=== PATIENT | female | born 1995 | race Caucasian/White ===

== ENCOUNTER 2016-06-08 14:18 | Emergency (ER) | payer OTHER ==
[~2016-06-08] VITALS: Ht 185.4 cm; Wt 78.7 kg
[~2016-06-08 14:18] MED LIST: TOPI50TA16 PO
[2016-06-08 14:22] VITALS: TEMP 36.6; Ht 185.4 cm; Wt 78.7 kg
[2016-06-08] MEDS ORDERED: ONDANSETRON INJ 2 MG/ML 2 ML VIAL IV STA (14:58)
[2016-06-08] MEDS ORDERED: KETOROLAC TROMETHAMINE 30 MG/ML VIAL IV STA (14:58)
[2016-06-08] MEDS ORDERED: MoRPHine SULFATE 4 MG/ML 1 ML CARP\\VIAL IV STA (14:58)
[2016-06-08] MEDS ORDERED: IBUP-1050 PO (15:26)
[2016-06-08 15:58] LABS: MEAN CORPUSCULAR HGB CONC 34.5 g/dl (32-36)
[2016-06-08 16:00] LABS: URINE APPEARANCE CLOUDY (CLEAR); URINE BILIRUBIN NEG (NEG); URINE COLOR YELLOW; URINE EPITHELIAL CELL AUTO >30 /lpf (0-5); URINE NITRITE NEG (NEG); URINE SPECIFIC GRAVITY 1.021 (1.000-1.030); UROBILINOGEN NEG (NEG)
[2016-06-08 16:05] LABS: MANUAL MICROSCOPIC REQUIRED? NO; REVIEW REQ? NO
[2016-06-08 16:07] LABS: HEMATOCRIT 36.8 % (37-47); RED BLOOD COUNT 4.23 M/uL (4.2-5.4); WHITE BLOOD COUNT 4.16 K/uL (4.8-10.8)
[2016-06-08 16:08] LABS: PREG INTERNAL NEGATIVE QC NEG CLEAR BACKGROUND; PREG INTERNAL POSITIVE QC POS CONTROL LINE
[2016-06-08 16:18] LABS: MEAN PLATELET VOLUME 12.3 fL (7.4-10.4); PLATELET COUNT 134 K/uL (130-400); PLT ESTIMATE DECREASED
[2016-06-08 16:23] LABS: BUN/CREATININE RATIO 14.8 (10-20); CALCIUM 8.3 mg/dl (8.5-10.1); CREATININE 0.75 mg/dl (0.60-1.20); POTASSIUM 4.3 mmol/L (3.5-5.1)
--- NOTE | 2016-06-08 16:30 | DIAGNOSTIC IMAGING REPORT ---
EXAMINATION: PELVIC ULTRASOUND CLINICAL HISTORY: Severe cramping. History of IUD. Possible ovarian cyst. COMPARISON STUDY: 08/21/2015 FINDINGS: The uterus measured 6.8 x 4.7 x 3.2 cm.. The endometrial stripe measured 8 mm. An IUD is visualized within the endometrial cavity.. The right ovary measured 40 x 17 x 24 mm.. The left ovary measured 18 x 18 x 38 mm. No pathologic ovarian masses are visualized.. There is no ultrasonographic evidence of ovarian torsion. It should be noted that ovarian torsion can be present with normal Doppler ultrasonographic findings. There was no evidence of pathologic free pelvic fluid. IMPRESSION: Unremarkable pelvic ultrasound. No pathologic adnexal masses. The patient's IUD is located within the endometrial cavity. Electronically signed by: Jose Alfredo Sanabria M.D. 06/08/2016 4:28 PM Dictated Date/Time: 06/08/2016 4:27 PM
[2016-06-08] MEDS ORDERED: OXYC1TAB3 PO (16:58)
[2016-06-08] MEDS ORDERED: IBUP-1428 PO (16:58)
--- NOTE | 2016-06-08 17:26 | EMERGENCY ROOM VISIT NOTE ---
History Report prepared by Jose: Jairo Barry Under the Supervision of: Dr. Carlos Gunn M.D. First contact with patient: 14:54 Chief Complaint: ABDOMINAL PAIN Stated Complaint: SEVERE CRAMPING Nursing Triage Summary: C/o abd cramping, had an IUD placed on Sunday, cramping worse today. Placed at [facility] History of Present Illness The patient is a 20 year old female who presents to the Emergency Room with complaints of waxing & waning abdominal cramping today. The pain fluctuates between 6 to 8/10 in severity. The pain is slightly relieved by Ibuprofen. The patient had an IUD placed two days ago with [facility]. The patient had pain after the procedure, which intensified today. She has also noticed some vaginal spotting, which was expected after the procedure. The patient vomited after the procedure, but has not vomited today. She has noticed increased urinary frequency. The patient denies any fevers. The patient had the IUD placed for menstrual bleeding that continued for over two months. She cannot recall who the [employer] Prescription Clerk was that performed the procedure. The patient has never been . She cannot recall ever being diagnosed with an ovarian cyst. Source of History: patient Onset: today Position: abdomen Symptom Intensity: 6 to 8/10 Quality: cramping Timing: waxes/wanes Modifying Factors (Relieving): ibuprofen Associated Symptoms: + urinary symptoms, + vomiting, No fevers Review of Systems See HPI for pertinent positives & negatives. A total of 10 systems reviewed and were otherwise negative. Past Medical & Surgical Medical Problems: (1) Anxiety (2) Hepatitis C (3) Migraines Family History Cancer Diabetes mellitus FH: migraines Heart disease Hypertension Kidney disease Kidney stones Lung disease Social History Smoking Status: Current Every Day Smoker Alcohol Use: none Drug Use: none Marital Status: single Housing Status: lives with significant other Occupation Status: employed Current/Historical Medications Scheduled PRN Ibuprofen (Advil), 800 MG PO Q6 PRN for Pain Ibuprofen (Motrin), 800 MG PO Q8H PRN for Pain Oxycodone Ir (Roxicodone Ir), 1 TAB PO Q4H PRN for Pain Allergies Coded Allergies: Azithromycin (Unverified Allergy, Unknown, SWELLING, 06/08/16) Penicillins (Verified Allergy, Unknown, 06/08/16) Physical Exam Vital Signs Date Time Temp Pulse Resp B/P Pulse Ox O2 Delivery O2 Flow Rate FiO2 06/08/16 17:31 63 15 100/61 96 06/08/16 16:25 68 14 112/68 06/08/16 14:22 36.6 88 16 119/62 99 Room Air Physical Exam GENERAL: Patient is in mild distress secondary to pain. HEENT: No acute trauma, normocephalic atraumatic, mucous membranes moist, no nasal congestion, no scleral icterus. NECK: No stridor, no adenopathy, no meningismus, trachea is midline. LUNGS: Clear to auscultation bilaterally, no wheeze, no rhonchi, breath sounds equal. HEART: Without murmurs gallops or rubs, regular rate and rhythm. ABDOMEN: Soft, tender to both lower quadrants and both sides of the pelvis, bowel sounds positive, no hernias, no peritonitis. EXTREMITIES: No cyanosis or edema, full range of motion of all the joints without pain or difficulty, no signs for acute trauma. NEUROLOGIC: Oriented x 3, no acute motor or sensory deficits, no focal weakness. SKIN: No rash, no jaundice, no diaphoresis. Medical Decision & Procedures ER Provider Diagnostic Interpretation: US results as stated below per my review and radiologist interpretation: EXAMINATION: PELVIC ULTRASOUND CLINICAL HISTORY: Severe cramping. History of IUD. Possible ovarian cyst. COMPARISON STUDY: 08/21/2015 FINDINGS: The uterus measured 6.8 x 4.7 x 3.2 cm.. The endometrial stripe measured 8 mm. An IUD is visualized within the endometrial cavity.. The right ovary measured 40 x 17 x 24 mm.. The left ovary measured 18 x 18 x 38 mm. No pathologic ovarian masses are visualized.. There is no ultrasonographic evidence of ovarian torsion. It should be noted that ovarian torsion can be present with normal Doppler ultrasonographic findings. There was no evidence of pathologic free pelvic fluid. IMPRESSION: Unremarkable pelvic ultrasound. No pathologic adnexal masses. The patient's IUD is located within the endometrial cavity. Electronically signed by: Jose Alfredo Sanabria M.D. 06/08/2016 4:28 PM Dictated Date/Time: 06/08/2016 4:27 PM Laboratory Results 06/08/16 15:20 06/08/16 15:20 Test 06/08/16 15:20 Red Blood Count 4.23 M/uL (4.2-5.4) Mean Corpuscular Volume 87.0 fL (80-100) Mean Corpuscular Hemoglobin 30.0 pg (25-34) Mean Corpuscular Hemoglobin Concent 34.5 g/dl (32-36) RDW Standard Deviation 49.4 fL (36.4-46.3) RDW Coefficient of Variation 15.5 % (11.5-14.5) Mean Platelet Volume 12.3 fL (7.4-10.4) Platelet Estimate DECREASED Urine Color YELLOW Urine Appearance CLOUDY (CLEAR) Urine pH 8.0 (4.5-7.5) Urine Specific [place] 1.021 (1.000-1.030) Urine Protein NEG (NEG) Urine Glucose (UA) NEG (NEG) Urine Ketones NEG (NEG) Urine Occult Blood NEG (NEG) Urine Nitrite NEG (NEG) Urine Bilirubin NEG (NEG) Urine Urobilinogen NEG (NEG) Urine Leukocyte Esterase NEG (NEG) Urine WBC (Auto) 1-5 /hpf (0-5) Urine RBC (Auto) 0-4 /hpf (0-4) Urine Hyaline Casts (Auto) 1-5 /lpf (0-5) Urine Epithelial Cells (Auto) >30 /lpf (0-5) Urine Bacteria (Auto) NEG (NEG) Anion Gap 6.0 mmol/L (3-11) Est Creatinine Clear Calc Drug Dose 141.2 ml/min Estimated GFR () 132.1 Estimated GFR (Non- 113.9 BUN/Creatinine Ratio 14.8 (10-20) Calcium Level 8.3 mg/dl (8.5-10.1) Human Chorionic Gonadotropin, Qual NEG (NEG) Laboratory results reviewed by me. Medications Administered Medications (Trade) Dose Ordered Sig/Ashly Route Start Time Stop Time Status Last Admin Dose Admin Ketorolac Tromethamine (Toradol Inj) 30 mg NOW STAT IV 06/08/16 14:58 06/08/16 15:03 DC 06/08/16 15:33 30 MG Morphine Sulfate (MoRPHine SULFATE INJ) 4 mg NOW STAT IV 06/08/16 14:58 06/08/16 15:03 DC 06/08/16 15:33 4 MG Ondansetron HCl (Zofran Inj) 4 mg NOW STAT IV 06/08/16 14:58 06/08/16 15:03 DC 06/08/16 15:32 4 MG ED Course 1457: The patient was evaluated in room B8. A complete history and physical exam was performed. 1458: Zofran 4 mg IV, Morphine Sulfate 4 mg IV, Toradol 30 mg IV. 1645: Discussed the case with Dr. Kauffman, [employer] Prescription Clerk. He recommended symptoms control for the next couple of days. 1650: Reassessed the patient. She was doing well. I discussed the findings with her. She verbalized understanding and agreement of the treatment plan. The patient is ready for discharge. 1700: The prescription drug monitoring program was evaluated for this patient. Medical Decision Differential diagnosis includes misplaced IUD, uterine spasm, UTI, bladder spasm , electrolyte imbalance, , ovarian cyst. There is no leukocytosis or worrisome anemia. No significant electrolyte abnormality, no kidney failure. testing is negative. Urinalysis does not show evidence for infection. Pelvic ultrasound shows the IUD to be in the proper position. No large ovarian cyst. On exam, the patient was not toxic or febrile. Patient received IV Toradol, IV Zofran and IV morphine, she feels markedly improved. I discussed the case with the on-call OB doctor. The patient is being discharged with outpatient follow-up. She was given prescriptions for Motrin and a few oxycodone. She was told to return here for uncontrolled pain, fever or worsening symptoms. At this point, it appears that she is having some uterine spasm, likely from the IUD itself. Her symptoms should improve with more time. [place] Drug Monitoring Program Search Results: patient reviewed within database, no issues identified Consults Time Called: 1640 Consulting Physician: Dr. Kauffman, [employer] Prescription Clerk Returned Call: [phone]: Discussed the case with Dr. Kauffman, [employer] Prescription Clerk. He recommended symptoms control for the next couple of days. Impression Primary Impression: Pelvic cramping Scribe Attestation The scribe's documentation has been prepared under my direction and personally reviewed by me in its entirety. I confirm that the note above accurately reflects all work, treatment, procedures, and medical decision making performed by me. Departure Information Dispostion Home / Self-Care Prescriptions Oxycodone Ir (Roxicodone Ir) 5 Mg Tab 1 TAB PO Q4H Y for Pain, #5 TAB Prov: Carlos Gunn M.D. 06/08/16 Ibuprofen (Motrin) 800 Mg Tab 800 MG PO Q8H Y for Pain for 5 Days, #15 TAB Prov: Carlos Gunn M.D. 06/08/16 Referrals No Doctor, Assigned (PCP) Forms HOME CARE DOCUMENTATION FORM, IMPORTANT VISIT INFORMATION, Work Instructions Patient Instructions My [facility] Additional Instructions motrin 800 mg 3x per day for pain oxy ir 1 every 4 hours for severe pain call ob tomorrow to update them on your symptoms return for fever or uncontrolled pain lab testing today was ok ultrasound showed the IUD to be in proper position
[2016-06-08 17:31] VITALS: BP 100/61; PULSE 63; O2SAT 96
[2016-08-11] MEDS ORDERED: HYDR-5688 PO ×2 (19:11→19:14)
[2016-08-11] MEDS ORDERED: CIPR-255 PO (19:11)
== END 2016-06-08 15:31 | disposition home or self-care (01) ==
LOC: C.EDB 14:19
DX: R10.9 Unspecified abdominal pain (principal); F41.9 Anxiety disorder, unspecified; Z83.3 Family history of diabetes mellitus; Z82.49 Family history of ischemic heart disease and other diseases of the circulatory system; F17.210 Nicotine dependence, cigarettes, uncomplicated

== ENCOUNTER 2016-08-11 12:33 | Inpatient (IN) | payer OTHER ==
[~2016-08-11] VITALS: Ht 185.4 cm; Wt 76.4 kg
[~2016-08-11 12:33] MED LIST changes: +IBUP-1050 PO; +OXYC1TAB3 PO; -TOPI50TA16 PO
[2016-08-11 12:37] VITALS: TEMP 37.1; Ht 185.4 cm; Wt 76.4 kg
[2016-08-11] MEDS ORDERED: KETOROLAC TROMETHAMINE 30 MG/ML VIAL IV STA (12:52)
[2016-08-11] MEDS ORDERED: ONDANSETRON INJ 2 MG/ML 2 ML VIAL IV STA (12:52)
[2016-08-11] MEDS ORDERED: SODIUM CHLORIDE 0.9% 1000ML 1,000 ML IV STA ×2 (12:52→14:53)
[2016-08-11] MEDS ORDERED: GABA-112 PO (13:02)
[2016-08-11] MEDS ORDERED: FLUO20CA34 PO (13:02)
[2016-08-11] MEDS ORDERED: CLON0.5T3 PO (13:03)
--- NOTE | 2016-08-11 13:04 | EMERGENCY ROOM VISIT NOTE ---
History Report prepared by Jose: Niesha Thomas Under the Supervision of: Dr. Adry Garza M.D. First contact with patient: 12:43 Chief Complaint: ILLNESS Stated Complaint: BACK PAIN, HEADACHE,LACK OF BALANCE, OVERLY TIRED, History of Present Illness The patient is a 20 year old female who presents to the Emergency Room with complaints of worsening back pain that began about a week ago. She initially thought she pulled a muscle, until the pain continued to get worse and started to radiate through her right rib cage and right lower quadrant. Her pain worsens significantly with movement. She has difficulty getting out of bed in the morning due to her pain and has to take Advil before she is able to get up. Since her symptoms began, she has had temporary migraines in the mornings, "my head feels like an egg shell." The headache resolves as the day progresses. She reports occasional ear pain when her headache is at its worst. The patient also complains of a cough, fever (max temperature 101), sweating, and chills when her Advil wears off. She feels as if she is dehydrated, although she is trying to keep up with fluids. The patient was seen at Urgent Care 2 days ago for her symptoms and was referred to the ED. She did not have any testing at Urgent Care. The patient decided that she did not want to come to the ED at that time because she wanted to go home and sleep. Per patient's father, the patient has not had an appetite. Denies sore throat or other complaints. Source of History: patient, parent Onset: a week ago Position: back Timing: worsening Modifying Factors (Worsening): movement Modifying Factors (Relieving): ibuprofen Associated Symptoms: + chills, + cough, + fevers, + headache, No sorethroat Note: Other symptoms: sweating, decreased appetite, ear pain Review of Systems See HPI for pertinent positives & negatives. A total of 10 systems reviewed and were otherwise negative. Past Medical & Surgical Medical Problems: (1) Acute renal failure (2) Anxiety (3) H/O intravenous drug use in remission (4) Hepatitis C (5) Pyelonephritis (6) Tobacco abuse Surgical Problems: (1) Hx of tonsillectomy Family History Cancer Diabetes mellitus FH: migraines Heart disease Hypertension Kidney disease Kidney stones Lung disease Social History Smoking Status: Current Every Day Smoker Alcohol Use: none Drug Use: none Marital Status: single Housing Status: lives with significant other Occupation Status: employed Current/Historical Medications Scheduled Ciprofloxacin Hcl (Cipro), 500 MG PO BID Fluoxetine Hcl (Prozac), 1 CAP PO DAILY Gabapentin (Neurontin), 1 CAP PO TID Scheduled PRN Clonazepam (Klonopin), 0.5 MG PO TID PRN for Anxiety Hydrocodone/Acetaminophen 5MG/325MG (Crockett 5MG/325MG), 1 TABLET PO Q6H PRN for Pain Allergies Coded Allergies: Azithromycin (Unverified Allergy, Unknown, SWELLING, 06/08/16) Penicillins (Verified Allergy, Unknown, 06/08/16) Physical Exam Vital Signs Date Time Temp Pulse Resp B/P Pulse Ox O2 Delivery O2 Flow Rate FiO2 08/11/16 14:13 78 85/36 97 Room Air 92/39 08/11/16 12:37 37.1 116 18 151/82 96 Room Air Physical Exam Vital signs reviewed. General: Well-appearing 20 year old female, in no significant distress. HEENT: No scleral icterus, PERRLA, neck supple. Atraumatic. Cardiovascular: Regular rate and rhythm, no extra sounds. Pulmonary: Clear to auscultation bilaterally, normal work of breathing. Abdomen: Soft, some tenderness to the right mid abdomen, nondistended, positive bowel sounds. Musculoskeletal: Atraumatic, no peripheral edema. Some right CVA tenderness. Neurologic: Patient awake alert and oriented x 3, full strength in all 4 extremities. Cranial nerves 2 through 12 grossly intact. No meningeal signs. Skin: Warm, dry, no rash Medical Decision & Procedures ER Provider Diagnostic Interpretation: Radiology results as stated below per my review and radiologist interpretation: CT HEAD WITHOUT CONTRAST (CT) CLINICAL HISTORY: Severe persistent headache COMPARISON STUDY: 10/25/2015 TECHNIQUE: Axial CT of the brain is performed from the vertex to the skull base. IV contrast was not administered for this examination. CT DOSE: 537.48 mGy.cm FINDINGS: No intra or extra-axial mass lesions are visualized. There is no CT evidence of acute cortical infarction. There is no evidence of midline shift. There is no acute hemorrhage. No calvarial fractures are visualized. There is no evidence of pathologic ventricular dilatation. There is a stable small left sphenoid sinus air-fluid level. IMPRESSION: Chronic left sphenoid sinus air-fluid level. No acute intracranial abnormalities Electronically signed by: Jose Alfredo Sanabria M.D. 08/11/2016 2:39 PM Dictated Date/Time: 08/11/2016 2:38 PM ABDOMEN AND PELVIS CT WITHOUT CONTRAST CT DOSE: 778.47 mGy.cm HISTORY: Flank pain elevated creatinine, R pain, pyelo TECHNIQUE: Multiaxial CT images of the abdomen and pelvis were performed without the use of intravenous and oral contrast according to the standard department stone protocol. COMPARISON STUDY: None. FINDINGS: Lung bases are clear. Liver spleen and pancreas appear generally unremarkable within limitations of lack of contrast. Right kidney appears edematous as compared to the left. There are findings of mild to moderate infiltrative change of the right renal perinephric space. Secondary indication of a right-sided palate findings. There is no evidence for hydronephrosis. There is no obstructing urinary tract calculus. No evidence for drainable abscess or collection within limitations of an unenhanced scan. Bowel pattern appears nonobstructive. Intrauterine device is present. IMPRESSION: Findings highly suggestive of generalized right renal pyelonephritis.. 2. Moderate perinephric infiltrative change, although an abscess or collection is not appreciated within limitations of an unenhanced scan. 3. Mild reactive mesenteric adenitis 4. If the patient's symptoms do not improve, a fully enhanced scan including intravenous and oral contrast would be required to exclude a developing collection. Electronically signed by: Nito Quintana M.D. 08/11/2016 2:53 PM Dictated Date/Time: 08/11/2016 2:48 PM Laboratory Results 08/11/16 13:15 Red Blood Count 3.95, Mean Corpuscular Volume 84.1, Mean Corpuscular Hemoglobin 30.1, Mean Corpuscular Hemoglobin Concent 35.8, Mean Platelet Volume 12.2, Neutrophils (%) (Auto) 70.7, Lymphocytes (%) (Auto) 6.0, Monocytes (%) (Auto) 22.5, Eosinophils (%) (Auto) 0.4, Basophils (%) (Auto) 0.1, Neutrophils # (Auto ) 6.61, Lymphocytes # (Auto) 0.56, Monocytes # (Auto) 2.10, Eosinophils # (Auto ) 0.04, Basophils # (Auto) 0.01 4/7/17 13:15 Test 08/11/16 13:00 08/11/16 13:07 08/11/16 13:15 Urine Color YELLOW Urine Appearance CLOUDY (CLEAR) Urine pH 5.0 (4.5-7.5) Urine Specific [place] 1.011 (1.000-1.030) Urine Protein 1+ (NEG) Urine Glucose (UA) NEG (NEG) Urine Ketones NEG (NEG) Urine Occult Blood 1+ (NEG) Urine Nitrite NEG (NEG) Urine Bilirubin NEG (NEG) Urine Urobilinogen NEG (NEG) Urine Leukocyte Esterase LARGE (NEG) Urine WBC (Auto) >30 /hpf (0-5) Urine RBC (Auto) 0-4 /hpf (0-4) Urine Hyaline Casts (Auto) 1-5 /lpf (0-5) Urine Epithelial Cells (Auto) 0-5 /lpf (0-5) Urine Bacteria (Auto) 3+ (NEG) Urine Test NEG (NEG) Influenza Type A (RT-PCR) Neg for Influ A (NEG) Influenza Type A Antigen Neg for Influ A (NEG) Influenza Type B Antigen Neg for Influ B (NEG) Influenza Type B (RT-PCR) Neg for Influ B (NEG) White Blood Count 9.35 K/uL (4.8-10.8) Red Blood Count 3.95 M/uL (4.2-5.4) Hemoglobin 11.9 g/dL (12.0-16.0) Hematocrit 33.2 % (37-47) Mean Corpuscular Volume 84.1 fL (80-100) Mean Corpuscular Hemoglobin 30.1 pg (25-34) Mean Corpuscular Hemoglobin Concent 35.8 g/dl (32-36) Platelet Count 114 K/uL (130-400) Mean Platelet Volume 12.2 fL (7.4-10.4) Neutrophils (%) (Auto) 70.7 % Lymphocytes (%) (Auto) 6.0 % Monocytes (%) (Auto) 22.5 % Eosinophils (%) (Auto) 0.4 % Basophils (%) (Auto) 0.1 % Neutrophils # (Auto) 6.61 K/uL (1.4-6.5) Lymphocytes # (Auto) 0.56 K/uL (1.2-3.4) Monocytes # (Auto) 2.10 K/uL (0.11-0.59) Eosinophils # (Auto) 0.04 K/uL (0-0.5) Basophils # (Auto) 0.01 K/uL (0-0.2) RDW Standard Deviation 45.4 fL (36.4-46.3) RDW Coefficient of Variation 14.6 % (11.5-14.5) Immature Granulocyte % (Auto) 0.3 % Immature Granulocyte # (Auto) 0.03 K/uL (0.00-0.02) Toxic Granulation 1+ Platelet Estimate DECREASED Echinocytes 1+ Anion Gap 5.0 mmol/L (3-11) Est Creatinine Clear Calc Drug Dose 55.7 ml/min Estimated GFR () 42.9 Estimated GFR (Non- 37.0 BUN/Creatinine Ratio 18.5 (10-20) Calcium Level 8.4 mg/dl (8.5-10.1) Magnesium Level 2.3 mg/dl (1.8-2.4) Total Bilirubin 0.8 mg/dl (0.2-1) Direct Bilirubin 0.4 mg/dl (0-0.2) Aspartate Amino Transf (AST/SGOT) 18 U/L (15-37) Alanine Aminotransferase (ALT/SGPT) 24 U/L (12-78) Alkaline Phosphatase 92 U/L (45-117) Total Protein 6.2 gm/dl (6.4-8.2) Albumin 2.7 gm/dl (3.4-5.0) Lipase 79 U/L (73-393) Thyroid Stimulating Hormone (TSH) 0.409 uIu/ml (0.300-4.500) Laboratory results per my review. Medications Administered Medications (Trade) Dose Ordered Sig/Ashly Route Start Time Stop Time Status Last Admin Dose Admin Sodium Chloride (Nss 1000ml) 1,000 ml @ 999 mls/hr Q1H1M STAT IV 08/11/16 12:52 08/11/16 13:52 DC 08/11/16 13:20 999 MLS/HR Ketorolac Tromethamine (Toradol Inj) 30 mg NOW STAT IV 08/11/16 12:52 08/11/16 12:55 DC 08/11/16 13:21 30 MG Ondansetron HCl 4 mg 4 mg NOW STAT IV 08/11/16 12:52 08/11/16 12:55 DC 08/11/16 13:21 4 MG Sodium Chloride (Nss 1000ml) 1,000 ml @ 999 mls/hr Q1H1M STAT IV 08/11/16 14:53 08/11/16 15:53 DC 08/11/16 14:53 999 MLS/HR Ciprofloxacin/ Dextrose (Cipro / D5w) 400 mg NOW STAT IV 08/11/16 15:22 08/11/16 15:23 DC 08/11/16 15:41 400 MG ED Course 1250: The patient was evaluated in room A2. A complete history and physical examination was performed. 1252: Ordered Zofran Inj 4 mg IV, Toradol Inj 30 mg IV, NSS 1000 ml @ 999 mls/ hr IV. 1453: Ordered NSS 1000 ml @ 999 mls/hr IV. 1522: Ordered Cipro/D5w 400 mg IV. 1535: Upon reevaluation, the patient is resting comfortably. I discussed laboratory and radiographic results with the patient. She verbalized agreement of the treatment plan. 1540: I discussed the case with [facility]. The patient will be evaluated for further management. Medical Decision Differential diagnosis: Etiologies such as renal colic, appendicitis, diverticulitis, mesenteric ischemia, aortic pathology, infections, inflammatory bowel disease, PUD, biliary pathology, UTI, as well as others were entertained. This patient was evaluated and appeared to be in no significant distress. IV access was obtained and laboratory work was drawn. The patient was placed on the general repairer and found to be in a normal sinus rhythm. Patient was hydrated with normal saline solution. She was given IV Toradol and IV Zofran. Laboratory work reveals a creatinine of 1.9. Patient's UA is significant for infection. CT scan of the abdomen and pelvis was performed and is consistent with a pyelonephritis. Patient was medicated with IV Cipro due to her penicillin allergy. IV hydration was continued in the case was discussed with the hospitalist service. Patient and her father are aware of the plan for admission and agree. Consults Time Called: 1535 Consulting Physician: [facility] Returned Call: 1540 I discussed the case with her. The patient will be evaluated for further management. Impression Primary Impression: Pyelonephritis Additional Impression: Acute renal failure Scribe Attestation The scribe's documentation has been prepared under my direction and personally reviewed by me in its entirety. I confirm that the note above accurately reflects all work, treatment, procedures, and medical decision making performed by me. Departure Information Dispostion Being Evaluated By Hospitalist Prescriptions Hydrocodone/Acetaminophen 5MG/325MG (Crockett 5MG/325MG) Tab 1 TABLET PO Q6H Y for Pain for 3 Days, #10 TAB Take one every six hours only as needed for severe pain. Prov: Pallavi Maldonado DO 08/11/16 Ciprofloxacin Hcl (CIPRO) 500 Mg Tab 500 MG PO BID for 7 Days, #14 TAB Prov: Pallavi Maldonado DO 08/11/16 Referrals No Doctor, Assigned (PCP) Patient Instructions My [facility] Problem Qualifiers Additional Impression: Acute renal failure Acute renal failure type: unspecified Qualified Codes: N17.9 - Acute kidney failure, unspecified
[2016-08-11 13:20] LABS: URINE APPEARANCE CLOUDY (CLEAR); URINE BILIRUBIN NEG (NEG); URINE COLOR YELLOW; URINE NITRITE NEG (NEG); URINE SPECIFIC GRAVITY 1.011 (1.000-1.030); UROBILINOGEN NEG (NEG); ZZUR CULT IF INDIC CLEAN CATCH YES
[2016-08-11 13:33] LABS: MANUAL MICROSCOPIC REQUIRED? NO; REVIEW REQ? YES
[2016-08-11 13:45] LABS: BUN/CREATININE RATIO 18.5 (10-20); CALCIUM 8.4 mg/dl (8.5-10.1); CREATININE 1.9 mg/dl (0.60-1.20); MAGNESIUM 2.3 mg/dl (1.8-2.4); POTASSIUM 3.5 mmol/L (3.5-5.1)
[2016-08-11 13:46] LABS: URINE EPITHELIAL CELL AUTO 0-5 /lpf (0-5)
[2016-08-11 14:01] LABS: THYROID STIMULATING HORMONE 0.409 uIu/ml (0.300-4.500)
[2016-08-11 14:19] LABS: BASO % 0.1 %; BASO ABS # 0.01 K/uL (0-0.2); COMPLETE YES; ECHINOCYTES 1+; EOS % 0.4 %; HEMATOCRIT 33.2 % (37-47); IG% 0.3 %; LYMPH ABS # 0.56 K/uL (1.2-3.4); MEAN CELL VOLUME 84.1 fL (80-100); MEAN CORPUSCULAR HEMOGLOBIN 30.1 pg (25-34); MEAN CORPUSCULAR HGB CONC 35.8 g/dl (32-36); MEAN PLATELET VOLUME 12.2 fL (7.4-10.4); MONO % 22.5 %; NEUT % 70.7 %; PLATELET COUNT 114 K/uL (130-400); PLT ESTIMATE DECREASED; RED BLOOD COUNT 3.95 M/uL (4.2-5.4); TOXIC GRANULATION 1+; WHITE BLOOD COUNT 9.35 K/uL (4.8-10.8)
--- NOTE | 2016-08-11 14:41 | DIAGNOSTIC IMAGING REPORT ---
CT HEAD WITHOUT CONTRAST (CT) CLINICAL HISTORY: Severe persistent headache COMPARISON STUDY: 10/25/2015 TECHNIQUE: Axial CT of the brain is performed from the vertex to the skull base. IV contrast was not administered for this examination. CT DOSE: 537.48 mGy.cm FINDINGS: No intra or extra-axial mass lesions are visualized. There is no CT evidence of acute cortical infarction. There is no evidence of midline shift. There is no acute hemorrhage. No calvarial fractures are visualized. There is no evidence of pathologic ventricular dilatation. There is a stable small left sphenoid sinus air-fluid level. IMPRESSION: Chronic left sphenoid sinus air-fluid level. No acute intracranial abnormalities Electronically signed by: Jose Alfredo Sanabria M.D. 08/11/2016 2:39 PM Dictated Date/Time: 08/11/2016 2:38 PM
--- NOTE | 2016-08-11 14:56 | DIAGNOSTIC IMAGING REPORT ---
ABDOMEN AND PELVIS CT WITHOUT CONTRAST CT DOSE: 778.47 mGy.cm HISTORY: Flank pain elevated creatinine, R pain, pyelo TECHNIQUE: Multiaxial CT images of the abdomen and pelvis were performed without the use of intravenous and oral contrast according to the standard department stone protocol. COMPARISON STUDY: None. FINDINGS: Lung bases are clear. Liver spleen and pancreas appear generally unremarkable within limitations of lack of contrast. Right kidney appears edematous as compared to the left. There are findings of mild to moderate infiltrative change of the right renal perinephric space. Secondary indication of a right-sided palate findings. There is no evidence for hydronephrosis. There is no obstructing urinary tract calculus. No evidence for drainable abscess or collection within limitations of an unenhanced scan. Bowel pattern appears nonobstructive. Intrauterine device is present. IMPRESSION: Findings highly suggestive of generalized right renal pyelonephritis.. 2. Moderate perinephric infiltrative change, although an abscess or collection is not appreciated within limitations of an unenhanced scan. 3. Mild reactive mesenteric adenitis 4. If the patient's symptoms do not improve, a fully enhanced scan including intravenous and oral contrast would be required to exclude a developing collection. Electronically signed by: Nito Quintana M.D. 08/11/2016 2:53 PM Dictated Date/Time: 08/11/2016 2:48 PM
[2016-08-11 15:18] LABS: INFLUENZA A PCR Neg for Influ A (NEG); INFLUENZA B PCR Neg for Influ B (NEG)
[2016-08-11] MEDS ORDERED: CIPROFLOXACIN 400MG / 200ML D5W IV STA (15:22)
[2016-08-11] MEDS ORDERED: ONDANSETRON INJ 2 MG/ML 2 ML VIAL IV PRN (16:30)
[2016-08-11] MEDS ORDERED: CLONAZEPAM 0.5 MG TAB PO PRN (16:30)
[2016-08-11] MEDS ORDERED: ACETAMINOPHEN 325 MG TAB PO PRN (16:30)
--- NOTE | 2016-08-11 17:03 | History and Physical ---
History & Physical Date & Time of Service: Aug 11, 2016 at 16:37 Chief Complaint: Back Pain, Headache,Lack Of Balance, [place] Tired, Primary Care Physician: Rufus Box III, M.D. History of Present Illness Source: patient, family, clinic records, hospital records Patient seen and examined. 20 year old female with PMHx of Anxiety, tobacco abuse, h/o IV drug use, h/o hepatitis C presents to the ED complaining of right flank pain x 1 week. Patient reports she thought she pulled a muscle in her right side but the pain has continued to worsen. She reports she has malaise/ myalgias, feels tired and "feels dehydrated." She went to urgent care earlier this week who referred her to the ED but she did not come. She states she has had subjective fevers and a severe headache described as "eggshells on my head. " She also reports dysuria. She states she has been taking a lot of Advil to help with her symptoms. She has been taking 10+ Advil at a time. She denies URI symptoms, chest pain, SOB, nausea, vomiting, diarrhea, calf pain and edema. In the ED VS are stable, CT head is negative, CT a/p is consistent with pyelonephritis. UA is infected. She was empirically started on Cipro. She will be admitted for further workup and treatment. 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 (3) Hepatitis C Status: Chronic (4) Tobacco abuse Status: Chronic Surgical Problems: (1) Hx of tonsillectomy Status: Chronic Family History Cancer Diabetes mellitus FH: migraines Heart disease Hypertension Kidney disease Kidney stones Lung disease Social History Smoking Status: Current Every Day Smoker Alcohol Use: occasionally Drug Use: none Marital Status: single Occupational Status: employed Multi-Drug Resistant Organisms History of MDRO: No Allergies Coded Allergies: Azithromycin (Unverified Allergy, Unknown, SWELLING, 06/08/16) Penicillins (Verified Allergy, Unknown, 06/08/16) Home Medications Scheduled Ciprofloxacin Hcl (Cipro), 500 MG PO BID Fluoxetine Hcl (Prozac), 1 CAP PO DAILY Gabapentin (Neurontin), 1 CAP PO TID Scheduled PRN Clonazepam (Klonopin), 0.5 MG PO TID PRN for Anxiety Hydrocodone/Acetaminophen 5MG/325MG ([place] 5MG/325MG), 1 TABLET PO Q6H PRN for Pain Review of Systems See above for pertinent positives & negatives. A total of 10 systems reviewed and were otherwise negative. Physical Exam Vital Signs Date Time Temp Pulse Resp B/P Pulse Ox O2 Delivery O2 Flow Rate FiO2 08/11/16 14:13 78 85/36 97 Room Air 92/39 08/11/16 12:37 37.1 116 18 151/82 96 Room Air General Appearance: + pertinent finding (WD/WN 20 year old female lying in bed in NAD with family at bedside ) Head: normocephalic, atraumatic Eyes: PERRL, EOMI, sclerae normal ENT: hearing grossly normal, pharynx normal Neck: supple, no JVD Respiratory/Chest: chest non-tender, lungs clear, normal breath sounds, no respiratory distress, no accessory muscle use Cardiovascular: regular rate, rhythm, no edema, no gallop, no JVD, no murmur, normal peripheral pulses Abdomen/GI: normal bowel sounds, soft, + tenderness (right flank, mild ) Back: normal inspection, no muscle spasm, + right CVA tenderness Extremities/Musculoskelatal: normal inspection, no calf tenderness, normal capillary refill, no pedal edema, normal range of motion Neurologic/Psych: alert, oriented x 3, + pertinent finding (nonfocal ) Skin: normal color, warm/dry, no rash Lymphatic: no adenopathy Diagnostics Laboratory Results Results Past 24 Hours Test 08/11/16 13:00 08/11/16 13:07 08/11/16 13:15 Range/Units Urine Color YELLOW Urine Appearance CLOUDY CLEAR Urine pH 5.0 4.5-7.5 Urine Specific [place] 1.011 1.000-1.030 Urine Protein 1+ NEG Urine Glucose (UA) NEG NEG Urine Ketones NEG NEG Urine Occult Blood 1+ NEG Urine Nitrite NEG NEG Urine Bilirubin NEG NEG Urine Urobilinogen NEG NEG Urine Leukocyte Esterase LARGE NEG Urine WBC (Auto) >30 0-5 /hpf Urine RBC (Auto) 0-4 0-4 /hpf Urine Hyaline Casts (Auto) 1-5 0-5 /lpf Urine Epithelial Cells (Auto) 0-5 0-5 /lpf Urine Bacteria (Auto) 3+ NEG Urine Test NEG NEG Influenza Type A (RT-PCR) Neg for Influ A NEG Influenza Type A Antigen Neg for Influ A NEG Influenza Type B Antigen Neg for Influ B NEG Influenza Type B (RT-PCR) Neg for Influ B NEG White Blood Count 9.35 4.8-10.8 K/uL Red Blood Count 3.95 4.2-5.4 M/uL Hemoglobin 11.9 12.0-16.0 g/dL Hematocrit 33.2 37-47 % Mean Corpuscular Volume 84.1 80-100 fL Mean Corpuscular Hemoglobin 30.1 25-34 pg Mean Corpuscular Hemoglobin Concent 35.8 32-36 g/dl Platelet Count 114 130-400 K/uL Mean Platelet Volume 12.2 7.4-10.4 fL Neutrophils (%) (Auto) 70.7 % Lymphocytes (%) (Auto) 6.0 % Monocytes (%) (Auto) 22.5 % Eosinophils (%) (Auto) 0.4 % Basophils (%) (Auto) 0.1 % Neutrophils # (Auto) 6.61 1.4-6.5 K/uL Lymphocytes # (Auto) 0.56 1.2-3.4 K/uL Monocytes # (Auto) 2.10 0.11-0.59 K/uL Eosinophils # (Auto) 0.04 0-0.5 K/uL Basophils # (Auto) 0.01 0-0.2 K/uL RDW Standard Deviation 45.4 36.4-46.3 fL RDW Coefficient of Variation 14.6 11.5-14.5 % Immature Granulocyte % (Auto) 0.3 % Immature Granulocyte # (Auto) 0.03 0.00-0.02 K/uL Toxic Granulation 1+ Platelet Estimate DECREASED Echinocytes 1+ Sodium Level 136 136-145 mmol/L Potassium Level 3.5 3.5-5.1 mmol/L Chloride Level 104 98-107 mmol/L Carbon Dioxide Level 27 21-32 mmol/L Anion Gap 5.0 3-11 mmol/L Blood Urea Nitrogen 35 7-18 mg/dl Creatinine 1.90 0.60-1.20 mg/dl Est Creatinine Clear Calc Drug Dose 55.7 ml/min Estimated GFR () 42.9 Estimated GFR (Non- 37.0 BUN/Creatinine Ratio 18.5 10-20 Random Glucose 91 70-99 mg/dl Calcium Level 8.4 8.5-10.1 mg/dl Magnesium Level 2.3 1.8-2.4 mg/dl Total Bilirubin 0.8 0.2-1 mg/dl Direct Bilirubin 0.4 0-0.2 mg/dl Aspartate Amino Transf (AST/SGOT) 18 15-37 U/L Alanine Aminotransferase (ALT/SGPT) 24 12-78 U/L Alkaline Phosphatase 92 45-117 U/L Total Protein 6.2 6.4-8.2 gm/dl Albumin 2.7 3.4-5.0 gm/dl Lipase 79 73-393 U/L Thyroid Stimulating Hormone (TSH) 0.409 0.300-4.500 uIu/ml Microbiology Results 08/11/16 Group A Streptococcus Screen - Final, Resulted SPECIMEN NEGATIVE FOR GROUP A BETA ST... 08/11/16 Group A Streptococcus Screen ([facility]), Resulted Pending 08/11/16 Urine Culture, Received Pending Diagnostic Radiology CT A/P Per radiologist read: IMPRESSION: Findings highly suggestive of generalized right renal pyelonephritis.. 2. Moderate perinephric infiltrative change, although an abscess or collection is not appreciated within limitations of an unenhanced scan. 3. Mild reactive mesenteric adenitis 4. If the patient's symptoms do not improve, a fully enhanced scan including intravenous and oral contrast would be required to exclude a developing collection. CT HEAD Per radiologist read: IMPRESSION: Chronic left sphenoid sinus air-fluid level. No acute intracranial abnormalities Impression Assessment and Plan 20 year old female presents to the ED complaining of generalized pain worse in the right flank, headache PYELONEPHRITIS -Admit to med/surg -VS stable, BP on my examination 110/70 -no leukocytosis, afebrile -Was empirically started on cipro d/t penicillin allergy - last culture grew E.coli sensitive to fluoroquinolones -IVFs -repeat culture pending -CBC, PRP, Mg in AM -Scheduled tramadol, Tylenol for pain ACUTE RENAL FAILURE -Crea 1.9 baseline 0.75 -Likely secondary to excessive NSAID use, possible dehydration in setting of poor po intake -avoid nephrotoxic agents -IVFs -repeat PRP in AM TOBACCO ABUSE -Cessation counseling given -Nicotine patch ordered ANXIETY -continue home meds H/O HEPATITIS C -per record H/O IV DRUG ABUSE -sober 1.5 years per patient DVT PROPHYLAXIS: SCDs CODE STATUS: FULL CODE DISPO:In my clinical judgment this beneficiary meets acute admission criteria, established by [facility], that includes being hospitalized through two midnights. Patient seen in collaboration with Dr. Maldonado i have seen the patient. when I walked into the room she was cyring and was very upset, in hysterics, because she doesn't want to be in the hospital. She is upset that she spent 6 hours in the ER, and that she is not allowed to go out side to smoke. From what I can gather she just wants to go home.She was educated on the risks of leaving, but chose to leave AMA anyway. Palalvi Maldonado , dO Level of Care Med/Surg Resuscitation Status FULL RESUSCITATION VTE Prophylaxis VTE Risk Assessment Done? Y/N: Yes Risk Level: Low Given or contraindicated: Treatment not indicated Social Service Consult None Apply
[2016-08-11 18:29] VITALS: BP 110/55; PULSE 73; O2SAT 92
[2016-08-11] MEDS ORDERED: CIPR-255 PO (19:11)
[2016-08-11] MEDS ORDERED: HYDR-5688 PO ×2 (19:11→19:14)
--- NOTE | 2016-08-11 19:18 | Discharge Instructions ---
Discharge Instructions Date of Service Aug 11, 2016. Admission Reason for Admission: Back Pain, Headache,Lack Of Balance, [place] Tired, Discharge Discharge Diagnosis / Problem: JON, acute pyelonephritis Discharge Goals Goal(s): Therapeutic intervention Activity Recommendations Activity Limitations: per Instructions/Follow-up section . Instructions / Follow-Up Instructions / Follow-Up Please take all medications as prescribed. Please AVOID all NSAIDs (Non-steroidal Anti-inflammatory Drugs) such as Ibuprofen, Naproxen, Aleve, Motrin, Advil, etc. Your kidneys are in acute failure and you will need close follow-up with your primary physician within a couple of days. Using these medications will make this worse. Please continue to hydrate by drinking water frequently. Please return to the ER or seek immediate medical attention if you continue to have fevers, chills, worsening pain, or any other symptom that is concerning to you. Someone will contact you within the next few days to ensure a follow-up appointment has been arranged. It was a pleasure taking care of you! Call if you have any questions or problems. You can reach a [facility] hospitalist on duty at [facility] 24 hours a day by calling [phone]. Take care of yourself. Pallavi Maldonado, [facility] Hospitalist Current Hospital Diet Patient's current hospital diet: Regular Diet Discharge Diet Recommended Diet: Regular Diet Pending Studies Studies pending at discharge: yes List of pending studies: Urine culture Medical Emergencies . Who to Call and When: Medical Emergencies: If at any time you feel your situation is an emergency, please call 911 immediately. . Non-Emergent Contact Non-Emergency issues call your: Primary Care Provider . . "Provider Documentation" section prepared by Pallavi Maldonado. VTE Core Measure Inpt VTE Proph given/why not?: SCD's
[2016-08-11] MEDS ORDERED: SODIUM CHLORIDE 0.9% 1000ML 1,000 ML IV SCH (20:00)
[2016-08-11] MEDS ORDERED: GABAPENTIN 100 MG CAP PO SCH (21:00)
[2016-08-11] MEDS ORDERED: CIPROFLOXACIN / D5W 400 MG in PREMIXED IN D5W 200 ML IV SCH (21:00)
[2016-08-11] MEDS ORDERED: NICOTINE 14 MG/24 HR TDSY TD SCH (21:00)
[2016-08-11] MEDS ORDERED: ACETAMINOPHEN 500 MG TAB PO SCH (22:00)
[2016-08-11] MEDS ORDERED: TRAMADOL HCL 50 MG TAB PO SCH (22:00)
[2016-08-12] MEDS ORDERED: FLUOXETINE HCL 20 MG CAP PO SCH (09:00)
--- NOTE | 2016-08-12 11:32 | Discharge Summary ---
Discharge Summary Date of Service Aug 12, 2016. Discharge Summary Admission Date: Aug 11, 2016 at 16:20 Discharge Date: Aug 11, 2016 Discharge Disposition: Home Principal Diagnosis: JON Acute pyelonephritis Procedures: None. Vaccinations: None. Consultations: None. Pending Studies/Follow-Up: Per instructions below. Medication Reconciliation New Medications: Ciprofloxacin Hcl (Cipro) 500 Mg Tab 500 MG PO BID for 7 Days, #14 TAB Hydrocodone/Acetaminophen 5MG/325MG ([place] 5MG/325MG) Tab 1 TABLET PO Q6H PRN for Pain for 3 Days, #10 TAB Take one every six hours only as needed for severe pain. Continued Medications: Clonazepam (Klonopin) 0.5 Mg Tab 0.5 MG PO TID PRN for Anxiety, #90 Fluoxetine Hcl (Prozac) 20 Mg Cap 1 CAP PO DAILY, CAP Gabapentin (Neurontin) 100 Mg Cap 1 CAP PO TID, CAP Admission Information HPI (per Admitting provider): Patient seen and examined. 20 year old female with PMHx of Anxiety, tobacco abuse, h/o IV drug use, h/o hepatitis C presents to the ED complaining of right flank pain x 1 week. Patient reports she thought she pulled a muscle in her right side but the pain has continued to worsen. She reports she has malaise/ myalgias, feels tired and "feels dehydrated." She went to urgent care earlier this week who referred her to the ED but she did not come. She states she has had subjective fevers and a severe headache described as "eggshells on my head. " She also reports dysuria. She states she has been taking a lot of Advil to help with her symptoms. She has been taking 10+ Advil at a time. She denies URI symptoms, chest pain, SOB, nausea, vomiting, diarrhea, calf pain and edema. In the ED VS are stable, CT head is negative, CT a/p is consistent with pyelonephritis. UA is infected. She was empirically started on Cipro. She will be admitted for further workup and treatment. Physical Exam (per Admitting): General Appearance: + pertinent finding (WD/WN 20 year old female lying in bed in NAD with family at bedside ) Head: normocephalic, atraumatic Eyes: PERRL, EOMI, sclerae normal ENT: hearing grossly normal, pharynx normal Neck: supple, no JVD Respiratory/Chest: chest non-tender, lungs clear, normal breath sounds, no respiratory distress, no accessory muscle use Cardiovascular: regular rate, rhythm, no edema, no gallop, no JVD, no murmur , normal peripheral pulses Abdomen/GI: normal bowel sounds, soft, + tenderness (right flank, mild ) Back: normal inspection, no muscle spasm, + right CVA tenderness Extremities/Musculoskelatal: normal inspection, no calf tenderness, normal capillary refill, no pedal edema, normal range of motion Neurologic/Psych: alert, oriented x 3, + pertinent finding (nonfocal ) Skin: normal color, warm/dry, no rash Lymphatic: no adenopathy Hospital Course 20 yo F with acute pyelonephritis and UTI symptoms with flank pain and fevers for the past week. She was seen at an urgent care facility who recommended that she go to the ER, but she did not go. For the pain and dysuria she reported taking 10+Advils at a time. As the pain got worse, she decided to come to the ER where she was found to have JON with a creat 1.9 (normal at baseline), and clinical pyelonephritis. She was afebrile and hemodynamically stable. CT scan revealed changes consistent with acute pyelonephritis on the R (moderate infiltrative change of the right renal perinephric space with no abscess seen on unenhanced scan), UA was dirty with urine culture pending, and CT head (for severe headache) was normal. WBC count was 9K. Zofran, Toradol 30mg IV, IVF and started on Cipro IV in the ER. Of note, IV narcotics were not used in a cautious attempt to avoid dependence in this prior IV drug user with a history of dependence. She was noted to have had a urine culture positive for E coli in 2014 that was sensitive to fluoroquinolones, and with PCN allergy , Rocephin was considered but thought to be a poor choice empirically. She arrived onto the floor and was hysterical with emotion, using expletives at the staff and her family as they tried to explain why she was in the hospital after indicating that she wanted to leave. The nurse states that she had asked to go smoke, and became upset after she was told she would not be allowed to do that. She specifically reported feeling as though she could receive the same care at home, and she was upset because of how long she stayed in the ER earlier in the day. She signed out against medical advice and was given 7 days of PO Cipro to take at home along with [place] for severe pain as needed. She agreed to stay hydrated with water, and to avoid any NSAIDs (it was explained in detail what medications were NSAIDs) until seen by Dr. Box, her PCP next week. She agreed to follow-up with him and to seek immediate medical attention if her symptoms were to worsen in any way. Her father was present for all instructions and interactions with the patient. Total time spent on discharge = 60 minutes This includes examination of the patient, discharge planning, medication reconciliation, and communication with other providers. Discharge Instructions Discharge Instructions Date of Service Aug 11, 2016. Admission Reason for Admission: Back Pain, Headache,Lack Of Balance, [place] Tired, Discharge Discharge Diagnosis / Problem: JON, acute pyelonephritis Discharge Goals Goal(s): Therapeutic intervention Activity Recommendations Activity Limitations: per Instructions/Follow-up section . Instructions / Follow-Up Instructions / Follow-Up Please take all medications as prescribed. Please AVOID all NSAIDs (Non-steroidal Anti-inflammatory Drugs) such as Ibuprofen, Naproxen, Aleve, Motrin, Advil, etc. Your kidneys are in acute failure and you will need close follow-up with your primary physician within a couple of days. Using these medications will make this worse. Please continue to hydrate by drinking water frequently. Please return to the ER or seek immediate medical attention if you continue to have fevers, chills, worsening pain, or any other symptom that is concerning to you. Someone will contact you within the next few days to ensure a follow-up appointment has been arranged. It was a pleasure taking care of you! Call if you have any questions or problems. You can reach a [facility] hospitalist on duty at [facility] 24 hours a day by calling [phone]. Take care of yourself. Pallavi Maldonado DO [facility] Hospitalist Current Hospital Diet Patient's current hospital diet: Regular Diet Discharge Diet Recommended Diet: Regular Diet Pending Studies Studies pending at discharge: yes List of pending studies: Urine culture Medical Emergencies . Who to Call and When: Medical Emergencies: If at any time you feel your situation is an emergency, please call 911 immediately. . Non-Emergent Contact Non-Emergency issues call your: Primary Care Provider . . "Provider Documentation" section prepared by Pallavi Maldonado. VTE Core Measure Inpt VTE Proph given/why not?: SCD's <Electronically signed by Pallavi Maldonado DO> Signed: 08/11/16 1919 Signed: The status of this report is Signed * If report status is Draft, the document has not been finalized by the responsible provider. Additional Copies To Rufus Box III, M.D.
--- NOTE | 2016-08-16 14:45 | Progress Note ---
Progress Note Date of Service Aug 16, 2016. (Swathi Green PA-C) Progress Note Attempted to call patient regarding urine culture results resistance to Cipro. No answer, left patient message that prescription for Bactrim was called into preferred pharmacy by Dr. Maldonado. Left call back number if patient has any questions. Swathi Green PA-C (Swathi Green, JAYLAN)
== END 2016-08-11 19:15 | disposition left against medical advice (07) | DRG 684 ==
LOC: ENRESERVDT → ENRESERVTM → C.EDB 12:35 → C.MS2W 16:20
PROVIDERS: ADMIT Hospitalist; ATTEND Internal Medicine
DX: N17.9 Acute kidney failure, unspecified (principal); N10 Acute pyelonephritis; B96.20 Unspecified Escherichia coli [E. coli] as the cause of diseases classified elsewhere; R51 Headache; Z53.21 Procedure and treatment not carried out due to patient leaving prior to being seen by health care provider; B19.20 Unspecified viral hepatitis C without hepatic coma; F41.9 Anxiety disorder, unspecified; F17.200 Nicotine dependence, unspecified, uncomplicated; Z79.899 Other long term (current) drug therapy; T39.391A Poisoning by other nonsteroidal anti-inflammatory drugs [NSAID], accidental (unintentional), initial encounter; Z87.898 Personal history of other specified conditions

== ENCOUNTER 2016-08-12 12:24 | Emergency (ER) | payer OTHER ==
[~2016-08-12] VITALS: Ht 185.4 cm; Wt 77.9 kg
[~2016-08-12 12:24] MED LIST changes: +CIPR-255 PO; +CLON0.5T3 PO; +FLUO20CA34 PO; +GABA-112 PO; +HYDR-5688 PO; -IBUP-1050 PO; -OXYC1TAB3 PO
[2016-08-12 12:33] VITALS: TEMP 37.1; Ht 185.4 cm; Wt 77.9 kg
--- NOTE | 2016-08-12 13:40 | EMERGENCY ROOM VISIT NOTE ---
History Report prepared by Jose: Nomi Norman Under the Supervision of: Dr. Lemuel Cali M.D. First contact with patient: 13:23 Chief Complaint: OTHER COMPLAINT Stated Complaint: LEFT AMA LAST NIGHT, KIDNEY FAILURE INFECTION History of Present Illness The patient is a 20 year old female who presents to the Emergency Room with complaints of a persistent kidney infection that was diagnosed yesterday. The patient was diagnosed here yesterday, and left against medical advice last night around 2100. She has been having right flank pain, back pain, leg pain, and she says her skin hurts everywhere. The patient says she is not feeling too badly currently, but she is having the same amount of pain as before. Per the patient's father, the patient had past experiences that scared her and made her want to leave the hospital yesterday, but after discussions between the patient and her father, the patient decided to come back. The patient says she is able to drink fluids a bit. Her father noted that the patient ate for the first time today in a while. The patient bought the prescribed antibiotic today, but did not take it yet because she knew she was coming here. She states that since April 01, she has had vaginal bleeding. The patient has been seen here for that, and the medication she was given actually made it worse, she notes. The patient says estrogen helped but she never got the prescription refilled. She started taking Gabapentin and Clonazepam less than a month ago, which she says have been helping her feel better. The patient denies any current suicidal ideations or current nausea. Source of History: patient, parent Onset: Diagnosed yesterday Position: other (kidney - infection) Timing: other (persistent) Associated Symptoms: + back pain, No nausea Note: Associated symptoms: Right flank pain, leg pain, skin hurts everywhere. Vaginal bleeding since March. Denies current suicidal ideations. Review of Systems All systems have been listed, reviewed, and are negative other than those previously mentioned. Please see Additional Medical History Sheet. Past Medical & Surgical Medical Problems: (1) Acute renal failure (2) Anxiety (3) H/O intravenous drug use in remission (4) Hepatitis C (5) Pyelonephritis (6) Tobacco abuse Surgical Problems: (1) Hx of tonsillectomy Family History Cancer Diabetes mellitus FH: migraines Heart disease Hypertension Kidney disease Kidney stones Lung disease Social History Smoking Status: Current Every Day Smoker Alcohol Use: occasionally Drug Use: none Marital Status: single Housing Status: lives alone Occupation Status: employed Current/Historical Medications Scheduled Ciprofloxacin Hcl (Cipro), 500 MG PO BID Fluoxetine Hcl (Prozac), 1 CAP PO DAILY Gabapentin (Neurontin), 1 CAP PO TID Scheduled PRN Clonazepam (Klonopin), 0.5 MG PO TID PRN for Anxiety Hydrocodone/Acetaminophen 5MG/325MG ([place] 5MG/325MG), 1 TABLET PO Q6H PRN for Pain Allergies Coded Allergies: Azithromycin (Unverified Allergy, Unknown, SWELLING, 06/08/16) Penicillins (Verified Allergy, Unknown, 06/08/16) Physical Exam Vital Signs Date Time Temp Pulse Resp B/P Pulse Ox O2 Delivery O2 Flow Rate FiO2 08/12/16 15:32 86 22 100/60 100 08/12/16 14:03 75 18 94/40 08/12/16 12:33 37.1 152 17 108/68 96 Room Air Physical Exam GENERAL: Patient awake, alert, oriented x 3. Patient follows commands. Patient does not appear toxic. Patient is adequately hydrated and well- nourished. SKIN: No erythema, pallor, cyanosis or rash HEENT: Normal head, pupils equal, reactive to light and accommodation. LUNGS: Clear to auscultation. No wheezes, no rales, no rhonchi. HEART: No murmurs. No gallops. No rubs ABDOMEN: No masses, no rebound, no hepatomegaly or splenomegaly. Right CVA tenderness. EXTREMITIES: Patient had some vague generalized tenderness to both lower extremities without signs of infection. NEUROLOGIC: Cranial nerves II-XII within normal limits. No gross motor sensory function deficits. Medical Decision & Procedures Laboratory Results 08/12/16 13:50 Red Blood Count 3.91, Mean Corpuscular Volume 85.9, Mean Corpuscular Hemoglobin 30.9, Mean Corpuscular Hemoglobin Concent 36.0, Mean Platelet Volume 11.7, Neutrophils (%) (Auto) 69.1, Lymphocytes (%) (Auto) 10.8, Monocytes (%) (Auto) 19.4, Eosinophils (%) (Auto) 0.3, Basophils (%) (Auto) 0.1, Neutrophils # (Auto ) 5.21, Lymphocytes # (Auto) 0.81, Monocytes # (Auto) 1.46, Eosinophils # (Auto ) 0.02, Basophils # (Auto) 0.01 08/12/16 13:50 Test 08/12/16 13:50 08/12/16 13:55 White Blood Count 7.53 K/uL (4.8-10.8) Red Blood Count 3.91 M/uL (4.2-5.4) Hemoglobin 12.1 g/dL (12.0-16.0) Hematocrit 33.6 % (37-47) Mean Corpuscular Volume 85.9 fL (80-100) Mean Corpuscular Hemoglobin 30.9 pg (25-34) Mean Corpuscular Hemoglobin Concent 36.0 g/dl (32-36) Platelet Count 126 K/uL (130-400) Mean Platelet Volume 11.7 fL (7.4-10.4) Neutrophils (%) (Auto) 69.1 % Lymphocytes (%) (Auto) 10.8 % Monocytes (%) (Auto) 19.4 % Eosinophils (%) (Auto) 0.3 % Basophils (%) (Auto) 0.1 % Neutrophils # (Auto) 5.21 K/uL (1.4-6.5) Lymphocytes # (Auto) 0.81 K/uL (1.2-3.4) Monocytes # (Auto) 1.46 K/uL (0.11-0.59) Eosinophils # (Auto) 0.02 K/uL (0-0.5) Basophils # (Auto) 0.01 K/uL (0-0.2) RDW Standard Deviation 48.9 fL (36.4-46.3) RDW Coefficient of Variation 15.3 % (11.5-14.5) Immature Granulocyte % (Auto) 0.3 % Immature Granulocyte # (Auto) 0.02 K/uL (0.00-0.02) Anion Gap 5.0 mmol/L (3-11) Est Creatinine Clear Calc Drug Dose 75.6 ml/min Estimated GFR () 62.1 Estimated GFR (Non- 53.6 BUN/Creatinine Ratio 17.6 (10-20) Calcium Level 8.0 mg/dl (8.5-10.1) Urine Color YELLOW Urine Appearance CLEAR (CLEAR) Urine pH 5.0 (4.5-7.5) Urine Specific Wallace 1.015 (1.000-1.030) Urine Protein 2+ (NEG) Urine Glucose (UA) NEG (NEG) Urine Ketones NEG (NEG) Urine Occult Blood 1+ (NEG) Urine Nitrite NEG (NEG) Urine Bilirubin NEG (NEG) Urine Urobilinogen NEG (NEG) Urine Leukocyte Esterase SMALL (NEG) Urine WBC (Auto) 10-30 /hpf (0-5) Urine RBC (Auto) 0-4 /hpf (0-4) Urine Hyaline Casts (Auto) 1-5 /lpf (0-5) Urine Epithelial Cells (Auto) 20-30 /lpf (0-5) Urine Bacteria (Auto) 1+ (NEG) Urine Test NEG (NEG) Laboratory results as stated above per my review. Medications Administered Medications (Trade) Dose Ordered Sig/Ashly Route Start Time Stop Time Status Last Admin Dose Admin Sodium Chloride (Nss 1000ml) 2,000 ml @ 1,000 mls/hr Q2H ONCE IV 08/12/16 13:45 08/12/16 15:44 08/12/16 13:45 1,000 MLS/HR ED Course 1323: Past medical records reviewed. The patient was evaluated in room C1B. A complete history and physical examination was performed. 1345: Ordered NSS 2000 ml @ 1000 mls/hr IV. 1435: The patient took one of her own 500 mg Cipro. 1500: Upon reevaluation, the patient appeared to have improvement of her symptoms. I discussed today's findings with her. She verbalized agreement of the treatment plan. She was discharged home. Medical Decision Nurses notes reviewed. Medical history sheet reviewed. Differential diagnosis includes but is not limited to: pyelonephritis, renal insufficiency, dehydration , metabolic disorder. The patient left the hospital yesterday AMA. She returns today I have concern about renal failure. Multiple labs and urinalysis were repeated today. The patient's creatinine BUN have come down considerably. She was given additional IV fluids. The patient felt significantly better and was able to take oral fluids. The patient took 500 mg of oral Cipro. I believe the patient can safely return home. She was encouraged to continue pushing fluids and taking Cipro as prescribed. The patient will require follow-up by her family physician. Impression Primary Impression: Pyelonephritis Additional Impression: Dehydration Scribe Attestation The scribe's documentation has been prepared under my direction and personally reviewed by me in its entirety. I confirm that the note above accurately reflects all work, treatment, procedures, and medical decision making performed by me. Departure Information Dispostion Home / Self-Care Referrals Rufus Box III, M.D. (PCP) Forms HOME CARE DOCUMENTATION FORM, IMPORTANT VISIT INFORMATION, WORK / SCHOOL INSTRUCTIONS Patient Instructions Ciprofloxacin Hydrochloride Oral tablet, ED UTI Pyelonephritis Female, My [facility] Additional Instructions Drink at least 4 quarts of liquid over the next 24 hours. Continue Cipro twice a day. Follow-up with your family physician within the next 7-10 days. Problem Qualifiers
[2016-08-12] MEDS ORDERED: SODIUM CHLORIDE 0.9% 1000ML 2,000 ML IV ONE (13:45)
[2016-08-12 14:01] LABS: BASO % 0.1 %; BASO ABS # 0.01 K/uL (0-0.2); COMPLETE YES; EOS % 0.3 %; HEMATOCRIT 33.6 % (37-47); IG% 0.3 %; LYMPH % 10.8 %; LYMPH ABS # 0.81 K/uL (1.2-3.4); MEAN CELL VOLUME 85.9 fL (80-100); MEAN CORPUSCULAR HEMOGLOBIN 30.9 pg (25-34); MEAN PLATELET VOLUME 11.7 fL (7.4-10.4); MONO % 19.4 %; NEUT % 69.1 %; PLATELET COUNT 126 K/uL (130-400); RED BLOOD COUNT 3.91 M/uL (4.2-5.4); WHITE BLOOD COUNT 7.53 K/uL (4.8-10.8)
[2016-08-12 14:18] LABS: URINE APPEARANCE CLEAR (CLEAR); URINE BILIRUBIN NEG (NEG); URINE COLOR YELLOW; URINE EPITHELIAL CELL AUTO 20-30 /lpf (0-5); URINE NITRITE NEG (NEG); URINE SPECIFIC GRAVITY 1.015 (1.000-1.030); UROBILINOGEN NEG (NEG); ZZUR CULT IF INDIC CLEAN CATCH YES
[2016-08-12 14:21] LABS: BUN/CREATININE RATIO 17.6 (10-20); CREATININE 1.4 mg/dl (0.60-1.20); POTASSIUM 3.6 mmol/L (3.5-5.1)
[2016-08-12 14:23] LABS: MANUAL MICROSCOPIC REQUIRED? NO; REVIEW REQ? YES
[2016-08-12 15:32] VITALS: BP 100/60; PULSE 86; O2SAT 100
== END 2016-08-12 15:33 | disposition home or self-care (01) ==
LOC: C.EDB 12:26 → C.EDC 15:33
DX: N12 Tubulo-interstitial nephritis, not specified as acute or chronic (principal); E86.0 Dehydration; N17.9 Acute kidney failure, unspecified; F41.9 Anxiety disorder, unspecified; Z86.19 Personal history of other infectious and parasitic diseases; F17.210 Nicotine dependence, cigarettes, uncomplicated; Z80.9 Family history of malignant neoplasm, unspecified; Z83.3 Family history of diabetes mellitus; Z82.49 Family history of ischemic heart disease and other diseases of the circulatory system; Z84.1 Family history of disorders of kidney and ureter; Z83.6 Family history of other diseases of the respiratory system; Z79.899 Other long term (current) drug therapy

== ENCOUNTER 2016-09-20 18:11 | Emergency (ER) | payer OTHER ==
[~2016-09-20] VITALS: Ht 185.4 cm; Wt 70.8 kg
[~2016-09-20 18:11] MED LIST changes: -HYDR-5688 PO
[2016-09-20 18:16] VITALS: BP 123/84; PULSE 72; TEMP 36.4; O2SAT 98; Ht 185.4 cm; Wt 70.8 kg
[2016-09-20] MEDS ORDERED: PRED20TA PO (19:18)
[2016-09-20] MEDS ORDERED: CEPH500C PO (19:18)
--- NOTE | 2016-09-20 19:19 | EMERGENCY ROOM VISIT NOTE ---
ED Visit Note First contact with patient: 18:37 CHIEF COMPLAINT: Skin rash 2 days HISTORY OF PRESENT ILLNESS: Patient is a 20-year-old white female who presents to emergency department for evaluation of a skin rash. She has had symptoms for 2 days. She states her symptoms started on the right arm primarily and she noticed a few spots on her left arm and on her right cheek. She notes small, red, raised, slightly tender, fluid-filled bumps. She states that there is clear fluid that drains when she squeezes it. She notes that they're more sore , then itchy, but she has been scratching them and she has scratched some of them open. She has tried applying calamine lotion to the area. She states that she was outside in the [place] a few days prior to the onset of her symptoms. She thought that it could be related to poison sis. Denies new exposure to any potential allergens such as new medications, clothes, detergents , cosmetic products, or foods. She is never had symptoms similar to this previously. REVIEW OF SYSTEMS: Review of systems as per HPI. All other systems reviewed were negative. At least 6 systems reviewed. PMH: Electronic medical records are reviewed and summarized as above/below. See Problem List. She is employed. Positive tobacco use. PHYSICAL EXAM: Vital Signs: See nurses' notes. CONSTITUTIONAL: Patient is a well-appearing 20-year-old white female who is awake and alert and in no acute distress. INTEGUMENTARY: Examination of the right arm show multiple erythematous, blanchable, red, raised vesicles. She has a few lesions noted on her right cheek, and a few on her left arm which are excoriated open. There is one lesion on the right forearm that has a faint erythematous streak. There are no overt cellulitic changes noted. Right upper extremity is neurovascularly intact. ED course: The patient was seen and evaluated as above. Her rash presents more like a contact dermatitis, could be related to a rhus dermatitis. She will be placed on a short course of oral prednisone. She does not have any overt findings consistent with a superimposed bacterial infection, but was provided a prescription for Keflex should she notice any worsening redness or streaking. She was encouraged to use Benadryl and ranitidine as needed for soreness or itching. She was advised to follow-up with her primary care provider for recheck later this week. Problem List Medical Problems: (1) Acute renal failure Status: Resolved (2) Anxiety Status: Chronic (3) CHI (closed head injury) Status: Resolved (4) Dehydration Status: Resolved (5) Fall Status: Resolved (6) H/O intravenous drug use in remission Status: Chronic (7) Hepatitis C Status: Chronic (8) Pelvic cramping Status: Resolved (9) Pelvic pain Status: Resolved (10) Pyelonephritis Status: Resolved (11) Tobacco abuse Status: Chronic Surgical Problems: (1) Hx of tonsillectomy Status: Resolved Current/Historical Medications Scheduled Control Pills ( Control Pills), 1 TAB PO DAILY Fluoxetine HCl (Fluoxetine HCl), 20 MG PO DAILY Gabapentin (Gabapentin), 300 MG PO QID Scheduled PRN Clonazepam (Clonazepam), 1 MG PO BID PRN for Anxiety Allergies Coded Allergies: Azithromycin (Unverified Allergy, Unknown, SWELLING, 06/08/16) Penicillins (Verified Allergy, Unknown, 06/08/16) Vital Signs Date Time Temp Pulse Resp B/P Pulse Ox O2 Delivery O2 Flow Rate FiO2 09/20/16 18:16 36.4 72 16 123/84 98 Room Air Departure Information Impression Primary Impression: Skin rash Referrals No Doctor, Assigned (PCP) Patient Instructions My [facility] Additional Instructions Prednisone 20 mg: Once daily as instructed until the prescription is finished. It is best to take this earlier in the day as some patients note occasional difficulty falling asleep when taken in the late evening. Diphenhydramine(Benadryl) 25mg: use 25 to 50 mg as needed every six hours for swelling, itching, or hives. This medication is sedating and will cause drowsiness. Avoid alcohol, operating machinery or dangerous equipment, working on ladders or roofs, DRIVING, or situations where being under the influence may be dangerous. Zantac 75: Take two pills twice a day along with Benadryl as needed for swelling , itching, or hives. Most people know this for its affect on the stomach, but it also acts similar to, but less potent than Benadryl for allergic reactions. Both the Benadryl and the Zantac are available [id number]. Read all the package inserts or medication information paperwork provided. If you have any questions or concerns call your primary provider, pharmacist or the ER for assistance. Continue current medications. Return to the emergency department for worsening of your rash, swelling of your face, lips, tongue, or throat, difficulty breathing, vomiting, or as needed. Follow-up with your primary care physician in 2-3 days for a recheck of your current condition. If your symptoms are not improving in 2-3 days after being on the steroids, fill and take Keflex as prescribed. Cephalexin(Keflex) 500mg: Take one pill 3 times daily for 7 days for your skin infection. All antibiotics can cause diarrhea. If this occurs and you feel worse or it does not resolve in 1-2 days follow up with your doctor or return to the Emergency Department as this could be signs of serious underlying problems. Any medication can cause an allergic reaction, stop the pills immediately and return to the ER for rash, hives, breathing difficulties, or swelling.
[2016-09-20] MEDS ORDERED: GABA1CAP4 PO (19:21)
[2016-09-20] MEDS ORDERED: BCPILLS PO (19:21)
[2016-09-20] MEDS ORDERED: FLUO20CA36 PO (19:21)
[2016-09-20] MEDS ORDERED: KLN1X PO (19:21)
== END 2016-09-20 19:26 | disposition home or self-care (01) ==
LOC: C.EDB 18:12 → C.EDD 19:26
DX: R21 Rash and other nonspecific skin eruption (principal); F17.200 Nicotine dependence, unspecified, uncomplicated; F41.9 Anxiety disorder, unspecified; F19.21 Other psychoactive substance dependence, in remission; B19.20 Unspecified viral hepatitis C without hepatic coma; Z79.3 Long term (current) use of hormonal contraceptives

== ENCOUNTER 2016-11-23 03:38 | Emergency (ER) | payer OTHER ==
[~2016-11-23] VITALS: Ht 185.4 cm; Wt 73.0 kg
[~2016-11-23 03:38] MED LIST changes: +BCPILLS PO; -CIPR-255 PO; -CLON0.5T3 PO; -FLUO20CA34 PO; +FLUO20CA36 PO; -GABA-112 PO; +GABA1CAP4 PO; +KLN1X PO
[2016-11-23 03:47] VITALS: TEMP 36.4; Ht 185.4 cm; Wt 73.0 kg
[2016-11-23] MEDS ORDERED: PROCHLORPERAZINE 5 MG/ML 2 ML VIAL IV STA (03:50)
[2016-11-23] MEDS ORDERED: KETOROLAC TROMETHAMINE 30 MG/ML VIAL IV STA (03:50)
[2016-11-23] MEDS ORDERED: DiphenhydrAMINE HCL 50 MG/ML VIAL IV STA (03:50)
[2016-11-23] MEDS ORDERED: SODIUM CHLORIDE 0.9% 1000ML 1,000 ML IV ONE (04:00)
[2016-11-23] MEDS ORDERED: MoRPHine SULFATE 4 MG/ML 1 ML CARP\\VIAL IV ONE (04:00)
[2016-11-23 04:29] LABS: HEMATOCRIT 42.6 % (37-47); MEAN CELL VOLUME 88.9 fL (80-100); MEAN CORPUSCULAR HEMOGLOBIN 29.2 pg (25-34); MEAN CORPUSCULAR HGB CONC 32.9 g/dl (32-36); MEAN PLATELET VOLUME 12.5 fL (7.4-10.4); PLATELET COUNT 132 K/uL (130-400); RED BLOOD COUNT 4.79 M/uL (4.2-5.4); WHITE BLOOD COUNT 5.88 K/uL (4.8-10.8)
[2016-11-23 04:47] LABS: BUN/CREATININE RATIO 14.5 (10-20); CALCIUM 9.1 mg/dl (8.5-10.1); CREATININE 0.75 mg/dl (0.60-1.20); POTASSIUM 3.9 mmol/L (3.5-5.1)
[2016-11-23 04:49] LABS: ALB/GLOB RATIO 1.1 (0.9-2)
[2016-11-23 05:15] LABS: BASO % 0.3 %; BASO ABS # 0.02 K/uL (0-0.2); COMPLETE YES; EOS % 1.9 %; LYMPH % 59.2 %; LYMPH ABS # 3.48 K/uL (1.2-3.4); MONO % 9.5 %; NEUT % 29.1 %
[2016-11-23 05:27] VITALS: BP 128/70; PULSE 78; O2SAT 98
--- NOTE | 2016-11-23 05:33 | EMERGENCY ROOM VISIT NOTE ---
History First contact with patient: 03:46 Chief Complaint: HEADACHE Stated Complaint: HEADACHE, VOMITTING History of Present Illness The patient is a 21 year old female who presents to the Emergency Room with complaints of slowly worsening headache over the past 8 hours. The patient has a history of migraine headaches and states this feels similar to previous episodes. She did not attempt any medication [id number] as she has had vomiting with this migraine. She does have photophobia. No recent head injury. She does not report fever, chills, neck pain, chest pain, chest tightness, shortness of breath, numbness, or paresthesias. The patient follows with her primary care physician for her migraines and her last CT scan of the head was 3 months ago, and this was normal. The patient denies chance of and rates her current discomfort a 9/10. Review of Systems More than 10 systems were reviewed and otherwise negative with the exception of history of present illness. Past Medical/Surgical History Medical Problems: (1) Acute renal failure (2) Anxiety (3) CHI (closed head injury) (4) Dehydration (5) Fall (6) H/O intravenous drug use in remission (7) Hepatitis C (8) Pelvic cramping (9) Pelvic pain (10) Pyelonephritis (11) Tobacco abuse Surgical Problems: (1) Hx of tonsillectomy Family History Cancer Diabetes mellitus FH: migraines Heart disease Hypertension Kidney disease Kidney stones Lung disease Social History Smoking Status: Never Smoker Alcohol Use: occasionally Drug Use: none Marital Status: single Housing Status: lives alone Occupation Status: employed Current/Historical Medications Scheduled Control Pills ( Control Pills), 1 TAB PO DAILY Fluoxetine HCl (Fluoxetine HCl), 20 MG PO DAILY Gabapentin (Gabapentin), 300 MG PO QID Scheduled PRN Clonazepam (Clonazepam), 1 MG PO BID PRN for Anxiety Physical Exam Vital Signs Date Time Temp Pulse Resp B/P (MAP) Pulse Ox O2 Delivery O2 Flow Rate FiO2 11/23/16 05:27 78 20 128/70 98 11/23/16 03:47 36.4 55 24 119/72 99 Room Air Pain Rating (0-10): 2.0 Physical Exam VITALS: Vitals are noted on the nurse's note and reviewed by myself. Vital signs stable. GENERAL: Well-developed, well-nourished, white female who is actively vomiting upon my presentation to her room. HEAD: Normocephalic atraumatic. MOUTH: Mucous membranes moist. Tonsils are not enlarged. Pharynx without erythema, blood, or exudate. Uvula midline. Airway patent. NECK: Supple without nuchal rigidity. No lymphadenopathy. No thyromegaly. Cervical spine is nontender. No meningismus. HEART: Regular rate and rhythm without murmurs gallops or rubs. LUNGS: Clear to auscultation bilaterally without wheezes, rales or rhonchi. No retractions or accessory muscle use. ABDOMEN: Positive normal bowel sounds x 4. Soft, nontender, without masses or organomegaly. No guarding or rebound tenderness. MUSCULOSKELETAL: No muscle atrophy, erythema, or edema noted. Full range of motion without joint tenderness in all extremities. NEURO: Patient was alert and oriented to person place and time. CN II through XII grossly intact. Medical Decision & Procedures Laboratory Results 11/23/16 04:20 Red Blood Count 4.79, Mean Corpuscular Volume 88.9, Mean Corpuscular Hemoglobin 29.2, Mean Corpuscular Hemoglobin Concent 32.9, Mean Platelet Volume 12.5, Neutrophils (%) (Auto) 29.1, Lymphocytes (%) (Auto) 59.2, Monocytes (%) (Auto) 9.5, Eosinophils (%) (Auto) 1.9, Basophils (%) (Auto) 0.3, Neutrophils # (Auto) 1.71, Lymphocytes # (Auto) 3.48, Monocytes # (Auto) 0.56, Eosinophils # (Auto) 0.11, Basophils # (Auto) 0.02 11/23/16 04:20 Test 11/23/16 04:20 White Blood Count 5.88 K/uL (4.8-10.8) Red Blood Count 4.79 M/uL (4.2-5.4) Hemoglobin 14.0 g/dL (12.0-16.0) Hematocrit 42.6 % (37-47) Mean Corpuscular Volume 88.9 fL (80-100) Mean Corpuscular Hemoglobin 29.2 pg (25-34) Mean Corpuscular Hemoglobin Concent 32.9 g/dl (32-36) Platelet Count 132 K/uL (130-400) Mean Platelet Volume 12.5 fL (7.4-10.4) Neutrophils (%) (Auto) 29.1 % Lymphocytes (%) (Auto) 59.2 % Monocytes (%) (Auto) 9.5 % Eosinophils (%) (Auto) 1.9 % Basophils (%) (Auto) 0.3 % Neutrophils # (Auto) 1.71 K/uL (1.4-6.5) Lymphocytes # (Auto) 3.48 K/uL (1.2-3.4) Monocytes # (Auto) 0.56 K/uL (0.11-0.59) Eosinophils # (Auto) 0.11 K/uL (0-0.5) Basophils # (Auto) 0.02 K/uL (0-0.2) RDW Standard Deviation 45.1 fL (36.4-46.3) RDW Coefficient of Variation 13.7 % (11.5-14.5) Immature Granulocyte % (Auto) 0.0 % Immature Granulocyte # (Auto) 0.00 K/uL (0.00-0.02) Anion Gap 5.0 mmol/L (3-11) Est Creatinine Clear Calc Drug Dose 135.6 ml/min Estimated GFR () 131.1 Estimated GFR (Non- 113.1 BUN/Creatinine Ratio 14.5 (10-20) Calcium Level 9.1 mg/dl (8.5-10.1) Total Bilirubin 0.3 mg/dl (0.2-1) Aspartate Amino Transf (AST/SGOT) 27 U/L (15-37) Alanine Aminotransferase (ALT/SGPT) 28 U/L (12-78) Alkaline Phosphatase 62 U/L (45-117) Total Protein 7.6 gm/dl (6.4-8.2) Albumin 3.9 gm/dl (3.4-5.0) Globulin 3.7 gm/dl (2.5-4.0) Albumin/Globulin Ratio 1.1 (0.9-2) Medications Administered Medications (Trade) Dose Ordered Sig/Ashly Route Start Time Stop Time Status Last Admin Dose Admin Diphenhydramine HCl (Benadryl Inj) 25 mg NOW STAT IV 11/23/16 03:50 11/23/16 03:51 DC 11/23/16 04:20 25 MG Prochlorperazine Edisylate (Compazine Inj) 5 mg NOW STAT IV 11/23/16 03:50 11/23/16 03:51 DC 11/23/16 04:19 5 MG Morphine Sulfate (MoRPHine SULFATE INJ) 4 mg NOW ONCE IV 11/23/16 04:00 11/23/16 04:01 DC 11/23/16 04:19 4 MG Sodium Chloride 1,000 ml @ 999 mls/hr Q1H1M ONCE IV 11/23/16 04:00 11/23/16 05:00 DC 11/23/16 04:19 999 MLS/HR Ketorolac Tromethamine (Toradol Inj) 30 mg NOW STAT IV 11/23/16 03:50 11/23/16 03:51 DC 11/23/16 04:20 30 MG ED Course Physical exam and history were performed. Nursing notes, EMR, and Medication List were personally reviewed. Patient appears to have a headache with nausea and vomiting. She does not appear toxic on examination. She does not have signs of meningitis or encephalitis. IV access was established and labs were obtained. The patient was hydrated with normal saline. She was medicated with IV morphine, IV Compazine, IV Benadryl, and IV Toradol. The patient was reevaluated multiple times throughout the course of her stay. She was able to rest and sleep after analgesics. Her emesis stopped, and she felt much better. She does not have a significantly elevated white blood cell count, gross anemia, bandemia, or significant electrolyte imbalance. Overall the patient appears stable for discharge home. I suspect her symptoms are related to a normal headache or migraine variant. I recommended that she follow with her primary care physician for further care and management. She was discharged under the care of her father who is acting as the mechanic driver today. The chart was completed utilizing [employer] Voice Recognition Software. Grammatical errors, random word insertions, pronoun errors, and incomplete sentences are an occasional consequence of this system due to software limitations, ambient noise, and hardware issues. Any formal questions or concerns about the content, text, or information contained within the body of this dictation should be directly addressed to the provider for clarification. . Medical Decision The differential diagnosis includes, but is not limited to: acute intracranial bleed, meningitis, encephalitis, mass or mass effect, sinusitis, infection, tumor, headache, temporal arteritis and carbon monoxide exposure, and migraine. Head Trauma GCS Score: 15 Impression Primary Impression: Headache Departure Information Dispostion Home / Self-Care Condition GOOD Referrals No Doctor, Assigned (PCP) Forms HOME CARE DOCUMENTATION FORM, IMPORTANT VISIT INFORMATION Patient Instructions My [facility] Additional Instructions You were seen and evaluated today on an emergency basis only. This is not a substitute for, or an effort to provide, complete comprehensive medical care. It is not possible to recognize and treat all injuries or illnesses in a single emergency department visit. For this reason it is recommended that you followup with your primary care physician or neurologist this week for ongoing care and evaluation. DO NOT drive, drink alcohol, operate machinery, or perform dangerous activities today. You were given medications in the ER that can affect your ability to safely function or operate a vehicle. Rest today in a quiet, peaceful, dark environment and get a full 8-10 hrs of sleep tonight. Avoid loud noises, smoke/smoking, alcohol, bright lights, stress, or physical exertion today to minimize the chance the headache may return. Continue current medications. Ibuprofen(Motrin, Advil) may be used for fever or pain. Use 600mg every six hours as needed. Take with food. Avoid using more than 2400mg in a 24 hour period. Do not use 2400mg per day for more than three consecutive days without physician direction. Prolonged inappropriate use can lead to stomach upset or ulcers. (AND/OR) Acetaminophen(Tylenol) may be used for fever or pain. Use 1000mg every six hours as needed. Avoid using more than 4000mg in a 24 hour period. Return to the ER for passing out, worsening headache, vision problems, neck stiffness/pain, fevers, vomiting, worsening of your condition, or as needed. Problem Qualifiers Primary Impression: Headache Headache type: unspecified Headache chronicity pattern: acute headache Intractability: not intractable Qualified Codes: R51 - Headache
== END 2016-11-23 05:28 | disposition home or self-care (01) ==
LOC: C.EDB 03:39
DX: R51 Headache (principal); R11.10 Vomiting, unspecified; Z79.3 Long term (current) use of hormonal contraceptives; Z83.3 Family history of diabetes mellitus; Z82.49 Family history of ischemic heart disease and other diseases of the circulatory system

== ENCOUNTER 2017-01-11 10:55 | Emergency (ER) | payer OTHER ==
[~2017-01-11] VITALS: Ht 185.4 cm; Wt 72.0 kg
[2017-01-11 10:58] VITALS: TEMP 36.6; Ht 185.4 cm; Wt 72.0 kg
--- NOTE | 2017-01-11 11:05 | EMERGENCY ROOM VISIT NOTE ---
History First contact with patient: 11:01 Chief Complaint: FLANK PAIN Stated Complaint: PAIN IN SIDE, KIDNEY COLLAPSED SIX MONTHS AGO History of Present Illness The patient is a 21 year old female who presents to the Emergency Room with complaints of right flank pain for the past week that has been getting progressively worse. She has had associated nausea and vomiting with the pain. She states the pain starts in her right side and radiates into her right back and down towards her hip. She also has been having symptoms of dysuria and cloudy foul-smelling urine for the past several weeks that she has not had treated. Patient does report that about 6 months ago she was evaluated for a UTI that had spread to her kidneys and she states "they told me that my kidneys collapsed and I was supposed to be admitted, but I didn't want to stay so I signed out AMA." She states that she had been treated with antibiotics at that time and her symptoms resolved. She does note for the past month she has been having increased fatigue, lack of energy, and occasional night sweats. She denies fevers or chills, chest pain, shortness of breath, hemoptysis, dizziness or syncope, diarrhea or constipation, blood in the stool, abnormal vaginal discharge, or rash. Review of Systems A complete 10 point review of systems was reviewed with the patient with pertinent positives and negatives as per history of present illness. All else were negative. Past Medical/Surgical History Medical Problems: (1) Acute renal failure (2) Anxiety (3) CHI (closed head injury) (4) Dehydration (5) Fall (6) H/O intravenous drug use in remission (7) Hepatitis C (8) Pelvic cramping (9) Pelvic pain (10) Pyelonephritis (11) Tobacco abuse Surgical Problems: (1) Hx of tonsillectomy Family History Cancer Diabetes mellitus FH: migraines Heart disease Hypertension Kidney disease Kidney stones Lung disease Social History Smoking Status: Current Some Day Smoker Alcohol Use: occasionally Drug Use: none Marital Status: single Housing Status: lives alone Occupation Status: employed Current/Historical Medications Scheduled Control Pills ( Control Pills), 1 TAB PO DAILY Ciprofloxacin Hcl (Cipro), 500 MG PO BID Gabapentin (Gabapentin), 300 MG PO QID Scheduled PRN Clonazepam (Clonazepam), 1 MG PO BID PRN for Anxiety Promethazine Hcl (Phenergan), 25 MG PO Q6H PRN for Nausea Physical Exam Vital Signs Date Time Temp Pulse Resp B/P (MAP) Pulse Ox O2 Delivery O2 Flow Rate FiO2 01/11/17 17:00 67 20 120/78 99 01/11/17 15:55 56 24 100 Room Air 01/11/17 15:25 59 23 01/11/17 15:05 61 20 127/67 100 Room Air 01/11/17 15:02 61 20 120/66 100 Room Air 01/11/17 15:01 120/66 01/11/17 14:55 58 18 01/11/17 14:25 61 17 01/11/17 13:55 55 11 01/11/17 13:25 58 17 01/11/17 12:58 127/70 01/11/17 12:57 76 20 127/70 99 Room Air 01/11/17 12:25 65 19 01/11/17 12:04 64 01/11/17 12:01 137/74 01/11/17 12:00 70 20 99 Room Air 01/11/17 10:58 36.6 71 16 131/81 100 Room Air Physical Exam CONSTITUTIONAL: No acute distress. Well hydrated, well appearing and well nourished. Alert and oriented X 4 with normal affect. HEENT: Normocephalic, atraumatic. Pupils equal, round and reactive to light, EOMI. TMs normal. Pharynx normal. Moist mucous membranes. NECK: Supple, full active range of motion without discomfort. RESPIRATORY: Clear to auscultation bilaterally with no wheezing, crackles, rhonchi or stridor. Equal expansion bilaterally. CARDIOVASCULAR: Regular rate and rhythm with no murmurs, rubs or gallops. Normal peripheral perfusion. No edema. GASTROINTESTINAL: Diffuse tenderness of the right flank with palpation. Positive CVA tenderness on on the right. Soft, nondistended. Bowel sounds present in all quadrants. MUSCULOSKELETAL: Full range of motion of all joints without discomfort. INTEGUMENTARY: No rash or other significant dermatologic conditions noted. NEUROLOGIC: Cranial nerves II-XII grossly intact. No focal neurologic deficits noted. Medical Decision & Procedures ER Provider Diagnostic Interpretation: CT SCAN OF THE ABDOMEN AND PELVIS WITHOUT IV CONTRAST CLINICAL HISTORY: Right flank pain. COMPARISON STUDY: Abdominal CT dated 08/11/2016. TECHNIQUE: CT scan of the abdomen and pelvis is performed from the lung bases to the proximal femora. Images are reviewed in the axial, sagittal, and coronal planes. IV contrast was not administered for this examination. A dose lowering technique was utilized adhering to the principles of ALARA. CT DOSE: 746.05 mGycm FINDINGS: Lung bases: The heart is normal in size and without pericardial effusion. The lung bases are clear. Liver: The unenhanced liver is normal in size, contour, and attenuation. There is no intrahepatic biliary ductal dilatation. Gallbladder: Gallstones are identified. There is no CT evidence of acute cholecystitis.. Spleen: Normal in size and attenuation. Pancreas: The unenhanced pancreas is grossly unremarkable. Adrenal glands: Unremarkable. Kidneys: The unenhanced kidneys are normal in size and without hydronephrosis. There is nonspecific right-sided perinephric stranding. A punctate nonobstructing left calculus is seen. No right renal calculi are Identified. There is no evidence of contour deforming renal mass lesion. Abdominal vasculature: The abdominal aorta is normal in course and caliber. Bowel: The small bowel and colon are normal in course and caliber. The appendix is well-visualized and normal. Peritoneum: There is no intraperitoneal free air or abdominal ascites. Lymphadenopathy: None. Pelvic viscera: The bladder and uterus are normal as visualized. There is a 2.9 cm follicle in the right ovary with a hyperdense fluid/fluid level seen on image #37. This likely represents a hemorrhagic follicle. There is a small volume of free fluid in the cul-de-sac. Skeletal structures: No lytic or blastic lesions are seen. IMPRESSION: 1. There is nonspecific right-sided perinephric stranding. There is no right-sided hydronephrosis, and no right renal calculi are identified. No right renal calculi were seen by CT on 08/11/2016 and this likely represents pyelonephritis. Correlation with clinical findings and urinalysis will be required. 2. There is a punctate nonobstructing left renal calculus. 3. Suspect a hemorrhagic right ovarian follicle. This could be further assessed with pelvic ultrasound if clinically warranted. 4. There is a small volume of free fluid in the cul-de-sac, likely within physiologic limits. 5. Cholelithiasis. Laboratory Results 01/11/17 11:13 Red Blood Count 5.05, Mean Corpuscular Volume 87.1, Mean Corpuscular Hemoglobin 30.1, Mean Corpuscular Hemoglobin Concent 34.5, Mean Platelet Volume 12.9, Neutrophils (%) (Auto) 53.3, Lymphocytes (%) (Auto) 36.7, Monocytes (%) (Auto) 8.3, Eosinophils (%) (Auto) 1.1, Basophils (%) (Auto) 0.4, Neutrophils # (Auto) 2.94, Lymphocytes # (Auto) 2.02, Monocytes # (Auto) 0.46, Eosinophils # (Auto) 0.06, Basophils # (Auto) 0.02 01/11/17 11:13 Test 01/11/17 11:10 01/11/17 11:13 Urine Color YELLOW Urine Appearance CLOUDY (CLEAR) Urine pH 8.5 (4.5-7.5) Urine Specific [place] 1.019 (1.000-1.030) Urine Protein NEG (NEG) Urine Glucose (UA) NEG (NEG) Urine Ketones NEG (NEG) Urine Occult Blood NEG (NEG) Urine Nitrite POS (NEG) Urine Bilirubin NEG (NEG) Urine Urobilinogen NEG (NEG) Urine Leukocyte Esterase TRACE (NEG) Urine WBC (Auto) 10-30 /hpf (0-5) Urine RBC (Auto) 0-4 /hpf (0-4) Urine Hyaline Casts (Auto) 1-5 /lpf (0-5) Urine Epithelial Cells (Auto) >30 /lpf (0-5) Urine Bacteria (Auto) 2+ (NEG) White Blood Count 5.51 K/uL (4.8-10.8) Red Blood Count 5.05 M/uL (4.2-5.4) Hemoglobin 15.2 g/dL (12.0-16.0) Hematocrit 44.0 % (37-47) Mean Corpuscular Volume 87.1 fL (80-100) Mean Corpuscular Hemoglobin 30.1 pg (25-34) Mean Corpuscular Hemoglobin Concent 34.5 g/dl (32-36) Platelet Count 171 K/uL (130-400) Mean Platelet Volume 12.9 fL (7.4-10.4) Neutrophils (%) (Auto) 53.3 % Lymphocytes (%) (Auto) 36.7 % Monocytes (%) (Auto) 8.3 % Eosinophils (%) (Auto) 1.1 % Basophils (%) (Auto) 0.4 % Neutrophils # (Auto) 2.94 K/uL (1.4-6.5) Lymphocytes # (Auto) 2.02 K/uL (1.2-3.4) Monocytes # (Auto) 0.46 K/uL (0.11-0.59) Eosinophils # (Auto) 0.06 K/uL (0-0.5) Basophils # (Auto) 0.02 K/uL (0-0.2) RDW Standard Deviation 44.6 fL (36.4-46.3) RDW Coefficient of Variation 14.1 % (11.5-14.5) Immature Granulocyte % (Auto) 0.2 % Immature Granulocyte # (Auto) 0.01 K/uL (0.00-0.02) Anion Gap 6.0 mmol/L (3-11) Est Creatinine Clear Calc Drug Dose 133.7 ml/min Estimated GFR () 131.1 Estimated GFR (Non- 113.1 BUN/Creatinine Ratio 14.8 (10-20) Calcium Level 9.4 mg/dl (8.5-10.1) Total Bilirubin 0.4 mg/dl (0.2-1) Direct Bilirubin 0.1 mg/dl (0-0.2) Aspartate Amino Transf (AST/SGOT) 18 U/L (15-37) Alanine Aminotransferase (ALT/SGPT) 18 U/L (12-78) Alkaline Phosphatase 67 U/L (45-117) Total Protein 8.2 gm/dl (6.4-8.2) Albumin 4.2 gm/dl (3.4-5.0) Lipase 170 U/L (73-393) Medications Administered Medications (Trade) Dose Ordered Sig/Ashly Route Start Time Stop Time Status Last Admin Dose Admin Sodium Chloride 1,000 ml @ 999 mls/hr Q1H1M STAT IV 01/11/17 11:19 01/11/17 12:19 DC 01/11/17 11:19 999 MLS/HR Acetaminophen 100 ml @ 400 mls/hr NOW STAT IV 01/11/17 11:19 01/11/17 11:33 DC 01/11/17 11:59 400 MLS/HR Ciprofloxacin/ Dextrose (Cipro / D5W) 400 mg NOW STAT IV 01/11/17 12:27 01/11/17 12:29 DC 01/11/17 12:45 400 MG Morphine Sulfate (MoRPHine SULFATE INJ) 4 mg NOW STAT IV 01/11/17 12:46 01/11/17 12:48 DC 01/11/17 12:52 4 MG Ondansetron HCl (Zofran Inj) 4 mg NOW STAT IV 01/11/17 12:46 01/11/17 12:48 DC 01/11/17 12:53 4 MG Ketorolac Tromethamine (Toradol Inj) 15 mg NOW STAT IV 01/11/17 14:07 01/11/17 14:09 DC 01/11/17 14:25 15 MG Sodium Chloride 1,000 ml @ 999 mls/hr Q1H1M STAT IV 01/11/17 14:30 01/11/17 15:30 DC 01/11/17 15:04 999 MLS/HR Promethazine HCl 12.5 mg/Sodium Chloride 50.5 ml @ 204 mls/hr NOW STAT IV 01/11/17 15:50 01/11/17 16:04 DC 01/11/17 16:03 204 MLS/HR Medical Decision CC: Patient presenting with complaint of right flank pain Interpretation of Labs: No leukocytosis, no anemia, no significant electrolyte abnormalities, renal function normal, normal liver function and lipase. UA appears grossly infected, urine culture pending. Urine negative. Differential Diagnosis: Includes, but not limited to UTI, pyelonephritis, ureteral stone, infected stone, dehydration, among others. Medication Reconciliation: I attest that I have personally reviewed the patient' s current medication list. Vital signs review: I reviewed the patient's vital signs and interpret them as follows: T: Afebrile; BP: Normotensive; HR: Within normal limits; RR: Within normal limits; Pulse Ox: Within normal limits on room air. Blood pressure screening: The patient was found to have normal blood pressure on screening and does not require follow-up for repeat blood pressure check. Summary: Patient was evaluated at bedside, history of physical exam performed. Patient is alert and in no acute distress, resting calmly in the stretcher. Patient claims of right flank pain and is tender to palpation. Positive CVA tenderness. Urine dip results reviewed at bedside, confirming UTI. She is not . Orders were placed at bedside for labs, UA and culture, IV fluids for hydration , CT abdomen and pelvis without contrast to evaluate for kidney stone and pyelonephritis. IV ciprofloxacin to cover for suspected pyelonephritis. Patient discussed with Dr. Walker, who agrees with my assessment and plan. Labs reviewed as above, no significant abnormalities. CT imaging is negative for any kidney stones or hydronephrosis, but does show stranding around the right kidney significant for probable pyelonephritis. Patient reassessed multiple times throughout ED stay, with persistent complaints of nausea and pain. Patient was treated with 2 L of IV fluids, IV Zofran and Phenergan, IV morphine , Tylenol, and Toradol. She did have eventual good improvement of her symptoms and felt comfortable with discharge. She was provided with prescription for ciprofloxacin and Phenergan for her nausea. She was instructed to follow closely with her PCP, and to return to the ER for worsening symptoms, she verbalized understanding. Patient was discharged home in stable condition and ambulatory. Impression Primary Impression: Pyelonephritis Additional Impression: Right flank pain Departure Information Dispostion Home / Self-Care Condition GOOD Prescriptions Promethazine Hcl (Phenergan) 25 Mg Tab 25 MG PO Q6H Y for Nausea, #10 TAB Prov: Jaelyn Greenfield CRNP 01/11/17 Ciprofloxacin Hcl (CIPRO) 500 Mg Tab 500 MG PO BID for 10 Days, #20 TAB Prov: Jaelyn Greenfield CRNP 01/11/17 Referrals No Doctor, Assigned (PCP) Patient Instructions ED Kidney Infec Female, My [facility] Additional Instructions You have been treated in the Emergency Department for a Urinary Tract Infection (UTI) and pyelonephritis (kidney infection). You have been prescribed ciprofloxacin to be taken twice a day for 10 days. This is an antibiotic. All antibiotics have the potential to cause diarrhea. Stop this medication and contact a medical provider if you were to develop any significant adverse side effects including: wheezing, shortness of breath, passing out, vomiting, or a diffuse rash. Always take antibiotics as directed and COMPLETE the ENTIRE course regardless of the improvement of your symptoms. You have also been prescribed Phenergan to be taken as needed for severe nausea/ vomiting. This medicine may make you drowsy, use caution while taking it. For pain, you may take the following [id number] medications: - Tylenol extra strength 500 mg tablets 1-2 tablets every 6-8 hours, do not take more than 3000 mg in 24 hours. - Ibuprofen 200 mg tablets 1-2 tablets every 4-6 hours, do not take more than 2400 mg in 24 hours. - You may alternate between Tylenol and ibuprofen every 3-4 hours to help control your pain. May also try a heating pad to your side to help with pain. Drink plenty of fluids and stay well hydrated and flush the kidneys. You should follow-up with your Primary Care Provider in the next few days from today's visit. Call to schedule an appointment. Return to the emergency department if your symptoms persist despite treatment plan outlined above or if the following symptoms occur: Severe worsening pain, fevers/chills, worsening low back pain, intractable nausea/vomiting, large amounts of blood in your urine, or any other concerns. Problem Qualifiers
[2017-01-11] MEDS ORDERED: ACETAMINOPHEN IV 100 ML IV STA (11:19)
[2017-01-11] MEDS ORDERED: SODIUM CHLORIDE 0.9% 1000ML 1,000 ML IV STA ×2 (11:19→14:30)
[2017-01-11 12:02] LABS: URINE APPEARANCE CLOUDY (CLEAR); URINE BILIRUBIN NEG (NEG); URINE COLOR YELLOW; URINE EPITHELIAL CELL AUTO >30 /lpf (0-5); URINE NITRITE POS (NEG); URINE PH 8.5 (4.5-7.5); URINE SPECIFIC GRAVITY 1.019 (1.000-1.030); UROBILINOGEN NEG (NEG)
--- NOTE | 2017-01-11 12:06 | DIAGNOSTIC IMAGING REPORT ---
CT SCAN OF THE ABDOMEN AND PELVIS WITHOUT IV CONTRAST CLINICAL HISTORY: Right flank pain. COMPARISON STUDY: Abdominal CT dated 08/11/2016. TECHNIQUE: CT scan of the abdomen and pelvis is performed from the lung bases to the proximal femora. Images are reviewed in the axial, sagittal, and coronal planes. IV contrast was not administered for this examination. A dose lowering technique was utilized adhering to the principles of ALARA. CT DOSE: 746.05 mGycm FINDINGS: Lung bases: The heart is normal in size and without pericardial effusion. The lung bases are clear. Liver: The unenhanced liver is normal in size, contour, and attenuation. There is no intrahepatic biliary ductal dilatation. Gallbladder: Gallstones are identified. There is no CT evidence of acute cholecystitis.. Spleen: Normal in size and attenuation. Pancreas: The unenhanced pancreas is grossly unremarkable. Adrenal glands: Unremarkable. Kidneys: The unenhanced kidneys are normal in size and without hydronephrosis. There is nonspecific right-sided perinephric stranding. A punctate nonobstructing left calculus is seen. No right renal calculi are Identified. There is no evidence of contour deforming renal mass lesion. Abdominal vasculature: The abdominal aorta is normal in course and caliber. Bowel: The small bowel and colon are normal in course and caliber. The appendix is well-visualized and normal. Peritoneum: There is no intraperitoneal free air or abdominal ascites. Lymphadenopathy: None. Pelvic viscera: The bladder and uterus are normal as visualized. There is a 2.9 cm follicle in the right ovary with a hyperdense fluid/fluid level seen on image #37. This likely represents a hemorrhagic follicle. There is a small volume of free fluid in the cul-de-sac. Skeletal structures: No lytic or blastic lesions are seen. IMPRESSION: 1. There is nonspecific right-sided perinephric stranding. There is no right-sided hydronephrosis, and no right renal calculi are identified. No right renal calculi were seen by CT on 08/11/2016 and this likely represents pyelonephritis. Correlation with clinical findings and urinalysis will be required. 2. There is a punctate nonobstructing left renal calculus. 3. Suspect a hemorrhagic right ovarian follicle. This could be further assessed with pelvic ultrasound if clinically warranted. 4. There is a small volume of free fluid in the cul-de-sac, likely within physiologic limits. 5. Cholelithiasis. Electronically signed by: Carlos Ann M.D. 01/11/2017 12:04 PM Dictated Date/Time: 01/11/2017 11:58 AM
[2017-01-11 12:10] LABS: MANUAL MICROSCOPIC REQUIRED? NO; REVIEW REQ? NO
[2017-01-11] MEDS ORDERED: CIPROFLOXACIN 400MG / 200ML D5W IV STA (12:27)
[2017-01-11 12:41] LABS: BASO % 0.4 %; BASO ABS # 0.02 K/uL (0-0.2); COMPLETE YES; EOS % 1.1 %; IG% 0.2 %; LYMPH % 36.7 %; LYMPH ABS # 2.02 K/uL (1.2-3.4); MEAN CELL VOLUME 87.1 fL (80-100); MEAN CORPUSCULAR HEMOGLOBIN 30.1 pg (25-34); MEAN CORPUSCULAR HGB CONC 34.5 g/dl (32-36); MEAN PLATELET VOLUME 12.9 fL (7.4-10.4); MONO % 8.3 %; NEUT % 53.3 %; PLATELET COUNT 171 K/uL (130-400); RED BLOOD COUNT 5.05 M/uL (4.2-5.4); WHITE BLOOD COUNT 5.51 K/uL (4.8-10.8)
[2017-01-11] MEDS ORDERED: ONDANSETRON INJ 2 MG/ML 2 ML VIAL IV STA (12:46)
[2017-01-11] MEDS ORDERED: MoRPHine SULFATE 4 MG/ML 1 ML CARP\\VIAL IV STA (12:46)
[2017-01-11 12:50] LABS: BUN/CREATININE RATIO 14.8 (10-20); CALCIUM 9.4 mg/dl (8.5-10.1); CREATININE 0.75 mg/dl (0.60-1.20); POTASSIUM 3.9 mmol/L (3.5-5.1)
[2017-01-11] MEDS ORDERED: KETOROLAC TROMETHAMINE 30 MG/ML VIAL IV STA (14:07)
[2017-01-11] MEDS ORDERED: PROMETHAZINE HCL INJ 12.5 MG in SODIUM CHLORIDE 0.9% 50ML 50 ML IV STA (15:50)
[2017-01-11] MEDS ORDERED: CIPR-255 PO (16:51)
[2017-01-11] MEDS ORDERED: PROM25TA9 PO (16:51)
[2017-01-11 17:00] VITALS: BP 120/78; PULSE 67; O2SAT 99
== END 2017-01-11 17:24 | disposition home or self-care (01) ==
LOC: C.EDB 10:57 → C.EDC 17:24
DX: N12 Tubulo-interstitial nephritis, not specified as acute or chronic (principal); F41.9 Anxiety disorder, unspecified; B19.20 Unspecified viral hepatitis C without hepatic coma; F17.210 Nicotine dependence, cigarettes, uncomplicated; Z80.9 Family history of malignant neoplasm, unspecified; Z83.3 Family history of diabetes mellitus; Z82.49 Family history of ischemic heart disease and other diseases of the circulatory system; Z84.1 Family history of disorders of kidney and ureter; Z79.3 Long term (current) use of hormonal contraceptives; Z79.899 Other long term (current) drug therapy

== ENCOUNTER 2017-04-26 08:03 | Emergency (ER) | payer OTHER ==
[~2017-04-26] VITALS: Ht 185.4 cm; Wt 81.0 kg
[~2017-04-26 08:03] MED LIST changes: +CIPR-255 PO; -FLUO20CA36 PO; +PROM25TA9 PO
[2017-04-26 08:11] VITALS: Ht 185.4 cm; Wt 81.0 kg
[2017-04-26] MEDS ORDERED: PROCHLORPERAZINE 5 MG/ML 2 ML VIAL IV STA (08:21)
[2017-04-26] MEDS ORDERED: DiphenhydrAMINE HCL 50 MG/ML VIAL IV STA (08:21)
[2017-04-26] MEDS ORDERED: KETOROLAC TROMETHAMINE 30 MG/ML VIAL IV STA (08:21)
[2017-04-26] MEDS ORDERED: ACETAMINOPHEN 500 MG TAB PO STA (08:21)
--- NOTE | 2017-04-26 08:47 | EMERGENCY ROOM VISIT NOTE ---
History Report prepared by Jose: Letha Feng Under the Supervision of: Dr. Antwan Bob M.D. First contact with patient: 08:15 Chief Complaint: HEADACHE Stated Complaint: MIGRAINE History of Present Illness The patient is a 21 year old white female with a past medical history of Hepatitis C, migraines acute renal failure, who presents to the ED with a cc of a persistent migraine headache beginning yesterday. Positive cough, fever, chills. Negative numbness. She currently rates her discomfort as a 5.5/10 in severity. The patient states that her last normal menstrual period was two weeks ago. She states that she tried taking four ibuprofen with slight relief of her symptoms. Source of History: patient Onset: yesterday Position: head Symptom Intensity: 5.5/10 Timing: other (persistent) Associated Symptoms: + fevers, + chills, + cough, No numbness Review of Systems See HPI for pertinent positives and negatives. A total of ten systems were reviewed and were otherwise negative. Past Medical & Surgical Medical Problems: (1) Acute renal failure (2) Anxiety (3) CHI (closed head injury) (4) Dehydration (5) Fall (6) H/O intravenous drug use in remission (7) Hepatitis C (8) Pelvic cramping (9) Pelvic pain (10) Pyelonephritis (11) Tobacco abuse Surgical Problems: (1) Hx of tonsillectomy Family History Cancer Diabetes mellitus FH: migraines Heart disease Hypertension Kidney disease Kidney stones Lung disease Social History Smoking Status: Current Every Day Smoker Alcohol Use: occasionally Drug Use: none Marital Status: single Housing Status: lives alone Occupation Status: employed Current/Historical Medications Scheduled Gabapentin (Gabapentin), 300 MG PO QID Allergies Coded Allergies: Azithromycin (Unverified Allergy, Unknown, SWELLING, 01/11/17) Penicillins (Verified Allergy, Unknown, 01/11/17) Physical Exam Vital Signs Date Time Temp Pulse Resp B/P (MAP) Pulse Ox O2 Delivery O2 Flow Rate FiO2 04/26/17 11:02 36.8 86 16 130/60 93 04/26/17 08:11 36.8 89 16 131/65 99 Room Air Physical Exam GENERAL: Awake, alert, well-appearing, NAD HENT: Normocephalic, atraumatic. EYES: Normal conjunctiva. Sclera non-icteric. Mild photophobia NECK: Supple. No nuchal rigidity. FROM. No signs of meningismus, no nuchal rigidity. RESPIRATORY: CTAB, no rhonchi, wheezing, crackles CARDIAC: RRR, no MRG ABDOMEN: Soft, NTND, BS+ MSK: No chest wall TTP, no LE edema NEURO: GCS 15, CN 2-12 intact, moves all 4s on command SKIN: No rash or jaundice noted. Medical Decision & Procedures Laboratory Results Test 04/26/17 09:30 Urine Color YELLOW Urine Appearance CLEAR (CLEAR) Urine pH 6.5 (4.5-7.5) Urine Specific [place] 1.020 (1.000-1.030) Urine Protein NEG (NEG) Urine Glucose (UA) NEG (NEG) Urine Ketones NEG (NEG) Urine Occult Blood NEG (NEG) Urine Nitrite NEG (NEG) Urine Bilirubin NEG (NEG) Urine Urobilinogen NEG (NEG) Urine Leukocyte Esterase NEG (NEG) Urine Test NEG (NEG) Laboratory results reviewed by me Medications Administered Medications (Trade) Dose Ordered Sig/Ashly Route Start Time Stop Time Status Last Admin Dose Admin Prochlorperazine Edisylate (Compazine Inj) 10 mg NOW STAT IV 04/26/17 08:21 04/26/17 08:23 DC 04/26/17 08:46 10 MG Ketorolac Tromethamine (Toradol Inj) 30 mg NOW STAT IV 04/26/17 08:21 04/26/17 08:23 DC 04/26/17 08:46 30 MG Acetaminophen (Tylenol Tab) 1,000 mg NOW STAT PO 04/26/17 08:21 04/26/17 08:23 DC 04/26/17 08:46 1,000 MG Diphenhydramine HCl (Benadryl Inj) 50 mg NOW STAT IV 04/26/17 08:21 04/26/17 08:24 DC 04/26/17 08:45 50 MG ED Course 0819: The patient was evaluated in room B11B. A complete history and physical exam was performed. 1005: I reevaluated the patient and she is feeling much better. I discussed the test results with her and I discussed the treatment plan. She verbalized complete understanding and agreement. She is ready to go home. Medical Decision Differential diagnosis: Etiologies such as migraine headache, meningitis, sinusitis, CO exposure, ICH, SAH, infection, tumor, headache, sinus thrombosis, arterial dissection, as well as others were entertained. The patient is a 21 year old white female with a past medical history of Hepatitis C, migraines acute renal failure, who presents to the ED with a cc of a persistent migraine headache beginning yesterday. Patient was seen and evaluated the bedside. Patient does have history of chronic migraine stated she is had migraine type headache for the last day. Patient has no signs of meningismus is afebrile with normal vital signs. Patient had tried some Motrin which had improved her pain. Patient did have a urinalysis completed along with a urine test. Patient was treated symptomatically for her pain. Patient had a normal neurologic exam. I did not believe that she required a CT scan of the head at this time. Upon reassessment the patient she was feeling much improved and was able tolerate by mouth. Patient had an urinalysis that was negative for infection. Urine test was also negative. Patient was informed of these findings. Patient was deemed suitable for outpatient follow-up and treatment. Patient was given strict follow-up, discharge, and return precautions. All questions were answered. Patient was deemed suitable for outpatient follow-up at this time. Patient agreed with the plan of care and was safely discharged home. Medication Reconcilliation Current Medication List: was personally reviewed by me Impression Primary Impression: Headache Additional Impression: Migraine Scribe Attestation The scribe's documentation has been prepared under my direction and personally reviewed by me in its entirety. I confirm that the note above accurately reflects all work, treatment, procedures, and medical decision making performed by me. Departure Information Dispostion Home / Self-Care Referrals No Doctor, Assigned (PCP) Forms HOME CARE DOCUMENTATION FORM, IMPORTANT VISIT INFORMATION Patient Instructions ED Headache Migraine, [facility] Additional Instructions Please return to the emergency department if you have worsening or recurrent symptoms not amenable to at-home treatment. Please call for a follow-up appointment with her primary care physician. Please take your medications as prescribed. If you have other concerns and/or complaints please feel free to also call your primary care physician's office or return the ED for further evaluation, management, and treatment. You may take 600 mg Ibuprofen every 6 hours as needed for pain with food for no more than 2 consecutive days. You may take tylenol 1000 mg every 6 hours as needed for pain. You may take motrin and tylenol separately or at the same time. Take your medications as prescribed. Avoid things like alcohol and tobacco. Please follow-up with your primary care physician. You have been examined and treated today on an emergency basis only. This is not a substitute for, or an effort to provide, complete comprehensive medical care. It is impossible to recognize and treat all injuries or illnesses in a single emergency department visit. It is therefore important that you follow up closely with [facility], your PCP, and/or your specialist(s). Call as soon as possible for an appointment. Thank you for your time and consideration. I look forward to speaking with you again soon. Please don't hesitate to call us if you have any questions. Problem Qualifiers Primary Impression: Headache Headache type: unspecified Headache chronicity pattern: acute headache Intractability: not intractable Qualified Codes: R51 - Headache Additional Impression: Migraine Migraine type: without aura Status migrainosus presence: without status migrainosus Intractability: not intractable Qualified Codes: G43.009 - Migraine without aura, not intractable, without status migrainosus
[2017-04-26 09:44] LABS: URINE APPEARANCE CLEAR (CLEAR); URINE BILIRUBIN NEG (NEG); URINE COLOR YELLOW; URINE NITRITE NEG (NEG); URINE PH 6.5 (4.5-7.5); UROBILINOGEN NEG (NEG)
[2017-04-26 09:46] LABS: MANUAL MICROSCOPIC REQUIRED? NO; REVIEW REQ? NO
[2017-04-26 11:02] VITALS: BP 130/60; PULSE 86; TEMP 36.8; O2SAT 93
== END 2017-04-26 11:03 | disposition home or self-care (01) ==
LOC: C.EDB 08:04
DX: R51 Headache (principal); G43.009 Migraine without aura, not intractable, without status migrainosus; F41.9 Anxiety disorder, unspecified; Z83.3 Family history of diabetes mellitus; Z82.49 Family history of ischemic heart disease and other diseases of the circulatory system; F17.200 Nicotine dependence, unspecified, uncomplicated

== ENCOUNTER 2019-06-07 21:48 | Observation (INO) ==
[2019-06-07] MEDS ORDERED: MoRPHine SULFATE 2 MG/ML CARP IV PRN (22:26)
[2019-06-07] MEDS ORDERED: LORazepam 0.25 MG/0.5 ML VIAL IV PRN (22:26)
[2019-06-07] MEDS ORDERED: PROMETHAZINE HCL 12.5 MG in SODIUM CHLORIDE 0.9% 50 ML IV PRN (22:26)
--- NOTE | 2019-06-07 22:26 | History & Physical Report ---
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) incidental finding on CT, hx ADD, currently off Adderall due to patient/partner plans to get hx HCV secondary to past history IVDU as per records, low viral load as per last outpatient GI note from 2016 ongoing tobacco abuse PCU Atenolol for hypertension and tachycardia Initiate methimazole Outpatient Endocrinology consultation for new diagnosis hyperthyroidism Cultures, check lactic acid IVF Ceftriaxone, Doxycycline Tamiflu course TTE for chest pain Inpatient CT surgery consult as per patient request RE mediastinal mass Judicious narcotic use given history IVDU as per records Outpatient follow-up with GI RE HCV Nicotine patch DVT phylaxis per Lovenox subcu Full code History of Present Illness Chief Complaint: Chest pain Primary Care Provider: Jaspal Trimble MD History obtained from patient, family, and records. Medical history significant for ADD (currently off Adderall), hx anorexia/PTSD as per records, hx HCV secondary to past history IVDU as per records, anxiety disorder, ongoing tobacco abuse, new diagnosis of hyperthyroidism. Recent confinement August 2016 for acute pyelonephritis. Last month patient noted intermittent achy substernal pain occasionally radiating to the left arm even at rest with spontaneous resolution. This morning patient had more severe chest pain with shortness of breath and diaphoreses. Junky cough symptoms, no chills, no aspiration. Patient seen at the ER this afternoon. CT chest report as follows: 1. There is no evidence of pulmonary embolus in the main, lobar, or proximal segmental pulmonary arteries. 2. There are faint tree-in-bud airspace opacities present throughout the right lung, likely representing a mild pneumonitis. Clinical correlation will be required. 3. The thyroid gland is enlarged and heterogeneous. Nonemergent correlation with serum thyroid function studies is recommended. 4. There is an approximately 6 x 2 cm lobulated soft tissue structure in the anterior mediastinum. This could represent thymic hyperplasia/rebound or possibly a thymoma. Other anterior mediastinal mass lesions are considered less likely. Nonemergent thoracic surgical consultation is advised. SBP noted to be 180s at the ER Sinus tachycardia noted on EKG. Concern for hyperthyroidism given abnormal thyroid function. Patient left the ER AGAINST MEDICAL ADVICE. Prescribed propanolol for blood pressure and heart rate, initial dose given at the ER. Doxycycline prescription given for pneumonitis. Patient regretted leaving hospital upon arriving home after talking to her partner. Arrangements made for direct hospital admission to floor after discussion with hospital providers. 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 Allergies Allergy/AdvReac Type Severity Reaction Status Date / Time Penicillins Allergy Unknown Rash Verified 05/25/19 15:07 azithromycin Allergy Unknown Verified 05/25/19 15:07 amoxicillin AdvReac Severe Vomiting Unverified 05/25/19 15:07 Home Medications Home Medications Medication Instructions Recorded Confirmed Type dextroamphetamine-amphetamine 20 mg PO QAM 01/21/18 06/07/19 History ibuprofen [Advil Liqui-Gel] 400 mg PO Q6H PRN 05/25/19 06/07/19 History doxycycline hyclate 100 mg PO BID 10 Days #20 tab 06/07/19 Rx gabapentin 100 mg PO TID PRN 06/07/19 06/07/19 History propranolol 10 mg PO BID #20 tab 06/07/19 Rx gabapentin 100 mg PO TID 7 Days #21 cap 06/08/19 Rx methimazole 20 mg PO Q12 10 Days #80 tab 06/08/19 Rx nicotine 7 mg TRANSDERMAL QAM 7 Days #7 ea 06/08/19 Rx oseltamivir [Tamiflu] 75 mg PO BID 10 Days #20 cap 06/08/19 Rx oxycodone 5 mg PO Q4H PRN 3 Days #10 tab 06/08/19 Rx propranolol 20 mg PO QID 7 Days #28 tab 06/08/19 Rx tramadol 25 - 50 mg PO Q4H PRN 3 Days #10 06/08/19 Rx tab Past Med/Surg History Social History Preferred Language: Slovak Communication Ability: Effective 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: No Beliefs That Will Affect Care: None Current Living Situation: Family Other Information That Helps Us Care for You: No Feels Safe at Home: Yes Safety Concerns: Feels Safe At This Time Smoking Status: Current every day smoker Tobacco Type: cigarettes ; Cigarettes Per Day: 8 smokes/day ; Do You Dip or Chew Tobacco: No ; Second Hand Exposure: No ; Tobacco Cessation Education Requested by Patient: No Hx Alcohol Use: No Hx Substance Use: No Review of Systems Review of Systems: As per HPI, all 10 systems reviewed, all other ROS negative Physical Exam Physical Exam: GENERAL: Slightly uncomfortable, anxious, obese, no respiratory distress SKIN: Normal color, warm HEENT: Bespectacled, pink palpebral conjunctivae, no ptosis, dry buccal mucosa NECK : Supple, palpable thyromegaly, no tenderness CHEST : Decreased breath sounds, no tenderness HEART : Tachycardic, no obvious murmurs ABDOMEN: Some distention, nontender EXTREMITIES : No LE swelling/tenderness, no other conspicuous deformities noted NEUROLOGIC : Coherent, no facial asymmetry, no tremors, no other gross focality Results & Data Laboratory Results 06/07/19 06/07/19 06/07/19 Range/Units 15:35 15:35 15:35 WBC 3.79 L (4.8-10.8) K/uL RBC 4.70 (4.2-5.4) M/uL Hgb 12.5 (12.0-16.0) g/dL Hct 37.6 (37-47) % MCV 80.0 (80-100) fL MCH 26.6 (25-34) pg MCHC 33.2 (32-36) g/dL RDW Std Deviation 42.0 (36.4-46.3) fL RDW Coeff of Neelima 14.4 (11.5-14.5) % Plt Count 174 (130-400) K/uL MPV 11.3 H (7.4-10.4) fL Immature Gran % (Auto) 0.3 % Neut % (Auto) 65.5 % Lymph % (Auto) 15.6 % Gordon % (Auto) 17.2 % Eos % (Auto) 1.1 % Baso % (Auto) 0.3 % Immature Gran # (Auto) 0.01 (0.00-0.02) K/uL Neut # (Auto) 2.49 (1.4-6.5) K/uL Lymph # (Auto) 0.59 L (1.2-3.4) K/uL Gordon # (Auto) 0.65 H (0.11-0.59) K/uL Eos # (Auto) 0.04 (0-0.5) K/uL Baso # (Auto) 0.01 (0-0.2) K/uL PT 10.9 (9.0-12.0) Seconds INR 1.1 (0.9-1.1) APTT 26.1 (21.0-31.0) Seconds PTT Ratio 1.0 D-Dimer (0-500) ug/L FEU Sodium 139 (136-145) mmol/L Potassium 3.8 (3.5-5.1) mmol/L Chloride 109 H (98-107) mmol/L Carbon Dioxide 24 (21-32) mmol/L Anion Gap 6.0 (3-11) BUN 14 (7-18) mg/dl Creatinine 0.52 L (0.6-1.2) mg/dl Est Cr Clr Drug Dosing 216.9 ml/min Est GFR ( Amer) > 150.0 Est GFR (Non-Af Amer) 133.7 BUN/Creatinine Ratio 26.2 H (10-20) Glucose 97 (70-99) mg/dl Calcium 8.8 (8.5-10.1) mg/dl Total Bilirubin 0.3 (0.2-1) mg/dl AST 28 (15-37) U/L ALT 53 (12-78) U/L Alkaline Phosphatase 254 H (45-117) U/L Troponin I < 0.015 (0-0.045) ng/ml Total Protein 7.3 (6.4-8.2) gm/dl Albumin 3.4 (3.4-5.0) gm/dl Globulin 3.9 (2.5-4.0) gm/dl Albumin/Globulin Ratio 0.9 (0.9-2) TSH < 0.005 L (0.300-4.500) uIu/ml Free T4 3.83 H (0.8-1.6) ng/dl HCG, Qual (Negative) 06/07/19 06/07/19 06/07/19 Range/Units 15:35 15:35 15:35 WBC (4.8-10.8) K/uL RBC (4.2-5.4) M/uL Hgb (12.0-16.0) g/dL Hct (37-47) % MCV (80-100) fL MCH (25-34) pg MCHC (32-36) g/dL RDW Std Deviation (36.4-46.3) fL RDW Coeff of Neelima (11.5-14.5) % Plt Count (130-400) K/uL MPV (7.4-10.4) fL Immature Gran % (Auto) % Neut % (Auto) % Lymph % (Auto) % Gordon % (Auto) % Eos % (Auto) % Baso % (Auto) % Immature Gran # (Auto) (0.00-0.02) K/uL Neut # (Auto) (1.4-6.5) K/uL Lymph # (Auto) (1.2-3.4) K/uL Gordon # (Auto) (0.11-0.59) K/uL Eos # (Auto) (0-0.5) K/uL Baso # (Auto) (0-0.2) K/uL PT (9.0-12.0) Seconds INR (0.9-1.1) APTT (21.0-31.0) Seconds PTT Ratio D-Dimer 510 H* (0-500) ug/L FEU Sodium (136-145) mmol/L Potassium (3.5-5.1) mmol/L Chloride (98-107) mmol/L Carbon Dioxide (21-32) mmol/L Anion Gap (3-11) BUN (7-18) mg/dl Creatinine (0.6-1.2) mg/dl Est Cr Clr Drug Dosing ml/min Est GFR ( Amer) Est GFR (Non-Af Amer) BUN/Creatinine Ratio (10-20) Glucose (70-99) mg/dl Calcium (8.5-10.1) mg/dl Total Bilirubin (0.2-1) mg/dl AST (15-37) U/L ALT (12-78) U/L Alkaline Phosphatase (45-117) U/L Troponin I (0-0.045) ng/ml Total Protein (6.4-8.2) gm/dl Albumin (3.4-5.0) gm/dl Globulin (2.5-4.0) gm/dl Albumin/Globulin Ratio (0.9-2) TSH Cancelled (0.300-4.500) uIu/ml Free T4 (0.8-1.6) ng/dl HCG, Qual Negative (Negative) Diagnostic Findings CT chest as per HPI EKG as per my interpretation: Rate 110, sinus tachycardia, normal axis, LAE, no ischemia Flu swab positive
[2019-06-07] MEDS ORDERED: MAGNESIUM SULFATE / D5W 1 GM/100 ML BAG IV ONE (22:55)
[2019-06-07] MEDS ORDERED: POTASSIUM CHLORIDE 20 MEQ TABCR PO STA (22:55)
[2019-06-07] MEDS ORDERED: LACTATED RINGER'S 1,000 ML IV ONE (23:07)
[2019-06-07] MEDS ORDERED: METOPROLOL TARTRATE 1 MG/ML VIAL IV STA (23:07)
[2019-06-07] MEDS: TRAMADOL HCL 50 MG TABLET PO PRN (23:46)
[2019-06-08] MEDS ORDERED: INFLUENZA ADMINISTRATION CHARGE ONE (00:17)
[2019-06-08] MEDS ORDERED: INFLUENZA VIRUS QUAD VACCINE 0.5 ML SYR IM ONE (00:17)
[2019-06-08] MEDS ORDERED: DOXYCYCLINE HYCLATE 100 MG in DEXTROSE 5% 100 ML IV STA (00:24)
[2019-06-08] MEDS: KETOROLAC TROMETHAMINE 15 MG/ML VIAL IV PRN ×2 (00:30→08:23)
[2019-06-08] MEDS ORDERED: OXYCODONE HCL IR 5 MG TAB (IMMEDIATE RELEASE) PO PRN (01:10)
[2019-06-08] MEDS: IBUPROFEN 200 MG TAB PO PRN ×3 (01:40→13:58)
[2019-06-08 02:00] LABS: Influenza B virus by PCR Neg for Influ B (Neg)
[2019-06-08] MEDS ORDERED: NICOTINE 7 MG/24 HR TDSY TD SCH (02:30)
[2019-06-08] MEDS: GABAPENTIN 100 MG CAP PO SCH ×3 (02:31→13:56)
[2019-06-08] MEDS: OSELTAMIVIR PHOSPHATE 75 MG CAP PO SCH ×2 (03:08→08:58)
[2019-06-08] MEDS: ACETAMINOPHEN 325 MG TAB PO PRN ×3 (03:39→13:58)
[2019-06-08 03:45] LABS: Appearance Urine Clear (Clear); Bacteria Urine Automated Negative (Negative); Bilirubin Urine Negative (Negative); Blood Urine Negative (Negative); Color Urine Dark Yellow; Epithelial Cell Urine Auto >30 /lpf (0-5); Glucose Urine UA Negative (Negative); Ketones Urine Negative (Negative); Leukocyte Esterase Urine Negative (Negative); Nitrite Urine Negative (Negative); Protein Urine 1+ (Negative); RBC Urine Automated 0-4 /hpf (0-4); Specific Gravity Urine 1.032 (1.000-1.030); Urobilinogen Urine Negative (Negative); pH Urine 5.5 (4.5-7.5)
[2019-06-08 04:02] LABS: Eosinophils # (auto) 0.02 K/uL (0-0.5); Eosinophils % (auto) 0.9 %; Hematocrit (blood only) 32.5 % (37-47); Hemoglobin 10.8 g/dL (12.0-16.0); Lymphocytes # (auto) 0.48 K/uL (1.2-3.4); Lymphocytes % (auto) 22.3 %; Mean Corpuscular Hemoglobin 26.7 pg (25-34); Mean Corpuscular Hgb Conc 33.2 g/dL (32-36); Mean Corpuscular Volume 80.2 fL (80-100); Mean Platelet Volume 11.8 fL (7.4-10.4); Monocytes # (auto) 0.55 K/uL (0.11-0.59); Monocytes % (auto) 25.6 %; Neutrophils % (auto) 51.2 %; Platelet Count 140 K/uL (130-400); RDW Coefficient of Variation 14.5 % (11.5-14.5); RDW Standard Deviation 42.7 fL (36.4-46.3); Red Blood Count 4.05 M/uL (4.2-5.4); White Blood Count 2.15 K/uL (4.8-10.8)
[2019-06-08 04:12] LABS: Partial Thromboplastin Time 27.1 Seconds (21.0-31.0)
[2019-06-08 04:21] LABS: Alanine Aminotransferase 45 U/L (12-78); Albumin Level 2.9 gm/dl (3.4-5.0); Aspartate Aminotransferase 29 U/L (15-37); BUN Creatinine Ratio 28.4 (10-20); Blood Urea Nitrogen 14 mg/dl (7-18); Calcium 8.3 mg/dl (8.5-10.1); Carbon Dioxide 22 mmol/L (21-32); Chloride 109 mmol/L (98-107); Creatinine Clr Calc Pharmacy 258.7 ml/min; Est GFR (African American) > 150.0; Est GFR (Non-African American) 137.3; Glucose 84 mg/dl (70-99); Magnesium 1.9 mg/dl (1.8-2.4); Potassium 4.1 mmol/L (3.5-5.1); Sodium 137 mmol/L (136-145)
[2019-06-08 04:32] LABS: Albumin Globulin Ratio 0.8 (0.9-2); Alkaline Phosphatase 238 U/L (45-117); Bilirubin,Total 0.4 mg/dl (0.2-1); Globulin 3.6 gm/dl (2.5-4.0); Thyroid Stimulating Hormone < 0.005 uIu/ml (0.300-4.500); Total Protein 6.5 gm/dl (6.4-8.2); Troponin I < 0.015 ng/ml (0-0.045)
[2019-06-08] MEDS ORDERED: SODIUM CHLORIDE 0.9% 500 ML IV ONE (05:52)
[2019-06-08] MEDS ORDERED: cefTRIAXone SODIUM 2,000 MG in DEXTROSE 5% 50 ML IV SCH (06:00)
[2019-06-08] MEDS ORDERED: ATENOLOL 25 MG TABLET PO SCH (06:00)
[2019-06-08] MEDS ORDERED: methIMAzole 5 MG TABLET PO SCH ×3 (06:30→21:00)
[2019-06-08 06:50] LABS: Amphetamines+Metham, Urine Neg (Neg); Barbiturates, Urine Neg (Neg); Benzodiazepine, Urine Neg (Neg); Cocaine, Urine Neg (Neg); MDMA (Ecstacy), Urine Neg (Neg); Methadone, Urine Neg (Neg); Opiate, Urine Pos (Neg); Phencyclidine, Urine Neg (Neg)
[2019-06-08] MEDS ORDERED: MoRPHine SULFATE 4 MG/ML 1 ML CARP\\VIAL IV STA (08:15)
[2019-06-08] MEDS ORDERED: LEVOFLOXACIN/D5W 750 MG/150 ML BAG IV SCH (09:00)
[2019-06-08] MEDS ORDERED: PROPRANOLOL HCL 10 MG TAB PO SCH (09:00)
[2019-06-08] MEDS ORDERED: KETOROLAC TROMETHAMINE 15 MG/ML VIAL IV ONE (09:25)
[2019-06-08] MEDS ORDERED: methIMAzole 5 MG TABLET PO STA (09:28)
[2019-06-08] MEDS: TRAMADOL HCL 50 MG TABLET PO PRN (09:36)
[2019-06-08] MEDS: PROPRANOLOL HCL 20 MG TAB PO SCH ×2 (09:52→16:35)
--- NOTE | 2019-06-08 10:50 | Hospitalist Progress Note ---
Date of Service June 08, 2019 Assessment & Plan (1) Chest pain: INFLUENZA A INFECTION, PNEUMONIA,POSSIBLE SEPSIS, IN THE SETTING OF NEWLY DIAGNOSED HYPERTHYROIDISM Blood pressure elevated 143/70, HR 128, T-max 38.6 Lactic acid normal Influenza PCR positive for influenza A infection CT chest tree-in-bud appearance suggestive of right-lung pneumonitis; no pulmonary embolism Blood cultures pending Sputum culture ordered Patient started on Tamiflu, change ceftriaxone to Levaquin Start IV NSS Patient's TSH is less than 0.005, free T4 3.8, free T3 pending CT chest: Enlarged thyroid heterogenous, thymic mass Discussed case with [facility] in [place], dobie man Dr. Ramos,As thyroid storm considered a possibility At this point does not feel patient is in thyroid storm, recommend methimazole 20 mg twice daily, and propranolol 20 mg every 6 hours with holding parameters --Advised by Dr. Robertson for patient to be transferred to [facility] for further evaluation and management, Tertiary level of care THYMIC MASS CT chest: 6 x 2 cm lobulated soft tissue structure in the anterior mediastinum Thoracic surgeon consulted Likely cause of chest pain-given PRN Toradol, tramadol, Roxicodone, acetaminophen HISTORY OF ADD Off Adderall as patient is attempting to conceive SMOKER Continue patch ordered HISTORY OF HEPATITIS C SECONDARY TO PAST IV DRUG USE as per records Patient does not report treatment Please obtain hepatitis panel Full code Case discussed with patient and her father in detail and at length All questions were answered They are agreeable, understanding, comfortable with the plan of care Patient to be transferred to [facility] Subjective Follow-up for influenza, pneumonia, hyperthyroidism, thymic massSeen sitting up in bed, not in distress but uncomfortable secondary to chest pain, Chest pain is located with one finger on the left anterior wall area, sharp/stabbing, severe, nonradiating Does report productive cough, fevers and chills, no shortness of breath on 2 L of nasal cannula Denies headache, dizziness, confusion, abdominal pain, diarrhea, problems with urination Denies other symptom Review of Systems Review of Systems: All systems reviewed & are unremarkable except as noted in HPI & below Physical Exam Physical Exam: General- oriented x 3, not in distress, speaks in sentences with no effort or accessory muscle use Head- atraumatic Eyes- PERRL, EOMI, anicteric ENT- oropharynx clear Neck- supple, no JVD, no adenopathy, no thyromegaly; carotids +2/2, no bruits appreciated Lungs- Mild rhonchi right lung mane, no wheezing, clear on the left side Heart- Tachycardic, regular rhythm; no murmur, no gallop, no rub appreciated Abdomen- normal bowel sounds, nondistended, soft, nontender, no masses or hepatosplenomegaly Extremities- Mild pretibial edema, no calf tenderness; peripheral pulses intact Neuro- alert, oriented x 3; CN 2-12 grossly intact; motor 5/5 bilaterally;sensation 100% on all extremities; no other gross focal neurologic deficits Skin- warm & dry Results & Data ([facility]) Vital Signs (Past 12 Hours) Vital Signs Temp Pulse Pulse Resp BP Pulse Ox 06/08/19 08:00 104 H 06/08/19 07:51 36.9 C 113 H 16 143/70 H 99 06/08/19 03:35 97 06/08/19 03:12 38.6 C H 128 H 20 121/59 L 88 L 06/07/19 23:56 37.5 C 122 H 18 130/83 97 06/07/19 23:54 124 H 06/07/19 23:25 36.6 C 119 H 20 125/66 95 Laboratory Results Laboratory Results - last 24 hr 06/07/19 06/08/19 06/08/19 15:35 00:55 03:20 WBC RBC Hgb Hct MCV MCH MCHC RDW Std Deviation RDW Coeff of Neelima Plt Count MPV Immature Gran % (Auto) Neut % (Auto) Lymph % (Auto) Hayes % (Auto) Eos % (Auto) Baso % (Auto) Immature Gran # (Auto) Neut # (Auto) Lymph # (Auto) Hayes # (Auto) Eos # (Auto) Baso # (Auto) ESR APTT PTT Ratio Sodium Potassium Chloride Carbon Dioxide Anion Gap BUN Creatinine Est Cr Clr Drug Dosing Est GFR ( Amer) Est GFR (Non-Af Amer) BUN/Creatinine Ratio Glucose Lactate Calcium Magnesium 2.0 Total Bilirubin AST ALT Alkaline Phosphatase Troponin I Total Protein Albumin Globulin Albumin/Globulin Ratio TSH Total T3 Thyroid Stim Immunoglob Urine Color Dark Yellow Urine Appearance Clear Urine pH 5.5 Ur Specific [place] 1.032 H Urine Protein 1+ H Urine Glucose (UA) Negative Urine Ketones Negative Urine Blood Negative Urine Nitrite Negative Urine Bilirubin Negative Urine Urobilinogen Negative Ur Leukocyte Esterase Negative Urine WBC (Auto) 1-5 Urine RBC (Auto) 0-4 U Hyaline Cast (Auto) 1-5 U Epithel Cells (Auto) >30 H Urine Bacteria (Auto) Negative Urine Opiates Screen U Codeine Confrm GC/MS Ur Morphine (GC/MS) Ur Hydrocodone (GC/MS) Ur Norhydrocodone Ur Noroxycodone Urine Oxycodone (GC/MS) U Oxymorphone GC/MS Ur Methadone, Qual Ur Hydromorphone (GC/MS) Urine Barbiturates Ur Phencyclidine (PCP) U Amphetamin/Meth Scrn MDMA (Ecstasy) Screen U Benzodiazepines Scrn Ur Cocaine Metabolite U Marijuana (THC) Screen Drug Screen Comment Thyroid Antimicrosomal Thyroglobulin Antibody Influenza Type A (PCR) Pos for Influ A A* Influenza Type B (PCR) Neg for Influ B 06/08/19 06/08/19 06/08/19 03:20 03:20 03:39 WBC 2.15 L RBC 4.05 L Hgb 10.8 L Hct 32.5 L MCV 80.2 MCH 26.7 MCHC 33.2 RDW Std Deviation 42.7 RDW Coeff of Neelima 14.5 Plt Count 140 MPV 11.8 H Immature Gran % (Auto) 0.0 Neut % (Auto) 51.2 Lymph % (Auto) 22.3 Hayes % (Auto) 25.6 Eos % (Auto) 0.9 Baso % (Auto) 0.0 Immature Gran # (Auto) 0.00 Neut # (Auto) 1.10 L Lymph # (Auto) 0.48 L Hayes # (Auto) 0.55 Eos # (Auto) 0.02 Baso # (Auto) 0.00 ESR APTT PTT Ratio Sodium Potassium Chloride Carbon Dioxide Anion Gap BUN Creatinine Est Cr Clr Drug Dosing Est GFR ( Amer) Est GFR (Non-Af Amer) BUN/Creatinine Ratio Glucose Lactate Calcium Magnesium Total Bilirubin AST ALT Alkaline Phosphatase Troponin I Total Protein Albumin Globulin Albumin/Globulin Ratio TSH Total T3 Thyroid Stim Immunoglob Urine Color Urine Appearance Urine pH Ur Specific [place] Urine Protein Urine Glucose (UA) Urine Ketones Urine Blood Urine Nitrite Urine Bilirubin Urine Urobilinogen Ur Leukocyte Esterase Urine WBC (Auto) Urine RBC (Auto) U Hyaline Cast (Auto) U Epithel Cells (Auto) Urine Bacteria (Auto) Urine Opiates Screen Pos H U Codeine Confrm GC/MS Pending Ur Morphine (GC/MS) Pending Ur Hydrocodone (GC/MS) Pending Ur Norhydrocodone Pending Ur Noroxycodone Pending Urine Oxycodone (GC/MS) Pending U Oxymorphone GC/MS Pending Ur Methadone, Qual Neg Ur Hydromorphone (GC/MS) Pending Urine Barbiturates Neg Ur Phencyclidine (PCP) Neg U Amphetamin/Meth Scrn Neg MDMA (Ecstasy) Screen Neg U Benzodiazepines Scrn Neg Ur Cocaine Metabolite Neg U Marijuana (THC) Screen Neg Drug Screen Comment Pending Thyroid Antimicrosomal Thyroglobulin Antibody Influenza Type A (PCR) Influenza Type B (PCR) 06/08/19 06/08/19 06/08/19 03:39 03:39 03:39 WBC RBC Hgb Hct MCV MCH MCHC RDW Std Deviation RDW Coeff of Neelima Plt Count MPV Immature Gran % (Auto) Neut % (Auto) Lymph % (Auto) Hayes % (Auto) Eos % (Auto) Baso % (Auto) Immature Gran # (Auto) Neut # (Auto) Lymph # (Auto) Hayes # (Auto) Eos # (Auto) Baso # (Auto) ESR 15 APTT PTT Ratio Sodium 137 Potassium 4.1 Chloride 109 H Carbon Dioxide 22 Anion Gap 6.0 BUN 14 Creatinine 0.48 L Est Cr Clr Drug Dosing 258.7 Est GFR ( Amer) > 150.0 Est GFR (Non-Af Amer) 137.3 BUN/Creatinine Ratio 28.4 H Glucose 84 Lactate Calcium 8.3 L Magnesium 1.9 Total Bilirubin 0.4 AST 29 ALT 45 Alkaline Phosphatase 238 H Troponin I < 0.015 Total Protein 6.5 Albumin 2.9 L Globulin 3.6 Albumin/Globulin Ratio 0.8 L TSH < 0.005 L Total T3 Pending Thyroid Stim Immunoglob Urine Color Urine Appearance Urine pH Ur Specific [place] Urine Protein Urine Glucose (UA) Urine Ketones Urine Blood Urine Nitrite Urine Bilirubin Urine Urobilinogen Ur Leukocyte Esterase Urine WBC (Auto) Urine RBC (Auto) U Hyaline Cast (Auto) U Epithel Cells (Auto) Urine Bacteria (Auto) Urine Opiates Screen U Codeine Confrm GC/MS Ur Morphine (GC/MS) Ur Hydrocodone (GC/MS) Ur Norhydrocodone Ur Noroxycodone Urine Oxycodone (GC/MS) U Oxymorphone GC/MS Ur Methadone, Qual Ur Hydromorphone (GC/MS) Urine Barbiturates Ur Phencyclidine (PCP) U Amphetamin/Meth Scrn MDMA (Ecstasy) Screen U Benzodiazepines Scrn Ur Cocaine Metabolite U Marijuana (THC) Screen Drug Screen Comment Thyroid Antimicrosomal Thyroglobulin Antibody Influenza Type A (PCR) Influenza Type B (PCR) 06/08/19 06/08/19 06/08/19 03:39 03:39 03:40 WBC RBC Hgb Hct MCV MCH MCHC RDW Std Deviation RDW Coeff of Neelima Plt Count MPV Immature Gran % (Auto) Neut % (Auto) Lymph % (Auto) Hayes % (Auto) Eos % (Auto) Baso % (Auto) Immature Gran # (Auto) Neut # (Auto) Lymph # (Auto) Hayes # (Auto) Eos # (Auto) Baso # (Auto) ESR APTT 27.1 PTT Ratio 1.0 Sodium Potassium Chloride Carbon Dioxide Anion Gap BUN Creatinine Est Cr Clr Drug Dosing Est GFR ( Amer) Est GFR (Non-Af Amer) BUN/Creatinine Ratio Glucose Lactate 0.6 Calcium Magnesium Total Bilirubin AST ALT Alkaline Phosphatase Troponin I Total Protein Albumin Globulin Albumin/Globulin Ratio TSH Total T3 Thyroid Stim Immunoglob Pending Urine Color Urine Appearance Urine pH Ur Specific [place] Urine Protein Urine Glucose (UA) Urine Ketones Urine Blood Urine Nitrite Urine Bilirubin Urine Urobilinogen Ur Leukocyte Esterase Urine WBC (Auto) Urine RBC (Auto) U Hyaline Cast (Auto) U Epithel Cells (Auto) Urine Bacteria (Auto) Urine Opiates Screen U Codeine Confrm GC/MS Ur Morphine (GC/MS) Ur Hydrocodone (GC/MS) Ur Norhydrocodone Ur Noroxycodone Urine Oxycodone (GC/MS) U Oxymorphone GC/MS Ur Methadone, Qual Ur Hydromorphone (GC/MS) Urine Barbiturates Ur Phencyclidine (PCP) U Amphetamin/Meth Scrn MDMA (Ecstasy) Screen U Benzodiazepines Scrn Ur Cocaine Metabolite U Marijuana (THC) Screen Drug Screen Comment Thyroid Antimicrosomal Pending Thyroglobulin Antibody Pending Influenza Type A (PCR) Influenza Type B (PCR)
--- NOTE | 2019-06-08 10:53 | Discharge Summary ---
Date of Service June 08, 2019 Admission HPI Per Admitting Provider History obtained from patient, family, and records. Medical history significant for ADD (currently off Adderall), hx HCV secondary to past history IVDU as per records, anxiety disorder, ongoing tobacco abuse, new diagnosis of hyperthyroidism. Recent confinement August 2016 for acute pyelonephritis. Last month patient noted intermittent achy substernal pain occasionally radiating to the left arm even at rest with spontaneous resolution. This morning patient had more severe chest pain with shortness of breath and diaphoreses. Junky cough symptoms, no chills, no aspiration. Patient seen at the ER this afternoon. CT chest report as follows: 1. There is no evidence of pulmonary embolus in the main, lobar, or proximal segmental pulmonary arteries. 2. There are faint tree-in-bud airspace opacities present throughout the right lung, likely representing a mild pneumonitis. Clinical correlation will be required. 3. The thyroid gland is enlarged and heterogeneous. Nonemergent correlation with serum thyroid function studies is recommended. 4. There is an approximately 6 x 2 cm lobulated soft tissue structure in the anterior mediastinum. This could represent thymic hyperplasia/rebound or possibly a thymoma. Other anterior mediastinal mass lesions are considered less likely. Nonemergent thoracic surgical consultation is advised. SBP noted to be 180s at the ER Sinus tachycardia noted on EKG. Concern for hyperthyroidism given abnormal thyroid function. Patient left the ER AGAINST MEDICAL ADVICE. Prescribed propanolol for blood pressure and heart rate, initial dose given at the ER. Doxycycline prescription given for pneumonitis. Patient regretted leaving hospital upon arriving home after talking to her partner. Arrangements made for direct hospital admission to floor after discussion with ospital providers. Medical History as above Surgical History : Family History : Personal/Social history : Principal Diagnosis Influenza A, pneumonia, possible sepsis, newly diagnosed hyperthyroidism, thymic mass Discharge Exam General- oriented x 3, not in distress, speaks in sentences with no effort or accessory muscle use Head- atraumatic Eyes- PERRL, EOMI, anicteric ENT- oropharynx clear Neck- supple, no JVD, no adenopathy, no thyromegaly; carotids +2/2, no bruits appreciated Lungs- Mild rhonchi right lung mane, no wheezing, clear on the left side Heart- Tachycardic, regular rhythm; no murmur, no gallop, no rub appreciated Abdomen- normal bowel sounds, nondistended, soft, nontender, no masses or hepatosplenomegaly Extremities- Mild pretibial edema, no calf tenderness; peripheral pulses intact Neuro- alert, oriented x 3; CN 2-12 grossly intact; motor 5/5 bilaterally;sensation 100% on all extremities; no other gross focal neurologic deficits Skin- warm & dry Discharge Data Allergies Allergy/AdvReac Type Severity Reaction Status Date / Time Penicillins Allergy Unknown Rash Verified 05/25/19 15:07 azithromycin Allergy Unknown Verified 05/25/19 15:07 amoxicillin AdvReac Severe Vomiting Unverified 05/25/19 15:07 Consultations 06/08/19 06:18 Consult Thoracic Surgery Routine Procedures Performed CT ANGIOGRAM OF THE CHEST CLINICAL HISTORY: Atypical chest pain. COMPARISON STUDY: No priors. TECHNIQUE: Following the IV administration of 101 cc of Optiray 320, CT angiogram of the chest was performed from the upper abdomen to the thoracic inlet utilizing the pulmonary embolus protocol. Images are reviewed in the axial, sagittal, and coronal planes. 3-D MIPS images are created and assessed. IV contrast was administered without complication. A dose lowering technique was utilized adhering to the principles of ALARA. CT DOSE: 554.51 mGy.cm FINDINGS: Thyroid: The thyroid gland is enlarged and heterogeneous in attenuation. Thoracic aorta: The thoracic aorta is normal in caliber and demonstrates standard 3-vessel arch anatomy. No dissection is seen. Pulmonary vasculature: The pulmonary trunk is normal in caliber. There are no filling defects identified in main, lobar, or proximal segmental pulmonary branches to suggest pulmonary embolus. Evaluation of the peripheral branches is degraded by suboptimal contrast opacification. Heart: The heart is normal in size and without pericardial effusion. Lungs and pleural spaces: Faint tree-in-bud airspace opacities are present in the right upper and right lower lobes. No lobar consolidation or pleural effusion is seen. The trachea and central airways are clear. Mediastinum: There is approximately 6 x 2 cm lobulated soft tissue structure in the anterior mediastinum seen on image #189. There is no mediastinal lymphadenopathy. Traci: Clear. Axillae: There is no axillary lymphadenopathy. Upper abdomen: Partially visualized upper abdominal viscera is within normal limits. Skeletal structures: There are minimal and age indeterminant superior endplate compression deformities of T2 and T5. No lytic or blastic bony lesions are seen. IMPRESSION: 1. There is no evidence of pulmonary embolus in the main, lobar, or proximal segmental pulmonary arteries. 2. There are faint tree-in-bud airspace opacities present throughout the right lung, likely representing a mild pneumonitis. Clinical correlation will be required. 3. The thyroid gland is enlarged and heterogeneous. Nonemergent correlation with serum thyroid function studies is recommended. 4. There is an approximately 6 x 2 cm lobulated soft tissue structure in the anterior mediastinum. This could represent thymic hyperplasia/rebound or possibly a thymoma. Other anterior mediastinal mass lesions are considered less likely. Nonemergent thoracic surgical consultation is advised. 5. Additional findings as above. Hospital Course (1) Chest pain: INFLUENZA A INFECTION, PNEUMONIA,POSSIBLE SEPSIS, IN THE SETTING OF NEWLY DIAGNOSED HYPERTHYROIDISM Blood pressure elevated 143/70, HR 128, T-max 38.6 Lactic acid normal Influenza PCR positive for influenza A infection CT chest tree-in-bud appearance suggestive of right-lung pneumonitis; no pulmonary embolism Blood cultures pending Sputum culture ordered Patient started on Tamiflu, change ceftriaxone to Levaquin Start IV NSS Patient's TSH is less than 0.005, free T4 3.8, free T3 pending CT chest: Enlarged thyroid heterogenous, thymic mass Discussed case with [facility] in [place], visual designer Dr. Ramos,As thyroid storm considered a possibility At this point does not feel patient is in thyroid storm, recommend methimazole 20 mg twice daily, and propranolol 20 mg every 6 hours with holding parameters --Advised by Dr. Robertson for patient to be transferred to [facility] for further evaluation and management, Tertiary level of care THYMIC MASS CT chest: 6 x 2 cm lobulated soft tissue structure in the anterior mediastinum Thoracic surgeon consulted Likely cause of chest pain-given PRN Toradol, tramadol, Roxicodone, acetaminophen PEDAL EDEMA in the setting of tachycardia, hyperthyroidism check echo HISTORY OF ADD Off Adderall as patient is attempting to conceive SMOKER Continue patch ordered HISTORY OF HEPATITIS C SECONDARY TO PAST IV DRUG USE as per records Patient does not report treatment Please obtain hepatitis panel Full code Case discussed with patient and her father in detail and at length All questions were answered They are agreeable, understanding, comfortable with the plan of care Patient to be transferred to [facility] Total Time Total Time Spent Total Time Spent (In Minutes): 120 minutes Discharge Plan Discharge Items Patient Disposition: Transfer Acute Care Hospital Reason For Visit: HYPOTENSIVE URGENCY Discharge Diagnosis: Influenza A Infection, Pneumonia; hyperthyroidism; thymic mass Activity: As commented below Activity Comment: Out of bed as tolerated Non-emergency contact: Primary Care Provider Call non-emergency contact if: you have any medication questions Follow-up/Referrals: Jaspal Trimble MD [Primary Care Provider] - Diet: Heart Healthy Addtl Attending Provider Instructions: Please refer to accompanying hospital discharge summary for further details. Pending Studies at Discharge: Yes Studies:: Please refer to accompanying hospital discharge summary for further details. Stand-Alone Forms: [facility] Skilled Items Patient informed of condition?: Yes DNR: No Discharge Level of Care: Other Communicable Disease: Yes Discharge Prognosis: Improving Lines: Peripheral IV Urinary Catheter: No Medications and DC Order Prescriptions: New oseltamivir [Tamiflu] 75 mg Capsule 75 mg PO BID 10 Days Qty: 20 RF: 0 propranolol 20 mg Tablet 20 mg PO QID 7 Days Qty: 28 RF: 0 nicotine 7 mg/24 hr Patch 24 Hour 7 mg transdermal QAM 7 Days Qty: 7 RF: 0 gabapentin 100 mg Capsule 100 mg PO TID 7 Days Qty: 21 RF: 0 oxycodone 5 mg Tablet 5 mg PO Q4H PRN (Reason: pain) 3 Days Qty: 10 RF: 0 tramadol 50 mg Tablet 25 - 50 mg PO Q4H PRN (Reason: pain) 3 Days Qty: 10 RF: 0 methimazole 5 mg Tablet 20 mg PO Q12 10 Days Qty: 80 RF: 0 Discontinued dextroamphetamine-amphetamine 20 mg capsule,extended release 24hr 20 mg PO QAM RF: 0 gabapentin 100 mg capsule 100 mg PO TID PRN (Reason: Pain) RF: 0 propranolol 10 mg tablet 10 mg PO BID Qty: 20 RF: 0 doxycycline hyclate 100 mg tablet 100 mg PO BID 10 Days Qty: 20 RF: 0 ibuprofen [Advil Liqui-Gel] 200 mg Capsule 400 mg PO Q6H PRN (Reason: Pain) RF: 0 Discharge Orders: Discharge Order (Routine); Ordered 06/08/19 Ordered By: Stanley Merlos Admission Data Admit Date/Time: 06/07/19 22:13 Attending Provider: Stanley Merlos Admit Provider: Juvencio Nicholas Primary Care Provider: Jaspal Trimble Other Providers: Juvencio Chandra ; Juvencio Nicholas
--- NOTE | 2019-06-08 14:41 | Consultation Report ---
DATE OF CONSULTATION: 06/08/2019 REASON FOR CONSULTATION: Thymic mass. HISTORY OF PRESENT ILLNESS: Sonal Laurent is a 23-year-old who has a very long psychiatric history. The patient suffers from anxiety and depression and has had eating disorders and has been anorexic in the past. The patient states that her weight went from 125-250 in the last year. She has weighed as little as 95 pounds. She underwent a CT scan to evaluate chest pain, which she has been having for a month, which has worsened. She developed worsening pain and presented to the ER. Her CT scan showed a thymic mass and also enlarged thyroid gland. She also had some very faint tree-in-bud abnormalities noted in the right lung. She states that she is not producing much sputum. I had a long talk with the patient and her significant other. The patient has been found to have a positive fluid titer for influenza A. She also is positive for opiates, although she has received none here apparently. I was asked to comment on this thymic mass. PAST MEDICAL HISTORY: 1. Eating disorder. 2. Anxiety. 3. Depression. 4. History of urinary tract infections. 5. Thyromegaly. 6. Attention deficit disorder. 7. History of IV drug use. 8. Hepatitis C serum positivity. 9. Cigarette smoking. PAST SURGICAL HISTORY: 1, para 1. MEDICATIONS: Please see chart. ALLERGIES: PENICILLIN. SOCIAL HISTORY: The patient is originally from [facility]. She now lives in [place]. 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 She does smoke cigarettes. History of IV drug use. Her 3-year-old daughter lives with her mother. REVIEW OF SYSTEMS: As stated in history of present illness. The patient presented with chest pain and had hypertension and tachycardia and was found to be hyperthyroidism. Her TSH is almost undetectable. It appears that she is also suffering from the flu. The chest pain is concerning; however, we did not see evidence of any other abnormalities such as aortic dissection or pulmonary embolism. The patient may be suffering from costochondritis. She has been eating a great deal. She states that this is the problem she has encountered in the past. PHYSICAL EXAMINATION: GENERAL: This is a 6 feet 1 inch, 255 pound female who wears glasses. She is awake, alert and oriented. HEENT: Extraocular movements are intact. She has multiple tattoos. Tongue is midline. Teeth in pretty good repair. NECK: Supple. She has a uniformly enlarged thyroid gland. She has no supraclavicular or cervical lymphadenopathy or axillary adenopathy. LUNGS: Clear. She currently has a heart rate of about 100. Her lungs are clear; however. She has some mild tenderness on the left upon palpation just to the left upper sternal midline in the area of her costosternal junctions. She has no erythema. She has no crepitus. ABDOMEN: Soft, nontender. She does have trace edema of both lower extremities, has excellent peripheral pulses. No joint effusions. NEUROLOGIC: She has no obvious focal deficits, is awake, alert and oriented. ASSESSMENT AND PLAN: Thyroid mass. This appears that it could be thymic hyperplasia versus a thymoma. The workup of this mass does not require any type of biopsy. The decision will be whether to watch it and repeat a CT scan or to do a minimally invasive thymectomy. The patient is apparently to be transferred to [facility] to be evaluated by their endocrine department about her hyperthyroidism. We will be glad to see her back in followup for this thymic mass, or they may take care of her at [facility]. KEERTHI
[2019-06-08] MEDS ORDERED: ACETAMINOPHEN 500 MG TAB PO SCH (15:00)
[2019-06-08] MEDS ORDERED: KETOROLAC 30 MG/ML VIAL IV PRN (15:00)
[2019-06-08] MEDS ORDERED: COUGH DROP (SUGAR FREE) LOZ 24 LOZ/1 BOX BUCCAL ONE (18:46)
--- NOTE | 2019-06-08 22:14 | Electrocardiogram Report ---
Test Reason : Blood Pressure : / mmHG Vent. Rate : 107 BPM Atrial Rate : 107 BPM P-R Int : 176 ms QRS Dur : 078 ms QT Int : 346 ms P-R-T Axes : 051 079 032 degrees QTc Int : 461 ms Sinus tachycardia When compared with ECG of 07-JUN-2019 15:24, T wave amplitude has decreased in Anterior leads Confirmed by Leonard Syed ([id number]) on 06/08/2019 10:14:04 PM Referred By: Juvencio Nicholas Confirmed By:Leonard Syed
[2019-06-11 08:35] LABS: Codeine Urine NEGATIVE ng/mL (<50); Hydrocodone Urine NEGATIVE ng/mL (<50); Hydromor Urine NEGATIVE ng/mL (<50); Morphine Urine 1160 ng/mL (<50); Norhydrocodone Conf Ur NEGATIVE ng/mL (<50); Noroxycodone Urine 741 ng/mL (<50); Oxycodone Urine 692 ng/mL (<50); Oxymorph Urine 271 ng/mL (<50)
== END 2019-06-08 20:34 | disposition short-term general hospital (02) ==
LOC: INTOOBSV 22:13 → 2S 22:13 → SUATTDRO 22:13

== ENCOUNTER 2023-10-22 18:34 | Inpatient (IN) ==
[2023-10-22] MEDS ORDERED: LORazepam 2 MG/1 ML VIAL IM STA (18:46)
[2023-10-22 19:06] LABS: Basophils # (auto) 0.03 K/uL (0.00-0.20); Basophils % (auto) 0.2 %; Eosinophils # (auto) 0.01 K/uL (0.00-0.50); Eosinophils % (auto) 0.1 %; Hematocrit (blood only) 48.1 % (37.0-47.0); Hemoglobin 16.5 g/dl (12.0-16.0); Immature Granulocytes # (auto) 0.07 K/uL (0.01-0.20); Immature Granulocytes % (auto) 0.6 %; Lymphocytes # (auto) 0.98 K/uL (1.20-3.40); Lymphocytes % (auto) 8.1 %; Mean Corpuscular Hemoglobin 28.9 pg (25.0-34.0); Mean Corpuscular Hgb Conc 34.3 g/dL (32.0-36.0); Mean Corpuscular Volume 84.2 fL (80.0-100.0); Mean Platelet Volume 13.5 fL (9.4-12.4); Monocytes # (auto) 0.63 K/uL (0.11-0.59); Monocytes % (auto) 5.2 %; Neutrophils # (auto) 10.36 K/uL (1.40-6.50); Neutrophils % (auto) 85.8 %; Platelet Count 179 K/uL (130-400); RDW Coefficient of Variation 12.9 % (11.5-14.5); RDW Standard Deviation 39.4 fL (36.4-46.3); Red Blood Count 5.71 M/uL (4.20-5.40); White Blood Count 12.08 K/ul (4.8-10.8)
[2023-10-22] MEDS: NALOXONE HCL 0.4 MG/1 ML VIAL/CARP ONE (19:08)
[2023-10-22] MEDS: SODIUM CHLORIDE 0.9% 1,000 ML IV SCH ×2 (19:08→21:25)
--- NOTE | 2023-10-22 19:08 | CT Scan Report ---
CT SCAN OF THE BRAIN WITHOUT IV CONTRAST CLINICAL HISTORY: Change in mental status. COMPARISON STUDY: CT of the brain dated 07/03/2020. TECHNIQUE: Unenhanced axial CT scan of the brain is performed from the vertex to the skull base. A d ose lowering technique was utilized adhering to the principles of ALARA. FINDINGS: Brain parenchyma: The brain parenchyma is normal in appearance. There is no hemorrhage, mass effect, or evidence of acute territorial ischemia by CT criteria. Lopez-white matter differentiation is preser ej. No extra-axial fluid collection is seen. Ventricles, sulci, cisterns: Normal in configuration. Intracranial vasculature: The visualized intracranial vasculature at the skull base is normal in appe arance. Calvarium: Unremarkable. Sinuses and mastoids: The paranasal sinuses are clear. The mastoid air cells are well pneumatized. Orbits: The bony orbits are grossly intact. IMPRESSION: No acute intracranial abnormality. ACT 112: Negative or not required by law. Electronically signed by: Carlos Ann M.D. 10/22/2023 7:05 PM
[2023-10-22] MEDS: LORazepam 1 MG/1 ML SYR ED Inj Use IM STA (19:10)
--- NOTE | 2023-10-22 19:12 | XRay Report ---
SINGLE VIEW CHEST CLINICAL HISTORY: Change in mental status. Found down. Overdose. FINDINGS: An AP, portable, upright chest radiograph is compared to study dated 08/02/2006 and correlat ed with chest CT dated 06/07/2019. The cardiomediastinal silhouette is unremarkable. Airspace consolida tion is seen throughout the right lung, greatest in right lung base. The left lung appears clear. No large pleural effusion or pneumothorax is seen. The bony thorax is grossly intact. IMPRESSION: Airspace consolidation is seen throughout the right lung. Correlate clinically for eviden ce of pneumonia/aspiration pneumonitis. Radiographic follow-up to resolution is recommended. ACT 112: Negative or not required by law. Electronically signed by: Carlos Ann M.D. 10/22/2023 7:11 PM
--- NOTE | 2023-10-22 19:12 | CT Scan Report ---
CT SCAN OF THE CERVICAL SPINE CLINICAL HISTORY: Change in mental status. Found down. COMPARISON STUDY: Cervical spine CT dated 10/25/2015. TECHNIQUE: CT scan of the cervical spine is performed from the skull base to the upper thoracic spine . Images are reviewed in the axial, sagittal, and coronal planes. IV contrast was not administered fo r this examination. A dose lowering technique was utilized adhering to the principles of ALARA. CT DOSE: 1676.22 mGy.cm FINDINGS: Skeletal structures: The skeletal structures are well mineralized. There is no evidence of fracture o r subluxation involving the cervical spine. Vertebral body height and alignment are maintained. The odontoid process and lateral masses are intact. The atlantoaxial articulation is preserved. The spino us processes appear intact. Intervertebral discs: The disc spaces are well maintained. Central canal: Widely patent. Soft tissues: The prevertebral and paraspinous soft tissues are within normal limits. The thyroid gla nd is atrophic versus surgically absent. Calvarium: The visualized calvarium at the skull base appears intact. Brain parenchyma: Partially visualized brain parenchyma at the skull base is within normal limits. Sinuses and mastoids: There is trace fluid in the left sphenoid sinus. The mastoid air cells are well pneumatized. Lung apices: There are patchy groundglass opacities at the right apex. IMPRESSION: 1. There is no evidence of cervical spine fracture or subluxation. 2. There are patchy groundglass opacities at the right apex, which may represent a pneumonitis. Corre late clinically. ACT 112: Negative or not required by law. Electronically signed by: Carlos Ann M.D. 10/22/2023 7:10 PM
[2023-10-22] MEDS: diphenhydrAMINE 50 MG/ML VIAL IM STA (19:19)
[2023-10-22] MEDS: HALOPERIDOL LACTATE 5 MG/ML 1 ML VIAL IM STA ×2 (19:20→20:40)
[2023-10-22 19:21] LABS: BUN Creatinine Ratio 21.5 (10-20); Calcium 10.7 mg/dl (8.6-10.3); Creatinine Clr Calc Pharmacy 95.5 ml/min; Est GFR (Non-African American) 60.4 ml/min; Potassium 3.7 mmol/L (3.5-5.1)
[2023-10-22 19:36] LABS: Thyroid Stimulating Hormone 13.049 uIu/ml (0.300-4.500)
[2023-10-22 19:41] LABS: Acetaminophen < 3 ug/ml (10-30); Salicylate < 3.0 mg/dl (3.0-30)
[2023-10-22 19:51] LABS: Albumin Globulin Ratio 1.1 (0.9-2); Albumin Level 4.7 gm/dl (3.4-5.0); Bilirubin,Total 1.1 mg/dl (0.2-1.0); Globulin 4.1 gm/dl (2.5-4.0); Total Protein 8.8 gm/dl (6.0-8.3)
[2023-10-22 20:05] LABS: Pregnancy Test, Serum Negative (Negative)
[2023-10-22 20:06] LABS: Appearance Urine Cloudy (Clear); Bacteria Urine Automated None Seen (None Seen); Bilirubin Urine 1+ (Negative); Blood Urine 2+ (Negative); Cast Urine Automated >20 /lpf (0-2); Color Urine Dark Yellow; Glucose Urine UA Negative (Negative); Ketones Urine Trace (Negative); Leukocyte Esterase Urine Trace (Negative); Mucus Urine Present (None Prsent); Nitrite Urine Negative (Negative); Protein Urine 3+ (Negative); RBC Urine Automated >20 /hpf (0-2); Urobilinogen Urine Negative (Negative); WBC Urine Automated 0-5 /hpf (0-5)
[2023-10-22 20:09] LABS: T4 Free Thyroxine 1.23 ng/dl (0.61-1.60)
[2023-10-22] MEDS: LORazepam 2 MG/1 ML VIAL IM STA (20:40)
[2023-10-22 20:43] LABS: Amphetamines+Metham, Urine Pos (Neg); Barbiturates, Urine Neg (Neg); Benzodiazepine, Urine Neg (Neg); Cocaine, Urine Neg (Neg); Fentanyl, Urine Neg (Neg); MDMA (Ecstacy), Urine Pos (Neg); Marijuana, Urine Pos (Neg); Methadone, Urine Neg (Neg); Opiate, Urine Neg (Neg); Phencyclidine, Urine Neg (Neg)
[2023-10-22 21:10] LABS: Base Excess VBG -2.1 mEq/L; HCO3 VBG 21 mmol/L; Oxygen Saturation VBG 90.8 %; PCO2 VBG 31 mmHg (38-50); PO2 VBG 59 mmHg; pH VBG 7.44 (7.36-7.41)
--- NOTE | 2023-10-22 21:14 | Emergency Department Note ---
History of Present Illness General Chief complaint: Overdose (Accidental) Stated complaint: OVERDOSE? ALTERED MENTAL STATUS Time Seen by Provider: 10/22/23 18:41 History of Present Illness Provider complaint: Altered mental status 28-year-old female presents emergency department with police and EMS for altered mental status. Police report they were called because the patient's stated that she woke up and started screaming uncontrollably. There is no reported trauma. No fevers. Patient does have a history of substance abuse problems however the police report that the patient's states that she has been substance free for many years. Home Medications Medication Instructions Recorded Confirmed Type gabapentin 100 mg capsule 100 mg PO TID 01/20/20 08/12/20 History duloxetine 60 mg capsule,delayed 60 mg PO QAM 07/03/20 08/12/20 History release prazosin 2 mg capsule 4 mg PO HS 07/03/20 08/12/20 History duloxetine 30 mg capsule,delayed 30 mg PO DAILY #30 caps 08/12/20 08/12/20 Rx release lisdexamfetamine 10 mg capsule 10 mg PO DAILY #30 caps 09/23/20 09/23/20 Rx (Vyvanse) levothyroxine 100 mcg tablet 100 mcg PO .COMPLEX #30 tabs 03/25/21 Rx levothyroxine 88 mcg tablet 88 mcg PO DAILY #30 tabs 03/25/21 Rx (Levo-T) topiramate 25 mg tablet 50 mg (2 x 25 mg) PO HS #60 tabs 05/17/21 Rx cholecalciferol (vitamin D3) 1,250 50,000 unit PO WK #12 caps 06/13/21 Rx mcg (50,000 unit) capsule oxycodone 5 mg tablet 5 mg PO Q6H PRN pain #10 tabs 06/26/23 Rx Allergies Allergy/AdvReac Type Severity Reaction Status Date / Time ketorolac [From Toradol] Allergy Mild itchy rash Verified 08/12/20 15:59 Penicillins Allergy Unknown Rash Verified 08/12/20 15:59 azithromycin Allergy Unknown Verified 08/12/20 15:59 amoxicillin AdvReac Severe Vomiting Unverified 08/12/20 15:59 tramadol AdvReac Mild itchy,rash Verified 08/12/20 15:59 methimazole AdvReac pancytopeni Verified 10/11/20 12:24 a Past Med/Surg History Problem List (Updated 10/22/23 @ 21:46 by Simeon Damon MD) Altered mental status (Acute) Rhabdomyolysis (Acute) Obesity (BMI 30-39.9) COVID-19 virus infection (Acute) Fatty infiltration of liver Migraine headache MICHAEL (obstructive sleep apnea) Binge eating disorder Dietary counseling and surveillance Depression with anxiety Cigarette nicotine dependence Vitamin D deficiency Post-surgical hypothyroidism History of Graves' disease Adrenal insufficiency due to corticosteroid withdrawal Polydipsia Weight gain Hypocalcemia Graves' ophthalmopathy H/O total thyroidectomy History of Graves' disease Chest pain Medical History Heart murmur Pyelonephritis Depressed Anxiety Surgical History S/P cholecystectomy 10/2020 No pertinent past surgical history Family History Other No pertinent family history Social History Smoking Status: Unknown if ever smoked Tobacco Type: Cigarettes Cigarettes Per Day: 8 smokes/day; Second Hand Exposure: No; Do You Dip or Chew Tobacco: No; Hx Alcohol Use: No Hx Substance Use: No Preferred Language: Setswana Communication Ability: Effective Wet Machine Tender Required: No Beliefs That Will Affect Care: None Current Living Situation: Family Feels Safe at Home: Yes Assistive Devices: None Physical Exam Vital Signs Vital Signs - 24 hr 10/22/23 18:49 10/22/23 18:51 10/22/23 18:51 Temperature Temperature Source Pulse Rate 77 80 Pulse Rate [Finger] Pulse Rate from SpO2 Sensor Respiratory Rate 18 Respiratory Effort / Characteristics Non-Labored Spontaneous Non-Labored Spontaneous Respiratory Depth Normal Respiratory Pattern Regular Regular Blood Pressure 121/83 Blood Pressure [Right Arm] Blood Pressure Mean 95 Blood Pressure Mean [Right Arm] Pulse Oximetry 94 Oxygen Delivery Method Room Air Oxygen Flow Rate Sepsis Recent Fever Within 48 Hours No Sepsis New/Unexplained Change in Mental Status Yes Sepsis Action Taken by Nursing No Action Required 10/22/23 18:51 10/22/23 19:35 10/22/23 19:36 Temperature Temperature Source Pulse Rate 59 L Pulse Rate [Finger] Pulse Rate from SpO2 Sensor 59 L Respiratory Rate 19 Respiratory Effort / Characteristics Respiratory Depth Respiratory Pattern Blood Pressure 125/73 Blood Pressure [Right Arm] Blood Pressure Mean 95 Blood Pressure Mean [Right Arm] Pulse Oximetry 94 96 Oxygen Delivery Method Room Air Oxygen Flow Rate 0 Sepsis Recent Fever Within 48 Hours Sepsis New/Unexplained Change in Mental Status Sepsis Action Taken by Nursing 10/22/23 20:30 10/22/23 21:19 Temperature 36.5 C Temperature Source Oral Pulse Rate Pulse Rate [Finger] 59 L Pulse Rate from SpO2 Sensor Respiratory Rate 22 Respiratory Effort / Characteristics Respiratory Depth Respiratory Pattern Blood Pressure Blood Pressure [Right Arm] 134/75 Blood Pressure Mean Blood Pressure Mean [Right Arm] 94 Pulse Oximetry 96 Oxygen Delivery Method Room Air Oxygen Flow Rate Sepsis Recent Fever Within 48 Hours Sepsis New/Unexplained Change in Mental Status Sepsis Action Taken by Nursing Physical Exam GENERAL: Patient is screaming obscenities trying to hit EMS personnel. HENT: Exam performed. -Head: Normocephalic and atraumatic. EYES: Pupils 3 mm and reactive bilaterally. CV: Normal rate, regular rhythm, normal heart sounds and intact distal pulses. There is no peripheral edema. Palpable radial pulses bue. PULM/CHEST: Effort normal and breath sounds normal. No respiratory distress. No stridor. She has no wheezes. She has no rales. ABD: The abdomen is soft. Course Course 1840: The patient was evaluated in room A8. A complete history and physical exam was performed Cardiac monitoring: An order was placed for continuous cardiac monitoring. The monitor shows a rate of 90 with sinus rhythm interpreted by me Patient be treated with Ativan 2 mg IM. 1914: Haldol and Ativan ordered for the patient as she was becoming increasingly belligerent again. 2014: CT of the head and C-spine negative. Haldol and Ativan reordered for the patient again as she is becoming increasingly agitated again. at bedside was able to briefly calm the patient down however then she became agitated again. again denies that the patient did any drugs. He reports no trauma for the patient. 2140: Vital signs stable. Patient is calmer after receiving multiple doses of Haldol and Ativan in the emergency department. Labs show white blood cell count 12.08 hemoglobin 16.5 platelet count 179 VBG within normal limits. Ammonia within normal limits. Patient's creatinine kinase 6513. 2 L normal saline will be ordered for the patient. TSH 13.049 Free T41.23. Urinalysis is not concerning for infection. Alcohol level negative. Salicylate and acetaminophen level negative. Patient tested positive for amphetamines and MDMA and marijuana. Patient will be admitted to the [facility] hospitalist team Dr. Smith notified. Administered Medications Sodium Chloride (Nss) 1,000 mls @ 999 mls/hr IV .Q1H1M PRIYA Stop: 10/22/23 23:15 Last Admin: 10/22/23 21:25 Dose: 999 mls/hr Documented By: MARCIA Discontinued Medications Diphenhydramine HCl (Diphenhydramine 50 Mg/Ml Vial) 50 mg IM NOW STA Stop: 10/22/23 19:17 Last Admin: 10/22/23 19:19 Dose: 50 mg Documented By: KENDRICK Haloperidol Lactate (Haloperidol Lactate 5 Mg/Ml 1 Ml Vial) 5 mg IM NOW STA Stop: 10/22/23 19:17 Last Admin: 10/22/23 19:20 Dose: 5 mg Documented By: KENDRICK Haloperidol Lactate (Haloperidol Lactate 5 Mg/Ml 1 Ml Vial) 5 mg IM NOW STA Stop: 10/22/23 20:15 Last Admin: 10/22/23 20:40 Dose: 5 mg Documented By: CLAIRE Sodium Chloride (Nss) 1,000 mls @ 999 mls/hr IV .Q1H1M PRIYA Stop: 10/22/23 19:45 Last Infusion: 10/22/23 20:14 Dose: Infused Documented By: Admin: 10/22/23 19:08 Dose: 999 mls/hr Documented By: JIGNESH Lorazepam (Lorazepam 1 Mg/1 Ml Syr Ed Inj Use) 2 mg IM NOW STA Stop: 10/22/23 18:53 Last Admin: 10/22/23 19:10 Dose: 2 mg Documented By: JIGNESH Lorazepam (Lorazepam 2 Mg/1 Ml Vial) 2 mg IM NOW STA Stop: 10/22/23 20:15 Last Admin: 10/22/23 20:40 Dose: 2 mg Documented By: CLAIRE Naloxone HCl (Naloxone Hcl 0.4 Mg/1 Ml Vial/Carp) Confirm Administered Dose 0.4 mg .ROUTE .STK-MED ONE Stop: 10/22/23 18:39 Last Admin: 10/22/23 19:08 Dose: 0.4 mg Documented By: JIGNESH Medical Decision Making Laboratory Data Attestation: I reviewed the patient's lab results. 10/22/23 18:42 10/22/23 18:45 Lab Results 10/22/23 10/22/23 10/22/23 Range/Units 18:41 18:42 18:45 WBC 12.08 H (4.8-10.8) K/ul RBC 5.71 H (4.20-5.40) M/uL Hgb 16.5 H (12.0-16.0) g/dl Hct 48.1 H (37.0-47.0) % MCV 84.2 (80.0-100.0) fL MCH 28.9 (25.0-34.0) pg MCHC 34.3 (32.0-36.0) g/dL RDW Std Deviation 39.4 (36.4-46.3) fL RDW Coeff of Neelima 12.9 (11.5-14.5) % Plt Count 179 (130-400) K/uL MPV 13.5 H (9.4-12.4) fL Immature Gran % (Auto) 0.6 % Neut % (Auto) 85.8 % Lymph % (Auto) 8.1 % [place] % (Auto) 5.2 % Eos % (Auto) 0.1 % Baso % (Auto) 0.2 % Neut # (Auto) 10.36 H (1.40-6.50) K/uL Lymph # (Auto) 0.98 L (1.20-3.40) K/uL [place] # (Auto) 0.63 H (0.11-0.59) K/uL Eos # (Auto) 0.01 (0.00-0.50) K/uL Baso # (Auto) 0.03 (0.00-0.20) K/uL Immature Gran # (Auto) 0.07 (0.01-0.20) K/uL VBG pH (7.36-7.41) VBG pCO2 (38-50) mmHg VBG pO2 mmHg VBG HCO3 mmol/L VBG O2 Saturation % VBG Base Excess mEq/L Sodium 140 (136-145) mmol/L Potassium 3.7 (3.5-5.1) mmol/L Chloride 106 (98-107) mmol/L Carbon Dioxide 23 (21-32) mmol/L Anion Gap 11 (3-11) BUN 26 H (6-23) mg/dl Creatinine 1.21 H (0.6-1.2) mg/dl Est Cr Clr Drug Dosing 95.5 ml/min Est GFR ( Amer) 70.0 ml/min Est GFR (Non-Af Amer) 60.4 ml/min BUN/Creatinine Ratio 21.5 H (10-20) Glucose 146 H (70-99(Fasting)) mg/dl POC Glucose 165 H (70-99) mg/dl Calcium 10.7 H (8.6-10.3) mg/dl Total Bilirubin 1.1 H (0.2-1.0) mg/dl AST 83 H (13-39) U/L ALT 46 (7-52) U/L Alkaline Phosphatase 108 H (34-104) U/L Ammonia (18-72) umol/L Total Creatine Kinase 6513 H (26-192) U/L Total Protein 8.8 H (6.0-8.3) gm/dl Albumin 4.7 (3.4-5.0) gm/dl Globulin 4.1 H (2.5-4.0) gm/dl Albumin/Globulin Ratio 1.1 (0.9-2) TSH 13.049 H (0.300-4.500) uIu/ml Free T4 1.23 (0.61-1.60) ng/dl HCG, Qual Negative (Negative) Urine Color Urine Appearance (Clear) Urine pH (4.5-7.5) Ur Specific [place] (1.000-1.030) Urine Protein (Negative) Urine Glucose (UA) (Negative) Urine Ketones (Negative) Urine Blood (Negative) Urine Nitrite (Negative) Urine Bilirubin (Negative) Urine Urobilinogen (Negative) Ur Leukocyte Esterase (Negative) Urine WBC (Auto) (0-5) /hpf Urine RBC (Auto) (0-2) /hpf U Hyaline Cast (Auto) (0-2) /lpf U Epithel Cells (Auto) (0-2) /hpf Urine Bacteria (Auto) (None Seen) Urine Mucus (None Prsent) Salicylates < 3.0 L (3.0-30) mg/dl Urine Opiates Screen (Neg) Ur Methadone, Qual (Neg) Urine Fentanyl Screen (Neg) Acetaminophen < 3 L (10-30) ug/ml Urine Barbiturates (Neg) Ur Phencyclidine (PCP) (Neg) U Amphetamin/Meth Scrn (Neg) MDMA (Ecstasy) Screen (Neg) U Benzodiazepines Scrn (Neg) Ur Cocaine Metabolite (Neg) U Marijuana (THC) Screen (Neg) SARS-CoV-2, RNA, NAAT (NEGATIVE) 10/22/23 10/22/23 Range/Units 19:38 20:50 WBC (4.8-10.8) K/ul RBC (4.20-5.40) M/uL Hgb (12.0-16.0) g/dl Hct (37.0-47.0) % MCV (80.0-100.0) fL MCH (25.0-34.0) pg MCHC (32.0-36.0) g/dL RDW Std Deviation (36.4-46.3) fL RDW Coeff of Neelima (11.5-14.5) % Plt Count (130-400) K/uL MPV (9.4-12.4) fL Immature Gran % (Auto) % Neut % (Auto) % Lymph % (Auto) % [place] % (Auto) % Eos % (Auto) % Baso % (Auto) % Neut # (Auto) (1.40-6.50) K/uL Lymph # (Auto) (1.20-3.40) K/uL [place] # (Auto) (0.11-0.59) K/uL Eos # (Auto) (0.00-0.50) K/uL Baso # (Auto) (0.00-0.20) K/uL Immature Gran # (Auto) (0.01-0.20) K/uL VBG pH 7.44 H (7.36-7.41) VBG pCO2 31 L (38-50) mmHg VBG pO2 59 mmHg VBG HCO3 21 mmol/L VBG O2 Saturation 90.8 % VBG Base Excess -2.1 mEq/L Sodium (136-145) mmol/L Potassium (3.5-5.1) mmol/L Chloride (98-107) mmol/L Carbon Dioxide (21-32) mmol/L Anion Gap (3-11) BUN (6-23) mg/dl Creatinine (0.6-1.2) mg/dl Est Cr Clr Drug Dosing ml/min Est GFR ( Amer) ml/min Est GFR (Non-Af Amer) ml/min BUN/Creatinine Ratio (10-20) Glucose (70-99(Fasting)) mg/dl POC Glucose (70-99) mg/dl Calcium (8.6-10.3) mg/dl Total Bilirubin (0.2-1.0) mg/dl AST (13-39) U/L ALT (7-52) U/L Alkaline Phosphatase (34-104) U/L Ammonia 28.0 (18-72) umol/L Total Creatine Kinase (26-192) U/L Total Protein (6.0-8.3) gm/dl Albumin (3.4-5.0) gm/dl Globulin (2.5-4.0) gm/dl Albumin/Globulin Ratio (0.9-2) TSH (0.300-4.500) uIu/ml Free T4 (0.61-1.60) ng/dl HCG, Qual (Negative) Urine Color Dark Yellow Urine Appearance Cloudy A (Clear) Urine pH 6.0 (4.5-7.5) Ur Specific [place] 1.030 (1.000-1.030) Urine Protein 3+ H (Negative) Urine Glucose (UA) Negative (Negative) Urine Ketones Trace H (Negative) Urine Blood 2+ H (Negative) Urine Nitrite Negative (Negative) Urine Bilirubin 1+ H (Negative) Urine Urobilinogen Negative (Negative) Ur Leukocyte Esterase Trace H (Negative) Urine WBC (Auto) 0-5 (0-5) /hpf Urine RBC (Auto) >20 H (0-2) /hpf U Hyaline Cast (Auto) >20 H (0-2) /lpf U Epithel Cells (Auto) 6-10 H (0-2) /hpf Urine Bacteria (Auto) None Seen (None Seen) Urine Mucus Present A (None Prsent) Salicylates (3.0-30) mg/dl Urine Opiates Screen Neg (Neg) Ur Methadone, Qual Neg (Neg) Urine Fentanyl Screen Neg (Neg) Acetaminophen (10-30) ug/ml Urine Barbiturates Neg (Neg) Ur Phencyclidine (PCP) Neg (Neg) U Amphetamin/Meth Scrn Pos H (Neg) MDMA (Ecstasy) Screen Pos H (Neg) U Benzodiazepines Scrn Neg (Neg) Ur Cocaine Metabolite Neg (Neg) U Marijuana (THC) Screen Pos H (Neg) SARS-CoV-2, RNA, NAAT NEGATIVE (NEGATIVE) Imaging Data Attestation: I personally reviewed and interpreted this imaging study as follows: My Impression: CT of the head: No ICH Radiologist's Impression: Head CT 10/22/23 18:41 CT SCAN OF THE BRAIN WITHOUT IV CONTRAST CLINICAL HISTORY: Change in mental status. COMPARISON STUDY: CT of the brain dated 07/03/2020. TECHNIQUE: Unenhanced axial CT scan of the brain is performed from the vertex to the skull base. A dose lowering technique was utilized adhering to the principles of ALARA. FINDINGS: Brain parenchyma: The brain parenchyma is normal in appearance. There is no hemorrhage, mass effect, or evidence of acute territorial ischemia by CT criteria. Lopez-white matter differentiation is preserved. No extra-axial fluid collection is seen. Ventricles, sulci, cisterns: Normal in configuration. Intracranial vasculature: The visualized intracranial vasculature at the skull base is normal in appearance. Calvarium: Unremarkable. Sinuses and mastoids: The paranasal sinuses are clear. The mastoid air cells are well pneumatized. Orbits: The bony orbits are grossly intact. IMPRESSION: No acute intracranial abnormality. ACT 112: Negative or not required by law. Electronically signed by: Carlos Ann M.D. 10/22/2023 7:[address] 10/22/23 18:43 CT SCAN OF THE CERVICAL SPINE CLINICAL HISTORY: Change in mental status. Found down. COMPARISON STUDY: Cervical spine CT dated 10/25/2015. TECHNIQUE: CT scan of the cervical spine is performed from the skull base to the upper thoracic spine. Images are reviewed in the axial, sagittal, and coronal planes. IV contrast was not administered for this examination. A dose lowering technique was utilized adhering to the principles of ALARA. CT DOSE: 1676.22 mGy.cm FINDINGS: Skeletal structures: The skeletal structures are well mineralized. There is no evidence of fracture or subluxation involving the cervical spine. Vertebral body height and alignment are maintained. The odontoid process and lateral masses are intact. The atlantoaxial articulation is preserved. The spinous processes appear intact. Intervertebral discs: The disc spaces are well maintained. Central canal: Widely patent. Soft tissues: The prevertebral and paraspinous soft tissues are within normal limits. The thyroid gland is atrophic versus surgically absent. Calvarium: The visualized calvarium at the skull base appears intact. Brain parenchyma: Partially visualized brain parenchyma at the skull base is within normal limits. Sinuses and mastoids: There is trace fluid in the left sphenoid sinus. The mastoid air cells are well pneumatized. Lung apices: There are patchy groundglass opacities at the right apex. IMPRESSION: 1. There is no evidence of cervical spine fracture or subluxation. 2. There are patchy groundglass opacities at the right apex, which may represent a pneumonitis. Correlate clinically. ACT 112: Negative or not required by law. Electronically signed by: Carlos Ann M.D. 10/22/2023 7:10 PM Chest X-Ray 10/22/23 18:43 SINGLE VIEW CHEST CLINICAL HISTORY: Change in mental status. Found down. Overdose. FINDINGS: An AP, portable, upright chest radiograph is compared to study dated 08/02/2006 and correlated with chest CT dated 06/07/2019. The cardiomediastinal silhouette is unremarkable. Airspace consolidation is seen throughout the right lung, greatest in right lung base. The left lung appears clear. No large pleural effusion or pneumothorax is seen. The bony thorax is grossly intact. IMPRESSION: Airspace consolidation is seen throughout the right lung. Correlate clinically for evidence of pneumonia/aspiration pneumonitis. Radiographic follow-up to resolution is recommended. ACT 112: Negative or not required by law. Electronically signed by: Carlos Ann M.D. 10/22/2023 7:11 PM ECG Data Attestation: I personally reviewed and interpreted this ECG as follows: Rate (beats per minute): 86 Rhythm: + normal sinus ECG Intervals/blocks: + Normal SC and + Normal QT-c ECG ST segments: + Normal ST segments Additional Comments: QRS 70 MDM Narrative 1841: The patient was evaluated in room A8. A complete history and physical exam was performed Cardiac monitoring: An order was placed for continuous cardiac monitoring. The monitor shows a rate of 90 with sinus rhythm interpreted by me Patient be treated with Ativan 2 mg IM. 5: Haldol and Ativan ordered for the patient as she was becoming increasingly belligerent again. 2015: CT of the head and C-spine negative. Haldol and Ativan reordered for the patient again as she is becoming increasingly agitated again. at bedside was able to briefly calm the patient down however then she became agitated again. again denies that the patient did any drugs. He reports no trauma for the patient. 2140: Vital signs stable. Patient is calmer after receiving multiple doses of Haldol and Ativan in the emergency department. Labs show white blood cell count 12.08 hemoglobin 16.5 platelet count 179 VBG within normal limits. Ammonia within normal limits. Patient's creatinine kinase 6513. 2 L normal saline will be ordered for the patient. TSH 13.049 Free T41.23. Urinalysis is not concerning for infection. Alcohol level negative. Salicylate and acetaminophen level negative. Patient tested positive for amphetamines and MDMA and marijuana. Patient will be admitted to the [facility] hospitalist team Dr. Smith notified. Impression & Plan Rhabdomyolysis, Altered mental status Discharge Plan Visit Data Chief Complaint: Overdose (Accidental) Stated Complaint: OVERDOSE? ALTERED MENTAL STATUS ED Provider: Simeon Damon Discharge Problem: Rhabdomyolysis, Altered mental status Patient Disposition: Admitted As Inpatient Forms Stand Alone Forms: [facility] [employer] Prescriptions Prescriptions: No Action levothyroxine 100 mcg tablet 100 mcg PO .COMPLEX Qty: 30 0RF Rx Instructions: 100 mcg PO six days per week; needs f/u before further refills approved levothyroxine [Levo-T] 88 mcg tablet 88 mcg PO DAILY Qty: 30 0RF Rx Instructions: needs f/u before further refills approved topiramate 25 mg tablet 50 mg PO HS Qty: 60 3RF cholecalciferol (vitamin D3) 1,250 mcg (50,000 unit) capsule 50,000 unit PO WK Qty: 12 0RF gabapentin 100 mg capsule 100 mg PO TID duloxetine 30 mg capsule,delayed release(DR/EC) 30 mg PO DAILY Qty: 30 2RF Vyvanse 10 mg capsule 10 mg PO DAILY Qty: 30 0RF prazosin 2 mg capsule 4 mg PO HS duloxetine 60 mg capsule,delayed release(DR/EC) 60 mg PO QAM oxycodone 5 mg tablet 5 mg PO Q6H PRN (Reason: pain) Qty: 10 0RF Referrals Referrals: Jaspal Trimble MD [Primary Care Provider] -
--- NOTE | 2023-10-22 22:06 | History & Physical Report ---
Date of Service October 22, 2023 Assessment & Plan (1) Encephalopathy: Plan: Secondary to substance abuse History anxiety/mood disorder. ARF, rhabdomyolysis secondary to substance abuse Graves' disease status post surgery postsurgical hypothyroidism, TSH elevated hx ADD, hx anorexia/PTSD as per records hx HCV secondary to past history IVDU as per records, low viral load as per last outpatient GI note from 2016 anorexia nervosa/binge eating disorder Medical telemetry Hold neuropsychotropic medications for now until patient more awake. Attempt to obtain additional history from patient once more coherent. Monitor creatinine, CPK response to IVF Nicotine patch as needed DVT prophylaxis Heparin subcu Full code Patient requesting updates providers. Mr. Alfonso Baeza, contact #[phone]. Text document was generated using [employer] voice recognition software. It may contain grammatical or spelling errors. Kindly contact undersigned for clarification of any documentation item in question. History of Present Illness Chief Complaint: Agitation, confusion as per records Primary Care Provider: Jaspal Trimble MD History obtained from patient and records. Unable to obtain history from patient secondary to obtunded state post administration of multiple sedatives at the ER. Medical history significant for Graves' disease status post surgery, postsurgical hypothyroidism, ADD, migraine, hx anorexia/PTSD as per records, hx HCV secondary to past history IVDU as per records, anxiety disorder/mood disorder, anorexia nervosa/binge eating disorder. Last confinement June 2019 for influenza A pneumonia and newly diagnosed hyperthyroidism secondary to Graves' disease. Patient eventually underwent thyroidectomy. Patient woke up from sleep today and started screaming uncontrollably. Patient markedly confused as per . unaware of unusual stress or self-harm intent. aware of substance abuse. No cough symptoms weakness. Multiple doses of various sedatives administered at the ER. 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 Allergies Allergy/AdvReac Type Severity Reaction Status Date / Time azithromycin Allergy Intermediate rash per Verified 10/22/23 22:03 [facility] ketorolac [From Toradol] Allergy Intermediate itchy Verified 10/22/23 22:03 rash/diarrhea Penicillins Allergy Intermediate SWELLING/RA Verified 10/22/23 22:03 SH amoxicillin AdvReac Severe RASH/NAUSEA Verified 10/22/23 22:03 /VOMITING methimazole AdvReac Intermediate pancytopeni Verified 10/22/23 22:03 a tramadol AdvReac Mild itchy,rash Verified 10/22/23 22:03 Home Medications Medication Instructions Recorded Confirmed Type duloxetine 60 mg capsule,delayed 60 mg PO QAM 07/03/20 10/22/23 History release bupropion HCl 100 mg tablet,12 hr 100 mg PO DAILY 10/22/23 10/22/23 History sustained-release cariprazine 3 mg capsule (Vraylar) 3 mg PO DAILY 10/22/23 10/22/23 History clonidine HCl 0.1 mg tablet 0.1 mg PO HS 10/22/23 10/22/23 History cyclobenzaprine 10 mg tablet 10 mg PO HS PRN MUSCLE SPASMS 10/22/23 10/22/23 History duloxetine 30 mg capsule,delayed 30 mg PO QAM 10/22/23 10/22/23 History release gabapentin 400 mg capsule 400 mg PO HS 10/22/23 10/22/23 History levothyroxine 125 mcg tablet 125 mcg PO DAILYBB 10/22/23 10/22/23 History lisdexamfetamine 60 mg capsule 60 mg PO QAM 10/22/23 10/22/23 History ropinirole 0.25 mg tablet 0.25 mg PO TID 10/22/23 10/22/23 History Past Med/Surg History Problem List (Updated 10/22/23 @ 23:29 by Juvencio Nicholas MD) Encephalopathy Altered mental status (Acute) Rhabdomyolysis (Acute) Obesity (BMI 30-39.9) COVID-19 virus infection (Acute) Fatty infiltration of liver Migraine headache MICHAEL (obstructive sleep apnea) Binge eating disorder Dietary counseling and surveillance Depression with anxiety Cigarette nicotine dependence Vitamin D deficiency Post-surgical hypothyroidism History of Graves' disease Adrenal insufficiency due to corticosteroid withdrawal Polydipsia Weight gain Hypocalcemia Graves' ophthalmopathy H/O total thyroidectomy History of Graves' disease Chest pain Medical History Heart murmur Pyelonephritis Depressed Anxiety Surgical History S/P cholecystectomy 10/2020 No pertinent past surgical history Family History Other No pertinent family history Social History Smoking Status: Unknown if ever smoked Tobacco Type: Cigarettes Cigarettes Per Day: 8 smokes/day; Second Hand Exposure: No; Do You Dip or Chew Tobacco: No; Hx Alcohol Use: No Hx Substance Use: No Preferred Language: Palestinian Communication Ability: Effective Book Shelver Required: No Beliefs That Will Affect Care: None Current Living Situation: Family Feels Safe at Home: Yes Assistive Devices: None Review of Systems Review of Systems: Could not be reliably obtained secondary to obtunded state Physical Exam Physical Exam: GENERAL: Obtunded, obese, no respiratory distress SKIN: Normal color, warm HEENT: Bespectacled, pink palpebral conjunctivae, no ptosis, dry buccal mucosa NECK : Supple, short neck, no tenderness CHEST : Decreased breath sounds, no tenderness HEART : RRR, no obvious murmurs ABDOMEN: Some distention, nontender EXTREMITIES : Minimal LE swelling, no LE tenderness, no other conspicuous deformities noted NEUROLOGIC : Obtunded, no facial asymmetry, no tremors, gait and stance not assessed Results & Data Results & Data Vital Signs (Past 12 Hours) Vital Signs Temp Pulse Pulse Resp BP BP Pulse Ox 10/22/23 21:19 36.5 C 10/22/23 20:30 59 L 22 134/75 96 10/22/23 19:36 59 L 19 96 10/22/23 19:35 125/73 10/22/23 18:51 94 10/22/23 18:51 80 18 121/83 94 10/22/23 18:49 77 O2 Del Method O2 Flow Rate 10/22/23 21:19 10/22/23 20:30 Room Air 10/22/23 19:36 10/22/23 19:35 10/22/23 18:51 Room Air 0 10/22/23 18:51 Room Air 10/22/23 18:49 Laboratory Results Laboratory Results WBC 12.08 K/ul (4.8-10.8) H 10/22/23 18:42 RBC 5.71 M/uL (4.20-5.40) H 10/22/23 18:42 Hgb 16.5 g/dl (12.0-16.0) H 10/22/23 18:42 Hct 48.1 % (37.0-47.0) H 10/22/23 18:42 MCV 84.2 fL (80.0-100.0) 10/22/23 18:42 MCH 28.9 pg (25.0-34.0) 10/22/23 18:42 MCHC 34.3 g/dL (32.0-36.0) 10/22/23 18:42 RDW Std Deviation 39.4 fL (36.4-46.3) 10/22/23 18:42 RDW Coeff of Neelima 12.9 % (11.5-14.5) 10/22/23 18:42 Plt Count 179 K/uL (130-400) 10/22/23 18:42 MPV 13.5 fL (9.4-12.4) H 10/22/23 18:42 Immature Gran % (Auto) 0.6 % 10/22/23 18:42 Neut % (Auto) 85.8 % 10/22/23 18:42 Lymph % (Auto) 8.1 % 10/22/23 18:42 [place] % (Auto) 5.2 % 10/22/23 18:42 Eos % (Auto) 0.1 % 10/22/23 18:42 Baso % (Auto) 0.2 % 10/22/23 18:42 Neut # (Auto) 10.36 K/uL (1.40-6.50) H 10/22/23 18:42 Lymph # (Auto) 0.98 K/uL (1.20-3.40) L 10/22/23 18:42 Larue # (Auto) 0.63 K/uL (0.11-0.59) H 10/22/23 18:42 Eos # (Auto) 0.01 K/uL (0.00-0.50) 10/22/23 18:42 Baso # (Auto) 0.03 K/uL (0.00-0.20) 10/22/23 18:42 Immature Gran # (Auto) 0.07 K/uL (0.01-0.20) 10/22/23 18:42 VBG pH 7.44 (7.36-7.41) H 10/22/23 20:50 VBG pCO2 31 mmHg (38-50) L 10/22/23 20:50 VBG pO2 59 mmHg 10/22/23 20:50 VBG HCO3 21 mmol/L 10/22/23 20:50 VBG O2 Saturation 90.8 % 10/22/23 20:50 VBG Base Excess -2.1 mEq/L 10/22/23 20:50 Sodium 140 mmol/L (136-145) 10/22/23 18:45 Potassium 3.7 mmol/L (3.5-5.1) 10/22/23 18:45 Chloride 106 mmol/L (98-107) 10/22/23 18:45 Carbon Dioxide 23 mmol/L (21-32) 10/22/23 18:45 Anion Gap 11 (3-11) 10/22/23 18:45 BUN 26 mg/dl (6-23) H 10/22/23 18:45 Creatinine 1.21 mg/dl (0.6-1.2) H 10/22/23 18:45 Est Cr Clr Drug Dosing 95.5 ml/min 10/22/23 18:45 Est GFR ( Amer) 70.0 ml/min 10/22/23 18:45 Est GFR (Non-Af Amer) 60.4 ml/min 10/22/23 18:45 BUN/Creatinine Ratio 21.5 (10-20) H 10/22/23 18:45 Glucose 146 mg/dl (70-99(Fasting)) H 10/22/23 18:45 POC Glucose 165 mg/dl (70-99) H 10/22/23 18:41 Calcium 10.7 mg/dl (8.6-10.3) H 10/22/23 18:45 Total Bilirubin 1.1 mg/dl (0.2-1.0) H 10/22/23 18:45 AST 83 U/L (13-39) H 10/22/23 18:45 ALT 46 U/L (7-52) 10/22/23 18:45 Alkaline Phosphatase 108 U/L (34-104) H 10/22/23 18:45 Ammonia 28.0 umol/L (18-72) 10/22/23 20:50 Total Creatine Kinase 6513 U/L (26-192) H 10/22/23 18:45 Total Protein 8.8 gm/dl (6.0-8.3) H 10/22/23 18:45 Albumin 4.7 gm/dl (3.4-5.0) 10/22/23 18:45 Globulin 4.1 gm/dl (2.5-4.0) H 10/22/23 18:45 Albumin/Globulin Ratio 1.1 (0.9-2) 10/22/23 18:45 TSH 13.049 uIu/ml (0.300-4.500) H 10/22/23 18:45 Free T4 1.23 ng/dl (0.61-1.60) 10/22/23 18:45 HCG, Qual Negative (Negative) 10/22/23 18:45 Urine Color Dark Yellow 10/22/23 19:38 Urine Appearance Cloudy (Clear) A 10/22/23 19:38 Urine pH 6.0 (4.5-7.5) 10/22/23 19:38 Ur Specific [place] 1.030 (1.000-1.030) 10/22/23 19:38 Urine Protein 3+ (Negative) H 10/22/23 19:38 Urine Glucose (UA) Negative (Negative) 10/22/23 19:38 Urine Ketones Trace (Negative) H 10/22/23 19:38 Urine Blood 2+ (Negative) H 10/22/23 19:38 Urine Nitrite Negative (Negative) 10/22/23 19:38 Urine Bilirubin 1+ (Negative) H 10/22/23 19:38 Urine Urobilinogen Negative (Negative) 10/22/23 19:38 Ur Leukocyte Esterase Trace (Negative) H 10/22/23 19:38 Urine WBC (Auto) 0-5 /hpf (0-5) 10/22/23 19:38 Urine RBC (Auto) >20 /hpf (0-2) H 10/22/23 19:38 U Hyaline Cast (Auto) >20 /lpf (0-2) H 10/22/23 19:38 U Epithel Cells (Auto) 6-10 /hpf (0-2) H 10/22/23 19:38 Urine Bacteria (Auto) None Seen (None Seen) 10/22/23 19:38 Urine Mucus Present (None Prsent) A 10/22/23 19:38 Salicylates < 3.0 mg/dl (3.0-30) L 10/22/23 18:45 Urine Opiates Screen Neg (Neg) 10/22/23 19:38 Ur Methadone, Qual Neg (Neg) 10/22/23 19:38 Urine Fentanyl Screen Neg (Neg) 10/22/23 19:38 Acetaminophen < 3 ug/ml (10-30) L 10/22/23 18:45 Urine Barbiturates Neg (Neg) 10/22/23 19:38 Ur Phencyclidine (PCP) Neg (Neg) 10/22/23 19:38 U Amphetamin/Meth Scrn Pos (Neg) H 10/22/23 19:38 MDMA (Ecstasy) Screen Pos (Neg) H 10/22/23 19:38 U Benzodiazepines Scrn Neg (Neg) 10/22/23 19:38 Ur Cocaine Metabolite Neg (Neg) 10/22/23 19:38 U Marijuana (THC) Screen Pos (Neg) H 10/22/23 19:38 Ethyl Alcohol mg/dL < 10.0 mg/dl (<10.0) 10/22/23 20:50 SARS-CoV-2, RNA, NAAT NEGATIVE (NEGATIVE) 10/22/23 19:[address] 10/22/23 18:41 CT SCAN OF THE BRAIN WITHOUT IV CONTRAST CLINICAL HISTORY: Change in mental status. COMPARISON STUDY: CT of the brain dated 07/03/2020. TECHNIQUE: Unenhanced axial CT scan of the brain is performed from the vertex to the skull base. A dose lowering technique was utilized adhering to the principles of ALARA. FINDINGS: Brain parenchyma: The brain parenchyma is normal in appearance. There is no hemorrhage, mass effect, or evidence of acute territorial ischemia by CT criteria. Lopez-white matter differentiation is preserved. No extra-axial fluid collection is seen. Ventricles, sulci, cisterns: Normal in configuration. Intracranial vasculature: The visualized intracranial vasculature at the skull base is normal in appearance. Calvarium: Unremarkable. Sinuses and mastoids: The paranasal sinuses are clear. The mastoid air cells are well pneumatized. Orbits: The bony orbits are grossly intact. IMPRESSION: No acute intracranial abnormality. ACT 112: Negative or not required by law. Electronically signed by: Carlos Ann M.D. 10/22/2023 7:[address] 10/22/23 18:43 CT SCAN OF THE CERVICAL SPINE CLINICAL HISTORY: Change in mental status. Found down. COMPARISON STUDY: Cervical spine CT dated 10/25/2015. TECHNIQUE: CT scan of the cervical spine is performed from the skull base to the upper thoracic spine. Images are reviewed in the axial, sagittal, and coronal planes. IV contrast was not administered for this examination. A dose lowering technique was utilized adhering to the principles of ALARA. CT DOSE: 1676.22 mGy.cm FINDINGS: Skeletal structures: The skeletal structures are well mineralized. There is no evidence of fracture or subluxation involving the cervical spine. Vertebral body height and alignment are maintained. The odontoid process and lateral masses are intact. The atlantoaxial articulation is preserved. The spinous processes appear intact. Intervertebral discs: The disc spaces are well maintained. Central canal: Widely patent. Soft tissues: The prevertebral and paraspinous soft tissues are within normal limits. The thyroid gland is atrophic versus surgically absent. Calvarium: The visualized calvarium at the skull base appears intact. Brain parenchyma: Partially visualized brain parenchyma at the skull base is within normal limits. Sinuses and mastoids: There is trace fluid in the left sphenoid sinus. The mastoid air cells are well pneumatized. Lung apices: There are patchy groundglass opacities at the right apex. IMPRESSION: 1. There is no evidence of cervical spine fracture or subluxation. 2. There are patchy groundglass opacities at the right apex, which may represent a pneumonitis. Correlate clinically. ACT 112: Negative or not required by law. Electronically signed by: Carlos Ann M.D. 10/22/2023 7:10 PM Chest X-Ray 10/22/23 18:43 SINGLE VIEW CHEST CLINICAL HISTORY: Change in mental status. Found down. Overdose. FINDINGS: An AP, portable, upright chest radiograph is compared to study dated 08/02/2006 and correlated with chest CT dated 06/07/2019. The cardiomediastinal silhouette is unremarkable. Airspace consolidation is seen throughout the right lung, greatest in right lung base. The left lung appears clear. No large pleural effusion or pneumothorax is seen. The bony thorax is grossly intact. IMPRESSION: Airspace consolidation is seen throughout the right lung. Correlate clinically for evidence of pneumonia/aspiration pneumonitis. Radiographic follow-up to resolution is recommended. ACT 112: Negative or not required by law. Electronically signed by: Carlos Ann M.D. 10/22/2023 7:11 PM Diagnostic Findings EKG as per my interpretation : Rate 90, NSR, normal axis, T wave inversions septal leads
[2023-10-22] MEDS ORDERED: ACETAMINOPHEN 325 MG TAB PO PRN (22:10)
[2023-10-22] MEDS: LACTATED RINGER'S 1,000 ML IV ONE (23:20)
--- OUTSIDE RECORDS SUMMARY | 2023-10-23 00:12 | External Medical Summary | Summary of Care ---
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 Name Role Phone Jaspal Trimble MD Primary Care Provider + Encounter Details Date Type Department Care Team (Late st Contact Info) Description 07/16/2023 Orders Only Outcomes Research Department [address] [place] [address] [place] [facility] MyCode Research Other*[id number] Allergies Active Allergy Reactions Criticality Noted Date Comments Amoxicillin Nausea/vomiting,Rash 10/13/2019 Ketorolac Rash Medium 06/09/2019 Nickel High 09/24/2020 rash Penicillins Edema Other,Rash 02/17/2015 Ketorolac Tromethamine Diarrhea,Rash 10/13/2019 Macrolides And Ketolides Rash 08/16/2006 documented as of this encounter (statuses as of 07/16/2023) Medications Medication Sig Dispensed Refills Start Date End Date Status Prazosin HCl 1 MG Oral Capsule (Minipress) Take 4 Capsules by mouth at bedtime. 30 Cap 0 09/08/2020 Active Topiramate 50 MG Oral Tablet (topAMAX) Take 1 Tablet by mouth at bedtime. 0 09/08/2020 Active Naproxen 250 MG Oral Tablet (Naprosyn) Take 1 Tablet by mouth as needed. 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 90 Tab 3 10/22/2020 Active Additional Information Patient not taking.Reported on 06/26/2022 DULoxetine HCl 60 MG Oral Capsule Delayed Release Particles (Cymbalta) Take 1 Capsule by mouth in the morning and 1 Capsule before bedtime. 10 Cap 0 11/09/2020 Active Selenium 100 MCG Oral Capsule Take by mouth 100 mcg 2 times a day . 60 Capsule 2 06/13/2021 Active Additional Information Patient not taking.Reported on 06/26/2022 Meclizine HCl 25 MG Oral Tablet (Antivert)Indication s:Benign paroxysmal positional vertigo, unspecified laterality Take by mouth 1 Tablet as needed in the morning AND 1 Tablet as needed at noon AND 1 Tablet as needed in the evening for Dizziness. 30 Tablet 0 09/08/2021 Active Nicotine 7 MG/24HR Transdermal Patch 24 Hour (Nicoderm CQ)Indications:Tobac co use 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 On upper body/outer arm, change once a day for two weeks.. 14 Patch 0 12/28/2021 Active Additional Information Patient not taking.Reported on 06/26/2022 Nicotine 14 MG/24HR Transdermal Patch 24 Hour (Nicoderm CQ)Indications:Tobac co use 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 On upper body/outer arm, change once a day for two weeks.. 14 Patch 0 12/28/2021 Active Additional Information Patient not taking.Reported on 06/26/2022 Nicotine 21 MG/24HR Transdermal Patch 24 Hour (Nicoderm CQ) Place topically on the skin 1 Patch in the morning. On upper body/upper arm, change once a day for 6 weeks.. 42 Patch 0 12/28/2021 Active Additional Information Patient not taking.Reported on 06/26/2022 Ibuprofen 800 MG Oral Tablet (Motrin)Indications: Chronic low back pain with left-sided sciatica, unspecified back pain laterality Take 1 Tablet (800 mg) by mouth in the morning and 1 Tablet (800 mg) at noon and 1 Tablet (800 mg) before bedtime. with food for pain. 30 Tablet 2 04/06/2022 Active Rexulti 2 MG Oral Tablet Take 1 Tablet by mouth in the morning. 0 06/02/2022 Active Propranolol HCl 10 MG Oral Tablet (Inderal) Take 1 Tablet by mouth 2 times a day as needed. 0 06/01/2022 Active Vyvanse 50 MG Oral Capsule Take 1 Capsule by mouth every evening. 0 06/01/2022 Active Gabapentin 400 MG Oral Capsule (Neurontin) Take 1 Capsule by mouth every evening. 0 06/01/2022 Active Ondansetron 4 MG Oral Tablet Disintegrating (Zofran)Indications: Nausea Place 1 Tablet on tongue every 8 hours as needed for Nausea. dissolve on tongue. 20 Tablet 1 06/26/2022 Active Additional Information Patient not taking.Reported on 12/19/2022 Proventil HFA 108 (90 Base) MCG/ACT Inhalation Aerosol SolutionIndications: SOB (shortness of breath),Wheezing Inhale 2 Puffs by mouth in the morning and 2 Puffs at noon and 2 Puffs in the evening and 2 Puffs before bedtime. 1 g 0 12/19/2022 Active Additional Information Patient not taking.Reported on 06/15/2023 rOPINIRole HCl 0.25 MG Oral Tablet (Requip)Indications: RLS (restless legs syndrome) TAKE BY MOUTH 1 TABLET IN THE MORNING AND 1 TABLET AT NOON AND 1 TABLET BEFORE BEDTIME. WITH FOOD.. 90 Tablet 11 01/09/2023 Active Levothyroxine Sodium 112 MCG Oral Tablet (Levoxyl)Indications :Postsurgical hypothyroidism Take 1 Tablet by mouth daily first thing in the morning. 30 Tablet 3 03/06/2023 Active documented as of this encounter (statuses as of 07/16/2023) Active Problems Problem Noted Date Diagnosed Date Weight gain 06/15/2023 Binge eating disorder 06/03/2020 Overview: 05/[email or web address] Well adult exam 01/23/2020 Overview: Needs pap. 05/28 EMG WNL leg 01/24 start [facility] endo Dr Posey. Psychiatry--Dr Murillo in past. History of total thyroidectomy 08/22/2019 Overview: 08/04/2019 [facility] due to hyperthyroid uncontrolled on meds. Iatrogenic hypothyroidism 08/22/2019 Proptosis due to thyroid disorder 08/22/2019 Graves' disease 08/22/2019 Abnormal LFTs 07/21/2019 Abdominal pain 07/21/2019 History of hepatitis C 06/11/2019 Overview: 06/26 negative VL PTSD (post-traumatic stress disorder) 06/09/2019 History of anorexia nervosa 06/09/2019 History of drug abuse 09/12/2013 Tobacco abuse disorder 07/31/2013 Social anxiety disorder 07/31/2013 documented as of this encounter (statuses as of 07/16/2023) Resolved Problems Problem Noted Date Diagnosed Date Resolved Date Food insecurity 12/13/2020 06/21/2023 Overview: Per [facility] Protocol Low serum cortisol level 06/11/2019 Thyrotoxicosis 06/09/2019 08/22/2019 Chronic hepatitis C without hepatic coma 11/25/2014 06/11/2019 documented as of this encounter (statuses as of 07/16/2023) Immunizations Name Administration Dates Next Due COVID-19 mRNA, LNP-s, No Pre serve, 2-Dose Series ([employer]) 09/09/2020,08/18/2020 Seasonal Influenza, Quadrivalent, No Preserve, I M 01/16/2017 documented as of this encounter Social History Tobacco Use Types Packs/Day Years Used Date Smoking Tobacco: Every Day Cigarettes 0.2 3 Smokeless Tobacco: Never Alcohol Use Standard Drinks/Week Comments Not Currently 0 (1 standard drink = 0.6 oz pur e alcohol) Hunger Vital Sign Answer Date Recorded Within the past 12 months, y ou worried that your food would run out before you got the money to buy more. Never true 06/14/19 24 Within the past 12 months, t he food you bought just didn't last and you didn't have money to get more. Never true 06/14/2023 Sex and Gender Information Value Date Recorded Sex Assigned at Female 06/14/2023 3:33 PM EST Gender Identity Female 06/14/2023 3:33 PM EST Sexual Orientation Lesbian 06/14/2023 3: 33 PM EST Job Start Date Occupation Industry Not on file Not on file Not on file documented as of this encounter Functional Status Functional Status Response Date of Assess ment Are you deaf or do you have serious difficulty h earing? No 07/21/2019 Are you blind or do you have serious difficulty seeing, even when wearing glasses? No 07/21/2019 Do you have serious difficul ty walking or climbing stairs? (5 years old or older) No 07/22/2019 Do you have difficulty dress ing or bathing? (5 years old or older) No 07/21/2019 Because of a physical, menta l, or emotional condition, do you have difficulty doing errands alone such as visiting a doctor s office or shopping? (15 years old or older) No 07/21/19 20 Cognitive Status Response Date of Assessm ent Because of a physical, menta l, or emotional condition, do you have serious difficulty concentrating, remembering, or making decisions? (5 years old or older) No 07/21/2019 documented as of this encounter Plan of Treatment Upcoming Encounters Date Type Department Care Team (Late st Contact Info) Description 07/30/2023 9:40 AM EDT Office Visit Family Practice [facility] [address] [id number] Jaspal Trimble MD [address] [place] [address] 12/07/2023 10:00 AM EDT Telemedicine Nutrition & Weight Management, [facility] [address] [address] Letha Choe PA-C [address] [place] [id number] Scheduled Orders Name Type Priority Associated Diagnoses Orde r Schedule MYCODE SUBSEQUENT ADULT Lab Routine MyCode Research Other*[id number] Every 6 Months for 2 Occurrences starting 07/16/2023 until 08/04/2024 Health Maintenance Due Date Last Done Comments Pneumococcal Vaccine: Pediatrics (0 to 5 Years) and At-Risk Patients (6 to 64 Years) (1 of 2 - PCV) 2000 DTaP,Tdap,and Td Vaccines (1 - Tdap) 2013 Hepatitis B (2 of 3 - 19+ 3-dose series) 04/18/2014 03/21/2014 Depression, Most Recent Score >= 10 (will fire each visit until score < 10) 02/18/2015 02/17/2015 Pap Smear 05/29/2019 05/29/2016 COVID-19 Vaccine (3 - 2022- season) 2023 09/09/2020, 08/18/2020 Influenza Vaccine (FLU shot) (#1) 2023 01/16/2017 TSH 06/21/2024 06/21/2023, 11/2022, 06/13/2021, Additional history exists GARDASIL-HPV IMMUNIZATION SERIES Aged Out No longer eligible based on patient's age to complete this topic MENINGOCOCCAL (MENACTRA/MENVEO) Aged Out No longer eligible based on patient's age to complete this topic documented as of this encounter Medical Devices Not on filedocumented as of this encounter Visit Diagnoses Diagnosis MyCode Research Other*[id number] documented in this encounter Advance Directives Latest Code Status on File Code Status Date Activated Date Inactivated Comments Full Code 08/04/2019 3:05 PM 08/04/2019 10:28 PM This order reflects the patients wishes and were consensually agreed upon. Question Answer Comments Discussion of Advance Directives occurred with: Not Discussed Code Status History Code Status Date Activated Date Inactivated Comments Full Code 07/21/2019 2:29 PM 07/23/2019 9:32 PM This order reflects the patients wishes and were consensually agreed upon. Question Answer Comments Discussion of Advance Directives occurred with: Patient Does the patient have a Living Will? No Does the patient have Health Care Power of Respite Worker? No Full Code 06/09/2019 1:51 AM 06/10/2019 2:05 PM This or denice reflects the patients wishes and were consensually agreed upon. Question Answer Comments Discussion of Advance Directives occurred with: Patient Does the patient have a Living Will? No Does the patient have Health Care Power of Respite Worker? No Care Teams Bedspread Cutter Relationship Specialty Start Date End Date Jaspal Trimble MD [address] [id number] PCP - General Family Medicine 06/07/18 documented as of this encounter
--- OUTSIDE RECORDS SUMMARY | 2023-10-23 00:12 | External Medical Summary | Summary of Care ---
Author Name Unknown Organization [facility] Address [address] [facility] [place] [address] Phone [phone] Care Team Providers Care Retail Planner Name Role Phone Jaspal Trimble MD Primary Care Provider + Reason for Visit * Reason Comments Follow Up Discuss lab results. Episodes of arm and legs spasms at night that are painful. She has had 3 episodes in the past 2 weeks. Encounter Details Date Type Department Care Team (Latest Contact Info) Description 07/30/2023 9:40 AM EDT [facility] [address] [place] [address] Jaspal Trimble MD [address] [place] [address] Iatrogenic hypothyroidism*; Lipid screening; Hyperlipidemia, unspecified hyperlipidemia type; Binge eating disorder; Abnormal LFTs; Muscle cramp Allergies Active Allergy Reactions Criticality Noted Date Comments Amoxicillin Nausea/vomiting,Rash 10/13/2019 Ketorolac Rash Medium 06/09/2019 Nickel High 09/24/2020 rash Penicillins Edema Other,Rash 02/17/2015 Ketorolac Tromethamine Diarrhea,Rash 10/13/2019 Macrolides And Ketolides Rash 08/16/2006 documented as of this encounter (statuses as of 07/30/2023) Medications Medication Sig Dispensed Refills Start Date End Date Status Prazosin HCl 1 MG Oral Capsule (Minipress) Take 4 Capsules by mouth at bedtime. 30 Cap 0 09/08/2020 Active Topiramate 50 MG Oral Tablet (topAMAX) Take 1 Tablet by mouth at bedtime. 0 09/08/2020 Active DULoxetine HCl 60 MG Oral Capsule Delayed Release Particles (Cymbalta) Take 1 Capsule by mouth in the morning and 1 Capsule before bedtime. 10 Cap 0 11/09/2020 Active Meclizine HCl 25 MG Oral Tablet (Antivert)Indicatio ns:Benign paroxysmal positional vertigo, unspecified laterality Take by mouth 1 Tablet as needed in the morning AND 1 Tablet as needed at noon AND 1 Tablet as needed in the evening for Dizziness. 30 Tablet 0 09/08/2021 Active Nicotine 7 MG/24HR Transdermal Patch 24 Hour (Nicoderm CQ)Indications:Toba charge account authorizer use 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 On upper body/outer arm, change once a day for two weeks.. 14 Patch 0 12/28/2021 Active Additional Information Patient not taking.Reported on 07/30/2023 Nicotine 14 MG/24HR Transdermal Patch 24 Hour (Nicoderm CQ)Indications:Toba charge account authorizer use 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 On upper body/outer arm, change once a day for two weeks.. 14 Patch 0 12/28/2021 Active Additional Information Patient not taking.Reported on 07/30/2023 Nicotine 21 MG/24HR Transdermal Patch 24 Hour (Nicoderm CQ) Place topically on the skin 1 Patch in the morning. On upper body/upper arm, change once a day for 6 weeks.. 42 Patch 0 12/28/2021 Active Additional Information Patient not taking.Reported on 07/30/2023 Ibuprofen 800 MG Oral Tablet (Motrin)Indications :Chronic low back pain with left-sided sciatica, unspecified back pain laterality Take 1 Tablet (800 mg) by mouth in the morning and 1 Tablet (800 mg) at noon and 1 Tablet (800 mg) before bedtime. with food for pain. 30 Tablet 2 04/06/2022 Active Propranolol HCl 10 MG Oral Tablet (Inderal) Take 1 Tablet by mouth 2 times a day as needed. 0 06/01/2022 Active Vyvanse 50 MG Oral Capsule Take 1 Capsule by mouth every evening. 0 06/01/2022 Active Gabapentin 400 MG Oral Capsule (Neurontin) Take 1 Capsule by mouth every evening. 0 06/01/2022 Active Ondansetron 4 MG Oral Tablet Disintegrating (Zofran)Indications :Nausea Place 1 Tablet on tongue every 8 hours as needed for Nausea. dissolve on tongue. 20 Tablet 1 06/26/2022 Active rOPINIRole HCl 0.25 MG Oral Tablet (Requip)Indications :RLS (restless legs syndrome) TAKE BY MOUTH 1 TABLET IN THE MORNING AND 1 TABLET AT NOON AND 1 TABLET BEFORE BEDTIME. WITH FOOD.. 90 Tablet 11 01/09/2023 Active Levothyroxine Sodium 125 MCG Oral Tablet (Levoxyl) Take 1 Tablet by mouth in the morning. (at least 30 min prior to breakfast or other meds). 30 Tablet 1 07/30/2023 Active Cyclobenzaprine HCl 10 MG Oral Tablet (Flexeril) Take 1 Tablet by mouth at bedtime as needed for Muscle spasms. 30 Tablet 0 07/30/2023 Active Naproxen 250 MG Oral Tablet (Naprosyn) Take 1 Tablet by mouth as needed. 0 4 Discontinu ed(Medicat ion List Clean Up) B-12 1000 MCG Oral TabletIndications:B 12 deficiency Take 1,000 mcg by mouth daily. 90 Tab 3 10/22/2020 4 Discontinu ed(Medicat ion List Clean Up) Selenium 100 MCG Oral Capsule Take by mouth 100 mcg 2 times a day . 60 Capsule 2 06/13/2021 4 Discontinu ed(Medicat ion List Clean Up) Rexulti 2 MG Oral Tablet Take 1 Tablet by mouth in the morning. 0 06/02/2022 4 Discontinu ed(Medicat ion List Clean Up) Proventil HFA 108 (90 Base) MCG/ACT Inhalation Aerosol SolutionIndications :SOB (shortness of breath),Wheezing Inhale 2 Puffs by mouth in the morning and 2 Puffs at noon and 2 Puffs in the evening and 2 Puffs before bedtime. 1 g 0 12/19/2022 4 Discontinu ed(Medicat ion List Clean Up) Levothyroxine Sodium 112 MCG Oral Tablet (Levoxyl)Indication s:Postsurgical hypothyroidism Take 1 Tablet by mouth daily first thing in the morning. 30 Tablet 3 03/06/2023 4 Discontinu ed(Medicat ion/Dose Changed) documented as of this encounter (statuses as of 07/30/2023) Active Problems Problem Noted Date Diagnosed Date Weight gain 06/15/2023 Binge eating disorder 06/03/2020 Overview: 05/[address] [email or web address] Well adult exam 01/23/2020 Overview: Needs pap. 05/28 [facility] WNL leg Psychiatry--Jaelyn Jacintoin @[email or web address] History of total thyroidectomy 08/22/2019 Overview: 08/04/2019 [facility] due to hyperthyroid uncontrolled on meds. Iatrogenic hypothyroidism 08/22/2019 Proptosis due to thyroid disorder 08/22/2019 Graves' disease 08/22/2019 Abnormal LFTs 07/21/2019 Abdominal pain 07/21/2019 History of hepatitis C 06/11/2019 Overview: 06/26 negative VL PTSD (post-traumatic stress disorder) 06/09/2019 History of anorexia nervosa 06/09/2019 Tobacco abuse disorder 07/31/2013 Social anxiety disorder 07/31/2013 documented as of this encounter (statuses as of 07/30/2023) Resolved Problems Problem Noted Date Diagnosed Date Resolved Date Food insecurity 12/13/2020 06/21/2023 Overview: Per [facility] Protocol Low serum cortisol level 06/11/2019 Thyrotoxicosis 06/09/2019 08/22/2019 Chronic hepatitis C without hepatic coma 11/25/2014 06/11/2019 History of drug abuse 09/12/20132023 documented as of this encounter (statuses as of 07/30/2023) Immunizations Name Administration Dates Next Due COVID-19 mRNA, LNP-s, No Pre serve, 2-Dose Series (Education Elements) 09/09/2020,08/18/2020 Seasonal Influenza, Quadrivalent, No Preserve, I [...] on file documented as of this encounter Last Filed Vital Signs Vital Sign Reading Time Taken Comments Blood Pressure 122/78 07/30/2023 9:35 AM EDT Pulse 92 07/30/2023 9:35 AM EDT Temperature 36.4 C (97.6 F) 07/30/2023 9:35 AM ED T Respiratory Rate - - Oxygen Saturation 99% 07/30/2023 9:35 AM EDT Inhaled Oxygen Concentration - - Weight 126.2 kg (278 lb 3.2 oz) 07/30/2023 9:35 AM EDT Height - - Body Mass Index 35.72 06/15/2023 2:31 PM EST documented in this encounter Functional Status Functional Status Response [...] No 07/21/2019 documented as of this encounter Progress Notes * Jaspal Trimble MD - 07/30/2023 10:18 AM EDT SUBJECTIVE: Sonal Baeza is a 27 year old female here for Follow Up (Discuss lab results. Episodes of arm andlegs spasms at night that are painful. She has had 3 episodes in the past 2 weeks.) . Here w/. Patient with multiple medical problems. Has been working with her psychiatry team at [facility] with herhistory of depression and binge eating disorder. Currently on Vyvanse 50 mg and duloxetine 120 mg total daily. She does get brain zaps if she is even 1 hour late for her duloxetine dose so she wants to try to taper off of that. She has a history of hypothyroidism since treatment for her Graves disease. She admits she has not been taking her medicine regularly. She sometimes prioritize is taking her duloxetine due to brain'sapps. She either misses it or as late least half of the days. She is seen Endocrinology in the past but wants to follow up for me with her thyroid. She is interested in getting further specialized care for her history of eating disorder. She bingeeats at least half the days. Typically at nighttime. She has a chronic history of muscle spasms at night and has had some workup for this. History of chronically slightly elevated LFTs. ROS: Negative except above. Past Medical History: Diagnosis Date Binge eating disorder 06/03/2020 History of anorexia nervosa History of hepatitis C 06/11/201906/26 negative VL History of total thyroidectomy 08/22/2019 08/04/2019 [facility] [place] due to hyperthyroid uncontrolled on meds. Iatrogenic hypothyroidism 08/22/2019 Low serum cortisol level 06/11/2019 Proptosis due to thyroid disorder 08/22/2019 PTSD (post-traumatic stress disorder) Social anxiety disorder 07/31/2013 Thyrotoxicosis 06/09/2019 Tobacco abuse disorder 07/31/2013 Past Surgical History: Procedure Laterality Date ANESTHESIA FOR CAT OR MRI SCAN 08/16/06 ANESTHESIA FOR NON-INVASIVE IMAGING (MRI OR CT) performed by [facility] at [facility] LEVONORGESTREL-RELEASING IUD, 52 MG, 5 YEAR 06/06/2016 REMOVAL OF LINGUAL TONSIL REMOVAL OF THYROID GLAND N/A 08/04/2019 THYROIDECTOMY COMPLETE performed by Brenna Saldana MD at [facility] Social History Socioeconomic History Marital status: Spouse name: Not on file Number of children: Not on file Years of education: Not on file Highest education level: Not on file Occupational History Occupation: unemployed Tobacco Use Smoking status: Every Day Current packs/day: 0.20 Average packs/day: 0.2 packs/day for 3.0 years (0.6 ttl pk-yrs) Types: Cigarettes Smokeless tobacco: Never Vaping Use Vaping Use: Never used Substance and Sexual Activity Alcohol use: Not Currently Drug use: No Comment: History of IV drug use Sexual activity: Yes Partners: Male control/protection: I.U.D. Comment: is FtoM transgender. mirena iud inserted 06/06/16 Other Topics Concern Service Not Asked Blood Transfusions Not Asked Caffeine Concern Not Asked Occupational Exposure Not Asked Hobby Hazards Not Asked Sleep Concern Yes Stress Concern Yes Weight Concern Not Asked Special Diet Not Asked Back Care Not Asked Exercise Not Asked Bike Helmet Not Asked Seat Belt Yes Self-Exams Not Asked Social History Narrative Looking for any job currently. Finished High School in [place]. Grew up here then moved to [place]. Return ed in 2012. Social Determinants of Health Financial Resource Strain: Not on file Food Insecurity: No Food Insecurity (06/14/2023) Hunger Vital Sign Worried About Running Out of Food in the Last Year: Never true Ran Out of Food in the Last Year: Never true Transportation Needs: Not on file Physical Activity: Not on file Stress: Not on file Social Connections: Not on file Intimate Partner Violence: Not on file Housing Stability: Not on file Family History Problem Relation Age of Onset Hypertension Mother 55 [place]- age 55, drug OD Heart attack Mother Thyroid Disorder Mother Drug abuse Mother Cancer Grandfather (Paternal) Lung, smokers Diabetes Grandfather (Paternal) Cancer Grandmother (Paternal) Lung, smokers Cancer Grandfather (Maternal) skin Heart Disorder Grandfather (Maternal) AAA, 65 Diabetes Other cousin Heart Disorder Grandmother (Maternal) 65 Stroke Grandmother (Maternal) Heart Disorder Uncle (Unspecified) [place] Heart Disorder Uncle (Unspecified) [place] Eye Problems No significant family history Denies family h/o AMD, RD, glaucoma, or blindness Current Outpatient Medications Medication Sig Dispense Refill Prazosin HCl 1 MG Oral Capsule (Minipress) Take 4 Capsules by mouth at bedtime. 30 Cap 0 Topiramate 50 MG Oral Tablet (topAMAX) Take 1 Tablet by mouth at bedtime. DULoxetine HCl 60 MG Oral Capsule Delayed Release Particles (Cymbalta) Take 1 Capsule by mouth in the morning and 1 Capsule before bedtime. 10 Cap 0 Ibuprofen 800 MG Oral Tablet (Motrin) Take 1 Tablet (800 mg) by mouth in the morning and 1 Tablet (800 mg) at noon and 1 Tablet (800 mg) before bedtime. with food for pain. 30 Tablet 2 Propranolol HCl 10 MG Oral Tablet (Inderal) Take 1 Tablet by mouth 2 times a day as needed. Vyvanse 50 MG Oral Capsule Take 1 Capsule by mouth every evening. Gabapentin 400 MG Oral Capsule (Neurontin) Take 1 Capsule by mouth every evening. Ondansetron 4 MG Oral Tablet Disintegrating (Zofran) Place 1 Tablet on tongue every 8 hours as needed for Nausea. dissolve on tongue. 20 Tablet 1 rOPINIRole HCl 0.25 MG Oral Tablet (Requip) TAKE BY MOUTH 1 TABLET IN THE MORNING AND 1 TABLET AT NOON AND 1 TABLET BEFORE BEDTIME. WITH FOOD.. 90 Tablet 11 Levothyroxine Sodium 125 MCG Oral Tablet (Levoxyl) Take 1 Tablet by mouth in the morning. (at least30 min prior to breakfast or other meds). 30 Tablet 1 Cyclobenzaprine HCl 10 MG Oral Tablet (Flexeril) Take 1 Tablet by mouth at bedtime as needed for Muscle spasms. 30 Tablet 0 Meclizine HCl 25 MG Oral Tablet (Antivert) Take by mouth 1 Tablet as needed in the morning AND 1 Tablet as needed at noon AND 1 Tablet as needed in the evening for Dizziness. 30 Tablet 0 Nicotine 7 MG/24HR Transdermal Patch 24 Hour (Nicoderm CQ) Place topically on the skin 1 Patch in the morning. On upper body/outer arm, change once a day for two weeks.. (Patient not taking: Reportedon 07/30/2023) 14 Patch 0 Nicotine 14 MG/24HR Transdermal Patch 24 Hour (Nicoderm CQ) Place topically on the skin 1 Patch in the morning. On upper body/outer arm, change once a day for two weeks.. (Patient not taking: Reported on 07/30/2023) 14 Patch 0 Nicotine 21 MG/24HR Transdermal Patch 24 Hour (Nicoderm CQ) Place topically on the skin 1 Patch in the morning. On upper body/upper arm, change once a day for 6 weeks.. (Patient not taking: Reported on 07/30/2023) 42 Patch 0 No current facility-administered medications for this visit. Physical: BP 122/78 (BP Site: Left Arm, BP Position: Sitting, BP Cuff Size: Regular) | Pulse 92 | Temp 36.4 C (97.6 F) (Tympanic) | Wt 126.2 kg (278 lb 3.2 oz) | SpO2 99% | BMI 35.72 kg/m | BSA 2.57 m General-No apparent Distress Head, Eyes, Ears, Nose, Throat--Normocephalic, atraumatic Neck-Supple Lymph-no lymphadenopathy Lungs-Clear to Auscultation bilaterally Cardiovascular--Regular rate & Rhythm, +s1, s2, no murmur Abdomen-soft, nontender, nondistended + bowel sounds Extremities--no edema Neuro-alert & oriented x3 (E03.2) Iatrogenic hypothyroidism (primary encounter diagnosis) Plan: TSH WITH FREE T4 IF INDICATED Discussed ok if takes w/her SNRI, is going to try to set alarm to take separately, but if forgets, better to get it in w/other meds, than not at all [place] 6 wk (Z13.220) Lipid screening Plan: (E78.5) Hyperlipidemia, unspecified hyperlipidemia type Plan: LIPID PANEL WITH DIRECT LDL IF TG IS HIGH, HEMOGLOBIN A1C, LIPOPROTEIN (A), FAMILIAL HYPERCHOLESTEROLEMIA PANEL, INVITAE May be 2ary hypothyroidism. R/o other causes (F50.81) Binge eating disorder Plan: f/u Dr Lewis for eval F/u [facility] as sched Likely would benefit from nutrition consult--she is open to this, will d/w Dr Lewis (R79.89) Abnormal LFTs Plan: borderline. F/u to review (R25.2) Muscle cramp Plan: trial flexeril. Labs reviewed. Cc: Dr Joshua Brandon--[facility] (This note was completed using the dictation program Fluency Direct. As such, there may be misspellings, word substitutions, or other variations that should not change the essence of the clinical content of this encounter note.If there is need for further clarification, please direct questions to the provider listed above.) Jaspal Trimble MD documented in this encounter Plan of Treatment Upcoming Encounters Date Type Department Care Team (Late st Contact Info) Description 08/22/2023 3:00 PM EDT Office Visit [facility] [address] [id number] Pamela Lewis MD [address] [place] [address] 09/11/2023 4:20 PM EDT Office Visit [facility] [address] [place] [address] Jaspal Trimble MD [address] [place] [address] 12/07/2023 10:00 AM EDT Telemedicine Nutrition & Weight Management, [facility] [address] [place] [address] Letha Choe PA-C [address] [place] [address] Scheduled Orders Name Type Priority Associated Diagnoses Orde r Schedule LIPID PANEL WITH DIRECT LDL IF TG IS HIGH Lab Routine Hyperlipidemia, unspecified hyperlipidemia type Expected: 09/17/2023 (Approximate), Expires: 07/29/2024 HEMOGLOBIN A1C Lab Routine Hyperlipidemia, unspecified hyperlipidemia type Expected: 09/17/2023 (Approximate), Expires: 07/29/2024 LIPOPROTEIN (A) Lab Routine Hyperlipidemia, unspecified hyperlipidemia type Expected: 09/17/2023 (Approximate), Expires: 07/29/2024 FAMILIAL HYPERCHOLESTEROLEMI A PANEL, INVITAE Lab Routine Hyperlipidemia, unspecified hyperlipidemia type Expected: 09/17/2023 (Approximate), Expires: 07/29/2024 TSH WITH FREE T4 IF INDICATED Lab Routine Iatrogenic hypothyroidism Expected: 09/17/2023 (Approximate), Expires: 07/29/2024 MAGNESIUM Lab Routine Muscle cramp Expected: 09/10/2023 (Approximate), Expires: 07/29/2024 Health Maintenance Due Date Last Done Comments [...] as of this encounter Visit Diagnoses Diagnosis Iatrogenic hypothyroidism- Primary Other iatrogenic hypothyroidism Lipid screening Screening for lipoid disorders Hyperlipidemia, unspecified hyperlipidemia type Binge eating disorder Abnormal LFTs Other abnormal blood chemistry Muscle cramp Cramp of limb documented in this encounter Advance Directives Latest [...] the patient have Health Care Power of Care Team Coordinator Scheduler? No Full Code 06/09/2019 1:51 AM 06/10/2019 2:05 PM This or denice reflects the patients wishes and were consensually agreed upon. Question Answer Comments Discussion of Advance Directives occurred with: Patient Does the patient have a Living Will? No Does the patient have Health Care Power of Care Team Coordinator Scheduler? No Care Teams Retail Planner Relationship Specialty Start Date End Date Jaspal Trimble MD [address] [place] [id number] PCP - General Family Medicine 06/07/18 documented as of this encounter"
--- OUTSIDE RECORDS SUMMARY | 2023-10-23 00:12 | External Medical Summary | Summary of Care ---
Author Name Unknown Organization [facility] Address [address] [facility] [place] [address] Phone [phone] Care Team Providers Care Operating Manager Name Role Phone Jaspal Trimble MD Primary Care Provider + Reason for Referral * Evaluate & Treat - Unlimited Visits (Within 30 days (routine)) - Pending Review Specialty Diagnoses / Procedures Referred By Chun peace Referred To Contact Dietitian / Nutrition Services Diagnoses Other disorder of eating Pamela Lewis MD [address] [place] [address] Referral ID Status Reason Start Date Expiration Date Visits Requested Visits Authorized [id number] Pending Review Specialty Services Required 08/22/[phone] Question Answer Referral Priority Within 30 days (routine) Where should this appointment be scheduled? [facility] What condition is the patient being seen for? Disordered Eating (Anorexia, Bulimia, etc) Comments Medical Nutrition Therapy. Sarah Munoz, Taty Parham or Kesha Ruffin only. Reason for Visit * Reason Comments NEW PATIENT ED Encounter Details Date Type Department Care Team (Late st Contact Info) Description 08/22/2023 3:00 PM EDT Office Visit [facility] [address] [place] [address] [address] Pamela Lewis MD [address] [place] [address] Other disorder of eating* Allergies Active Allergy Reactions Criticality Noted Date Comments Amoxicillin Nausea/vomiting,Rash 10/13/2019 Ketorolac Rash Medium 06/09/2019 Nickel High 09/24/2020 rash Penicillins Edema Other,Rash 02/17/2015 Ketorolac Tromethamine Diarrhea,Rash 10/13/2019 Macrolides And Ketolides Rash 08/16/2006 documented as of this encounter (statuses as of 08/22/2023) Medications Medication Sig Dispensed Refills Start Date End Date Status Topiramate 50 MG Oral Tablet (topAMAX) Take [...] MG/24HR Transdermal Patch 24 Hour (Nicoderm CQ)Indications: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 On upper body/outer arm, change once a day for two weeks.. 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 On upper body/outer arm, change once a day for two weeks.. 14 Patch 0 12/28/2021 Active Additional Information Patient not taking.Reported on 08/22/2023 Nicotine 21 MG/24HR Transdermal Patch 24 Hour (Nicoderm CQ) Place topically on the skin 1 Patch in the morning. On upper body/upper arm, change once a day for 6 weeks.. 42 Patch 0 12/28/2021 Active Additional Information Patient not taking.Reported on 08/22/2023 Ibuprofen 800 MG Oral Tablet (Motrin)Indications :Chronic low back pain with left-sided sciatica, unspecified back pain laterality Take 1 Tablet (800 mg) by mouth in the morning and 1 Tablet (800 mg) at noon and 1 Tablet (800 mg) before bedtime. with food for pain. 30 Tablet 2 04/06/2022 Active Vyvanse 50 MG Oral Capsule Take [...] Muscle spasms. 30 Tablet 0 07/30/2023 Active buPROPion HCl ER (SR) 100 MG Oral Tablet Extended Release 12 Hour (Wellbutrin SR) TAKE 1 TABLET BY MOUTH ONCE DAILY IN THE MORNING 0 07/28/2023 Active Vraylar 3 MG Oral Capsule Take 1 Capsule by mouth in the morning. 0 08/07/2023 Active cloNIDine HCl 0.1 MG Oral Tablet (Catapres) Take 1 Tablet by mouth at bedtime. 0 07/28/2023 Active DULoxetine HCl 30 MG Oral Capsule Delayed Release Particles (Cymbalta) TAKE 1 CAPSULE BY MOUTH IN THE MORNING ALONG WITH 60MG 0 07/28/2023 Active Prazosin HCl 1 MG Oral Capsule (Minipress) Take 4 Capsules by mouth at bedtime. 30 Cap 0 09/08/2020 4 Discontinue d(Medicatio n List Clean Up) Propranolol HCl 10 MG Oral Tablet (Inderal) Take 1 Tablet by mouth 2 times a day as needed. 0 06/01/2022 4 Discontinue d(Medicatio n List Clean Up) documented as of this encounter (statuses as of 08/22/2023) Active Problems Problem Noted Date Diagnosed Date Weight gain 06/15/2023 Binge eating disorder 06/03/2020 Overview: 05/[address] [email or web address] Well adult exam 01/23/2020 Overview: Needs pap. 05/28 EMG WNL leg Psychiatry--Jaelyn Brandon @[facility] History of total thyroidectomy 08/22/2019 Overview: 08/04/2019 [...] as of this encounter (statuses as of 08/22/2023) Resolved Problems Problem Noted Date Diagnosed Date Resolved Date Food insecurity 12/13/2020 06/21/2023 Overview: Per [facility] Protocol Low serum cortisol level 06/11/2019 Thyrotoxicosis 06/09/2019 08/22/2019 Chronic hepatitis C without hepatic coma 11/25/2014 06/11/2019 History of drug abuse 09/12/20132023 documented as of this encounter (statuses as of 08/22/2023) Immunizations Name Administration Dates Next Due COVID-19 mRNA, LNP-s, No Pre serve, 2-Dose Series ([employer]) 09/09/2020,08/18/2020 Seasonal Influenza, Quadrivalent, No Preserve, I [...] Sign Reading Time Taken Comments Blood Pressure 104/72 08/22/2023 3:10 PM EDT Pulse 85 08/22/2023 3:10 PM EDT Temperature 36.8 C (98.2 F) 08/22/2023 3:10 PM ED T Respiratory Rate - - Oxygen Saturation 98% 08/22/2023 3:10 PM EDT Inhaled Oxygen Concentration - - Weight 126.1 kg (278 lb) 08/22/2023 3:10 PM EDT Height 188 cm (6' 2") 08/22/2023 3:10 PM EDT Body Mass Index 35.69 08/22/2023 3:10 PM EDT documented in this encounter Functional Status Functional [...] No 07/21/2019 documented as of this encounter Patient Instructions * Patient Instructions* Pamela Lewis MD - 08/22/2023 4:11 PM EDT For therapy, Call this group first: [email or web address] If you strike out, let me know documented in this encounter Progress Notes * Pamela Lewis MD - 08/22/2023 3:29 PM EDT Images from the original note were not included. History of Present Illness Sonal Baeza is a 27 year old female that presents for NEW PATIENT (ED) Accompanied by Alfonso. Elementary school - couldn't control eating, excessive amounts of everything. Might have snack instead of meal. Memories of eating whole stick of butter, whole loaf of bread as young as 3rd grade. Whole childhood Dad would wake her from sleep to eat whatever concoction he'd made - usually fudge. Not sure how often, but thinks frequently. Dad made breakfast school resource officer, pancakes "the size of your head." Would make a lot, ate whatever you wanted, some pressure to keep eating, but not a "finish your plate club." Middle school - not skipping meals. Parents absent in house, left her to fend for herself with freezer foods, box food. Left to her own devices, "went hard on it." Even if nothing in house, will eat butter. Has eaten plain sugar with a spoon, dry oatmeal. 9th grade Dad less of a factor in her life. Lived with Mom. Age 13 - moved to [place]. Didn't want to be fat when saw her half-brother for first time in years.Started going to gym and restricting. Developed severe anorexia. Age 15 - adult height (6'2"), weighed 97lbs (BMI 12.5), restricting, vomiting even water. Went to hospital, couldn't get access for labs/IV. Got exhausted from IV attempts, so left AMA. Went home and started bingeing again. Family gave her cannabis to help her eat. Never got formal treatment. Weight went back to 180lbs. Moved back to [place] and turned into bingeing. Weight up to 230lbs Mom of overdose when Sonal was age 18. Started restricting again. Weight fell to 130lbs (BMI 16.7) Eventually started eating again. Weight stable 150-160lbs for a while. Then developed Grave's Disease and everything went out the door. Highest weight 330lbs. Struggles to take thyroid medication consistently. Working on tapering off Cymbalta because gets withdrawal sx very easily. Behaviors: Restrict - tries to not eat until supper to minimize time interval where eating. Self-sabotages when doesn't "see result" Binge - almost nightly. Wakes up in middle of night and binge, usually doesn't remember, just sees evidence in middle of night. This AM woke to two empty boxes of cereal that were full last night. Purge - never Laxatives - never Diet pills - tried OTC in teens Scale - once/month, just bought a scale. Wanted to not be shocked at doctor's office. Exercise - not compulsive since high school. Nicotine: 1/2-1 PPD Cannabis: 1-10x/day. Vapes. For anxiety. Daily use since age 15. Alcohol: none. No past problems. Mom gave heroin as a teenager. Used opioids regularly age 15 until age 22. Brief stimulants. History of legal issues related to cannabis. 9 misdemeanors. Limits job opportunities. Work: just quit job. 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 Looking for other work. No children. No need for contraception. Psych meds: [place] with Jaelyn Hewitt. Therapist: [place]ost[place] by therapist after three years, [facility]. Made it hard to go back. RD: never worked with therapist with eating disorder. Current medications and allergies reviewed. Past medical history and problem list reviewed. Physical Exam Vitals: 08/22/23 1510 Temp: 36.8 C (98.2 F) Pulse: 85 SpO2: 98% BP: 104/72 BMI: 35.68 BP Readings from Last 3 Encounters: 08/22/23 104/72 07/30/23 122/78 06/15/23 120/70 Wt Readings from Last 3 Encounters: 08/22/23 126.1 kg (278 lb) 07/30/23 126.2 kg (278 lb 3.2 oz) 06/15/23 128.3 kg (282 lb 14.4 oz) I have reviewed the following results: CMP, Lipid Panel, Hemoglobin A1C, TSH, and CBC Assessment and Plan Other disorder of eating Lifelong history of disordered eating, likely originating from genetics and environment of her childhood. Severe restrictive eating disorder starting in high school. Has been dangerously underweight at least twice in her life. She has never had normal eating patterns or been attuned to hunger and fullness. Explained that right now, her weight is not a problem. It will take time to re- establish normal eating habits which will be better for her in the long run. I have no idea what her weight trend will look like over the next several months (nicole given her thyroid) - and that's okay. In recovery from opioid use disorder - much praise! Relearning habits for eating uses similar partsof the brain. So next steps: -- take thyroid medication every day. If taking it first thing in the AM is just not feasible, okayto use another strategy (e.g. take at bedtime). Just need to separate from MVI, calcium, magnesium;and need to be consistent. She has a pillbox and reminders on her phone. If she does nothing else between now and next f/u visit but take thyroid hormone every day, that will be amazing! -- establish with RD who has eating disorder experience -- establish with therapist who has eating disorder experience. Suggested [email or web address] to start. If not successful will let me know. - NUTRITION-CLINICAL DIETITIAN REFERRAL OP Has an appointment with GI nutrition in December but is not interested in weight loss medications. Which is great, because they pose big risks for her given her history of extreme restriction. I will see her before then and we can discuss keeping/cancelling appt. Wrap-Up Follow Up: Return in about 3 months (around 11/21/2023) for Return with Joshua. | For: Return with Joshua Time: I spent a total of Greater than 55 mins (exact time 60 mins) on the date of service in preparation,delivery, and documentation of the care provided to Sonal Baeza excluding any time spent in the performance of separately billed services. documented in this encounter Plan of Treatment Upcoming Encounters Date Type Department Care Team (Late st Contact Info) Description 08/24/2023 2:00 PM EDT Telemedicine Nutrition Services, [facility] [address] [place] [address] Taty Parham, RDN [address] [place] [address] 09/11/2023 4:20 PM EDT Office Visit Family [facility] [address] [place] [address] Jaspal Trimble MD [address] [place] [address] 11/23/2023 10:20 AM EDT Office Visit [facility] [address] [place] [address] Pamela Lewis MD [address] [place] [address] 12/07/2023 10:00 AM EDT Telemedicine Nutrition & Weight Management, [facility] [address] [place] [address] Letha Choe, JAYLAN [address] [place] [address] Scheduled Referrals Name Type Priority Associated Diagnoses Orde r Schedule NUTRITION-CLINICAL DIETITIAN REFERRAL OP Referral Within 30 days (routine) Other disorder of eating Ordered: 08/22/2023 Health Maintenance Due Date Last Done Comments [...] 02/17/2015 Pap Smear 05/29/2019 05/29/2016 COVID-19 Vaccine ( season) 2023 09/09/2020, 08/18/2020 Influenza Vaccine (FLU shot) (Season Ended) 2024 01/16/2017 TSH 06/21/2024 06/21/2023, 11/2022, 06/13/2021, Additional history exists GARDASIL-HPV IMMUNIZATION SERIES Aged Out No longer eligible based on patient's age to complete this topic MENINGOCOCCAL (MENACTRA/MENVEO) Aged Out No longer eligible based on patient's age to complete this topic documented as of this encounter Medical Devices Not on filedocumented as of this encounter Visit Diagnoses Diagnosis Other disorder of eating- Primary documented in this encounter Advance Directives Latest [...] the patient have Health Care Power of Clean Room Operator? No Full Code 06/09/2019 1:51 AM 06/10/2019 2:05 PM This or denice reflects the patients wishes and were consensually agreed upon. Question Answer Comments Discussion of Advance Directives occurred with: Patient Does the patient have a Living Will? No Does the patient have Health Care Power of Clean Room Operator? No Care Teams Operating Manager Relationship Specialty Start Date End Date Jaspal Trimble MD [address] [place] [address] PCP - General Family Medicine 06/07/18 documented as of this encounter
--- OUTSIDE RECORDS SUMMARY | 2023-10-23 00:12 | External Medical Summary | Summary of Care ---
Author Name Unknown Organization [facility] Address [address] [facility] [address] Phone [phone] Care Team Providers Care Radiation Officer Name Role Phone Jaspal Trimble MD Primary Care Provider + Reason for Referral * Evaluate & Treat - Unlimited Visits (Within 10 days (routine)) - Pending Review Specialty Diagnoses / Procedures Referred By Chun peace Referred To Contact Psychiatry / Psychology Diagnoses ADHD Jaelyn Brandon PA-C [address] [place] [address] Referral ID Status Reason Start Date Expiration Date Visits Requested Visits Authorized [id number] Pending Review Specialty Services Required 09/17/[phone] Question Answer Referral Priority Within 10 days (routine) Where should this appointment be scheduled? [facility] Is this referral for medication management? No What condition is this patient being seen for? ADHD Specific Condition Not Diagnosed Neuropsychology will review to determine appropriateness of a testing slot. Factors for consideration include possibility of childhood-onset and the impact of symptoms on daily functioning. The patient will be informed of the outcome by Neuropsychology. Acknowledge Comments Neuropsychological evaluations are INTERACTIVE and use materials that require a patient to SEE, HEAR, and often WRITE. If a patient is unable to engage in this way, neurocognitive assessment may be abbreviated or deemed inappropriate. Please use caution in establishing expectations with your patient, and note any limitations in the comments section of the referral order. Encounter Details Date Type Department Care Team ([facility] st Contact Info) Description 09/17/2023 Orders Only [facility], [address] *DO NOT REMOVE THIS DEPARTMENT* [place] [address] Request, External Referral ADHD* Allergies Active Allergy Reactions Criticality Noted Date Comments Amoxicillin Nausea/vomiting,Rash 10/13/2019 Ketorolac Rash Medium 06/09/2019 Nickel High 09/24/2020 rash Penicillins Edema Other,Rash 02/17/2015 Ketorolac Tromethamine Diarrhea,Rash 10/13/2019 Macrolides And Ketolides Rash 08/16/2006 documented as of this encounter (statuses as of 09/17/2023) Medications Medication Sig Dispensed Refills Start Date End Date Status Topiramate 50 MG Oral Tablet (topAMAX) Take 1 Tablet by mouth at bedtime. 0 09/08/2020 Active DULoxetine HCl 60 MG Oral Capsule Delayed Release Particles (Cymbalta) Take 1 Capsule by mouth in the morning and 1 Capsule before bedtime. 10 Cap 0 11/09/2020 Active Meclizine HCl 25 MG Oral Tablet (Antivert)Indications :Benign paroxysmal positional vertigo, unspecified laterality Take by mouth 1 Tablet as needed in the morning AND 1 Tablet as needed at noon AND 1 Tablet as needed in the evening for Dizziness. 30 Tablet 0 09/08/2021 Active Nicotine 7 MG/24HR Transdermal Patch 24 Hour (Nicoderm CQ)Indications:Tobacc o use 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 On upper body/outer arm, change once a day for two weeks.. 14 Patch 0 12/28/2021 Active Additional Information Patient not taking.Reported on 08/22/2023 Nicotine 14 MG/24HR Transdermal Patch 24 Hour (Nicoderm CQ)Indications:Tobacc o use disorder Place topically on the skin [...] on 08/22/2023 Ibuprofen 800 MG Oral Tablet (Motrin)Indications:C hronic low back pain with left-sided sciatica, unspecified [...] Active Ondansetron 4 MG Oral Tablet Disintegrating (Zofran)Indications:N ausea Place 1 Tablet on tongue every 8 hours as needed for Nausea. dissolve on tongue. 20 Tablet 1 06/26/2022 Active rOPINIRole HCl 0.25 MG Oral Tablet (Requip)Indications:R LS (restless legs syndrome) TAKE BY MOUTH 1 [...] MORNING ALONG WITH 60MG 0 07/28/2023 Active documented as of this encounter (statuses as of 09/17/2023) Active Problems Problem Noted Date Diagnosed Date Weight gain 06/15/2023 Binge eating disorder 06/03/2020 Overview: 1/[address] [email or web address] Well adult exam 01/23/2020 Overview: Needs pap. 05/28 EMG WNL leg Psychiatry--Jaelyn Brandon @[facility] History of total thyroidectomy 08/22/2019 Overview: 08/04/2019 [...] as of this encounter (statuses as of 09/17/2023) Resolved Problems Problem Noted Date Diagnosed Date Resolved Date Food insecurity 12/13/2020 06/21/2023 Overview: Per [facility] Protocol Low serum cortisol level 06/11/2019 Thyrotoxicosis 06/09/2019 08/22/2019 Chronic hepatitis C without hepatic coma 11/25/2014 06/11/2019 History of drug abuse 09/12/20132023 documented as of this encounter (statuses as of 09/17/2023) Immunizations Name Administration Dates Next Due COVID-19 mRNA, LNP-s, No Pre serve, 2-Dose Series ([employer]) 09/09/2020,08/18/2020 Seasonal Influenza, Quadrivalent, No Preserve, I [...] Care Team (Late st Contact Info) Description 11/23/2023 10:20 AM EDT Office Visit Family Practice [facility] [address] [address] Pamela Lewis MD [address] [address] 12/07/2023 10:00 AM EDT Telemedicine Nutrition & Weight Management, [facility] [address] [address] Letha Choe PA-C [address] [address] Scheduled Referrals Name Type Priority Associated Diagnoses Order Schedule ADULT/PEDS NEUROPSYCHOLOGY REFERRAL OP Referral Within 10 days (routine) ADHD Ordered: 09/17/2023 Health Maintenance Due Date Last Done Comments [...] (Season Ended) 2024 01/16/2017 TSH 06/21/2024 06/21/2023, 0211/2022, 06/13/2021, Additional history exists GARDASIL-HPV IMMUNIZATION SERIES Aged Out No longer eligible based on patient's age to complete this topic MENINGOCOCCAL (MENACTRA/MENVEO) Aged Out No longer eligible based on patient's age to complete this topic documented as of this encounter Medical Devices Not on filedocumented as of this encounter Visit Diagnoses Diagnosis ADHD- Primary documented in this encounter Advance Directives [...] the patient have Health Care Power of Coldfusion? No Full Code 06/09/2019 1:51 AM 06/10/2019 2:05 PM This or denice reflects the patients wishes and were consensually agreed upon. Question Answer Comments Discussion of Advance Directives occurred with: Patient Does the patient have a Living Will? No Does the patient have Health Care Power of Coldfusion? No Care Teams Radiation Officer Relationship Specialty Start Date End Date Jaspal Trimble MD [address] [place] [id number] PCP - General Family Medicine 06/07/18 documented as of this encounter
--- OUTSIDE RECORDS SUMMARY | 2023-10-23 00:12 | External Medical Summary | Summary of Care ---
Author Name Unknown Organization [facility] Address [address] [facility] [place] [address] Phone [phone] Care Team Providers Care Lubricating Machine Tender Name Role Phone Jaspal Luz MD Primary Care Provider + Reason for Visit * Reason Comments eRx-Medication Refill Encounter Details Date Type Department Care Team (Late st Contact Info) Description 09/15/2023 Refill Family Practice [facility] [address] [place] [address] Jaspal Luz MD [address] [place] [address] Allergies Active Allergy Reactions Criticality Noted Date [...] 1 Tablet by mouth at bedtime. 0 1 Active DULoxetine HCl 60 MG Oral Capsule Delayed Release Particles (Cymbalta) Take 1 Capsule by mouth in the morning and 1 Capsule before bedtime. 10 Cap 0 1 Active Meclizine HCl 25 MG Oral Tablet (Antivert)Indicatio ns:Benign paroxysmal positional vertigo, unspecified laterality Take by mouth 1 Tablet as needed in the morning AND 1 Tablet as needed at noon AND 1 Tablet as needed in the evening for Dizziness. 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 On upper body/outer arm, change once a day for two weeks.. 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 On upper body/outer arm, change once a day for two weeks.. 14 Patch 0 2 Active Additional Information Patient not taking.Reported on 08/22/2023 Nicotine 21 MG/24HR Transdermal Patch 24 Hour (Nicoderm CQ) Place topically on the skin 1 Patch in the morning. On upper body/upper arm, change once a day for 6 weeks.. 42 Patch 0 2 Active Additional Information Patient not taking.Reported on 08/22/2023 Ibuprofen 800 MG Oral Tablet (Motrin)Indications :Chronic low back pain with left-sided sciatica, unspecified back pain laterality Take 1 Tablet (800 mg) by mouth in the morning and 1 Tablet (800 mg) at noon and 1 Tablet (800 mg) before bedtime. with food for pain. 30 Tablet 2 2 Active Vyvanse 50 MG Oral Capsule Take 1 Capsule by mouth every evening. 0 3 Active Gabapentin 400 MG Oral Capsule (Neurontin) Take 1 Capsule by mouth every evening. 0 3 Active Ondansetron 4 MG Oral Tablet Disintegrating (Zofran)Indications :Nausea Place 1 Tablet on tongue every 8 hours as needed for Nausea. dissolve on tongue. 20 Tablet 1 3 Active rOPINIRole HCl 0.25 MG Oral Tablet (Requip)Indications :RLS (restless legs syndrome) TAKE BY MOUTH 1 TABLET IN THE MORNING AND 1 TABLET AT NOON AND 1 TABLET BEFORE BEDTIME. WITH FOOD.. 90 Tablet 11 3 Active Cyclobenzaprine HCl 10 MG Oral Tablet (Flexeril) Take 1 Tablet by mouth at bedtime as needed for Muscle spasms. 30 Tablet 0 4 Active buPROPion HCl ER (SR) 100 MG Oral Tablet Extended Release 12 Hour (Wellbutrin SR) TAKE 1 TABLET BY MOUTH ONCE DAILY IN THE MORNING 0 4 Active Vraylar 3 MG Oral Capsule Take 1 Capsule by mouth in the morning. 0 4 Active cloNIDine HCl 0.1 MG Oral Tablet (Catapres) Take 1 Tablet by mouth at bedtime. 0 4 Active DULoxetine HCl 30 MG Oral Capsule Delayed Release Particles (Cymbalta) TAKE 1 CAPSULE BY MOUTH IN THE MORNING ALONG WITH 60MG 0 4 Active Levothyroxine Sodium 125 MCG Oral Tablet (Levoxyl) TAKE 1 TABLET BY MOUTH IN THE MORNING (AT LEAST 30 MINUTES PRIOR TO BREAKFAST OR OTHER MEDS) 30 Tablet 1 4 Active Levothyroxine Sodium 125 MCG Oral Tablet (Levoxyl) Take 1 Tablet by mouth in the morning. (at least 30 min prior to breakfast or other meds). 30 Tablet 1 4 09/17/19 24 Discontinued documented as of this encounter (statuses as of 09/17/2023) Active Problems Problem Noted Date Diagnosed Date Weight gain 06/15/2023 Binge eating disorder 06/03/2020 Overview: 05/[email or web address] Well adult exam 01/23/2020 Overview: Needs pap. 05/28 EMG WNL leg Psychiatry--Jaelyn Brandon @[facility] History of total thyroidectomy 08/22/2019 Overview: 08/04/2019 [facility] [place] due to hyperthyroid uncontrolled [...] Date Food insecurity 12/13/2020 06/21/2023 Overview: Per [facility] Protocol Low serum cortisol level 06/11/2019 Thyrotoxicosis 06/09/2019 08/22/2019 Chronic hepatitis C without hepatic coma 11/25/2014 06/11/2019 History of drug abuse 09/12/20132023 documented as of this encounter (statuses as of 09/17/2023) Immunizations Name Administration Dates Next Due COVID-19 mRNA, LNP-s, No Pre serve, 2-Dose Series (EqualEyes) 09/09/2020,08/18/2020 Seasonal Influenza, Quadrivalent, No Preserve, I [...] No 07/21/2019 documented as of this encounter Miscellaneous Notes * Telephone Encounter - Jaspal Luz MD - 09/17/2023 10:24 PM EDT Signed Prescriptions: Disp Refills Levothyroxine Sodium 125 MCG Oral Tablet (*30 Tab*1 Sig: TAKE 1 TABLET BY MOUTH IN THE MORNING (AT LEAST 30 MINUTES PRIOR TO BREAKFAST OR OTHER MEDS) Authorizing Provider: JASPAL LUZ * Telephone Encounter - Courtney Cespedes PHARM Tech - 09/17/2023 4:05 PM EDTPending Prescriptions: Disp Refills Levothyroxine Sodium 125 MCG Oral Tablet 30 Tab*0 Sig: TAKE 1 TABLET BY MOUTH IN THE MORNING (AT LEAST 30 MINUTES PRIOR TO BREAKFAST OR OTHER MEDS) * Telephone Encounter - Courtney Cespedes PHARM Tech - 09/17/2023 4:05 PM EDT Received message from [facility] regarding patient needing labs. Call Placed, Left message on voicemail advising of required labs Thank you, Courtney Cespedes [facility] 09/17/2023,4:05 PM * Telephone Encounter - Niesha Mccurdy [facility] - 09/17/2023 2:17 PM EDTPending Prescriptions: Disp Refills Levothyroxine Sodium 125 MCG Oral Tablet 30 Tab*0 Sig: TAKE 1 TABLET BY MOUTH IN THE MORNING (AT LEAST 30 MINUTES PRIOR TO BREAKFAST OR OTHER MEDS) * Telephone Encounter - Niesha Mccurdy [facility] - 09/17/2023 2:17 PM EDTPending Prescriptions: Disp Refills Levothyroxine Sodium 125 MCG Oral Tablet 30 Tab*0 Sig: TAKE 1 TABLET BY MOUTH IN THE MORNING (AT LEAST 30 MINUTES PRIOR TO BREAKFAST OR OTHER MEDS) * Telephone Encounter - Niesha Mccurdy [facility] - 09/17/2023 2:17 PM EDT Unable to authorize medication refills for pended medication(s) at this time. Per refill protocol patient should have repeat TSH on file within past 3 months. Reviewed AMP report, Care Gaps/Health Maintenance, medications list, and for any routine labs typically ordered for this patient. Lab ordersplaced. Please contact patient to advise of labs ordered for blood draw. Fasting is not required. Advise toobtain labs before requesting the next refill. After contacting patient, please forward request to Jaspal Luz MD. Thanks, Niesha Mccurdy Clinical Pharmacist [facility] [phone] 09/17/2023, 2:17 PM * Telephone Encounter - John Ramos PHARM Tech - 09/17/2023 10:49 AM EDT Did you pend patient's preferred pharmacy and medication before forwarding?yes Pharmacy: [facility] [address] [place] [address] Pending Prescriptions: Disp Refills Levothyroxine Sodium 125 MCG Oral Tablet *30 Tab*0 Sig: TAKE 1 TABLET BY MOUTH IN THE MORNING (AT LEAST 30 MINUTES PRIOR TO BREAKFAST OR OTHER MEDS) Last Visit: 08/22/2023 (in office), 12/15/2020 (telemedicine) Next Visit: 11/23/2023 If no future appointments scheduled, and last appointment is greater than a year ago, please schedule patient for a follow-up appointment Last date the medication was ordered: 07/30/2023 Is this request for a controlled substance?No Urine Drug Screen: Results for orders placed or performed in visit on 11/20/14 TOX SCREEN, URINE, W/O CONFIRMATION Result Value Amphetamine NEGATIVE Barbiturates NEGATIVE Benzodiazepines NEGATIVE Cannabinoids NEGATIVE Cocaine Metabolite NEGATIVE Morphine / Codeine NEGATIVE METHADONE METABOLITE NEGATIVE OXYCODONE POSITIVE (A) NOTE: THE ABOVE SCREENING RESULTS ARE PRESUMPTIVE AND CAN ONLY BE USED FOR MEDICAL PURPOSES. CONFIRMATORY TESTING IS AVAILABLE UPON REQUEST. Cutoff Concentration Patient Phone Numbers Labs: Lab Results Component Value Date/Time CREAT 0.9 06/21/2023 07:09 AM CREAT 0.92 06/26/2022 12:00 AM CREAT 0.7 02/26/2020 10:24 AM POTASSIUM 4.0 06/21/2023 07:09 AM POTASSIUM 4.3 06/26/2022 12:00 AM POTASSIUM 4.4 02/26/2020 10:24 AM TSH 58.50 (H) 06/21/2023 07:09 AM TSH 0.01 (L) 02/26/2020 10:24 AM LDLCALC 229 (H) 06/21/2023 07:09 AM ALT 78 (H) 06/21/2023 07:09 AM ALT 42 (H) 09/01/2019 10:11 AM HGBA1C 5.4 06/21/2023 07:09 AM documented in this encounter Plan of Treatment Upcoming Encounters Date Type Department Care Team (Late st Contact Info) Description 11/23/2023 10:20 AM EDT Office Visit Family Practice [facility] [address] [place] [address] Pamela Lewis MD [address] [place] [id number] 12/07/2023 10:00 AM EDT Telemedicine Nutrition & Weight Management, [facility] [address] [place] [address] Letha Choe PA-C [address] [place] [address] Health Maintenance Due Date Last Done Comments [...] Not on filedocumented as of this encounter Advance Directives Latest Code Status [...] the patient have Health Care Power of Successfactors Consultant? No Full Code 06/09/2019 1:51 AM 06/10/2019 2:05 PM This or denice reflects the patients wishes and were consensually agreed upon. Question Answer Comments Discussion of Advance Directives occurred with: Patient Does the patient have a Living Will? No Does the patient have Health Care Power of Successfactors Consultant? No Care Teams Lubricating Machine Tender Relationship Specialty Start Date End Date Jaspal Luz MD [address] [place] [address] PCP - General Family Medicine 06/07/18 documented as of this encounter
[2023-10-23] MEDS: OLANZapine 10 MG/2.1 ML SDV IM PRN (04:43)
[2023-10-23] MEDS: LORazepam 1 MG in SYRINGE 0.5 ML IV PRN ×2 (04:46→16:55)
--- NOTE | 2023-10-23 05:12 | Communication Note ---
Date of Service: October 23, 2023 Code rodriguez called. Patient with increased agitation requiring reinitiation of 4-point restraints again, 2 doses of IV Ativan and Zyprexa. PCU transfer recommended by clinical coordinator given increased need for sedative medications
[2023-10-23] MEDS: LORazepam 1 MG in SYRINGE 0.5 ML IV STA (06:11)
[2023-10-23] MEDS: HEPARIN SOD 5,000 UNIT/0.5 ML VIAL SQ SCH (06:11)
[2023-10-23 06:16] LABS: BUN Creatinine Ratio 31.7 (10-20); Creatinine Clr Calc Pharmacy 130.2 ml/min; Est GFR (African American) 112.1 ml/min; Est GFR (Non-African American) 96.7 ml/min; Potassium 3.5 mmol/L (3.5-5.1)
[2023-10-23 07:01] LABS: Albumin Globulin Ratio 1.1 (0.9-2); Albumin Level 3.6 gm/dl (3.4-5.0); Bilirubin,Total 0.7 mg/dl (0.2-1.0); Globulin 3.4 gm/dl (2.5-4.0)
[2023-10-23 07:14] LABS: Hematocrit (blood only) 38.6 % (37.0-47.0); Hemoglobin 13.3 g/dl (12.0-16.0); Mean Corpuscular Hemoglobin 29.3 pg (25.0-34.0); Mean Corpuscular Hgb Conc 34.5 g/dL (32.0-36.0); Mean Platelet Volume 13.4 fL (9.4-12.4); Platelet Count 147 K/uL (130-400); RDW Coefficient of Variation 13.1 % (11.5-14.5); RDW Standard Deviation 40.7 fL (36.4-46.3); Red Blood Count 4.54 M/uL (4.20-5.40); White Blood Count 9.48 K/ul (4.8-10.8)
[2023-10-23 07:15] LABS: Basophils # (auto) 0.03 K/uL (0.00-0.20); Basophils % (auto) 0.3 %; Eosinophils # (auto) 0.06 K/uL (0.00-0.50); Eosinophils % (auto) 0.6 %; Immature Granulocytes # (auto) 0.03 K/uL (0.01-0.20); Immature Granulocytes % (auto) 0.3 %; Monocytes # (auto) 0.69 K/uL (0.11-0.59); Monocytes % (auto) 7.3 %; Neutrophils # (auto) 6.77 K/uL (1.40-6.50); Neutrophils % (auto) 71.5 %
[2023-10-23] MEDS ORDERED: CEFEPIME 1,000 MG in SYRINGE 0 ML IV SCH (09:15)
--- NOTE | 2023-10-23 09:33 | Communication Note ---
Date of Service: October 23, 2023 Overhead code rodriguez page, patient combative fighting staff not redirectable, pulling/discontinuing equipment. Ordered 5 mg IV Haldol for control of acute ag itation, reviewed EKG from yesterday QTc 500, ordering repeat EKG, patient on telemetry. Care transitioned to primary team Coding Level of Care Code None
[2023-10-23] MEDS: LACTATED RINGER'S 1,000 ML IV SCH (09:44)
[2023-10-23] MEDS: HALOPERIDOL LACTATE 5 MG/ML 1 ML VIAL IV STA (09:45)
[2023-10-23] MEDS: HALOPERIDOL LACTATE 5 MG/ML 1 ML VIAL ONE (09:45)
[2023-10-23] MEDS: CEFEPIME 1,000 MG in SYRINGE 0 ML IV SCH (09:46)
--- NOTE | 2023-10-23 12:42 | Electrocardiogram Report ---
Test Reason : Blood Pressure : / mmHG Vent. Rate : 086 BPM Atrial Rate : 086 BPM P-R Int : 178 ms QRS Dur : 070 ms QT Int : 418 ms P-R-T Axes : 075 084 077 degrees QTc Int : 500 ms Normal sinus rhythm Nonspecific ST and T wave abnormality Prolonged QT Abnormal ECG When compared with ECG of 08-JUN-2019 07:17, Nonspecific T wave abnormality no longer evident in Inferior leads Nonspecific T wave abnormality no longer evident in Lateral leads Confirmed by Fabricio Adames ([id number]) on 10/23/2023 12:42:35 PM Referred By: REFERRED SELF Confirmed By:Fabricio Adames
--- NOTE | 2023-10-23 13:00 | Electrocardiogram Report ---
Test Reason : Blood Pressure : / mmHG Vent. Rate : 067 BPM Atrial Rate : 067 BPM P-R Int : 218 ms QRS Dur : 094 ms QT Int : 506 ms P-R-T Axes : 060 073 056 degrees QTc Int : 534 ms Sinus rhythm with 1st degree A-V block Prolonged QT Abnormal ECG When compared with ECG of 22-OCT-2023 19:21, (unconfirmed) [place] interval has increased T wave inversion no longer evident in Anterior leads Confirmed by Fabricio Adames ([id number]) on 10/23/2023 12:58:57 PM Referred By: REFERRED SELF Confirmed By:Fabricio Adames
--- NOTE | 2023-10-23 13:41 | Hospitalist Progress Note ---
Date of Service October 23, 2023 Assessment & Plan (1) Encephalopathy: Plan: Acute metabolic/toxic encephalopathy Likely secondary to medications/substance abuse/Infection/Rhabdo Possible UTI/Pneumonia --CT head:No acute intracranial abnormality. --CT Neck: There is no evidence of cervical spine fracture or subluxation. There are patchy groundglass opacities at the right apex, which may represent a pneumonitis. Correlate clinically. --CXR:Airspace consolidation is seen throughout the right lung. Correlate clinically for evidence of pneumonia/aspiration pneumonitis. Radiographic follow-up to resolution is recommended. -- Urine culture pending -No hypercarbia on VBG, normal ammonia levels --Toxicology screen positive for THC Check procalcitonin Will obtain history in detail once patient more oriented Empirically started on IV cefepime Hold home sedating medications Aspiration precautions Acute rhabdomyolysis Acute kidney injury CK levels improving Cr levels back to normal Continue IV fluids Avoid nephrotoxic agents as able Monitor LFTs, CK H/O Substance abuse H/O Anxiety/mood disorder. Resume home medications as able Psychiatric liaison following Graves' disease S/P surgery Postsurgical hypothyroidism TSH elevated, normal free T4 Continue levothyroxine Will repeat thyroid function tests Sinus bradycardia Prolonged QTc First-degree AV block Avoid AV irma blocking agents Monitor Other chronic conditions: H/O ADD, Anorexia/PTSD H/O HCV H/O Anorexia nervosa/binge eating disorder Tobacco use disorder DVT Px: Heparin SQ Code Status Full code Admission and Anticipated Discharge Date Admission Date: October 22, 2023 Subjective Patient is seen and examined at bedside Obtunded during my encounter Unable to obtain any history Patient has been confused and has been unsteady with ambulation Sinus bradycardia on monitor No distress on exam Review of Systems Review of Systems: All systems reviewed & are unremarkable except as noted in Subjective Physical Exam Physical Exam: Physical Exam: Vitals signs as noted above General Appearance:Obese, no apparent distress Head: normocephalic, Atraumatic Eyes: normal inspection, EOMI Neck: supple, Trachea midline Respiratory/Chest: Decreased breath sounds, CTA, No accessory muscle use Cardiovascular: S1, S2, No murmur, +Bradycardia Abdomen/GI:Soft, Non tender, Bowel sounds present Extremities/Musculoskeletal:normal inspection, no edema Neurologic/Psych:Obtunded, grossly no focal neurological deficits Skin: normal color, warm Results & Data Results & Data Vital Signs (Past 12 Hours) Vital Signs Temp Pulse Pulse Resp BP BP Pulse Ox 10/23/23 12:02 56 L 19 123/78 94 10/23/23 11:32 52 L 20 94 10/23/23 11:12 52 L 20 94 10/23/23 10:42 52 L 19 94 10/23/23 10:12 61 16 126/83 96 10/23/23 09:00 56 L 20 95 10/23/23 09:00 124/81 10/23/23 08:09 54 L 19 95 10/23/23 08:00 36.9 C 10/23/23 08:00 10/23/23 07:03 52 L 20 96 10/23/23 06:03 58 L 19 93 10/23/23 05:30 62 16 91 10/23/23 05:12 65 12 10/23/23 05:10 126/79 10/23/23 04:36 61 0 L 10/23/23 04:30 82 22 10/23/23 04:27 36.2 C L 51 L 20 117/77 95 10/23/23 04:00 49 L 0 L 97 10/23/23 03:33 51 L 0 L 97 10/23/23 03:12 47 L 0 L 96 10/23/23 02:30 47 L 0 L 97 10/23/23 02:27 46 L 0 L 97 10/23/23 01:56 52 L 10/23/23 01:45 49 L 0 L 96 O2 Del Method O2 Del Method 10/23/23 12:02 Room Air 10/23/23 11:32 10/23/23 11:12 10/23/23 10:42 10/23/23 10:12 Room Air 10/23/23 09:00 10/23/23 09:00 10/23/23 08:09 10/23/23 08:00 10/23/23 08:00 Room Air 10/23/23 07:03 10/23/23 06:03 10/23/23 05:30 10/23/23 05:12 10/23/23 05:10 10/23/23 04:36 10/23/23 04:30 10/23/23 04:27 Room Air 10/23/23 04:00 10/23/23 03:33 10/23/23 03:12 10/23/23 02:30 10/23/23 02:27 10/23/23 01:56 10/23/23 01:45 Laboratory Results Short CBC 10/22/23 10/23/23 Range/Units 18:42 05:29 WBC 12.08 H 9.48 (4.8-10.8) K/ul Hgb 16.5 H 13.3 D (12.0-16.0) g/dl Hct 48.1 H 38.6 (37.0-47.0) % Plt Count 179 147 (130-400) K/uL BMP 10/22/23 10/23/23 18:45 05:29 Sodium 140 140 Potassium 3.7 3.5 Chloride 106 113 H Carbon Dioxide 23 22 BUN 26 H 26 H Creatinine 1.21 H 0.82 D Glucose 146 H 113 H Calcium 10.7 H 9.0 Cardiac Enzymes 10/22/23 10/23/23 Range/Units 18:45 05:29 Total Creatine Kinase 6513 H 4231 H (26-192) U/L Liver Function 10/22/23 10/23/23 Range/Units 18:45 05:29 Total Bilirubin 1.1 H 0.7 (0.2-1.0) mg/dl AST 83 H 70 H (13-39) U/L ALT 46 37 (7-52) U/L Alkaline Phosphatase 108 H 79 (34-104) U/L Albumin 4.7 3.6 (3.4-5.0) gm/dl Urine 10/22/23 Range/Units 19:38 Urine Color Dark Yellow Urine Appearance Cloudy A (Clear) Urine pH 6.0 (4.5-7.5) Ur Specific [place] 1.030 (1.000-1.030) Urine Protein 3+ H (Negative) Urine Glucose (UA) Negative (Negative)
[2023-10-23] MEDS: PROMETHAZINE HCL 12.5 MG in SODIUM CHLORIDE 0.9% 50 ML IV PRN (16:55)
[2023-10-23] MEDS ORDERED: NALOXONE HCL 0.4 MG/1 ML VIAL/CARP IV STA (18:23)
[2023-10-23] MEDS ORDERED: LORazepam 2 MG in SYRINGE 0.5 ML IV PRN (21:48)
[2023-10-23] MEDS: ZIPRASIDONE 20 MG/ML SDV IM STA (22:01)
[2023-10-24] MEDS: LORazepam 2 MG in SYRINGE 1 ML IV PRN (00:33)
[2023-10-24 05:13] LABS: Hematocrit (blood only) 39.7 % (37.0-47.0); Hemoglobin 13.4 g/dl (12.0-16.0); Mean Corpuscular Hemoglobin 29.1 pg (25.0-34.0); Mean Corpuscular Hgb Conc 33.8 g/dL (32.0-36.0); Mean Corpuscular Volume 86.3 fL (80.0-100.0); Mean Platelet Volume 13.4 fL (9.4-12.4); Platelet Count 128 K/uL (130-400); RDW Coefficient of Variation 13.2 % (11.5-14.5); RDW Standard Deviation 41.4 fL (36.4-46.3); White Blood Count 6.94 K/ul (4.8-10.8)
[2023-10-24 05:17] LABS: BUN Creatinine Ratio 20.6 (10-20); Calcium 8.6 mg/dl (8.6-10.3); Creatinine Clr Calc Pharmacy 157.1 ml/min; Est GFR (Non-African American) 118.2 ml/min; Potassium 3.4 mmol/L (3.5-5.1)
[2023-10-24 05:32] LABS: Albumin Globulin Ratio 1.1 (0.9-2); Albumin Level 3.6 gm/dl (3.4-5.0); Bilirubin,Total 0.6 mg/dl (0.2-1.0); Globulin 3.3 gm/dl (2.5-4.0); Magnesium 1.9 mg/dl (1.7-2.4); Thyroid Stimulating Hormone 20.595 uIu/ml (0.300-4.500); Total Protein 6.9 gm/dl (6.0-8.3)
[2023-10-24 06:09] LABS: T4 Free Thyroxine 1.3 ng/dl (0.61-1.60)
[2023-10-24] MEDS: POTASSIUM CHLORIDE / WTR 10 MEQ/100 ML PLCT IV SCH (08:01)
[2023-10-24] MEDS: LEVOTHYROXINE SODIUM 75 MCG in SYRINGE 0 ML IV ONE (08:01)
[2023-10-24 15:36] LABS: Calcium 8.8 mg/dl (8.6-10.3); Potassium 3.7 mmol/L (3.5-5.1)
[2023-10-24 15:42] LABS: BUN Creatinine Ratio 15.3 (10-20); Creatinine Clr Calc Pharmacy 160.1 ml/min; Est GFR (African American) 131.2 ml/min; Est GFR (Non-African American) 113.2 ml/min
--- NOTE | 2023-10-24 16:02 | Psychiatric Consultation ---
Date of Consultation October 24, 2023 Impression / Recommendations Impression Ms. Baeza is a 28 year old woman h/o PTSD, obesity, hypothyridism, NAFLD, binge eating disorder who is admitted for acute encephalopathy of unclear etiology at this time. Psychiatry consulted for management recommendations. Recent medication changes include initiation of Bupropion 150mg QD one week ago. Pt is on multiple dopamine agonists: vvyanse, bupropion, ropinirole, cariprazine (partial agonist). No history of recent trauma or drug ingestion. Collateral reveals recent inc in body temperature with no c/o rigidity.. Pt presented with sudden AMS and agitated behaviors. Presented with elevated CK, reactive leukocytosis. Concern for mild autonomic instability. Our differential from a psychiatric perspective is dopamine toxicity (recent addition of Bupropion to multiple pro dopamine drugs, concern for seizure and would need to be ruled out, CK elevated due to agitated behaviors or seizure activity), neuroleptic malignant syndrome (does not meet all criteria, however pt received multiple antipsychotics for behaviors and could result in an abrupt drop in dopamine), serotonin syndrome (less suspicion). Overall, I spent a total of 60 minutes with this case including review of chart records, nursing report, review of lab work, direct evaluation of the patient at bedside, gathering collateral, discussion of the patient with the hospitalist provider, discussion with the psychiatric liason during clinical rounds, and documentation in the electronic health record. (1) Adverse effect of dopamine receptor agonist: (2) Acute hyperactive delirium due to another medical condition: (3) Altered mental status: Plan We recommenced to discontinue home psychotropics, continue benzodiazapines for agitation, and provide supportive care. Consider EEG, LP, MRI to r/o other causes. Consult neurology. If benzodiazepines worsen behavior, could consider low potency antipsychotic such as Quetiapine 50-100mg or low dose Olanzapine 2.5mg PO/IM for agitation. Psych History Identifying Data Ms. Baeza is a 28 year old woman h/o PTSD, obesity, hypothyridism, NAFLD, binge eating disorder who is admitted for acute encephalopathy of unclear etiology at this time. Psychiatry consulted for management recommendations. Chief Complaint AMS History of Present Illness Chart review: Elevated BP, Inc RR, Elevated AST, CK 6513 on presentation and trending down. Reactive leukocytosis. Elevated TSH 2/2 synthroid, h/o graves s/p surgery. H/o anorexia with binge eating. Medical MJ use. Home psych meds: Duloxetine 90mg QAM, Gabapentin 400mg HS, Bupropion 150mg QD, Vyvanse 60 QD, Cariprazine 3mg QD, Clonidine 0.1mg HS, Ropinirole 0.25mg TID On interview, pt AO to self only. Nonsensical statements made. Able to follow commands. Unable to engage in interview. Collateral from pt partner ([facility] [phone]): Has been with the patient. No known recent recreational drug use or trauma. In the past few months, only medication change was initiation of Bupropion one week ago. Since then pt has been more diaphoretic and c/o inc body temp, denies changes in behavior or inc in rigidity. Night of admission pt was confused, agitated, sweating and 911 called. Allergies Allergy/AdvReac Type Severity Reaction Status Date / Time azithromycin Allergy Intermediate rash per Verified 10/22/23 22:03 [facility] ketorolac [From Toradol] Allergy Intermediate itchy Verified 10/22/23 22:03 rash/diarrhea Penicillins Allergy Intermediate SWELLING/RA Verified 10/22/23 22:03 SH amoxicillin AdvReac Severe RASH/NAUSEA Verified 10/22/23 22:03 /VOMITING methimazole AdvReac Intermediate pancytopeni Verified 10/22/23 22:03 a tramadol AdvReac Mild itchy,rash Verified 10/22/23 22:03 Home Medications Medication Instructions Recorded Confirmed Type duloxetine 60 mg capsule,delayed 60 mg PO QAM 07/03/20 10/22/23 History release bupropion HCl 100 mg tablet,12 hr 100 mg PO DAILY 10/22/23 10/22/23 History sustained-release cariprazine 3 mg capsule (Vraylar) 3 mg PO DAILY 10/22/23 10/22/23 History clonidine HCl 0.1 mg tablet 0.1 mg PO HS 10/22/23 10/22/23 History cyclobenzaprine 10 mg tablet 10 mg PO HS PRN MUSCLE SPASMS 10/22/23 10/22/23 History duloxetine 30 mg capsule,delayed 30 mg PO QAM 10/22/23 10/22/23 History release gabapentin 400 mg capsule 400 mg PO HS 10/22/23 10/22/23 History levothyroxine 125 mcg tablet 125 mcg PO DAILYBB 10/22/23 10/22/23 History lisdexamfetamine 60 mg capsule 60 mg PO QAM 10/22/23 10/22/23 History ropinirole 0.25 mg tablet 0.25 mg PO TID 10/22/23 10/22/23 History Patient History Medical History Heart murmur Pyelonephritis Depressed Anxiety Surgical History S/P cholecystectomy 10/2020 No pertinent past surgical history Family History Other No pertinent family history Social History Smoking Status: Unknown if ever smoked Tobacco Type: Cigarettes Cigarettes Per Day: 8 smokes/day; Second Hand Exposure: No; Do You Dip or Chew Tobacco: No; Hx Alcohol Use: No Hx Substance Use: No Preferred Language: Spanish Communication Ability: Unable 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 Beliefs That Will Affect Care: None Current Living Situation: Spouse Feels Safe at Home: Yes Assistive Devices: None Physical Exam Mental Examination: Appearance: Disheveled Eye Contact: Breaks Contact Motor Behavior: Restless Speech: Tangential and Pressured Affect: Labile Thought Process: Loose Associations Thought Content: Tangential Insight: Poor Judgement: Poor Vital Signs (Past 24 Hours): Last Vital Signs Temp 36.5 C 10/23/23 16:00 Pulse 72 10/24/23 08:12 Resp 27 H 10/24/23 08:12 BP 154/106 H 10/24/23 08:00 Pulse Ox 99 10/24/23 08:12 O2 Del Method Room Air 10/24/23 08:00 O2 Flow Rate 0 10/22/23 18:51 Results & Data (PSY) Medications Administered Heparin Sodium (Porcine) (Heparin Sod 5,000 Unit/0.5 Ml Vial) 5,000 units SQ Q8 PRIYA Stop: 11/22/23 05:59 Last Admin: 10/24/23 14:50 Dose: 5,000 units Documented By: Admin: 10/24/23 06:02 Dose: 5,000 units Documented By: Admin: 10/23/23 20:59 Dose: 5,000 units Documented By: Admin: 10/23/23 14:44 Dose: Not Given Documented By: Admin: 10/23/23 06:11 Dose: 5,000 units Documented By: TP Promethazine HCl 12.5 mg/ (Sodium Chloride) 50.5 mls @ 202 mls/hr IV Q6H PRN PRN Reason: Nausea And Vomiting Stop: 11/21/23 22:09 Last Infusion: 10/24/23 01:21 Dose: Infused Documented By: Admin: 10/24/23 00:33 Dose: 202 mls/hr Documented By: Infusion: 10/23/23 17:19 Dose: Infused Documented By: Admin: 10/23/23 16:55 Dose: 202 mls/hr Documented By: ES Lactated Ringer's (Lr) 1,000 mls @ 150 mls/hr IV .Q6H40M PRIYA Stop: 10/25/23 08:29 Last Admin: 10/24/23 14:50 Dose: 150 mls/hr Documented By: Infusion: 10/24/23 14:42 Dose: Infused Documented By: Admin: 10/24/23 08:01 Dose: 150 mls/hr Documented By: Infusion: 10/24/23 06:52 Dose: Infused Documented By: Admin: 10/24/23 00:11 Dose: 150 mls/hr Documented By: Infusion: 10/23/23 22:30 Dose: Infused Documented By: Admin: 10/23/23 15:49 Dose: 150 mls/hr Documented By: Infusion: 10/23/23 15:49 Dose: Infused Documented By: Admin: 10/23/23 09:44 Dose: 150 mls/hr Documented By: ES Cefepime HCl 1,000 mg/ Syringe 10 mls @ 5 mls/min IV Q12H PRIYA; Protocol Stop: 10/28/23 09:29 Last Admin: 10/24/23 10:47 Dose: 5 mls/min Documented By: Admin: 10/23/23 20:58 Dose: 5 mls/min Documented By: Admin: 10/23/23 09:46 Dose: 5 mls/min Documented By: ES Lorazepam 2 mg/ Syringe 2 mls @ 2 mls/min IV Q1H PRN PRN Reason: Anxiety/Agitation Stop: 11/23/23 00:14 Last Admin: 10/24/23 15:43 Dose: 2 mls/min Documented By: Admin: 10/24/23 06:02 Dose: 2 mls/min Documented By: Admin: 10/24/23 03:34 Dose: 2 mls/min Documented By: Admin: 10/24/23 01:38 Dose: 2 mls/min Documented By: Admin: 10/24/23 00:33 Dose: 2 mls/min Documented By: CLC Olanzapine (Olanzapine 10 Mg/2.1 Ml Sdv) 5 mg IM Q6H PRN PRN Reason: Agitation Stop: 11/21/23 22:09 Last Admin: 10/23/23 22:15 Dose: 5 mg Documented By: Admin: 10/23/23 16:13 Dose: 5 mg Documented By: Admin: 10/23/23 09:46 Dose: 5 mg Documented By: Admin: 10/23/23 04:43 Dose: 5 mg Documented By: W [place] [address] IN/OBS CONSULT LVL 4,60M Patient Type New History Detailed Exam Detailed Medical Decision Making High Complexity Diagnoses Adverse effect of dopamine receptor agonist T44.995A Acute hyperactive delirium due to another medical condition F05 Altered mental status R41.82
[2023-10-24 16:15] LABS: Folate (Folic Acid),Ser orPlas 8.26 ng/ml (>5.38)
--- NOTE | 2023-10-24 16:20 | Neurology Consultation ---
Date of Consultation October 24, 2023 Assessment & Plan (1) Encephalopathy: Sonal Baeza is a 28 yo F presenting with acute psychosis and encephalopathy likely secondary to polypharmacy. With the elevation of CK would be concerned about a mild serotonin syndrome and agree with holding her psychiatric medications. Would otherwise resume clonidine to avoid rebound hypertension. Agree with using antipsychotics as necessary for safety and defer to psychiatry otherwise. Given the amount and types of centrally acting medication she was taking, alternative possibilities such as autoimmune encephalitis and other infectious etiologies are less likely. -- Defer to psychiatry on joint terminal attack controller drug management -- Agree with holding her home meds, though would restart clonidine given her current rebound HTN -- Would avoid cefepime in this context given known neurotoxicity as it can mimic serotonin syndrome -- No further neurologic workup at this time, would consider further workup if mental status remains altered beyond another 24 hrs. Telehealth Consultation Telehealth Information Telehealth Information: I performed this visit using a real-time telehealth connection between my location and the patients location ([facility]). After connecting through interactive tele-video, patient was identified by name and date of and/or wristband check.Patient (or authorized healthcare repre sentative) was informed that this was a telemedicine visit and it was being conducted confidentially over secure lines. My office door was closed and no one else was present in the room with me.Patient (or authorized healthcare patient services representative) provided consent to proceed with the visit, expressed an understanding of privacy and security of the telemedicine visit, and gave permission to have a hospital patient services representative in the room in order to assist with the visit and to conduct portions of the visit, as needed. I informed the patient (or authorized healthcare patient services representative) that I reviewed their record and presented the opportunity for them to ask any questions regarding the visit today. The patient agreed to participate. History of Present Illness Reason for Consultation: Encephalopathy Requesting Physician: Dr. Boyce Attending Physician: Toyin Boyce MD History of Present Illness Sonal Baeza is a 28 yo F presenting with acute psychosis and altered mental status. at bedside denies any substance abuse including her multiple prescriptions. He notes that she manages her own meds and that her depression medication is new - the cariprazine. No recent illnesses or infections. Their THC comes from a dispensary. No synthetic marijuana use. She has never had a psychotic episode in the past. She was normal the day prior to this change, no events out of the ordinary, no new stressors or trauma. The patient is otherwise unable to contribute to the history due to her condition. She continues to mumble that she wants to go home. Endorses a small headache, no other complaints. Allergies Allergy/AdvReac Type Severity Reaction Status Date / Time azithromycin Allergy Intermediate rash per Verified 10/22/23 22:03 [facility] ketorolac [From Toradol] Allergy Intermediate itchy Verified 10/22/23 22:03 rash/diarrhea Penicillins Allergy Intermediate SWELLING/RA Verified 10/22/23 22:03 SH amoxicillin AdvReac Severe RASH/NAUSEA Verified 10/22/23 22:03 /VOMITING methimazole AdvReac Intermediate pancytopeni Verified 10/22/23 22:03 a tramadol AdvReac Mild itchy,rash Verified 10/22/23 22:03 Home Medications Medication Instructions Recorded Confirmed Type duloxetine 60 mg capsule,delayed 60 mg PO QAM 07/03/20 10/22/23 History release bupropion HCl 100 mg tablet,12 hr 100 mg PO DAILY 10/22/23 10/22/23 History sustained-release cariprazine 3 mg capsule (Vraylar) 3 mg PO DAILY 10/22/23 10/22/23 History clonidine HCl 0.1 mg tablet 0.1 mg PO HS 10/22/23 10/22/23 History cyclobenzaprine 10 mg tablet 10 mg PO HS PRN MUSCLE SPASMS 10/22/23 10/22/23 History duloxetine 30 mg capsule,delayed 30 mg PO QAM 10/22/23 10/22/23 History release gabapentin 400 mg capsule 400 mg PO HS 10/22/23 10/22/23 History levothyroxine 125 mcg tablet 125 mcg PO DAILYBB 10/22/23 10/22/23 History lisdexamfetamine 60 mg capsule 60 mg PO QAM 10/22/23 10/22/23 History ropinirole 0.25 mg tablet 0.25 mg PO TID 10/22/23 10/22/23 History Patient History Medical History Heart murmur Pyelonephritis Depressed Anxiety Surgical History S/P cholecystectomy 10/2020 No pertinent past surgical history Family History Other No pertinent family history Social History Smoking Status: Unknown if ever smoked Tobacco Type: Cigarettes Cigarettes Per Day: 8 smokes/day; Second Hand Exposure: No; Do You Dip or Chew Tobacco: No; Hx Alcohol Use: No Hx Substance Use: No Preferred Language: Latvian Communication Ability: Unable 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 Patient is otherwise disoriented to place and situation. Able to name objects. Does follow commands with prompting, no facial asymmetry, able to move both upper extremities against restraints equally. Results & Data Vital Signs (Past 12 Hours) Vital Signs Pulse Resp BP Pulse Ox O2 Del Method 10/24/23 08:12 72 27 H 99 10/24/23 08:00 74 27 H 154/106 H 98 Room Air Laboratory Results Abnormal lab results 10/24/23 10/24/23 Range/Units 04:34 14:56 Plt Count 128 L (130-400) K/uL MPV 13.4 H (9.4-12.4) fL Potassium 3.4 L (3.5-5.1) mmol/L Chloride 114 H 111 H (98-107) mmol/L BUN/Creatinine Ratio 20.6 H (10-20) AST 69 H (13-39) U/L Total Creatine Kinase 3382 H (26-192) U/L TSH 20.595 H (0.300-4.500) uIu/ml Diagnostic Findings CT head - Unremarkable
[2023-10-24] MEDS: LORazepam 2 MG in SYRINGE 1 ML IV ONE (16:31)
[2023-10-24] MEDS: OLANZapine 10 MG/2.1 ML SDV IM PRN ×2 (17:37→21:27)
--- NOTE | 2023-10-24 17:37 | Hospitalist Progress Note ---
Date of Service October 24, 2023 Assessment & Plan (1) Encephalopathy: Plan: Ms. Baeza is a 28 year old woman with obsiety, hypothyridism, NAFLD, binge eating disorder who is admitted for acute encephalopathy of unclear etiology at this time. Patient is notable agitated. Review of medications reveals multiple dopamine agonists, which potentially precipitated current events. Psych and neurology following. #Acute metabolic/toxic encephalopathy Likely secondary to medications --CT head:No acute intracranial abnormality. --CT Neck: There is no evidence of cervical spine fracture or subluxation. There are patchy groundglass opacities at the right apex, which may represent a pneumonitis. Correlate clinically. --CXR:Airspace consolidation is seen throughout the right lung. Correlate clinically for evidence of pneumonia/aspiration pneumonitis. Radiographic follow-up to resolution is recommended. -- Urine culture negative No oxygen requirement, fevers -No hypercarbia on VBG, normal ammonia levels --Toxicology screen positive for THC --MDMA/methamphetamine 2/2 bupropion and Vyvanse Check procalcitonin:negative, discontinue empiric abx at this time B12, TSH wnl RPR pending Psychiatry consulted: ddx dopamine toxicity, neuroleptic malignant syndrome, serotonin syndrome -Discontinue home antipsychotics -Benzos as now, can use zyprexa 2.5 IM for severe agitation EEG Patient not cooperative for LP at this time Patient not cooperative for MRI at this time Neurology: no further workup, consider additional investigations if still altered another 24 hours #Acute rhabdomyolysis #Acute kidney injury *resolved CK levels improving Cr levels back to normal Continue IV fluids Avoid nephrotoxic agents as able Monitor LFTs, CK #H/O Substance abuse #H/O Anxiety/mood disorder. Resume home medications as able Psychiatry following: avoid antipsychotics #Graves' disease S/P surgery #Postsurgical hypothyroidism TSH elevated, normal free T4 Continue levothyroxine Will repeat thyroid function tests s/p IV levothyroxine 10/23 #Sinus bradycardia #Prolonged QTc First-degree AV block Avoid AV irma blocking agents Monitor on tele Repeat EKG in am Other chronic conditions: H/O ADD, Anorexia/PTSD H/O HCV H/O Anorexia nervosa/binge eating disorder Tobacco use disorder DVT Px: Heparin SQ Code Status Full code Admission and Anticipated Discharge Date Admission Date: October 22, 2023 Subjective Patient lethargic/sedate on initial exam No acute distress in am however, code jennifer called later in afternoon-patient agitated, speaking fluently, but inappropriate contextually at bedside--again reports this is all sudden, no clear symptoms leading up to event he can identify Physical Exam Physical Exam: on secondary eval, aggressive, coherent speech but content not appropriate contextually, answer questions intermittently aware she is in a hospital Respiratory: normal respiratory effort, lungs clear to auscultation Cardiovascular: RRR, no murmur, no edema Musculoskeletal: no cyanosis or clubbing, extremities motor strength 5/5 Neurologic: no apparent focal deficits, moving alll extremities equally, strength inact Results & Data Results & Data Vital Signs (Past 12 Hours) Vital Signs Temp Pulse Pulse Resp BP BP Pulse Ox 10/24/23 17:11 71 10/24/23 16:48 36.5 C 67 18 149/102 H 97 10/24/23 14:00 36.5 C 71 19 128/90 10/24/23 12:00 36.7 C 72 19 139/102 H 98 10/24/23 08:12 72 27 H 99 10/24/23 08:00 74 27 H 154/106 H 98 O2 Del Method 10/24/23 17:11 10/24/23 16:48 Room Air 10/24/23 14:00 Room Air 10/24/23 12:00 Room Air 10/24/23 08:12 10/24/23 08:00 Room Air Laboratory Results Short CBC 10/24/23 Range/Units 04:34 WBC 6.94 (4.8-10.8) K/ul Hgb 13.4 (12.0-16.0) g/dl Hct 39.7 (37.0-47.0) % Plt Count 128 L (130-400) K/uL BMP 10/24/23 10/24/23 04:34 14:56 Sodium 143 140 Potassium 3.4 L 3.7 Chloride 114 H 111 H Carbon Dioxide 21 21 BUN 14 11 Creatinine 0.68 0.72 Glucose 92 92 Calcium 8.6 8.8 Cardiac Enzymes 10/24/23 Range/Units 04:34 Total Creatine Kinase 3382 H (26-192) U/L Liver Function 10/24/23 Range/Units 04:34 Total Bilirubin 0.6 (0.2-1.0) mg/dl AST 69 H (13-39) U/L ALT 38 (7-52) U/L Alkaline Phosphatase 80 (34-104) U/L Albumin 3.6 (3.4-5.0) gm/dl Medications Administered Home Medications Medication Instructions Recorded Confirmed Last Taken duloxetine 60 mg capsule,delayed 60 mg PO QAM 07/03/20 10/22/23 10/21/23 release bupropion HCl 100 mg tablet,12 hr 100 mg PO DAILY 10/22/23 10/22/23 Unknown sustained-release cariprazine 3 mg capsule (Vraylar) 3 mg PO DAILY 10/22/23 10/22/23 Unknown clonidine HCl 0.1 mg tablet 0.1 mg PO HS 10/22/23 10/22/23 10/21/23 cyclobenzaprine 10 mg tablet 10 mg PO HS PRN MUSCLE SPASMS 10/22/23 10/22/23 Unknown duloxetine 30 mg capsule,delayed 30 mg PO QAM 10/22/23 10/22/23 10/21/23 release gabapentin 400 mg capsule 400 mg PO HS 10/22/23 10/22/23 10/21/23 levothyroxine 125 mcg tablet 125 mcg PO DAILYBB 10/22/23 10/22/23 10/21/23 lisdexamfetamine 60 mg capsule 60 mg PO QAM 10/22/23 10/22/23 10/21/23 ropinirole 0.25 mg tablet 0.25 mg PO TID 10/22/23 10/22/23 Unknown Active Medications Generic Name Dose Route Start Last Admin Trade Name Freq PRN Reason Stop Dose Admin Heparin Sodium (Porcine) 5,000 units 10/23/23 06:00 10/24/23 14:50 Heparin Sod 5,000 Unit/0.5 Ml Vial SQ 11/22/23 05:59 5,000 units Q8 PRIYA Administration Promethazine HCl 12.5 mg/ 50.5 mls @ 202 mls/hr 10/22/23 22:10 10/24/23 01:21 Sodium Chloride IV 11/21/23 22:09 Infused Q6H PRN Infusion Nausea And Vomiting Lactated Ringer's 1,000 mls @ 150 mls/hr 10/23/23 08:30 10/24/23 14:50 Lr IV 10/25/23 08:29 150 mls/hr .Q6H40M PRIYA Administration Lorazepam 2 mg/ Syringe 2 mls @ 2 mls/min 10/24/23 00:15 10/24/23 16:30 IV 11/23/23 00:14 2 mls/min Q1H PRN Administration Anxiety/Agitation
[2023-10-24] MEDS: OLANZapine 10 MG/2.1 ML SDV IM STA ×2 (18:23→23:09)
[2023-10-24] MEDS: ZIPRASIDONE 20 MG/ML SDV IM STA (20:14)
[2023-10-24] MEDS: MAGNESIUM SULFATE / D5W 1 GM/100 ML BAG IV ONE (23:11)
[2023-10-24] MEDS: LORazepam 3 MG in SYRINGE 1.5 ML IV PRN (23:55)
[2023-10-25] MEDS: ZIPRASIDONE 20 MG/ML SDV IM STA (00:20)
[2023-10-25] MEDS: cloNIDine HCL 0.1 MG/24 HR TRANSDERM SYS TD SCH (02:17)
--- NOTE | 2023-10-25 04:59 | Communication Note ---
Date of Service: October 25, 2023 Made aware by RN of patient agitation despite multiple doses of IV lorazepam and IM Zyprexa overnight. Geodon IM 1 dose given. SBP 170s, heart rate 110s ICU provider requested to eval patient for possible transfer to ICU level of care given need for administration of multiple sedative agents. Clonidine patch for now while patient unable to take home oral clonidine given uncontrolled BP and heart rate, possible clonidine withdrawal. 1230 AM Patient seems to have settled down upon evaluation by ICU provider. Continue as needed antipsychotic and benzo administration as per recommendation.
[2023-10-25 05:12] LABS: Hematocrit (blood only) 37.5 % (37.0-47.0); Hemoglobin 12.8 g/dl (12.0-16.0); Mean Corpuscular Hemoglobin 28.8 pg (25.0-34.0); Mean Corpuscular Hgb Conc 34.1 g/dL (32.0-36.0); Mean Corpuscular Volume 84.3 fL (80.0-100.0); Mean Platelet Volume 13.1 fL (9.4-12.4); Platelet Count 150 K/uL (130-400); RDW Coefficient of Variation 12.9 % (11.5-14.5); RDW Standard Deviation 39.3 fL (36.4-46.3); Red Blood Count 4.45 M/uL (4.20-5.40); White Blood Count 5.68 K/ul (4.8-10.8)
[2023-10-25 05:27] LABS: BUN Creatinine Ratio 9.7 (10-20); Calcium 8.5 mg/dl (8.6-10.3); Creatinine Clr Calc Pharmacy 160.1 ml/min; Est GFR (African American) 131.2 ml/min; Est GFR (Non-African American) 113.2 ml/min; Phosphorus 3.3 mg/dl (2.5-4.9); Potassium 3.5 mmol/L (3.5-5.1)
[2023-10-25] MEDS: CHECK CLONIDINE PATCH PLACEMENT SCH (07:36)
[2023-10-25] MEDS ORDERED: PROPOFOL BOLUS FROM BAG IV PRN (08:04)
[2023-10-25] MEDS ORDERED: STAT IV Infusion **Titration per Protocol STA ×2 (08:04→10:17)
[2023-10-25] MEDS ORDERED: fentaNYL BOLUS from BAG IV PRN (08:04)
[2023-10-25] MEDS: propofoL 1,000 MG/100 ML VIAL IV SCH (08:15)
[2023-10-25] MEDS: fentaNYL citrate 2,500 MCG/250 ML BAG IV SCH (08:16)
[2023-10-25] MEDS: VECURONIUM BROMIDE 10 MG VIAL IV ONE (08:16)
--- NOTE | 2023-10-25 09:05 | Critical Care Consultation ---
Date of Consultation October 25, 2023 Assessment & Plan (1) Acute hyperactive delirium due to another medical condition: (2) Adverse effect of dopamine receptor agonist: (3) Encephalopathy: (4) Altered mental status: (5) Rhabdomyolysis: (6) History of Graves' disease: (7) Post-surgical hypothyroidism: Plan Assessment: 28 yo female who was admitted due to acute metabolic/toxic encephalopathy in the ICU for mechanical ventilation given need for administration of multiple sedative agents due to agitation Critical care indication: need for mechanical ventilation - on sedative agents Plan: Neurologic Acute metabolic/ toxic encephalopathy / Severe agitation - sudden onset likely secondary to polypharmacy/ substance abuse - Dopamine toxicity, neuroleptic malignant, serotonin syndrome - Hx of substance abuse - Neurology consulted by primary team. Note reviewed - Psychiatric consulted by primary team, note reviewed - Ct head: no intracranial abnormality - Ct Neck: There is no evidence of cervical spine fracture or subluxation. - Pending work up EEG, LP and MRI - Continue holding home psychotropics - Due to severe agitation and need of multiples sedation patient was intubated this morning. Will proceed to do the rest of diagnostic test such as LP and MRI Sedation: Propofol, fentanyl Cardiac BP stable at this time Clonidine patch Respiratory No prior history of respiratory disease Continue mechanical ventilation - Plan for extubation today after workup is complete Gastrointestinal Diet: NPO Renal/electrolytes Rhabdomyolysis - CK level improving - Cr normalize No significant electrolyte derangement at this time Replete electrolytes as needed JON on admission with Cr elevated to 1.21 Genitourinary No concerns at this time Molina catheter draining normal-appearing urine at this time Strict I/O's Endocrine Graves disease s/p surgery, post surgical hypothyroidism - TSH elevated, normalt T4 - continue Levothyroxine BSG stable Continue ISS per protocol Hematologic Hgb stable at this time Infectious disease Afebrile since admission No concern for infection at this time Monitor fever curve Work up negative so far UC and BC, pending LP Integumentary No concerns at this time Lines/access PIVs intact Prophylaxis DVT ppx: SCDs GI ppx: Protonix Thank you the opportunity to participate in this patient's care. Please see att ending documentation for further recommendations. Supervising Physician Co-Signing Physician Notes Dr. Tafoya was resident physician during care of patient. I separately evaluated patient for hlal portions of the history and the exam. I was present during the critical portion of medical decision making, and I discussed the case with the resident. I generally agree with the findings and plan. Discussed with hospitalist medicine service. Reviewed neurology and psychiatric consultation. Ultimately patient has ongoing encephalopathy, by enlarge part patient has been combative requiring increasing doses of sedation. To facilitate additional workup I feel it is safer for the patient and staff to undergo intubation and obtain lumbar puncture and MRI to increase diagnostic yield. Leading working diagnosis includes substance induced psychosis and encephalopathy versus neuroleptic malignant syndrome versus serotonin syndrome. CPK levels decreasing, not at level which necessitates aggressive treatment. Patient is afebrile without white count, chest x-ray reviewed, no hypoxia doubtful that this represents bacterial infection. Ordering blood cultures for completeness. Mild transaminitis, but history of nonalcoholic fatty liver disease, given multiple tattoos will send acute hepatitis panel rule out viral hepatitis, RPR is nonreactive, HSV, HIV Kristi-Wyatt are pending, ammonia negative, ordering thyroid panel, thyroid-stimulating immunoglobulin elevated in November 2020, parathyroid hormone previously elevated however serum calcium is by enlarge part within normal limits. Adding tickborne labs and peripheral smear. Reviewed EKG, EEG was reported to be performed this morning, awaiting formal results. Patient had multiple facial piercings which necessitated removal to facilitate MRI, reviewed drug screen, positive for marijuana otherwise other positives can be from administered medications. I am hopeful we will be able to obtain an urgent MRI and we now have obtained CSF sampling that we will be able to proceed with extubation of the patient and minimization of sedating medications. Reviewed endocrinology visit notes of September 23, 2020: patient has a history of thyrotoxicosis in June 2019 ultimately requiring total thyroidectomy in July 2019 and now has postsurgical hypothyroidism I have personally spent 45 minutes of critical care time in the direct management of this patient. This is a life/limb threatening event. This includes time spent evaluating patient, direct bedside care, chart review, placing orders, interpretation of diagnostic studies, discussion with consultants, patient, and/or family members regarding treatment decisions, as well as other required patient management activities. This time is exclusive of all separately billable procedures, and teaching time and separate from and in addition to any other critical care service time. History of Present Illness Attending Physician: Toyin Boyce MD History of Present Illness 28 year old woman with PTSD, obesity, hypothyroidism, NAFLD, binge eating disorder who is admitted for acute encephalopathy of unclear etiology at this time. Patient with history as well of substance abuse. Encephalopathy with unknown etiology at this moment, differential diagnoses include polypharmacy dopamine toxicity, neuroleptic malignant syndrome. Since admission a several rodriguez codes had been call on patient due to severe agitation requiring multiple round of sedation including IV Ativan and IM Zyprexa. ICU was consulted due to multiple dose of sedative agents overnight, uncontrolled BP and HR and possible intubation. On evaluations this morning patient was found awake oriented only to self, agitated. Decision was made to intubate patient and placed her on mechanical ventilation for sedation. Plan to performed the LP now and MRI for further diagnostic test. Will extubate this afternoon and re asses patient agitation. Allergies Allergy/AdvReac Type Severity Reaction Status Date / Time azithromycin Allergy Intermediate rash per Verified 10/22/23 22:03 [facility] ketorolac [From Toradol] Allergy Intermediate itchy Verified 10/22/23 22:03 rash/diarrhea Penicillins Allergy Intermediate SWELLING/RA Verified 10/22/23 22:03 SH amoxicillin AdvReac Severe RASH/NAUSEA Verified 10/22/23 22:03 /VOMITING methimazole AdvReac Intermediate pancytopeni Verified 10/22/23 22:03 a tramadol AdvReac Mild itchy,rash Verified 10/22/23 22:03 Home Medications Medication Instructions Recorded Confirmed Type duloxetine 60 mg capsule,delayed 60 mg PO QAM 07/03/20 10/22/23 History release bupropion HCl 100 mg tablet,12 hr 100 mg PO DAILY 10/22/23 10/22/23 History sustained-release cariprazine 3 mg capsule (Vraylar) 3 mg PO DAILY 10/22/23 10/22/23 History clonidine HCl 0.1 mg tablet 0.1 mg PO HS 10/22/23 10/22/23 History cyclobenzaprine 10 mg tablet 10 mg PO HS PRN MUSCLE SPASMS 10/22/23 10/22/23 History duloxetine 30 mg capsule,delayed 30 mg PO QAM 10/22/23 10/22/23 History release gabapentin 400 mg capsule 400 mg PO HS 10/22/23 10/22/23 History levothyroxine 125 mcg tablet 125 mcg PO DAILYBB 10/22/23 10/22/23 History lisdexamfetamine 60 mg capsule 60 mg PO QAM 10/22/23 10/22/23 History ropinirole 0.25 mg tablet 0.25 mg PO TID 10/22/23 10/22/23 History Patient History Medical History Heart murmur Pyelonephritis Depressed Anxiety Surgical History S/P cholecystectomy 10/2020 No pertinent past surgical history Family History Other No pertinent family history Social History Smoking Status: Unknown if ever smoked Tobacco Type: Cigarettes Cigarettes Per Day: 8 smokes/day; Second Hand Exposure: No; Do You Dip or Chew Tobacco: No; Hx Alcohol Use: No Hx Substance Use: No Preferred Language: Tuvaluan Communication Ability: Unable Fingernail Former Required: No Beliefs That Will Affect Care: None Current Living Situation: Spouse Feels Safe at Home: Yes Assistive Devices: None Review of Systems Review of Systems: as per hpi Physical Exam Constitutional: + altered mental status and + combative incoherent speech, agitated Respiratory: normal respiratory effort, lungs clear to auscultation Cardiovascular: RRR, no murmur, no edema Musculoskeletal: no cyanosis or clubbing, extremities motor strength 5/5 Neurologic: moves all extremities, awake and + confused Results & Data Results & Data Vital Signs (Past 12 Hours) Vital Signs Temp Pulse Resp BP Pulse Ox 10/25/23 07:45 62 10/25/23 06:03 77 21 100 10/25/23 05:06 90 24 96 10/25/23 05:03 124/102 H 10/25/23 05:00 70 17 100 10/25/23 04:00 74 20 100 10/25/23 04:00 37.0 C 10/25/23 03:03 107 H 17 95 10/25/23 02:06 93 H 22 10/25/23 02:01 23 123/87 99 10/25/23 01:51 61 22 10/25/23 01:21 120 H 26 H 10/25/23 00:00 40 H 10/25/23 00:00 37.0 C 10/25/23 00:00 97 H 10/24/23 23:26 174/97 H 10/24/23 23:24 99 H 22 10/24/23 23:06 96 H 23 88 L 10/24/23 22:06 87 18 10/24/23 21:00 80 25 H 95
[2023-10-25 09:27] LABS: Total Protein CSF 37.3 mg/dl (15-45)
[2023-10-25 09:33] LABS: Appearance CSF Clear; CSF Count Tube # 3; CSF Xanthrochromic No xanthochromia; Color CSF Colorless; Red Blood Cell CSF Manual 0 (0-); White Blood Cell CSF Manual 0 (0-5)
--- NOTE | 2023-10-25 09:38 | XRay Report ---
XR chest 1V portable CLINICAL HISTORY: Intubation TECHNIQUE: Single frontal radiograph of the chest was obtained. Comparison: Comparison is made to chest radiograph 10/22/2023 FINDINGS: Endotracheal tube terminates 41 mm from the valentina. The cardiomediastinal silhouette is normal. Stabl e right airspace opacities. No evidence of pleural effusion or pneumothorax. IMPRESSION: Stable right airspace opacities. ACT 112: Negative or not required by law. Electronically signed by: Hans Gustafson M.D. 10/25/2023 9:36 AM
[2023-10-25] MEDS: RAPID SEQUENCE INDUCTION BAG ONE (09:39)
--- NOTE | 2023-10-25 09:42 | Procedure Note ---
Procedure Note Date of Service October 25, 2023 Note Procedure Date: Noted above Procedure: Lumbar puncture Pre-procedure Diagnosis: Persistent encephalopathy Post-procedure Diagnosis: same as above Prior to Procedure: Informed Consent: The risks, benefits, indications, potential complications, and alternatives were explained to the patient's and informed consent obtained. Attending Staff: Kajal Hawkins DO Plastics Scientist: Leticia Boyce MD Indications: Persistent encephalopathy necessitating CSF sampling The identity of the patient was confirmed and a bedside time out was performed. Description of Procedure: Patient was positioned in the right lateral decubitus position, prepped and draped in usual sterile fashion. The L3-4 space located with bilateral iliac crests as landmarks. 1% Lidocaine without epinephrine was used to anesthetize the area. A 20 gauge spinal needle was introduced into the subarachnoid space. Stylet was removed with appropriate fluid return. Needle removed after adequate fluid collected and sterile bandage placed at puncture site. 12 mL of CSF fluid collected. Fluid was clear. Specimen(s): sent for Gram Stain, culture, cell count, glucose, protein, and additional labs to be ordered by neurology or medicine service Complications: None Estimated Blood Loss: None Coding CPT Codes Neurology - Neurology: 48141 Lumbar Puncture, diagnostic ([id number]) [facility] Procedure Codes (Charges) Neurology Neurology: 32378 Lumbar Puncture, diagnostic
--- NOTE | 2023-10-25 09:44 | Procedure Note ---
Procedure Note Date of Service October 25, 2023 Note Procedure Date: Noted above Procedure: Endotracheal intubation Pre-procedure Diagnosis: Acute encephalopathy, need for additional procedures Post-procedure Diagnosis: same as above Prior to Procedure: Informed Consent: Informed consent was obtained from the patient's Attending Staff: Kamla Hawkins DO Pass Worker: Leticia Boyce MD The identity of the patient was confirmed and a bedside time out was performed. Description of Procedure: Patient was evaluated and required intubation for impending respiratory failure. The patient was prepared in the usual fashion. A video 3 laryngoscope was used. A 7.5 mm inner diameter endotrachial tube was placed endotracheally to 24 cm at the teeth. A grade 1 view was obtained. The endotracheal tube was noted to pass through the vocal cords. Chest rise was bilateral. Bilateral breath sounds were heard without air sounds in the abdomen. Mist was noted in the endotracheal tube. End-tidal CO2 measurement was positive. Chest x-ray shows proper endotracheal tube placement. Complications: None Findings: Not applicable Specimens: Not applicable Estimated blood loss: Zero Coding CPT Codes Resuscitation - Resuscitation: 85828 Endotracheal Intubation, emergency ([id number]) [facility] [place] Codes (Charges) Resuscitation Resuscitation: 16392 Endotracheal Intubation, emergency
[2023-10-25] MEDS ORDERED: VECURONIUM BROMIDE 10 MG VIAL IV ONE (09:48)
[2023-10-25] MEDS ORDERED: KETAMINE HCL INJ 50 MG/ML 10 ML VIAL IV ONE (09:48)
[2023-10-25 09:50] LABS: Glucose 90 mg/dl (70-99(Fasting))
--- NOTE | 2023-10-25 10:12 | Electrocardiogram Report ---
Test Reason : Blood Pressure : / mmHG Vent. Rate : 083 BPM Atrial Rate : 083 BPM P-R Int : 184 ms QRS Dur : 084 ms QT Int : 378 ms P-R-T Axes : 056 072 037 degrees QTc Int : 444 ms Normal sinus rhythm with sinus arrhythmia Normal ECG When compared with ECG of 23-OCT-2023 09:59, [place] interval has decreased QT has shortened Confirmed by Fabricio Adames ([id number]) on 10/25/2023 10:12:18 AM Referred By: REFERRED SELF Confirmed By:Fabricio Adames
[2023-10-25 10:14] LABS: HIV 4th Gen(HIV 1,2 AB+p24 Ag Negative (Negative)
--- NOTE | 2023-10-25 10:26 | Hospitalist Progress Note ---
Date of Service October 25, 2023 Assessment & Plan (1) Encephalopathy: Plan: Ms. Baeza is a 28 year old woman with obsiety, hypothyridism, NAFLD, binge eating disorder who is admitted for acute encephalopathy of unclear etiology at this time. Patient is notable agitated. Review of medications reveals multiple dopamine agonists, which potentially precipitated current events. Psych and neurology following. #Mechanical Ventilation for Airway protection #Severe agitation/behavioral disturbance -Patient requiring notable amount of sedative/benzos with minimal improvement in psychologic status over 24 hours In order to pursue advanced imaging and LP, decision made for intubation for airway protection iso IV sedation to facilitate further diagnostics Discussed with , agrees to plan MRI ordered LP performed at bedside ICU on consult Fentanyl/propofol per team Heparin dvt ppx PPI IV for ulcer ppx Appreciate rodent exterminator recommendations #Acute metabolic/toxic encephalopathy Likely secondary to medications --CT head:No acute intracranial abnormality. --CT Neck: There is no evidence of cervical spine fracture or subluxation. There are patchy groundglass opacities at the right apex, which may represent a pneumonitis. Correlate clinically. --CXR:Airspace consolidation is seen throughout the right lung. Correlate clinically for evidence of pneumonia/aspiration pneumonitis. Radiographic follow-up to resolution is recommended. -- Urine culture negative No oxygen requirement, fevers -No hypercarbia on VBG, normal ammonia levels --Toxicology screen positive for THC --MDMA/methamphetamine 2/2 bupropion and Vyvanse Check procalcitonin:negative, discontinue empiric abx at this time B12, TSH wnl, Folate RPR negative Psychiatry consulted: ddx dopamine toxicity, neuroleptic malignant syndrome, serotonin syndrome -Discontinue home antipsychotics -Benzos as now, can use zyprexa 2.5 IM for severe agitation EEG obtained this am iso of multiple antipsychotics/benzos LP obtained, pending MRI ordered Meningitis panel, cell count, lyme, VDRL -Cell count 0, clear #Acute rhabdomyolysis *resolved #Acute kidney injury *resolved CK levels improved Cr levels back to normal Continue IV fluids Avoid nephrotoxic agents as able #H/O Substance abuse #H/O Anxiety/mood disorder. Resume home medications as able Psychiatry following: avoid antipsychotics given concern for dopamine toxicity #Graves' disease S/P surgery #Postsurgical hypothyroidism TSH elevated, normal free T4 Continue levothyroxine Will repeat thyroid function tests s/p IV levothyroxine 10/23 Resume PO as able TSH in am #Sinus bradycardia #Prolonged QTc First-degree AV block Avoid AV irma blocking agents Monitor on tele Other chronic conditions: H/O ADD, Anorexia/PTSD H/O HCV H/O Anorexia nervosa/binge eating disorder Tobacco use disorder IVF Fentanyl analgesia, per ICU Propofol sedation, per ICU Heparin DVT ppx HOB 30 PPI IV Glycemic control per ICU protcol Extubation possible this afternoon Bowel care prn Molina in place 10/24 DVT Px: Heparin SQ Code Status Full code Admission and Anticipated Discharge Date Admission Date: October 22, 2023 Subjective Over 12 hours, patient received 15mg lorazepam, 10mg geodon, 15mg olanzipine and still extremely agitated Patient incoherent; physical restraints not keeping patient in bed with risk of harm to self and staff/nursing/physicians Discussed case with overphone: agreeable for IV sedation/intubation for airway protection to help facilitate further etiologies for abrupt behavioral disturbance Review of Systems Review of Systems: Unobtainable due to reduced consciousness Physical Exam Constitutional: severely agitated, speaking in fluent language, however, content inappropriate for situation Respiratory: normal respiratory effort, lungs clear to auscultation Musculoskeletal: no cyanosis or clubbing, extremities motor strength 5/5 Skin: full skin assessment repeated: no obviosus wounds, lesions, fresh tattoos or other sites for infection Neurologic: moving all extremities equally, CN not formally assessed however, no focal deficits appreciated Results & Data Results & Data Vital Signs (Past 12 Hours) Vital Signs Temp Pulse Resp BP Pulse Ox 10/25/23 09:31 103 H 190/136 H 10/25/23 09:30 18 99 10/25/23 09:20 68 149/99 H 10/25/23 09:15 20 98 10/25/23 09:11 68 158/105 H 10/25/23 09:06 22 96 10/25/23 09:03 18 95 10/25/23 08:50 174/124 H 10/25/23 08:45 104 H 15 94 10/25/23 08:06 24 10/25/23 07:45 62 10/25/23 07:18 16 100 10/25/23 06:03 77 21 100 10/25/23 05:06 90 24 96 10/25/23 05:03 124/102 H 10/25/23 05:00 70 17 100 10/25/23 04:00 74 20 100 10/25/23 04:00 37.0 C 10/25/23 03:03 107 H 17 95 10/25/23 02:06 93 H 22 10/25/23 02:01 23 123/87 99 10/25/23 01:51 61 22 10/25/23 01:21 120 H 26 H 10/25/23 00:00 40 H 10/25/23 00:00 37.0 C 10/25/23 00:00 97 H 10/24/23 23:26 174/97 H 10/24/23 23:24 99 H 22 10/24/23 23:06 96 H 23 88 L Laboratory Results Short CBC 10/25/23 Range/Units 04:44 WBC 5.68 (4.8-10.8) K/ul Hgb 12.8 (12.0-16.0) g/dl Hct 37.5 (37.0-47.0) % Plt Count 150 (130-400) K/uL [facility] 10/24/23 10/25/23 10/25/23 14:56 04:44 09:10 Sodium 140 139 Potassium 3.7 3.5 Chloride 111 H 107 Carbon Dioxide 21 21 BUN 11 7 Creatinine 0.72 0.72 Glucose 92 90 90 Calcium 8.8 8.5 L Medications Administered Home Medications Medication Instructions Recorded Confirmed Last Taken duloxetine 60 mg capsule,delayed 60 mg PO [facility] 07/03/20 10/22/23 10/21/23 release bupropion HCl 100 mg tablet,12 hr 100 mg PO DAILY 10/22/23 10/22/23 Unknown sustained-release cariprazine 3 mg capsule (Vraylar) 3 mg PO DAILY 10/22/23 10/22/23 Unknown clonidine HCl 0.1 mg tablet 0.1 mg PO HS 10/22/23 10/22/23 10/21/23 cyclobenzaprine 10 mg tablet 10 mg PO HS PRN MUSCLE SPASMS 10/22/23 10/22/23 Unknown duloxetine 30 mg capsule,delayed 30 mg PO QAM 10/22/23 10/22/23 10/21/23 release gabapentin 400 mg capsule 400 mg PO HS 10/22/23 10/22/23 10/21/23 levothyroxine 125 mcg tablet 125 mcg PO DAILYBB 10/22/23 10/22/23 10/21/23 lisdexamfetamine 60 mg capsule 60 mg PO QAM 10/22/23 10/22/23 10/21/23 ropinirole 0.25 mg tablet 0.25 mg PO TID 10/22/23 10/22/23 Unknown Active Medications Generic Name Dose Route Start Last Admin Trade Name Kathleen PRN Reason Stop Dose Admin Clonidine HCl 1 patch 10/25/23 02:15 10/25/23 02:17 Clonidine Hcl 0.1 Mg/24 Hr Transderm Sys TD 11/24/23 02:14 1 patch Q7D@0900 PRIYA Administration Heparin Sodium (Porcine) 5,000 units 10/23/23 06:00 10/25/23 05:22 Heparin Sod 5,000 Unit/0.5 Ml Vial SQ 11/22/23 05:59 5,000 units Q8 PRIYA Administration Propofol 1,000 mg in 100 mls @ 21.474 mls/hr 10/25/23 08:15 10/25/23 09:53 Diprivan IV 10/28/23 08:14 30 mcg/kg/min .Q4H40M PRIYA 21.5 mls/hr Titration Protocol 30 MCG/KG/MIN Fentanyl Citrate 2,500 mcg in 250 mls @ 5 mls/hr 10/25/23 08:15 10/25/23 09:38 Fentanyl Citrate IV 11/08/23 08:14 50 mcg/hr .Q50H PRIYA 5 mls/hr Titration Protocol 50 MCG/HR Miscellaneous 1 each 10/25/23 08:00 10/25/23 07:36 Check Clonidine Patch Placement N/A 11/24/23 07:59 1 each QS PRIYA Administration
[2023-10-25] MEDS ORDERED: VECURONIUM BROMIDE 10 MG in 0.9 % SODIUM CHLORIDE 100 ML IV SCH (10:30)
[2023-10-25 10:35] LABS: Cryptococcus neoformans/ga PCR Not Detected (NotDetected); Cytomegalovirus PCR Not Detected (NotDetected); Enterovirus PCR Not Detected (NotDetected); Escherichia coli K1 PCR Not Detected (NotDetected); Haemophilius influenzae PCR Not Detected (NotDetected); Herpes Simplex Virus 1 PCR Not Detected (NotDetected); Herpes Simplex Virus 2 PCR Not Detected (NotDetected); Human Herpes Virus 6 PCR Not Detected (NotDetected); Human Parechovirus PCR Not Detected (NotDetected); Listeria monocytogenes PCR Not Detected (NotDetected); Neisseria meningitidis PCR Not Detected (NotDetected); Streptococcus agalactiae PCR Not Detected (NotDetected); Streptococcus pneumoniae PCR Not Detected (NotDetected); Varicella Zoster Virus PCR Not Detected (NotDetected)
[2023-10-25 10:59] LABS: Lyme Screen Rflx Confirmation Negative (Negative)
[2023-10-25 11:10] LABS: Thyroid Stimulating Hormone 10.433 uIu/ml (0.300-4.500)
[2023-10-25 11:14] LABS: T4 Free Thyroxine 1.22 ng/dl (0.61-1.60)
[2023-10-25 11:17] LABS: Creatine Kinase 3142 U/L (26-192)
[2023-10-25] MEDS: PANTOprazole 40 MG in SYRINGE 0 ML IV SCH (11:31)
[2023-10-25] MEDS: VECURONIUM BROMIDE 10 MG VIAL IV STA (12:02)
[2023-10-25] MEDS: ICU Protocol for HYPERglycemia SCH (12:03)
[2023-10-25] MEDS: ARTIFICIAL TEARS OP OINT 3.5 GM TUBE OP SCH (12:10)
[2023-10-25] MEDS: GADOBUTROL 65ML VIAL IV ONE (12:37)
--- NOTE | 2023-10-25 12:51 | Magnetic Resonance Report ---
MRI OF THE BRAIN COMBO CLINICAL HISTORY: Change in mental status. COMPARISON STUDY: CT of the brain dated 10/22/2023. TECHNIQUE: MRI of the brain was performed utilizing various T1 and T2-weighted sequences in the axial , sagittal, and coronal planes. Contrast-enhanced sequences were acquired following the administratio n of 12 cc of Gadavist. FINDINGS: Brain parenchyma: The brain parenchyma is normal in appearance. There is no hemorrhage or mass effect . There is no restricted diffusion to suggest acute ischemia. No enhancing mass lesion is identified on the postcontrast images. Lopez-white matter differentiation is preserved. No extra-axial fluid franco ection is seen. The cerebellar tonsils are normal in configuration. Ventricles, sulci, and cisterns: Normal in configuration. Pituitary and sella: Unremarkable. Intracranial vasculature: Normal flow voids are maintained at the skull base. Orbits: The bony orbits are grossly intact. Orbital contents are normal in appearance. Sinuses and mastoids: There is mild mucosal thickening in the left sphenoid sinus. The remaining para nasal sinuses are clear. The mastoid air vessels are well-pneumatized. There is layering fluid within the posterior pharynx. Calvarium: Unremarkable. Cervical cord: Partially visualized cervical spinal cord is normal in morphology and signal intensity . IMPRESSION: No acute intracranial abnormality. ACT 112: Negative or not required by law. Electronically signed by: Carlos Ann M.D. 10/25/2023 12:49 PM
--- NOTE | 2023-10-25 15:48 | Communication Note ---
Date of Service: October 25, 2023 I have reviewed the MRI results. TSH elevated however T4 within appropriate range, parathyroid hormone also within appropriate range. Bio[employer] CSF unremark able, CSF chemistries unremarkable, no white cells, no red cells. Reviewed peripheral smear, no inclusions noted, Lyme negative. HIV also negative. Clinically during my evaluations the patient has not had rigidity, no documentation of fever, will obtain a core temperature. Review of vital signs there is no obvious labile blood pressures. Will obtain repeat UA, there is no anemia I think acute porphyria is unlikely. We are proceeding with extubation of the patient. She is already on a clonidine patch, I think dexmedetomidine should not be utilized for any additional sedation if required and would concur with low potency antipsychotic such as Quetiapine 50-100mg or low dose Olanzapine 2.5mg PO/IM for agitation. I updated the patient's , father, brother present at bedside. I have personally spent 40 minutes of critical care time in the direct management of this patient. This is a life/limb threatening event. This includes time spent evaluating patient, direct bedside care, chart review, placing orders, interpretation of diagnostic studies, discussion with consultants, patient, and/or family members regarding treatment decisions, as well as other required patient management activities. This time is exclusive of all separately billable procedures, and teaching time and separate from and in addition to any other critical care service time. Coding Level of Care Code 29408 CRITICAL CARE EA ADD 30M
--- NOTE | 2023-10-25 16:27 | Communication Note ---
Date of Service: October 25, 2023 Neurology Update: Agree with intensive care, I personally reviewed the MRI which was unremarkable. CSF had 0 cells and normal protein. This is not a neurologic condition but secondary to her polypharmacy. Continue supportive care and management with psychiatry to adjust her mediccations.
[2023-10-25] MEDS: DEXTROSE 50% 50 ML SYRINGE IV ONE (16:54)
[2023-10-25] MEDS ORDERED: KETAMINE HCL 50MG/ML VIAL 10 MG in SODIUM CHLORIDE 0.9% 50 ML IV ONE (17:04)
[2023-10-25] MEDS ORDERED: STAT IV/IM STA (17:29)
[2023-10-25] MEDS: KETAMINE HCL IV ONE (17:32)
[2023-10-25] MEDS: SODIUM CHLORIDE 0.9% IV ONE (17:32)
[2023-10-25 17:43] LABS: Appearance Urine Clear (Clear); Bacteria Urine Automated None Seen (None Seen); Bilirubin Urine Negative (Negative); Blood Urine 2+ (Negative); Cast Urine Automated 0-2 /lpf (0-2); Color Urine Yellow; Epithelial Cell Urine Auto 0-2 /hpf (0-2); Glucose Urine UA Trace (Negative); Ketones Urine 1+ (Negative); Leukocyte Esterase Urine 2+ (Negative); Nitrite Urine Negative (Negative); Protein Urine Negative (Negative); RBC Urine Automated >20 /hpf (0-2); Specific Gravity Urine 1.007 (1.000-1.030); Urobilinogen Urine Negative (Negative); WBC Urine Automated 0-5 /hpf (0-5)
[2023-10-25] MEDS: KETAMINE 100MG/ML 500 MG in SODIUM CHLORIDE 0.9% 495 ML IV SCH (17:50)
[2023-10-25] MEDS ORDERED: Nursing to Pharmacy Communication SCH (20:45)
[2023-10-25] MEDS: MIDAZOLAM HCL 1 MG/ML 2ML VIAL IV PRN (21:33)
[2023-10-25] MEDS: OLANZapine 10 MG/2.1 ML SDV IM ONE (22:01)
[2023-10-25] MEDS: OLANZapine 10 MG/2.1 ML SDV IM STA (22:05)
[2023-10-25] MEDS: D5W AND LACTATED RINGERS 1,000 ML IV SCH (22:05)
--- NOTE | 2023-10-26 06:36 | Electroencephalogram ---
EEG Procedure Note Date of Service October 25, 2023 Start / End Times Start Time: 06:18 End Time: 06:[address] Boyce History A 28 year old female with altered mental status. EEG performed for evaluation of epileptiform activity. Home Medication List Medication Instructions Recorded Confirmed Type duloxetine 60 mg capsule,delayed 60 mg PO QAM 07/03/20 10/22/23 History release bupropion HCl 100 mg tablet,12 hr 100 mg PO DAILY 10/22/23 10/22/23 History sustained-release cariprazine 3 mg capsule (Vraylar) 3 mg PO DAILY 10/22/23 10/22/23 History clonidine HCl 0.1 mg tablet 0.1 mg PO HS 10/22/23 10/22/23 History cyclobenzaprine 10 mg tablet 10 mg PO HS PRN MUSCLE SPASMS 10/22/23 10/22/23 History duloxetine 30 mg capsule,delayed 30 mg PO QAM 10/22/23 10/22/23 History release gabapentin 400 mg capsule 400 mg PO HS 10/22/23 10/22/23 History levothyroxine 125 mcg tablet 125 mcg PO DAILYBB 10/22/23 10/22/23 History lisdexamfetamine 60 mg capsule 60 mg PO QAM 10/22/23 10/22/23 History ropinirole 0.25 mg tablet 0.25 mg PO TID 10/22/23 10/22/23 History Inpatient Medication List Clonidine HCl (Clonidine Hcl 0.1 Mg/24 Hr Transderm Sys) 1 patch TD Q7D@0900 [facility] Stop: 11/24/23 02:14 Last Admin: 10/25/23 17:15 Dose: 1 patch Documented By: Admin: 10/25/23 13:39 Dose: 1 patch Documented By: Admin: 10/25/23 02:17 Dose: 1 patch Documented By: ZAIRE Ketamine HCl 500 mg/ Sodium (Chloride) 500 mls @ 20.9 mls/hr IV .[id number] [facility]; Protocol Stop: 11/24/23 17:59 Last Titration: 10/25/23 20:59 Dose: 0.2 mg/kg/hr, 20.9 mls/hr Documented By: Titration: 10/25/23 19:02 Dose: 0.1 mg/kg/hr, 10.5 mls/hr Documented By: ALTHEA Co-signed By: ZAIRE Admin: 10/25/23 17:50 Dose: 0.1 mg/kg/hr, 10.5 mls/hr Documented By: ALTHEA Co-signed By: JULIOCESAR Dextrose/Lactated Ringer's (D5w And Lactated Ringers) 1,000 mls @ 100 mls/hr IV .Q10H [facility] Stop: 11/24/23 21:59 Last Infusion: 10/25/23 22:56 Dose: 100 mls/hr Documented By: Admin: 10/25/23 22:05 Dose: 125 mls/hr Documented By: ZAIRE Midazolam HCl (Midazolam Hcl 1 Mg/Ml 2ml Vial) 0.5 mg IV Q2H PRN PRN Reason: hallucinations or aggitati Stop: 11/24/23 17:11 Last Admin: 10/26/23 05:22 Dose: 0.5 mg Documented By: Admin: 10/26/23 01:56 Dose: 0.5 mg Documented By: Admin: 10/25/23 23:56 Dose: 0.5 mg Documented By: Admin: 10/25/23 21:33 Dose: 0.5 mg Documented By: ZAIRE Hernandez (Check Clonidine Patch Placement) 1 each N/A QS [facility] Stop: 11/24/23 07:59 Last Admin: 10/25/23 22:55 Dose: 1 each Documented By: Admin: 10/25/23 17:15 Dose: 1 each Documented By: Admin: 10/25/23 07:36 Dose: 1 each Documented By: ALTHEA Hernandez (Icu Protocol For Hyperglycemia) 1 each N/A ACHS [facility] Stop: 10/27/23 11:29 Last Admin: 10/25/23 22:01 Dose: 1 each Documented By: Admin: 10/25/23 17:19 Dose: 1 each Documented By: Admin: 10/25/23 12:03 Dose: 1 each Documented By: ALTHEA Discontinued Medications Dextrose (Dextrose 50% 50 Ml Syringe) Confirm Administered Dose 50 ml IV .STK- MED ONE Stop: 10/25/23 16:46 Last Admin: 10/25/23 16:54 Dose: 50 ml Documented By: ALTHEA Diphenhydramine HCl (Diphenhydramine 50 Mg/Ml Vial) 50 mg IM NOW STA Stop: 10/22/23 19:17 Last Admin: 10/22/23 19:19 Dose: 50 mg Documented By: KENDRICK Gadobutrol (Gadobutrol 65ml Vial) 10 ml IV ONCE ONE Stop: 10/25/23 12:38 Last Admin: 10/25/23 12:37 Dose: 10 ml Documented By: GARETH Haloperidol Lactate (Haloperidol Lactate 5 Mg/Ml 1 Ml Vial) 5 mg IM NOW STA Stop: 10/22/23 19:17 Last Admin: 10/22/23 19:20 Dose: 5 mg Documented By: KENDRICK Haloperidol Lactate (Haloperidol Lactate 5 Mg/Ml 1 Ml Vial) 5 mg IM NOW STA Stop: 10/22/23 20:15 Last Admin: 10/22/23 20:40 Dose: 5 mg Documented By: CLAIRE Haloperidol Lactate (Haloperidol Lactate 5 Mg/Ml 1 Ml Vial) 5 mg IV NOW STA Stop: 10/23/23 09:30 Last Admin: 10/23/23 09:45 Dose: 5 mg Documented By: REJI Haloperidol Lactate (Haloperidol Lactate 5 Mg/Ml 1 Ml Vial) Confirm Administered Dose 5 mg .ROUTE .STK-MED ONE Stop: 10/23/23 09:30 Last Admin: 10/23/23 09:45 Dose: Not Given Documented By: REJI Heparin Sodium (Porcine) (Heparin Sod 5,000 Unit/0.5 Ml Vial) 5,000 units SQ Q8 [facility] Stop: 11/22/23 05:59 Last Admin: 10/25/23 14:37 Dose: 5,000 units Documented By: Admin: 10/25/23 05:22 Dose: 5,000 units Documented By: JTova Admin: 10/24/23 20:39 Dose: 5,000 units Documented By: Admin: 10/24/23 14:50 Dose: 5,000 units Documented By: Admin: 10/24/23 06:02 Dose: 5,000 units Documented By: Admin: 10/23/23 20:59 Dose: 5,000 units Documented By: Admin: 10/23/23 14:44 Dose: Not Given Documented By: Admin: 10/23/23 06:11 Dose: 5,000 units Documented By: MYAH Sodium Chloride (Nss) 1,000 mls @ 999 mls/hr IV .Q1H1M [facility] Stop: 10/22/23 19:45 Last Infusion: 10/22/23 20:14 Dose: Infused Documented By: Admin: 10/22/23 19:08 Dose: 999 mls/hr Documented By: JIGNESH Sodium Chloride (Nss) 1,000 mls @ 999 mls/hr IV .Q1H1M [facility] Stop: 10/22/23 23:15 Last Infusion: 10/23/23 01:11 Dose: Infused Documented By: Admin: 10/22/23 22:33 Dose: 999 mls/hr Documented By: Infusion: 10/22/23 22:32 Dose: Infused Documented By: Admin: 10/22/23 21:25 Dose: 999 mls/hr Documented By: MARCIA Promethazine HCl 12.5 mg/ (Sodium Chloride) 50.5 mls @ 202 mls/hr IV Q6H PRN PRN Reason: Nausea And Vomiting Stop: 11/21/23 22:09 Last Infusion: 10/24/23 21:00 Dose: Infused Documented By: Admin: 10/24/23 20:39 Dose: 202 mls/hr Documented By: Infusion: 10/24/23 01:21 Dose: Infused Documented By: Admin: 10/24/23 00:33 Dose: 202 mls/hr Documented By: Infusion: 10/23/23 17:19 Dose: Infused Documented By: Admin: 10/23/23 16:55 Dose: 202 mls/hr Documented By: REJI Lactated Ringer's (Lr) 1,000 mls @ 100 mls/hr IV .Q10H ONE Stop: 10/23/23 08:11 Last Infusion: 10/23/23 09:47 Dose: Infused Documented By: Admin: 10/22/23 23:20 Dose: 100 mls/hr Documented By: COLIN Lorazepam 1 mg/ Syringe 1 mls @ 2 mls/min IV Q4H PRN PRN Reason: Anxiety/Agitation Stop: 11/21/23 22:17 Last Admin: 10/23/23 04:46 Dose: 2 mls/min Documented By: YOLA Lactated Ringer's (Lr) 1,000 mls @ 150 mls/hr IV .Q6H40M [facility] Stop: 10/25/23 08:29 Last Infusion: 10/25/23 09:40 Dose: Infused Documented By: Admin: 10/25/23 09:40 Dose: 150 mls/hr Documented By: Infusion: 10/25/23 09:40 Dose: Infused Documented By: Admin: 10/25/23 04:04 Dose: 150 mls/hr Documented By: Infusion: 10/25/23 03:20 Dose: Infused Documented By: Admin: 10/24/23 20:39 Dose: 150 mls/hr Documented By: JTova Infusion: 10/24/23 20:39 Dose: Infused Documented By: Admin: 10/24/23 14:50 Dose: 150 mls/hr Documented By: Infusion: 10/24/23 14:42 Dose: Infused Documented By: Admin: 10/24/23 08:01 Dose: 150 mls/hr Documented By: Infusion: 10/24/23 06:52 Dose: Infused Documented By: Admin: 10/24/23 00:11 Dose: 150 mls/hr Documented By: Infusion: 10/23/23 22:30 Dose: Infused Documented By: Admin: 10/23/23 15:49 Dose: 150 mls/hr Documented By: Infusion: 10/23/23 15:49 Dose: Infused Documented By: Admin: 10/23/23 09:44 Dose: 150 mls/hr Documented By: REJI Lorazepam 1 mg/ Syringe 1 mls @ 2 mls/min IV NOW STA Stop: 10/23/23 05:00 Last Admin: 10/23/23 06:11 Dose: Not Given Documented By: TP Lorazepam 1 mg/ Syringe 1 mls @ 2 mls/min IV Q1H PRN PRN Reason: Anxiety/Agitation Stop: 11/21/23 22:17 Last Admin: 10/23/23 20:58 Dose: 2 mls/min Documented By: Admin: 10/23/23 16:55 Dose: 2 mls/min Documented By: REJI Cefepime HCl 1,000 mg/ Syringe 10 mls @ 5 mls/min IV Q12H [facility]; Protocol Stop: 10/28/23 09:29 Last Admin: 10/24/23 10:47 Dose: 5 mls/min Documented By: Admin: 10/23/23 20:58 Dose: 5 mls/min Documented By: Admin: 10/23/23 09:46 Dose: 5 mls/min Documented By: REJI Lorazepam 2 mg/ Syringe 2 mls @ 2 mls/min IV Q1H PRN PRN Reason: Anxiety/Agitation Stop: 11/23/23 00:14 Last Admin: 10/24/23 22:54 Dose: 2 mls/min Documented By: Admin: 10/24/23 21:37 Dose: 2 mls/min Documented By: Admin: 10/24/23 20:39 Dose: 2 mls/min Documented By: JTova Admin: 10/24/23 19:39 Dose: 2 mls/min Documented By: JTvoa Admin: 10/24/23 16:30 Dose: 2 mls/min Documented By: Admin: 10/24/23 15:43 Dose: 2 mls/min Documented By: Admin: 10/24/23 06:02 Dose: 2 mls/min Documented By: Admin: 10/24/23 03:34 Dose: 2 mls/min Documented By: Admin: 10/24/23 01:38 Dose: 2 mls/min Documented By: Admin: 10/24/23 00:33 Dose: 2 mls/min Documented By: CLC Potassium Chloride (K Valeriy / Wtr) 10 meq in 100 mls @ 100 mls/hr IV Q1H [facility] Stop: 10/24/23 09:14 Last Infusion: 10/24/23 10:01 Dose: Infused Documented By: Admin: 10/24/23 09:01 Dose: 100 mls/hr Documented By: Infusion: 10/24/23 09:01 Dose: Infused Documented By: Admin: 10/24/23 08:01 Dose: 100 mls/hr Documented By: SHA Levothyroxine Sodium 75 mcg/ (Syringe) 3.75 mls @ 2 mls/min IV ONCE ONE; Protocol Stop: 10/24/23 07:31 Last Admin: 10/24/23 08:01 Dose: 2 mls/min Documented By: SHA Lorazepam 2 mg/ Syringe 2 mls @ 2 mls/min IV 1600 ONE Stop: 10/24/23 16:01 Last Admin: 10/24/23 16:31 Dose: Not Given Documented By: MEKAK Magnesium Sulfate/Dextrose (Magnesium Sulfate / D5w) 1 gm in 100 mls @ 50 mls/hr IV ONE ONE Stop: 10/25/23 01:01 Last Infusion: 10/25/23 01:15 Dose: Infused Documented By: ChaimT Admin: 10/24/23 23:11 Dose: 50 mls/hr Documented By: ZAIRE Lorazepam 3 mg/ Syringe 3 mls @ 2 mls/min IV Q1H PRN PRN Reason: Anxiety/Agitation Stop: 11/23/23 00:14 Last Admin: 10/25/23 07:35 Dose: 2 mls/min Documented By: Admin: 10/25/23 05:22 Dose: 2 mls/min Documented By: Admin: 10/25/23 02:28 Dose: 2 mls/min Documented By: Admin: 10/25/23 01:31 Dose: 2 mls/min Documented By: Admin: 10/24/23 23:55 Dose: 2 mls/min Documented By: ZAIRE Propofol (Diprivan) 1,000 mg in 100 mls @ 0 mls/hr IV .Q0M [facility]; Protocol Stop: 10/28/23 08:14 Last Admin: 10/25/23 17:00 Dose: Not Given Documented By: Titration: 10/25/23 16:02 Dose: Infused Documented By: Titration: 10/25/23 15:35 Dose: 0 mcg/kg/min, 0 mls/hr Documented By: Titration: 10/25/23 15:26 Dose: 10 mcg/kg/min, 7.2 mls/hr Documented By: Titration: 10/25/23 15:13 Dose: 15 mcg/kg/min, 10.7 mls/hr Documented By: Titration: 10/25/23 15:10 Dose: 20 mcg/kg/min, 14.3 mls/hr Documented By: Titration: 10/25/23 15:00 Dose: 25 mcg/kg/min, 17.9 mls/hr Documented By: Titration: 10/25/23 14:52 Dose: 30 mcg/kg/min, 21.5 mls/hr Documented By: Admin: 10/25/23 13:55 Dose: 35 mcg/kg/min, 25.1 mls/hr Documented By: ALTHEA Co-signed By: AKANKSHA Titration: 10/25/23 13:55 Dose: Infused Documented By: ALTHEA Co-signed By: AKANKSHA Admin: 10/25/23 11:17 Dose: 35 mcg/kg/min, 25.1 mls/hr Documented By: ALTHEA Co-signed By: MTP Titration: 10/25/23 11:17 Dose: Infused Documented By: ALTHEA Co-signed By: MTP Titration: 10/25/23 10:26 Dose: 35 mcg/kg/min, 25.1 mls/hr Documented By: Titration: 10/25/23 09:53 Dose: 30 mcg/kg/min, 21.5 mls/hr Documented By: Titration: 10/25/23 09:38 Dose: 25 mcg/kg/min, 17.9 mls/hr Documented By: Admin: 10/25/23 08:15 Dose: 20 mcg/kg/min, 14.3 mls/hr Documented By: ALTHEA Co-signed By: ELIZABETH Fentanyl Citrate (Fentanyl Citrate) 2,500 mcg in 250 mls @ 0 mls/hr IV .Q0M [facility]; Protocol Stop: 11/08/23 08:14 Last Titration: 10/25/23 16:01 Dose: Infused Documented By: ALTHEA Co-signed By: ELIZABETH Titration: 10/25/23 15:39 Dose: 0 mcg/hr, 0 mls/hr Documented By: ALTHEA Co-signed By: ELIZABETH Titration: 10/25/23 15:16 Dose: 25 mcg/hr, 2.5 mls/hr Documented By: ALTHEA Co-signed By: ELIZABETH Titration: 10/25/23 14:33 Dose: 50 mcg/hr, 5 mls/hr Documented By: ALTHEA Co-signed By: JOHNNA Titration: 10/25/23 10:27 Dose: 75 mcg/hr, 7.5 mls/hr Documented By: ALTHEA Co-signed By: ELIZABETH Titration: 10/25/23 09:38 Dose: 50 mcg/hr, 5 mls/hr Documented By: ALTHEA Co-signed By: ELIZABETH Admin: 10/25/23 08:16 Dose: 25 mcg/hr, 2.5 mls/hr Documented By: ALTHEA Co-signed By: ELIZABETH Pantoprazole Sodium 40 mg/ (Syringe) 10 mls @ 5 mls/min IV DAILY@1100 [facility] Stop: 11/24/23 10:59 Last Admin: 10/25/23 11:31 Dose: 5 mls/min Documented By: ALTHEA Ketamine HCl 25 mg/ Sodium (Chloride) 50.5 mls @ 303 mls/hr IV NOW ONE Stop: 10/25/23 17:39 Last Infusion: 10/25/23 17:43 Dose: Infused Documented By: Admin: 10/25/23 17:32 Dose: 303 mls/hr Documented By: ALTHEA Lorazepam (Lorazepam 1 Mg/1 Ml Syr Ed Inj Use) 2 mg IM NOW STA Stop: 10/22/23 18:53 Last Admin: 10/22/23 19:10 Dose: 2 mg Documented By: JIGNESH Lorazepam (Lorazepam 2 Mg/1 Ml Vial) 2 mg IM NOW STA Stop: 10/22/23 20:15 Last Admin: 10/22/23 20:40 Dose: 2 mg Documented By: CLAIRE Miscellaneous (Rapid Sequence Induction Bag) Confirm Administered Dose 1 each N/A .STK-MED ONE Stop: 10/25/23 07:56 Last Admin: 10/25/23 09:39 Dose: 1 each Documented By: ALTHEA Multi-Ingredient Cream (Artificial Tears Op Oint 3.5 Gm Tube) 1 appln OP Q4H [facility] Stop: 11/24/23 10:29 Last Admin: 10/25/23 12:10 Dose: Not Given Documented By: ELIZABETH Naloxone HCl (Naloxone Hcl 0.4 Mg/1 Ml Vial/Carp) Confirm Administered Dose 0.4 mg .ROUTE .STK-MED ONE Stop: 10/22/23 18:39 Last Admin: 10/22/23 19:08 Dose: 0.4 mg Documented By: JIGNESH Olanzapine (Olanzapine 10 Mg/2.1 Ml Sdv) 5 mg IM Q6H PRN PRN Reason: Agitation Stop: 11/21/23 22:09 Last Admin: 10/23/23 22:15 Dose: 5 mg Documented By: Admin: 10/23/23 16:13 Dose: 5 mg Documented By: Admin: 10/23/23 09:46 Dose: 5 mg Documented By: Admin: 10/23/23 04:43 Dose: 5 mg Documented By: YOLA Olanzapine (Olanzapine 10 Mg/2.1 Ml Sdv) 2.5 mg IM Q6H PRN PRN Reason: Agitation Stop: 11/21/23 22:09 Last Admin: 10/24/23 17:37 Dose: 2.5 mg Documented By: SHA Olanzapine (Olanzapine 10 Mg/2.1 Ml Sdv) 5 mg IM NOW STA Stop: 10/24/23 18:17 Last Admin: 10/24/23 18:23 Dose: 5 mg Documented By: SHA Olanzapine (Olanzapine 10 Mg/2.1 Ml Sdv) 5 mg IM Q6H PRN PRN Reason: Agitation Stop: 11/21/23 22:09 Last Admin: 10/25/23 06:17 Dose: 5 mg Documented By: Admin: 10/24/23 21:27 Dose: 5 mg Documented By: ZAIRE Olanzapine (Olanzapine 10 Mg/2.1 Ml Sdv) 5 mg IM NOW STA Stop: 10/24/23 23:01 Last Admin: 10/24/23 23:09 Dose: 5 mg Documented By: ZAIRE Olanzapine (Olanzapine 10 Mg/2.1 Ml Sdv) 2.5 mg IM NOW STA Stop: 10/25/23 21:57 Last Admin: 10/25/23 22:05 Dose: 2.5 mg Documented By: ZAIRE Olanzapine (Olanzapine 10 Mg/2.1 Ml Sdv) Confirm Administered Dose 10 mg IM .STK-MED ONE Stop: 10/25/23 21:58 Last Admin: 10/25/23 22:01 Dose: Not Given Documented By: ZAIRE Vecuronium [place] (Vecuronium [place] 10 Mg Vial) Confirm Administered Dose 10 mg IV .STK-MED ONE Stop: 10/25/23 08:11 Last Admin: 10/25/23 08:16 Dose: 10 mg Documented By: ALTHEA Co-signed By: ELIZABETH Vecuronium [place] (Vecuronium [place] 10 Mg Vial) 10 mg IV NOW STA Stop: 10/25/23 10:35 Last Admin: 10/25/23 12:02 Dose: 10 mg Documented By: ALTHEA Co-signed By: JLM Ziprasidone (Ziprasidone 20 Mg/Ml Sdv) 10 mg IM NOW STA Stop: 10/23/23 21:48 Last Admin: 10/23/23 22:01 Dose: 10 mg Documented By: PATRIA Ziprasidone (Ziprasidone 20 Mg/Ml Sdv) 10 mg IM NOW STA Stop: 10/24/23 19:58 Last Admin: 10/24/23 20:14 Dose: 10 mg Documented By: ZAIRE Ziprasidone (Ziprasidone 20 Mg/Ml Sdv) 10 mg IM NOW STA Stop: 10/25/23 00:10 Last Admin: 10/25/23 00:20 Dose: 10 mg Documented By: ZAIRE Description This is a 21 electrode EEG with a single channel dedicated to limited EKG. The electrodes were placed in accordance with the International 10-20 system. REPORT; At the onset of the EEG the patient is awake. The background is symmetric consisting of 10-11 Hz activity with low amplotude faster frequencies in the frontal head region. No drowsiness is seen. Interpretation IMPRESSION: This is an normal awake routine EEG. There is no evidence of epileptiform activity.
[2023-10-26 07:58] LABS: Hematocrit (blood only) 36.6 % (37.0-47.0); Hemoglobin 12.6 g/dl (12.0-16.0); Mean Corpuscular Hemoglobin 28.8 pg (25.0-34.0); Mean Corpuscular Hgb Conc 34.4 g/dL (32.0-36.0); Mean Corpuscular Volume 83.6 fL (80.0-100.0); Mean Platelet Volume 12.7 fL (9.4-12.4); Platelet Count 170 K/uL (130-400); RDW Coefficient of Variation 12.8 % (11.5-14.5); RDW Standard Deviation 38.9 fL (36.4-46.3); Red Blood Count 4.38 M/uL (4.20-5.40); White Blood Count 5.68 K/ul (4.8-10.8)
[2023-10-26 08:26] LABS: BUN Creatinine Ratio 7.8 (10-20); Calcium 8.7 mg/dl (8.6-10.3); Creatinine Clr Calc Pharmacy 178.7 ml/min; Est GFR (African American) 139.8 ml/min; Est GFR (Non-African American) 120.6 ml/min; Magnesium 1.9 mg/dl (1.7-2.4); Phosphorus 3.2 mg/dl (2.5-4.9); Potassium 3.2 mmol/L (3.5-5.1)
--- NOTE | 2023-10-26 09:39 | Critical Care Progress Note ---
Date of Service October 26, 2023 Assessment & Plan (1) Acute hyperactive delirium due to another medical condition: (2) Adverse effect of dopamine receptor agonist: (3) Encephalopathy: (4) Altered mental status: (5) Rhabdomyolysis: (6) History of Graves' disease: (7) Post-surgical hypothyroidism: Plan Assessment: 28 yo female who was admitted due to acute metabolic/toxic encephalopathy in the ICU for mechanical ventilation given need for administration of multiple sedative agents due to agitation Plan: Neurologic Combativeness -No clinical evidence of neuroleptic malignant syndrome/serotonin syndrome, not meeting significant scores via scoring criteria - Hx of substance abuse -Reviewed EEG results, not indicative of encephalopathy -Reviewed MRI and LP results -Suspect underlying personality disorder -Patient having clear and insightful conversations with 3 family members surrounding the head of the bed. She is able to answer their questions, manipulate the information and give very rational responses; then patient acts impulsive towards staff, it is rapid cycling/instantaneous which is not indicative of underlying metabolic process. Possible underlying splitting behavior -Patient has longstanding history of medical noncompliance this includes necessitating total thyroidectomy as she was unwilling/unable to maintain medical management of her hypothyroidism Cardiac Could optimize blood pressure control, question medical compliance Clonidine patch Respiratory Extubated greater than 12 hours ago no supplemental oxygen needed Gastrointestinal Passed bedside swallow. Renal/electrolytes Rhabdomyolysis -No medical treatment required Genitourinary No concerns at this time Discontinue Molina Endocrine Graves disease s/p surgery, post surgical hypothyroidism - TSH elevated, normalt T4 - continue Levothyroxine Hematologic Hgb stable at this time Infectious disease Afebrile, no leukocytosis, no indication for anti-infectives Integumentary No concerns at this time Lines/access PIVs intact Prophylaxis DVT ppx: Lovenox 30 twice daily Patient's critical care needs have resolved. No strong medical indication for underlying combativeness. Stable for downgrade out of ICU. Admission and Anticipated Discharge Date Admission Date: October 22, 2023 Subjective Overnight patient required 4 doses of Versed during ketamine infusion, staff felt she was more impulsive while on ketamine Physical Exam Physical Exam: General: Alert. nontoxic. While watching outside the room for approximately 5 minutes the patient had rather robust and extensive conversations with family standing around the head of the bed. There did not appear to be tangential thinking, patient appeared to describe [id number] and was goal directed and comments. Skin: Warm, dry, Head: Atraumatic Ears, nose, mouth and throat: airway patent Cardiovascular: Normal peripheral perfusion Respiratory: no respiratory distress Gastrointestinal: Non distended Musculoskeletal: No deformity Results & Data Results & Data Vital Signs (Past 12 Hours) Vital Signs Temp Pulse Pulse Resp BP BP Pulse Ox 10/26/23 07:03 75 25 H 158/111 H 99 10/26/23 06:00 36.0 C L 130 H 14 10/26/23 05:00 36.9 C 80 18 100 10/26/23 05:00 135/107 H 10/26/23 04:09 36.8 C 80 13 99 10/26/23 04:00 152/90 H 10/26/23 03:51 37.2 C 92 H 20 99 10/26/23 03:03 37.3 C 79 0 L 154/91 H 97 10/26/23 02:00 37.7 C H 98 H 18 99 10/26/23 02:00 150/105 H 10/26/23 01:57 37.8 C H 80 28 H 97 10/26/23 01:01 135/90 10/26/23 01:00 37.8 C H 90 19 135/90 93 10/26/23 00:09 38.1 C H 117 H 16 10/26/23 00:01 162/100 H 94 10/25/23 23:51 38.2 C H 112 H 18 10/25/23 23:07 90 10/25/23 23:03 38.3 C H 101 H 21 146/97 H 100 10/25/23 23:02 91 H 22 146/97 H 93 10/25/23 22:21 38.2 C H 96 H 22 149/115 H 99 O2 Del Method O2 Flow Rate 10/26/23 07:03 10/26/23 06:00 10/26/23 05:00 10/26/23 05:00 10/26/23 04:09 10/26/23 04:00 10/26/23 03:51 10/26/23 03:03 10/26/23 02:00 10/26/23 02:00 10/26/23 01:57 10/26/23 01:01 10/26/23 01:00 10/26/23 00:09 10/26/23 00:01 10/25/23 23:51 10/25/23 23:07 10/25/23 23:03 10/25/23 23:02 Nasal Cannula 2 10/25/23 22:21 Critical Care Results & Data Vital Signs (Past 12 Hours) Vital Signs Temp Pulse Pulse Resp BP BP Pulse Ox 10/26/23 07:03 75 25 H 158/111 H 99 10/26/23 06:00 36.0 C L 130 H 14 10/26/23 05:00 36.9 C 80 18 100 10/26/23 05:00 135/107 H 10/26/23 04:09 36.8 C 80 13 99 10/26/23 04:00 152/90 H 10/26/23 03:51 37.2 C 92 H 20 99 10/26/23 03:03 37.3 C 79 0 L 154/91 H 97 10/26/23 02:00 37.7 C H 98 H 18 99 10/26/23 02:00 150/105 H 10/26/23 01:57 37.8 C H 80 28 H 97 10/26/23 01:01 135/90 10/26/23 01:00 37.8 C H 90 19 135/90 93 10/26/23 00:09 38.1 C H 117 H 16 10/26/23 00:01 162/100 H 94 10/25/23 23:51 38.2 C H 112 H 18 10/25/23 23:07 90 10/25/23 23:03 38.3 C H 101 H 21 146/97 H 100 10/25/23 23:02 91 H 22 146/97 H 93 10/25/23 22:21 38.2 C H 96 H 22 149/115 H 99 O2 Del Method O2 Flow Rate 10/26/23 07:03 10/26/23 06:00 10/26/23 05:00 10/26/23 05:00 10/26/23 04:09 10/26/23 04:00 10/26/23 03:51 10/26/23 03:03 10/26/23 02:00 10/26/23 02:00 10/26/23 01:57 10/26/23 01:01 10/26/23 01:00 10/26/23 00:09 10/26/23 00:01 10/25/23 23:51 10/25/23 23:07 10/25/23 23:03 10/25/23 23:02 Nasal Cannula 2 10/25/23 22:21 Lab & Micro Results (Past 24 Hours) RBC 4.38 M/uL (4.20-5.40) 10/26/23 WBC 5.68 K/ul (4.8-10.8) 10/26/23 Hgb 12.6 g/dl (12.0-16.0) 10/26/23 Hct 36.6 % (37.0-47.0) L 10/26/23 MCV 83.6 fL (80.0-100.0) 10/26/23 MCH 28.8 pg (25.0-34.0) 10/26/23 MCHC 34.4 g/dL (32.0-36.0) 10/26/23 RDW Standard Deviation 38.9 fL (36.4-46.3) 10/26/23 RDW Coefficient of Variation 12.8 % (11.5-14.5) 10/26/23 Plt Count 170 K/uL (130-400) 10/26/23 MPV 12.7 fL (9.4-12.4) H 10/26/23 Na 142 mmol/L (136-145) 10/26/23 K 3.2 mmol/L (3.5-5.1) L 10/26/23 Cl 110 mmol/L (98-107) H 10/26/23 CO2 24 mmol/L (21-32) 10/26/23 Anion Gap 8 (3-11) 10/26/23 BUN 5 mg/dl (6-23) L 10/26/23 Creatinine 0.64 mg/dl (0.6-1.2) 10/26/23 Estimated GFR ( Amer) 139.8 ml/min 10/26/23 Estimated GFR (Non-Af Amer) 120.6 ml/min 10/26/23 BUN/Creatinine Ratio 7.8 (10-20) L 10/26/23 Glu 104 mg/dl (70-99(Fasting)) H 10/26/23 Ca 8.7 mg/dl (8.6-10.3) 10/26/23 Phosphorus Level 3.2 mg/dl (2.5-4.9) 10/26/23 Mg 1.9 mg/dl (1.7-2.4) 10/26/23 07:22 Calcium Level 8.7 mg/dl (8.6-10.3) 10/26/23 07:22 Microbiology 10/23/23 10:05 Urine Culture - Final Urine,Clean Catch Gardnerella-like bacilli 10/25/23 08:42 Gram Stain - Final Cerebral Spinal Fluid Diagnostic Findings (Past 24 Hours) Chest X-Ray 10/25/23 08:13 XR chest 1V portable CLINICAL HISTORY: Intubation TECHNIQUE: Single frontal radiograph of the chest was obtained. Comparison: Comparison is made to chest radiograph 10/22/2023 FINDINGS: Endotracheal tube terminates 41 mm from the valentina. The cardiomediastinal silhouette is normal. Stable right airspace opacities. No evidence of pleural ef fusion or pneumothorax. IMPRESSION: Stable right airspace opacities. ACT 112: Negative or not required by law. Electronically signed by: Hans Gustafson M.D. 10/25/2023 9:36 AM Brain MRI 10/25/23 08:30 MRI OF THE BRAIN COMBO CLINICAL HISTORY: Change in mental status. COMPARISON STUDY: CT of the brain dated 10/22/2023. TECHNIQUE: MRI of the brain was performed utilizing various T1 and T2-weighted sequences in the axial, sagittal, and coronal planes. Contrast-enhanced sequences were acquired following the administration of 12 cc of Gadavist. FINDINGS: Brain parenchyma: The brain parenchyma is normal in appearance. There is no hemorrhage or mass effect. There is no restricted diffusion to suggest acute ischemia. No enhancing mass lesion is identified on the postcontrast images. Lopez-white matter differentiation is preserved. No extra-axial fluid collection is seen. The cerebellar tonsils are normal in configuration. Ventricles, sulci, and cisterns: Normal in configuration. Pituitary and sella: Unremarkable. Intracranial vasculature: Normal flow voids are maintained at the skull base. Orbits: The bony orbits are grossly intact. Orbital contents are normal in appearance. Sinuses and mastoids: There is mild mucosal thickening in the left sphenoid sinus. The remaining paranasal sinuses are clear. The mastoid air vessels are well-pneumatized. There is layering fluid within the posterior pharynx. Calvarium: Unremarkable. Cervical cord: Partially visualized cervical spinal cord is normal in morphology and signal intensity. IMPRESSION: No acute intracranial abnormality. ACT 112: Negative or not required by law. Electronically signed by: Carlos Ann M.D. 10/25/2023 12:49 PM I & O Totals 24 Hours 10/25/23 10/26/23 10/27/23 06:59 06:59 06:59 Intake Total 3343.0 / 3343.0 1436.848 / 1436.848 17.417 / 17.417 Output Total 2927 / 2927 3152 / 3152 Balance 416.0 / 416.0 -1715.152 / -1715.152 17.417 / 17.417 Cumulative 10/22/23 18:27 thru 10/26/23 07:43 Intake Total 76171.265 Output Total 9030 Balance 2958.265 RT Ventilator Mngmt (Last Documented) Ventilator Ordered Settings Ventilator Support Mode CPAP 10/25/23 16:13 Respiratory Rate 25 10/26/23 07:03 Ventilator Tidal Volume 380 10/25/23 10:37 Setting Minute Ventilation 12.9 10/25/23 16:13 Ventilator Positive Pressure 5 10/25/23 16:13 Support Setting Positive End Expiratory 5 10/25/23 16:13 Pressure Fraction of Inspired Oxygen 30 10/25/23 16:13 Peak Inspiratory Flow 38 10/25/23 10:37 Ventilator - PT Measurements Respiratory Rate 25 Exhaled Tidal Volume 847 Minute Ventilation 12.9 Peak Inspiratory Airway 11 Pressure Plateau Pressure 12.0 Respiratory Cycle Inspiratory: 1:3.2 Expiratory Ratio Inspiratory Phase Time 1.38 End-Tidal CO2 27 Static Lung Compliance 56.29 Dynamic Lung Compliance 141.17 Normal Static Lung Compliance 50.00 Coding Level of Care Code 97510 SUB INP/OBS CARE 3/50MIN Diagnoses Acute hyperactive delirium due to another medical condition F05 Adverse effect of dopamine receptor agonist T44.995A Encephalopathy G93.40 Altered mental status R41.82 Rhabdomyolysis M62.82 History of Graves' disease Z86.39 Post-surgical hypothyroidism E89.0
--- NOTE | 2023-10-26 10:24 | Hospitalist Progress Note ---
Date of Service October 26, 2023 Assessment & Plan (1) Encephalopathy: Plan: Ms. Baeza is a 28 year old woman with obsiety, hypothyridism, NAFLD, binge eating disorder who is admitted for acute encephalopathy of unclear etiology at this time. Patient is notable agitated. Review of medications reveals multiple dopamine agonists, which potentially precipitated current events. Psych and neurology following. Patient was transferred to ICU the morning of 10/24 for intubation to facilitate MRI/LP and to ensure safety with sedation and harm to self/staff. MRI was normal. LP negative. EEG without slow wave slowing. Patient to be transferred to [facility]. High degree of suspicion this is manifestation of psychiatric disturbance. #Severe agitation/behavioral disturbance #Extubated, 10/24, s/p Mechanical Ventilation for Airway protection -Patient requiring notable amount of sedative/benzos with minimal improvement in psychologic status over 24 hours In order to pursue advanced imaging and LP, decision made for intubation for airway protection iso IV sedation to facilitate further diagnostics Discussed with , agrees to plan MRI normal, LP normal, EEG normal ICU on consult: downgrade this am with plan for further psych recommendations Low dose benzo/zyprexa for agitation prn #Acute metabolic/toxic encephalopathy *improving Likely secondary to medications --CT head:No acute intracranial abnormality. --CT Neck: There is no evidence of cervical spine fracture or subluxation. There are patchy groundglass opacities at the right apex, which may represent a pneumonitis. Correlate clinically. --CXR:Airspace consolidation is seen throughout the right lung. Correlate clinically for evidence of pneumonia/aspiration pneumonitis. Radiographic follow-up to resolution is recommended. -- Urine culture negative No oxygen requirement, fevers -No hypercarbia on VBG, normal ammonia levels --Toxicology screen positive for THC --MDMA/methamphetamine 2/2 bupropion and Vyvanse Check procalcitonin:negative, discontinue empiric abx at this time B12, TSH wnl, Folate MRI/EEG/LP normal; RPR negative Psychiatry consulted: ddx dopamine toxicity, neuroleptic malignant syndrome, serotonin syndrome -Discontinue home antipsychotics -Discussion for ?inpatient psych services, further mood stabilization #Hypertension Continue clonidine Control agitation, uptitrate regimen as tolerated #Acute rhabdomyolysis *resolved #Acute kidney injury *resolved CK levels improved Cr levels back to normal Discontinue fluids, encourage PO Avoid nephrotoxic agents as able #H/O Substance abuse #H/O Anxiety/mood disorder. Resume home medications as able Psychiatry following: awaiting further recommendations #Graves' disease S/P surgery #Postsurgical hypothyroidism TSH elevated, normal free T4 Continue levothyroxine Will repeat thyroid function tests s/p IV levothyroxine 10/23 Resume PO #Sinus bradycardia *resolved #Prolonged QTc First-degree AV block Avoid AV irma blocking agents Monitor on tele Other chronic conditions: H/O ADD, Anorexia/PTSD H/O HCV H/O Anorexia nervosa/binge eating disorder Tobacco use disorder DVT Px: lovenox Code Status Full code Admission and Anticipated Discharge Date Admission Date: October 22, 2023 Subjective Extubated yesterday afternoon Required multiple sedatives overnight This morning, more coherent and intelligible than day prior Tearful, reporting "shock" and "confusion" Denies any acute symptoms Physical Exam Physical Exam: calm and able to communicate, however lethargic Respiratory: normal respiratory effort, lungs clear to auscultation Cardiovascular: RRR, no murmur, no edema Musculoskeletal: no cyanosis or clubbing, extremities motor strength 5/5 Results & Data Results & Data Vital Signs (Past 12 Hours) Vital Signs Temp Pulse Pulse Resp BP BP Pulse Ox 10/26/23 07:03 75 25 H 158/111 H 99 10/26/23 06:00 36.0 C L 130 H 14 10/26/23 05:00 36.9 C 80 18 100 10/26/23 05:00 135/107 H 10/26/23 04:09 36.8 C 80 13 99 10/26/23 04:00 152/90 H 10/26/23 03:51 37.2 C 92 H 20 99 10/26/23 03:03 37.3 C 79 0 L 154/91 H 97 10/26/23 02:00 37.7 C H 98 H 18 99 10/26/23 02:00 150/105 H 10/26/23 01:57 37.8 C H 80 28 H 97 10/26/23 01:01 135/90 10/26/23 01:00 37.8 C H 90 19 135/90 93 10/26/23 00:09 38.1 C H 117 H 16 10/26/23 00:01 162/100 H 94 10/25/23 23:51 38.2 C H 112 H 18 06/20/24 23:07 90 10/25/23 23:03 38.3 C H 101 H 21 146/97 H 100 10/25/23 23:02 91 H 22 146/97 H 93 O2 Del Method O2 Flow Rate 10/26/23 07:03 10/26/23 06:00 10/26/23 05:00 10/26/23 05:00 10/26/23 04:09 10/26/23 04:00 10/26/23 03:51 10/26/23 03:03 10/26/23 02:00 10/26/23 02:00 10/26/23 01:57 10/26/23 01:01 10/26/23 01:00 10/26/23 00:09 10/26/23 00:01 10/25/23 23:51 10/25/23 23:07 10/25/23 23:03 10/25/23 23:02 Nasal Cannula 2 Laboratory Results Short CBC 10/26/23 Range/Units 07:22 WBC 5.68 (4.8-10.8) K/ul Hgb 12.6 (12.0-16.0) g/dl Hct 36.6 L (37.0-47.0) % Plt Count 170 (130-400) K/uL BMP 10/26/23 07:22 Sodium 142 Potassium 3.2 L Chloride 110 H Carbon Dioxide 24 BUN 5 L Creatinine 0.64 Glucose 104 H Calcium 8.7 Cardiac Enzymes 10/25/23 10/25/23 Range/Units 04:44 09:10 Total Creatine Kinase 3342 H 3142 H (26-192) U/L Urine 10/25/23 Range/Units 16:51 Urine Color Yellow Urine Appearance Clear (Clear) Urine pH 7.0 (4.5-7.5) Ur Specific Clint 1.007 (1.000-1.030) Urine Protein Negative (Negative) Urine Glucose (UA) Trace H (Negative) Diagnostic Findings Lp reviewed: normal MRI reviewed: normal EEG reviewed: normal Medications Administered Home Medications Medication Instructions Recorded Confirmed Last Taken duloxetine 60 mg capsule,delayed 60 mg PO QAM 07/03/20 10/22/23 10/21/23 release bupropion HCl 100 mg tablet,12 hr 100 mg PO DAILY 10/22/23 10/22/23 Unknown sustained-release cariprazine 3 mg capsule (Vraylar) 3 mg PO DAILY 10/22/23 10/22/23 Unknown clonidine HCl 0.1 mg tablet 0.1 mg PO HS 10/22/23 10/22/23 10/21/23 cyclobenzaprine 10 mg tablet 10 mg PO HS PRN MUSCLE SPASMS 10/22/23 10/22/23 Unknown duloxetine 30 mg capsule,delayed 30 mg PO QAM 10/22/23 10/22/23 10/21/23 release gabapentin 400 mg capsule 400 mg PO HS 10/22/23 10/22/23 10/21/23 levothyroxine 125 mcg tablet 125 mcg PO DAILYBB 10/22/23 10/22/23 10/21/23 lisdexamfetamine 60 mg capsule 60 mg PO QA 10/22/23 10/22/23 10/21/23 ropinirole 0.25 mg tablet 0.25 mg PO TID 10/22/23 10/22/23 Unknown Active Medications Generic Name Dose Route Start Last Admin Trade Name Kathleen PRN Reason Stop Dose Admin Clonidine HCl 1 patch 10/25/23 02:15 10/25/23 17:15 Clonidine Hcl 0.1 Mg/24 Hr Transderm Sys TD 11/24/23 02:14 1 patch Q7D@0900 PRIYA Administration Miscellaneous 1 each 10/25/23 08:00 10/25/23 22:55 Check Clonidine Patch Placement N/A 11/24/23 07:59 1 each QS PRIYA Administration Miscellaneous 1 each 10/25/23 11:30 10/26/23 08:58 Icu Protocol For Hyperglycemia N/A 10/27/23 11:29 Not Given ACHS PRIYA
[2023-10-26] MEDS: POTASSIUM CHLORIDE CRTAB 20 MEQ TABCR PO STA ×2 (11:02→11:03)
[2023-10-26] MEDS: ENOXAPARIN INJ 30 MG/0.3 ML SYR SQ SCH (11:03)
[2023-10-26] MEDS: OLANZapine 10 MG/2.1 ML SDV IM ONE (11:03)
[2023-10-26] MEDS: OLANZapine 10 MG/2.1 ML SDV IM SCH ×2 (11:04→17:03)
[2023-10-26] MEDS: LORazepam 0.5 MG in SYRINGE 0.25 ML IV PRN ×2 (13:24→17:02)
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
[2023-10-26] MEDS: OLANZapine 5 MG TABLET PO PRN (17:31)
[2023-10-26] MEDS: HALOPERIDOL LACTATE 5 MG/ML 1 ML VIAL IV STA (18:10)
[2023-10-27] MEDS: HALOPERIDOL LACTATE 5 MG/ML 1 ML VIAL IM PRN (00:46)
[2023-10-27] MEDS: LEVOTHYROXINE SODIUM 125 MCG TABLET PO SCH (04:54)
[2023-10-27] MEDS: NICOTINE 21 MG/24 HR TDSY TD SCH (09:26)
[2023-10-27 10:22] LABS: BUN Creatinine Ratio 9.1 (10-20); Calcium 9.3 mg/dl (8.6-10.3); Creatinine Clr Calc Pharmacy 168.6 ml/min; Est GFR (African American) 138.4 ml/min; Est GFR (Non-African American) 119.4 ml/min; Potassium 3.4 mmol/L (3.5-5.1)
[2023-10-27] MEDS ORDERED: OLANZapine 10 MG/2.1 ML SDV IM PRN (12:22)
--- NOTE | 2023-10-27 12:26 | Hospitalist Progress Note ---
Date of Service October 27, 2023 Assessment & Plan (1) Encephalopathy: Plan: Ms. Baeza is a 28 year old woman with obsiety, hypothyridism, NAFLD, binge eating disorder who is admitted for acute encephalopathy of unclear etiology at this time. Patient is notable agitated. Review of medications reveals multiple dopamine agonists, which potentially precipitated current events. Psych and neurology following. Patient was transferred to ICU the morning of 10/24 for intubation to facilitate MRI/LP and to ensure safety with sedation and harm to self/staff. MRI was normal. LP negative. EEG without slow wave slowing. Patient to be transferred to [facility]. High degree of suspicion this is manifestation of psychiatric disturbance v medication. Patient more calm this morning after long afternoon/evening of restlessness/agitation #Severe agitation/behavioral disturbance #Extubated, 10/24, s/p Mechanical Ventilation for Airway protection -Patient requiring notable amount of sedative/benzos with minimal improvement in psychologic status over 24 hours In order to pursue advanced imaging and LP, decision made for intubation for airway protection iso IV sedation to facilitate further diagnostics Discussed with , agrees to plan MRI normal, LP normal, EEG normal ICU on consult: downgrade this am with plan for further psych recommendations Discontinue benzos Start zyprexa prn, haldol for severe #Acute metabolic/toxic encephalopathy *improving Likely secondary to medications --CT head:No acute intracranial abnormality. --CT Neck: There is no evidence of cervical spine fracture or subluxation. There are patchy groundglass opacities at the right apex, which may represent a pneumonitis. Correlate clinically. --CXR:Airspace consolidation is seen throughout the right lung. Correlate clinically for evidence of pneumonia/aspiration pneumonitis. Radiographic follow-up to resolution is recommended. -- Urine culture negative No oxygen requirement, fevers -No hypercarbia on VBG, normal ammonia levels --Toxicology screen positive for THC --MDMA/methamphetamine 2/2 bupropion and Vyvanse Check procalcitonin:negative, discontinue empiric abx at this time B12, TSH wnl, Folate MRI/EEG/LP normal; RPR negative Psychiatry consulted: ddx dopamine toxicity, neuroleptic malignant syndrome, serotonin syndrome -Discontinue home antipsychotics -Discussion for ?inpatient psych services, further mood stabilization #Hypertension Continue clonidine Control agitation, uptitrate regimen as tolerated #Acute rhabdomyolysis *resolved #Acute kidney injury *resolved CK levels improved Cr levels back to normal Discontinue fluids, encourage PO Avoid nephrotoxic agents as able #H/O Substance abuse #H/O Anxiety/mood disorder. Resume home medications as able Psychiatry following: awaiting further recommendations #Graves' disease S/P surgery #Postsurgical hypothyroidism TSH elevated, normal free T4 Continue levothyroxine Will repeat thyroid function tests s/p IV levothyroxine 10/23 Resume PO #Sinus bradycardia *resolved #Prolonged QTc First-degree AV block Avoid AV irma blocking agents Monitor on tele Other chronic conditions: H/O ADD, Anorexia/PTSD H/O HCV H/O Anorexia nervosa/binge eating disorder Tobacco use disorder DVT Px: lovenox Code Status Full code Admission and Anticipated Discharge Date Admission Date: October 22, 2023 Subjective Outbursts yesterday exacerbated by benzos finally able to rest in the evening, slept through morning No other acute events--required scheduled olanzipine and prn haldol Physical Exam Constitutional: WD/WN, vitals as above sleeping deeply on exam Respiratory: normal respiratory effort, lungs clear to auscultation Cardiovascular: RRR, no murmur, no edema Results & Data Results & Data Vital Signs (Past 12 Hours) Vital Signs Temp Pulse Pulse Resp BP Pulse Ox O2 Del Method 10/27/23 10:06 36.5 C 102 H 18 142/90 H 93 Room Air 10/27/23 07:45 81 10/27/23 04:52 36.7 C 94 H 18 155/96 H 97 Room Air Laboratory Results [facility] 10/27/23 09:32 Sodium 141 Potassium 3.4 L Chloride 107 Carbon Dioxide 24 BUN 6 Creatinine 0.66 Glucose 84 Calcium 9.3 Medications Administered Home Medications Medication Instructions Recorded Confirmed Last Taken duloxetine 60 mg capsule,delayed 60 mg PO QAM 07/03/20 10/22/23 10/21/23 release cariprazine 3 mg capsule (Vraylar) 3 mg PO DAILY 10/22/23 10/22/23 Unknown clonidine HCl 0.1 mg tablet 0.1 mg PO HS 10/22/23 10/22/23 10/21/23 cyclobenzaprine 10 mg tablet 10 mg PO HS PRN MUSCLE SPASMS 10/22/23 10/22/23 Unknown duloxetine 30 mg capsule,delayed 30 mg PO QAM 06/10/22/23 10/21/23 release gabapentin 400 mg capsule 400 mg PO HS 10/22/23 10/22/23 10/21/23 levothyroxine 125 mcg tablet 125 mcg PO DAILYBB 10/22/23 10/22/23 10/21/23 lisdexamfetamine 60 mg capsule 60 mg PO QAM 10/22/23 10/22/23 10/21/23 Active Medications Generic Name Dose Route Start Last Admin Trade Name Kathleen PRN Reason Stop Dose Admin Clonidine HCl 1 patch 10/25/23 02:15 10/25/23 17:15 Clonidine Hcl 0.1 Mg/24 Hr Transderm Sys TD 11/24/23 02:14 1 patch Q7D@0900 PRIYA Administration Enoxaparin Sodium 30 mg 10/26/23 10:00 10/27/23 09:53 Enoxaparin Inj 30 Mg/0.3 Ml Syr SQ 11/25/23 09:59 30 mg BID PRIYA Administration Haloperidol Lactate 5 mg 10/26/23 18:00 10/27/23 00:46 Haloperidol Lactate 5 Mg/Ml 1 Ml Vial IM 11/25/23 17:59 5 mg Q8H PRN Administration Agitation Levothyroxine Sodium 125 mcg 10/27/23 06:30 10/27/23 04:54 Levothyroxine Sodium 125 Mcg Tablet PO 11/26/23 06:29 125 mcg DAILYBB PRIYA Administration Miscellaneous 1 each 10/25/23 08:00 10/27/23 09:35 Check Clonidine Patch Placement N/A 11/24/23 07:59 1 each QS PRIYA Administration Miscellaneous 1 each 10/27/23 08:59 10/27/23 09:36 Remove Nicoderm Patch N/A 11/26/23 08:58 1 each DAILY@0859 PRIYA Administration Nicotine 1 patch 10/27/23 09:00 10/27/23 09:26 Nicotine 21 Mg/24 Hr Tdsy TD 11/26/23 08:59 1 patch QAM PRIYA Administration Olanzapine 5 mg 10/26/23 16:21 10/26/23 17:31 Olanzapine 5 Mg Tablet PO 11/25/23 16:20 5 mg Q8H PRN Administration Agitation
[2023-10-27 15:27] LABS: EBV DNA Quant PCR Not Detected copies/mL; EBV DNA Quant Source CSF
--- NOTE | 2023-10-27 15:42 | Psychiatric Progress Note ---
Date of Service October 27, 2023 Impression / Recommendations Impression Ms. Baeza is a 28 year old woman h/o PTSD, hypothyroidism, NAFLD, binge eating disorder who is admitted for acute encephalopathy of unclear etiology at this time. Psychiatry consulted for management recommendations. Diagnostically remains unclear but significant lessening of confusion and emotional lability today with improved thought and behavioral organization. She does not meet 302 criteria as denies SI, HI and no evidence for acute psychosis or letty and able to speak to how she meets her basic/hygiene/nutritional and safety needs. She is felt to have decision making capacity to leave AMA if she chooses this, though recommended she remain in the hospital to ensure ongoing resolution of her previous symptoms of confusion and agitation. Remains unclear what caused elevated CK, she does report history of prior muscle issues and possible autoimmune component versus secondary to increased food restriction prior to admission. She endorses increased stress so acute stress response possible though would be highly atypical presentation given her level of agitation and confusion. Certainly may also have an underlying personality disorder, cluster B, at baseline. Clarified family history of mood lability and multiple personalities in mother and maternal grandmother which could also be consistent with cluster B as this tends to be quite genetic. Overall, I spent a total of 60 minutes with this case including review of chart records, nursing report, review of lab work, direct evaluation of the patient at bedside, counseling the patient and family, discussion of the patient with the hospitalist provider, discussion with the psychiatric liason during clinical rounds, and documentation in the electronic health record. (1) Acute hyperactive delirium due to another medical condition: (2) Altered mental status: (3) Adverse effect of dopamine: (4) Dextromethorphan adverse reaction: Plan -Continue to hold prior to admission psychiatric medication, would not restart on discharge given potential for medication side effects of excess dopamine leading to presentation -She has outpatient psychiatric follow-up within the next week and agreed to [facility] so records can be sent to update Jaelyn Brandon her provider at [facility] -She does not meet 302 criteria at this time -Recommend olanzapine 10mg HS po while in the hospital, on discharge recommend olanzapine 5mg po for the next 7 days to ensure resolution of delirium/acute stress response symptoms -AVOID use of deliriogenic medications (benzodiazepines, opioids, anticholinergics) -Continue with delirium prevention measures: raising blinds during the day, closing at night, frequent re-orientation, contact with family/friends, explaining procedures/nursing care measures prior to physical contact, correct any hearing and visual impairments -For behavioral emergency: olanzapine 10 mg IM x 1 Interval History Identifying Information Ms. Baeza is a 28 year old woman h/o PTSD, obesity, hypothyridism, NAFLD, binge eating disorder who is admitted for acute encephalopathy of unclear etiology at this time. Psychiatry consulted for management recommendations. Chief Complaint "I feel like a cloud was lifted, I don't even know who that was". Subjective Subjective Patient was seen & assessed and interval progress reviewed with treatment team nursing and social work. Required IM haldol just after midnight and IM olanzapine at 10am. Mid-afternoon she is seen at bedside with her partner and family also present. She consents to them being present during our encounter. She and family describe that she woke up mid-morning and was markedly less confused. She reflects on not knowing what happened over the last few days or why but feels she is finally started to feel like herself again. At times has some loosened associations especially when asking about whether or not she would be interested in inpatient psychiatric treatment. She is tearful discussing her preference for outpatient psychiatric treatment and wanting to leave the hospital to see her dogs and be outside again. She remains unsure what lead to her hospitalization and sudden confusion except reflecting that she's had some stressors recently. Currently denies any major mood symptoms nor psychosis. She is fully oriented. She does endorse some restriction prior to hospitalization due to feeling more stressed. Also recalls history of elevated CK many years ago and reports history of leg rashes and muscle vs leg "bone pain" for which her primary care provider has been looking into possible autoimmune contributions. Denies any history of psychosis nor letty. Family history of her mother and maternal grandmother with mood swings moment to moment and possible psychosis and "multiple personalities". Neither ever had a formal diagnosis. Physical Exam Psychiatric Orientation: alert, oriented x 3 and cooperative Apperance: appropriately dressed Eye Contact: good eye contact Motor Behavior: no abnormal motor movements Speech: normal rate/rhythm/volume of speech Affect: + labile affect (tearful at times) Mood: + anxious mood (to get home); no depressed mood Thought Process: + circumstantial thought process and + looseness of associations (at times) Thought Content: reality based without delusions Suicidal Thoughts: denies suicidal thoughts Homicidal Thoughts: denies homicidal thoughts Hallucinations: no auditory hallucinations and no visual hallucinations Insight: + fair insight Judgment: + limited judgement Vital Signs (Past 24 Hours) Last Vital Signs Temp 37.0 C 10/27/23 14:33 Pulse 105 H 10/27/23 15:09 Resp 18 10/27/23 14:33 BP 138/89 10/27/23 14:33 Pulse Ox 96 10/27/23 14:33 O2 Del Method Room Air 10/27/23 14:33 O2 Flow Rate 2 10/25/23 23:02 FiO2 30 10/25/23 16:13 Results & Data ([facility]) Laboratory Results Laboratory Results - last 24 hr 10/25/23 10/27/23 08:42 09:32 Sodium 141 Potassium 3.4 L Chloride 107 Carbon Dioxide 24 Anion Gap 10 BUN 6 Creatinine 0.66 Est Cr Clr Drug Dosing 168.6 Est GFR ( Amer) 138.4 Est GFR (Non-Af Amer) 119.4 BUN/Creatinine Ratio 9.1 L Glucose 84 Calcium 9.3 EBV Source CSF EBV DNA, Quant Not Detected EBV DNA (PCR) Not Detected Current Inpatient Medications Current Inpatient Medications: Current Inpatient Medications Clonidine HCl (Clonidine Hcl 0.1 Mg/24 Hr Transderm Sys) 1 patch TD Q7D@0900 [facility] Stop: 11/24/23 02:14 Last Admin: 10/25/23 17:15 Dose: 1 patch Enoxaparin Sodium (Enoxaparin Inj 30 Mg/0.3 Ml Syr) 30 mg SQ BID [facility] Stop: 11/25/23 09:59 Last Admin: 10/27/23 09:53 Dose: 30 mg Haloperidol Lactate (Haloperidol Lactate 5 Mg/Ml 1 Ml Vial) 5 mg IM Q8H PRN PRN Reason: Agitation Stop: 11/25/23 17:59 Last Admin: 10/27/23 00:46 Dose: 5 mg Levothyroxine Sodium (Levothyroxine Sodium 125 Mcg Tablet) 125 mcg PO DAILYBB [facility] Stop: 11/26/23 06:29 Last Admin: 10/27/23 04:54 Dose: 125 mcg Miscellaneous (Remove Clonidine Patch) 1 each N/A Q7D@0859 [facility] Stop: 12/01/23 08:58 Miscellaneous (Check Clonidine Patch Placement) 1 each N/A QS [facility] Stop: 11/24/23 07:59 Last Admin: 10/27/23 09:35 Dose: 1 each Miscellaneous (Remove Nicoderm Patch) 1 each N/A DAILY@0859 [facility] Stop: 11/26/23 08:58 Last Admin: 10/27/23 09:36 Dose: 1 each Nicotine (Nicotine 21 Mg/24 Hr Tdsy) 1 patch TD QAM [facility] Stop: 11/26/23 08:59 Last Admin: 10/27/23 09:26 Dose: 1 patch Olanzapine (Olanzapine 5 Mg Tablet) 5 mg PO Q8H PRN PRN Reason: Agitation Stop: 11/25/23 16:20 Last Admin: 10/26/23 17:31 Dose: 5 mg Olanzapine (Olanzapine 10 Mg/2.1 Ml Sdv) 5 mg IM Q6H PRN PRN Reason: Agitation Stop: 11/25/23 16:59 Potassium Chloride (Potassium Chloride Crtab 20 Meq Tabcr) 40 meq PO BID [facility] Stop: 11/26/23 20:59
[2023-10-27] MEDS: OLANZapine 10 MG/2.1 ML SDV IM PRN (16:03)
[2023-10-27] MEDS: OLANZapine 10 MG TAB PO SCH (20:37)
[2023-10-27] MEDS: POTASSIUM CHLORIDE CRTAB 20 MEQ TABCR PO SCH (20:37)
[2023-10-27] MEDS: ACETAMINOPHEN 325 MG TAB PO STA (20:53)
--- NOTE | 2023-10-28 09:43 | Discharge Summary ---
Discharge Summary Date of Service October 28, 2023 Principal Dx & Hospital Course #1 = Principal Diagnosis (1) Encephalopathy: Ms. Baeza is a 28 year old woman with obsiety, hypothyridism, NAFLD, binge eating disorder who is admitted for acute encephalopathy of unclear etiology at this time. Patient is notable agitated. Review of medications reveals multiple dopamine agonists, which potentially precipitated current events. Psych and neurology following. Patient was transferred to ICU the morning of 10/24 for intubation to facilitate MRI/LP and to ensure safety with sedation and harm to self/staff. MRI was normal. LP negative. EEG without slow wave slowing. High degree of suspicion this is manifestation of psychiatric disturbance v medication. Patient more calm upon transfer from ICU and cessation of benzos. On day of discharged, patient reports more clarity, eating well, and eager for discharge home. Denies any acute concerns and reports plan to secure prompt psych follow up in coming week. #Severe agitation/behavioral disturbance #Extubated, 10/24, s/p Mechanical Ventilation for Airway protection -Patient requiring notable amount of sedative/benzos with minimal improvement in psychologic status over 24 hours In order to pursue advanced imaging and LP, decision made for intubation for airway protection iso IV sedation to facilitate further diagnostics Discussed with , agrees to plan MRI normal, LP normal, EEG normal ICU on consult: downgrade this am with plan for further psych recommendations Discontinue benzos Hold home regimen d/c with olanzapine 5mg qhs x 7 days #Acute metabolic/toxic encephalopathy *improving Likely secondary to medications --CT head:No acute intracranial abnormality. --CT Neck: There is no evidence of cervical spine fracture or subluxation. There are patchy groundglass opacities at the right apex, which may represent a pneumonitis. Correlate clinically. --CXR:Airspace consolidation is seen throughout the right lung. Correlate clinically for evidence of pneumonia/aspiration pneumonitis. Radiographic follow-up to resolution is recommended. -- Urine culture negative No oxygen requirement, fevers -No hypercarbia on VBG, normal ammonia levels --Toxicology screen positive for THC --MDMA/methamphetamine 2/2 bupropion and Vyvanse Check procalcitonin:negative, discontinue empiric abx at this time B12, TSH wnl, Folate MRI/EEG/LP normal; RPR negative Psychiatry consulted: ddx dopamine toxicity, neuroleptic malignant syndrome, serotonin syndrome -Hold home medications -Discharged with olanzapine 5mg qhs Recommended prompt OP Psych follow up within week #Hypertension Continue clonidine upon d/c #Acute rhabdomyolysis *resolved #Acute kidney injury *resolved CK levels improved Unclear etiology at this time, potentially multifactorial #H/O Substance abuse #H/O Anxiety/mood disorder. Resume home medications as able Psychiatry following: hold home psychotropic medications Start olanzapine 5mg qhs #Graves' disease S/P surgery #Postsurgical hypothyroidism TSH elevated, normal free T4 Continue levothyroxine #Sinus bradycardia *resolved #Prolonged QTc resolved, stable Other chronic conditions: H/O ADD, Anorexia/PTSD H/O HCV H/O Anorexia nervosa/binge eating disorder Tobacco use disorder-encouraged cessation upon d/c Notes For Next Care Provider Concern for dopamine toxicity v adverse reaction to dextromethorphan Medication Changes From Visit Hold all psychiatric medications Start olanzapine 5mg qhs x 7 days Continue clonidine and levothyroxine Admission HPI Per Admitting Provider History obtained from patient and records. Unable to obtain history from patient secondary to obtunded state post administration of multiple sedatives at the ER. Medical history significant for Graves' disease status post surgery, postsurgical hypothyroidism, ADD, migraine, hx anorexia/PTSD as per records, hx HCV secondary to past history IVDU as per records, anxiety disorder/mood disorder, anorexia nervosa/binge eating disorder. Last confinement June 2019 for influenza A pneumonia and newly diagnosed hyperthyroidism secondary to Graves' disease. Patient eventually underwent thyroidectomy. Patient woke up from sleep today and started screaming uncontrollably. Patient markedly confused as per . unaware of unusual stress or self-harm intent. aware of substance abuse. No cough symptoms weakness. Multiple doses of various sedatives administered at the ER. 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 Admission Exam Per Admitting Provider GENERAL: Obtunded, obese, no respiratory distress SKIN: Normal color, warm HEENT: Bespectacled, pink palpebral conjunctivae, no ptosis, dry buccal mucosa NECK : Supple, short neck, no tenderness CHEST : Decreased breath sounds, no tenderness HEART : RRR, no obvious murmurs ABDOMEN: Some distention, nontender EXTREMITIES : Minimal LE swelling, no LE tenderness, no other conspicuous deformities noted NEUROLOGIC : Obtunded, no facial asymmetry, no tremors, gait and stance not assessed Discharge Exam Constitutional WD/WN, vitals as above Respiratory normal respiratory effort, lungs clear to auscultation Cardiovascular RRR, no murmur, no edema Gastrointestinal (Abdomen) normal bowel sounds, soft, nontender, no hepatosplenomegaly Neurologic PERRL, EOMI, accommodation nl, no face palsy, no dysarthria Updated Medication List Medication Instructions Recorded Confirmed Type clonidine HCl 0.1 mg tablet 0.1 mg PO HS 10/22/23 10/22/23 History cyclobenzaprine 10 mg tablet 10 mg PO HS PRN MUSCLE SPASMS 10/22/23 10/22/23 History levothyroxine 125 mcg tablet 125 mcg PO DAILYBB 10/22/23 10/22/23 History olanzapine 5 mg tablet 5 mg PO DAILY #7 tabs 10/28/23 Rx Hospital Stay Data Consultations 10/22/23 21:29 ED Decision to Admit Stat 10/24/23 07:15 Consult Psychiatry Routine 10/24/23 14:23 Consult Neurology Routine 10/25/23 11:18 Consult Liner Machine Operator Stat Diagnostic Imagining Performed 10/22/23 18:41 CT head/brain wo con Stat 10/22/23 18:43 CT cervical spine wo con Stat 10/25/23 08:30 MRI Brain [MR brain wo/w con] Urgent Pending Results Patient Have Any Pending Studies at Discharge: No Discharge Instructions Given to Patient (Per Discharging Provider) You were admitted for altered mental status. It is suspected that you experienced an acute reaction to the combination of medications you have at home, as well as increased stressors. Infection and lesions of the brain were ruled out. Please hold your psychiatric medications at this time until told to resume by home psychiatrist Please continue Olanzapine 5mg at bed time for next 7 days to help with acute stress symptoms upon returning home. Total Time Total Time Spent Total Time Spent (In Minutes): 35
[2023-10-28 17:21] LABS: HSV Type 1 DNA Not Detected (Not Detected); HSV Type 1&2 DNA Source CSF; HSV Type 2 DNA Not Detected (Not Detected)
[2023-10-29 02:02] LABS: Babesia microti DNA Not Detected (Not Detected)
[2023-10-30 01:07] LABS: Ehrlichia chaff DNA Bld Negative (Negative)
[2023-10-30 10:42] LABS: MDA negative; MDEA negative; MDMA (Ecstasy) Urine, Confirm negative; Marijuana Quant, GCMS Urine 3763 ng/mL (<5); Methamphetamine, Ur Confirm NEGATIVE ng/mL (<250)
== END 2023-10-28 09:49 | disposition home or self-care (01) | DRG 91 ==
LOC: ED 18:34 → SUATTDRO 22:08 → 2W 22:08 → 1E 10-23 04:59 → 2W 10-26 21:02